=== PATIENT | male | born 1945 | race Caucasian/White ===

== ENCOUNTER 2020-05-29 09:31 | Outpatient (REF) | payer SELFPAY | END 2020-05-29 09:32 | disposition home or self-care (01) | LOC: HO.HAP 09:31 | PROVIDERS: Visit Provider Internal Medicine | DX: Z13.89 Encounter for screening for other disorder (principal) | CPT/HCPCS: 92700 ==

== ENCOUNTER 2020-07-19 08:19 | Outpatient (REF) | payer MEDICARE, SELFPAY ==
--- NOTE | 2020-07-19 16:53 | MHC.AU.P13 ---
Adult Audiological Evaluation Date of Visit: 07/19/20 Reason for Appointment: Audiological evaluation to monitor the status of Mr. Donohue's hearing loss. He has a known asymmetrical sensorineural hearing loss, with the left ear hearing worse than the right. Previous Hearing Test Results: [facility] [place], 06/14/2019- Mild sloping to moderate sensorineural hearing loss in the right ear, mild sloping to moderately severe sensorineural hearing loss in the left ear. Ear History: History of occupational noise exposure?: Yes: [employer] Medical History: Medical History: Cancer Medical History: History of throat cancer treated with chemotherapy and radiation. Hearing Instrument History- Right Ear: Nailhead Operator: [employer] Model: RegeneRx M50-312 Serial Number: [id number] Battery Size: 312 Repair Warranty: 08/25/2021 Loss and Damage Warranty: 08/25/2021 Dispensed By: [facility] Date of Fittin06/19/2018 Hearing Instrument History- Left Ear: Nailhead Operator: [employer] Model: [id number] M50-312 Serial Number: [id number] Battery Size: 312 Warranty: 08/25/2021 Loss and Damage Warranty: 08/25/2021 Dispensed By: [facility] Date of Fittin06/19/2018 Otoscopy: Right Ear: Non-occluding cerumen Left Ear: Non-occluding cerumen Tympanometry: Tympanometry performed due to: To assess integrity of the middle ear system Right Ear: Normal Middle Ear System (Type A) Left Ear: Normal Middle Ear System (Type A) Hearing Evaluation: Transducer(s) Used: Insert Earphones, Bone Conduction Method: Conventional Audiometry Stimuli Used: Pure Tones Right Ear: Description of Hearing: Normal hearing from 250-1000 Hz, sloping to a mild to moderate sensorineural hearing loss from 8342-4511 Hz. Left Ear: Description of Hearing: Mild sloping to moderately severe sensorineural hearing loss from 250-8000 Hz. Thresholds are 10-25 dBHL worse in the left ear than the right ear from 250-4000 Hz. Speech Recognition Threshold (SRT): Method Used: Monitored Live Voice Stimuli Used: Spondee Words Right Ear: 25 dBHL Left Ear: 35 dBHL Word Discrimination: Method: Recorded Lists Word Lists Used: NU-6 Right Ear: 96% at 65 dBHL Left Ear: 92% at 80 dBHL Comparison: Compared to the most recent evaluation: Hearing is stable. Recommendations: Audiological re-evaluation in one year. Hearing aid maintenance performed today. See Hearing Aid Follow-Up note for more information. Hearing aid maintenance recommended in 6 months. Diagnosis: Primary Diagnosis: H90.3 Bilateral Sensorineural Hearing Loss Services Performed: Comprehensive Audiological Evaluation (CPT 33399) Tympanometry (CPT 12971) Signature: Provider: Juana Bridges, CCC-A
== END 2020-07-19 08:20 | disposition home or self-care (01) ==
LOC: HO.SH 08:19
PROVIDERS: Visit Provider Internal Medicine
DX: H90.3 Sensorineural hearing loss, bilateral (principal)
CPT/HCPCS: 92557; 92567

== ENCOUNTER 2020-07-19 09:20 | Outpatient (REF) | payer SELFPAY | END 2020-07-19 09:21 | disposition home or self-care (01) | LOC: HO.HAP 09:20 | PROVIDERS: Visit Provider Internal Medicine | DX: Z46.1 Encounter for fitting and adjustment of hearing aid (principal) | CPT/HCPCS: V5267 ==

== ENCOUNTER 2020-12-26 10:43 | Outpatient (REF) | payer MEDICARE, SELFPAY ==
[2020-12-26 10:47] LABS: MANUAL DIFF FLAG NO
[2020-12-26 10:54] LABS: Basophils Percent Auto 0.5 % (0-2); Eosinophils Absolute Auto 0.3 X10*3/uL (0.0-0.4); Eosinophils Percent Auto 4.6 % (0-4); Hematocrit 42.8 % (42-52); Hemoglobin 14.4 g/dl (14.0-18.0); Imm Gran Abs Auto 0.02 X10*3/uL (0.00-0.03); Imm Gran Pct Auto 0.3 % (0.0-0.4); Lymphocytes Absolute Auto 1.3 X10*3/uL (1.2-4.9); Lymphocytes Percent Auto 20.7 % (20-40); Mean Corpuscular HGB Conc 33.6 g/dl (31.0-36.0); Mean Corpuscular Hemoglobin 32.6 pg (27.0-33.0); Mean Corpuscular Volume 96.8 fL (80-98); Mean Platelet Volume 8.6 fL (9.4-12.4); Monocytes Absolute Auto 0.6 X10*3/uL (0.1-1.2); Monocytes Percent Auto 9.3 % (2-11); Neutrophils Absolute Auto 4.1 X10*3/uL (2.0-8.3); Neutrophils Percent Auto 64.6 % (45-73); Platelet Count 246 X10*3/uL (160-400); Red Blood Count 4.42 X10*6/uL (4.60-5.80); Red Cell Distribution Width 12.9 % (11.0-16.0); White Blood Count 6.4 X10*3/uL (4.8-10.8)
[2020-12-26 11:02] LABS: Estimated Average Glucose 103 mg/dL; Hemoglobin A1c % 5.2 %
[2020-12-26 11:10] LABS: Glucose Urine UA NEG (NEG); Leukocyte Esterase Urine NEG (NEG); Nitrite Urine NEG (NEG); Urine Blood NEG (NEG); Urine Ketones NEG (NEG); Urine Protein NEG (NEG-TRACE)
[2020-12-26 11:12] LABS: Appearance Urine CLEAR; Color Urine YELLOW
[2020-12-26 11:39] LABS: Creatinine Urine 58.92 mg/dL; Microalbumin Urine < 5.0 mg/L
[2020-12-26 11:58] LABS: Alanine Aminotransferase 10 U/L (0-40); Albumin Level 4.2 g/dL (3.5-5.0); Alkaline Phosphatase 67 U/L (39-117); Anion Gap 13 (12-20); Aspartate Amino Transferase 17 U/L (5-37); Bilirubin Total 1.3 mg/dL (0.0-1.0); Blood Urea Nitrogen 10 mg/dL (9-16); Calcium 9.4 mg/dL (8.4-10.2); Carbon Dioxide 27 mmol/L (22-29); Chloride 104 mmol/L (96-108); Cholesterol 163 mg/dL; Estimated Glomerular Filt Rate > 60; Glucose Fasting 106 mg/dL (60-99); HDL Cholesterol 57 mg/dL; LDL Cholesterol Calculated 92 mg/dl; Potassium 4.9 mmol/L (3.3-5.1); Sodium 139 mmol/L (135-145); Total Protein 6.8 g/dL (6.5-8.0); Triglycerides 70 mg/dL
[2020-12-26 12:00] LABS: PSA,Total (Free>4and<10) 1.66 ng/mL (0.00-4.00)
== END 2020-12-26 10:44 | disposition home or self-care (01) ==
LOC: HO.LNP 10:43
PROVIDERS: Visit Provider Internal Medicine
DX: Z12.5 Encounter for screening for malignant neoplasm of prostate (principal); R73.09 Other abnormal glucose; E78.6 Lipoprotein deficiency
CPT/HCPCS: 80053; 80061; 81003; 82043; 83036; 84153; 85025

== ENCOUNTER 2020-12-29 11:00 | Outpatient (REF) | payer SELFPAY | END 2020-12-29 11:01 | disposition home or self-care (01) | LOC: HO.HAP 11:00 | PROVIDERS: Visit Provider Internal Medicine | DX: Z13.89 Encounter for screening for other disorder (principal) ==

== ENCOUNTER → 2021-01-26 13:53 | Outpatient (BNVA) | payer MEDICARE, SELFPAY | PROVIDERS: PCP Internal Medicine; Visit Provider Surgery | DX: K40.91 Unilateral inguinal hernia, without obstruction or gangrene, recurrent (principal) | CPT/HCPCS: 99202 ==

== ENCOUNTER 2021-02-19 07:36 | Day surgery (SDC) | payer MEDICARE, SELFPAY ==
[2021-02-12 15:15] VITALS: BMI 27.7
--- NOTE | 2021-02-16 08:31 | HO.ANESPROP2 ---
Documented by User: Kim Cabezas NP 02/16/21 08:32 HPI - Anesthesia Eval Consult details Narrative: 75yo M for Right Hernia Repair Inguinal PMFSH Active Problems Active Problems: All Active Problems (Updated 02/12/21 @ 15:14 by Brynn Perez RN) Recurrent right inguinal hernia (Acute) Past Medical History Medical History (Updated 02/12/21 @ 15:14 by Brynn Perez RN) Asthma COVID-19 vaccine series completed Esophageal cancer Sleep apnea Family History Family History (Updated 01/26/21 @ 14:09 by LINDSAY Willis) Father History of colon cancer Mother History of ovarian cancer Brother History of brain cancer Surgical History Surgical History (Updated 02/12/21 @ 15:14 by Brynn Perez RN) History of biopsy (2015) History of colonoscopy History of right inguinal hernia repair (05/01/17) Social History Social History (Updated 01/26/21 @ 14:09 by LINDSAY Willis) Alcohol intake: current Patient Tobacco Use Status: Never used Tobacco Use of substances other than those prescribed or required for medical reasons: No Have you been hit, kicked, punched, or otherwise hurt by someone within the past year? If so, by whom?: No Are you DNR?: No Advance Directives Information Provided: No (advised to bring copy DOS) Advance Directives on File: No Recently lost weight without trying: No Eating poorly because of decreased appetite: No Nutrition Risks: No Nutritional Risk Poor oral hygiene: No Meds Allergies Allergy/AdvReac Type Severity Reaction Status Date / Time No Known Allergies Allergy Verified 02/19/21 07:51 Home Medications Medication Instructions Recorded Confirmed Last Taken Type albuterol sulfate 90 mcg/actuation 2 puff INHALATION Q4-6H PRN 02/12/21 02/12/21 Unknown History aerosol inhaler (ProAir HFA) multivitamin 1 tab PO DAILY 02/12/21 02/12/21 Unknown History Exam Exam Date and Time: February 16, 2021 0831 Height,Weight and Vital Signs: Height 5 ft 7 in Weight 80.286 kg Pertinent Lab Results Pertinent Lab Results: Laboratory Tests 12/26/20 12/26/20 07:40 07:40 WBC 6.4 Hgb 14.4 Hct 42.8 Plt Count 246 Sodium 139 Potassium 4.9 Chloride 104 Carbon Dioxide 27 BUN 10 Creatinine 0.85 Assessment and Plan Assessment Anesthesia Assessment: Chart Reviewed Documented by User: Smitha Gilliam MD 02/19/21 09:10 [facility] Past Medical History Medical History (Updated 02/12/21 @ 15:14 by Brynn Perez, TITO) Asthma COVID-19 vaccine series completed Esophageal cancer Sleep apnea Family History Family History (Updated 01/26/21 @ 14:09 by LINDSAY Willis) Father History of colon cancer Mother History of ovarian cancer Brother History of brain cancer Family history of problems with anesthesia: No Surgical History Surgical History (Updated 02/12/21 @ 15:14 by Brynn Perez RN) History of biopsy (2015) History of colonoscopy History of right inguinal hernia repair (05/01/17) History of Problems with Anesthesia: No Social History Social History (Updated 01/26/21 @ 14:09 by LINDSAY Willis) Alcohol intake: current Patient Tobacco Use Status: Never used Tobacco Use of substances other than those prescribed or required for medical reasons: No Have you been hit, kicked, punched, or otherwise hurt by someone within the past year? If so, by whom?: No Are you DNR?: No Advance Directives Information Provided: No (advised to bring copy DOS) Advance Directives on File: No Recently lost weight without trying: No Eating poorly because of decreased appetite: No Nutrition Risks: No Nutritional Risk Poor oral hygiene: No Meds Allergies Allergy/AdvReac Type Severity Reaction Status Date / Time No Known Allergies Allergy Verified 02/19/21 07:51 Home Medications Medication Instructions Recorded Confirmed Last Taken Type albuterol sulfate 90 mcg/actuation 2 puff INHALATION Q4-6H PRN 02/12/21 02/12/21 Unknown History aerosol inhaler (ProAir HFA) multivitamin 1 tab PO DAILY 02/12/21 02/12/21 Unknown History Exam Airway Mallampati Class: II (One tooth lateral work done) TM Dist: >3cm Neck ROM: Full Heart: rrr Lungs: cta Assessment and Plan Final Anesthetic Review Family History of Problems with Anesthesia: No History of Problems with Anesthesia: No NPO: Yes ASA Class: III Final Preanesthetic Review: No Changes in Pt Med Stat, Meds/Allgs Chart Reviewed and Consent Obtained/Reviewed Patient Risk: Intermediate Procedure Risk: Intermediate Anesthetic Plan Anesthetic Plan: MAC: Disposition: Standard PACU
[2021-02-19 07:55] VITALS: BP 142/81; PULSE 74; RESP 16; TEMP 36.6; O2SAT 98
--- NOTE | 2021-02-19 09:07 | MHC.SHP ---
Pre-Procedural Eval Section A Date of Service: 02/19/21 The patient is an INPATIENT: No Changes since office visit: Yes Patient answered all questions; No Cold of Flu in the past 2 weeks, No New Medical Problems and No Changes in Medication The History & Physical has been completed within 30 days and I have reviewed it.: Yes Section B Chief Complaint: Recurrent Inguinal hernia Allergies: Allergies Allergy/AdvReac Type Severity Reaction Status Date / Time No Known Allergies Allergy Verified 02/19/21 07:51 Plan Diagnosis/Plan: Unchanged I have reviewed the history and physical and performed a pertinent physical examination on my patient. No changes have occurred unless specified.
[2021-02-19] MEDS: Lactated Ringers 1,000 ML 100 ML IVCONT (09:30)
--- NOTE | 2021-02-19 10:39 | P.OP_ITS ---
Operative Note Operative Note Date of Service: 02/19/21 Narrative: Preoperative diagnosis: Recurrent right inguinal hernia Postoperative diagnosis: Same Procedure: Repair of recurrent right inguinal hernia with mesh Surgeon: Derek De Los Santos MD Operational Meteorologist: Deidre Vee PA-C Anesthesia: Local plus MAC Indications for procedure: 75-year-old male patient status post repair of a right inguinal hernia 2017 with a large extended PHS mesh now presenting with a new lump located in the right groin which increases in size with lifting and straining. On examination the patient has recurrent right inguinal hernia located in the region of the internal ring. Operative findings: Indirect recurrent right inguinal hernia. Hernia sac was found to contain appendix. Specimen: None Estimated blood loss: 5 mL Complications: None Procedure details: Patient was brought to the OR and placed in a supine position. After administering intravenous sedation the patient's right groin was prepped with ChloraPrep and draped in a sterile fashion. Local anesthesia consisting of 0.25% Sensorcaine with epinephrine was then infiltrated over the right inguinal ligament. Incision was then made with scalpel carried out through subcutaneous tissue. Significant scar tissue was noted from the previous procedure. This continued down to the external oblique aponeurosis. Additional local was infiltrated below the aponeurosis. This was then incised with a scalpel. The fascia was gently dissected off the mesh using Metzenbaum scissors. Dissection was continued from lateral to medial. The internal ring was identified and a large recurrent hernia identified a emanating from the internal ring. Findings were consistent with a indirect hernia. The hernia sac was dissected free from the surrounding spermatic cord. This was dissected down towards the internal ring. Contents were then reduced into the abdominal cavity. A medium plug was obtained and placed into the internal ring. Internal ring was then closed using interrupted 1 Tycron sutures. The ring was tightened to the allowed just the tip of the index finger to pass. Wounds were then irrigated and suctioned dry. Additional local was infiltrated at this time. External oblique aponeurosis was then closed using a running 2-0 Polysorb suture. Abraham's fascia and dermis was closed using interrupted 3-0 Polysorb sutures. Skin was closed using a running subcuticular 4-0 Polysorb suture. Steri-Strips 2 x 2 gauze and Tegaderm were then applied. Patient tolerated the procedure well. Sponge, instrument, needle counts reported as correct. The patient was transferred to PACU in stable condition.
[2021-02-19 10:40] VITALS: BP 125/61; PULSE 60; RESP 16; TEMP 36.7; O2SAT 98
[2021-02-19 10:55] VITALS: BP 154/76; PULSE 69; RESP 18; O2SAT 100
[2021-02-19 11:16] VITALS: BP 140/95; PULSE 58; RESP 18; TEMP 36.7; O2SAT 100
== END 2021-02-19 11:50 | disposition home or self-care (01) ==
PROVIDERS: PCP Internal Medicine; Visit Provider Surgery
PROC: (CPT 49520; principal; 2021-02-19 09:10)
DX: K40.91 Unilateral inguinal hernia, without obstruction or gangrene, recurrent (principal); G47.33 Obstructive sleep apnea (adult) (pediatric); Z79.899 Other long term (current) drug therapy; Z85.01 Personal history of malignant neoplasm of esophagus
CPT/HCPCS: 49520; C1781; J0690; J2250; J3010

== ENCOUNTER → 2021-02-27 13:59 | Outpatient (BNVA) | payer MEDICARE, SELFPAY | PROVIDERS: PCP Internal Medicine; Referring Provider Internal Medicine; Visit Provider Surgery | DX: Z48.815 Encounter for surgical aftercare following surgery on the digestive system (principal); Z87.19 Personal history of other diseases of the digestive system | CPT/HCPCS: 99212 ==

== ENCOUNTER → 2021-03-09 10:18 | Outpatient (BNVA) | payer MEDICARE, SELFPAY | PROVIDERS: PCP Internal Medicine; Referring Provider Internal Medicine; Visit Provider Surgery | DX: Z48.815 Encounter for surgical aftercare following surgery on the digestive system (principal); Z87.19 Personal history of other diseases of the digestive system | CPT/HCPCS: 99212 ==

== ENCOUNTER → 2021-03-29 15:29 | Outpatient (BNVA) | payer MEDICARE, SELFPAY | PROVIDERS: PCP Internal Medicine; Referring Provider Internal Medicine; Visit Provider Surgery | DX: Z48.815 Encounter for surgical aftercare following surgery on the digestive system (principal); Z87.19 Personal history of other diseases of the digestive system | CPT/HCPCS: 99212 ==

== ENCOUNTER 2021-07-13 07:51 | Outpatient (REF) | payer MEDICARE, SELFPAY ==
--- NOTE | 2021-07-13 10:53 | MHC.AU.AHA ---
Adult Audiological Evaluation Date of Visit: 07/13/21 Pelt Salter Used: Not Applicable Reason for Appointment: Audiologic re-evaluation to determine possible change in hearing ability. Previous Hearing Test Results: 07/19/2020 [facility] Right ear - Normal hearing thresholds 250-1000 Hz, sloping to a moderate high frequency sensorineural hearing loss with 96% speech understanding at 65 dB HL Left ear - Mild sloping to moderately-severe sensorineural hearing loss with 92% speech discrimination at 80 dB HL Ear History: History of Ear Wax Buildup: Both Ears History of occupational noise exposure?: Yes: [employer] Medical History: Medical History: History of throat cancer treated with chemotherapy and radiation. Medication List: Albuterol as needed Hearing Instrument History- Right Ear: Manual Qa Tester: [employer] Model: [id number] M50-312 Serial Number: [id number] Battery Size: 312 Repair Warranty: 08/25/2021 Loss and Damage Warranty: 08/25/2021 Dispensed By: [facility] Date of Fittin06/19/2018 Hearing Instrument History- Left Ear: Manual Qa Tester: [employer] Model: AUDEO M50-312 Serial Number: [id number] Battery Size: 312 Warranty: 08/25/2021 Loss and Damage Warranty: 08/25/2021 Dispensed By: [facility] Date of Fittin06/19/2018 Otoscopy: Right Ear: Unremarkable Left Ear: Unremarkable Tympanometry: Not performed at today's visit as all previous testing has indicated normal middle ear function bilaterally Hearing Evaluation: Transducer(s) Used: Insert Earphones Bone Conduction Method: Conventional Audiometry Stimuli Used: Pure Tones Right Ear: Description of Hearing: Normal hearing thresholds 250-1000 Hz, sloping to a moderate high frequency sensorineural hearing loss at 1413-3463 Hz Left Ear: Description of Hearing: Mild sloping to moderately-severe sensorineural hearing loss. Speech Recognition Threshold (SRT): Method Used: Monitored Live Voice Stimuli Used: Spondee Words Right Ear: 30 dB HL Left Ear: 35 dB HL Word Discrimination: Method: Recorded Lists Word Lists Used: NU-6 Right Ear: 92% at 70 dB HL Left Ear: 92% at 75 dB HL Comparison: Compared to most recent evaluation: There has been a very slight 5 dB decrease in some frequencies with stable speech understanding ability for both ears. Recommendations: Audiological re-evaluation in one year. Will send a reminder card. Hearing aid maintenance performed today. Hearing aid(s) reprogrammed with updated test results. Hearing aids are going out of warranty 08/25/2021. Scheduled an appointment for 08/20/2021 to send both hearing aids in for repair prior to warranty expiration AND WILL PROVIDE LOANER AIDS Diagnosis: Primary Diagnosis: H90.3 Bilateral Sensorineural Hearing Loss Services Performed: Comprehensive Audiological Evaluation (CPT 14149) Signature: Provider: Juana Mendoza, CCC-A
== END 2021-07-13 07:52 | disposition home or self-care (01) ==
LOC: HO.SH 07:51
PROVIDERS: Visit Provider Internal Medicine
DX: Z01.118 Encounter for examination of ears and hearing with other abnormal findings (principal); H90.3 Sensorineural hearing loss, bilateral
CPT/HCPCS: 92557

== ENCOUNTER 2021-08-20 08:33 | Outpatient (REF) | payer SELFPAY | END 2021-08-20 08:34 | disposition home or self-care (01) | LOC: HO.HAP 08:33 | PROVIDERS: Visit Provider Internal Medicine | DX: Z13.89 Encounter for screening for other disorder (principal) ==

== ENCOUNTER 2021-08-31 12:01 | Outpatient (REF) | payer SELFPAY | END 2021-08-31 12:02 | disposition home or self-care (01) | LOC: HO.HAP 12:01 | PROVIDERS: Visit Provider Internal Medicine | DX: Z13.89 Encounter for screening for other disorder (principal) ==

== ENCOUNTER 2021-12-25 10:37 | Outpatient (REF) | payer MEDICARE, SELFPAY ==
[2021-12-25 10:40] LABS: MANUAL DIFF FLAG NO
[2021-12-25 11:29] LABS: Appearance Urine CLEAR; Color Urine YELLOW; Glucose Urine UA NEG (NEG); Leukocyte Esterase Urine NEG (NEG); Nitrite Urine NEG (NEG); Urine Blood NEG (NEG); Urine Ketones NEG (NEG); Urine Protein NEG (NEG-TRACE)
[2021-12-25 11:51] LABS: Basophils Percent Auto 0.7 % (0-2); Eosinophils Absolute Auto 0.4 X10*3/uL (0.0-0.4); Eosinophils Percent Auto 7.4 % (0-4); Hematocrit 41.8 % (42.0-52.0); Imm Gran Abs Auto 0.02 X10*3/uL (0.00-0.03); Imm Gran Pct Auto 0.3 % (0.0-0.4); Lymphocytes Absolute Auto 1.2 X10*3/uL (1.2-4.9); Lymphocytes Percent Auto 19.6 % (20-40); Mean Corpuscular HGB Conc 33.5 g/dl (31.0-36.0); Mean Corpuscular Hemoglobin 32.2 pg (27.0-33.0); Mean Corpuscular Volume 96.1 fL (80.0-98.0); Mean Platelet Volume 8.6 fL (9.4-12.4); Monocytes Absolute Auto 0.7 X10*3/uL (0.1-1.2); Monocytes Percent Auto 11.1 % (2-11); Neutrophils Absolute Auto 3.6 x10*3/uL (2.0-8.3); Neutrophils Percent Auto 60.9 % (45-73); Platelet Count 257 X10*3/uL (160-400); Red Blood Count 4.35 X10*6/uL (4.60-5.80); Red Cell Distribution Width 12.6 % (11.0-16.0)
[2021-12-25 11:56] LABS: Estimated Average Glucose 103 mg/dL; Hemoglobin A1c % 5.2 %
[2021-12-25 12:28] LABS: PSA,Total (Free>4and<10) 1.82 ng/mL (0.00-4.00)
[2021-12-25 12:37] LABS: Alanine Aminotransferase 11 U/L (0-40); Albumin Level 4.3 g/dL (3.5-5.0); Alkaline Phosphatase 65 U/L (39-117); Anion Gap 9 (12-20); Aspartate Amino Transferase 17 U/L (5-37); Bilirubin Total 0.9 mg/dL (0.0-1.0); Blood Urea Nitrogen 12 mg/dL (9-16); Calcium 9.1 mg/dL (8.4-10.2); Carbon Dioxide 30 mmol/L (22-29); Chloride 103 mmol/L (96-108); Cholesterol 157 mg/dL; Estimated Glomerular Filt Rate > 60; Glucose Fasting 112 mg/dL (60-99); HDL Cholesterol 64 mg/dL; LDL Cholesterol Calculated 84 mg/dl; Potassium 4.3 mmol/L (3.3-5.1); Sodium 138 mmol/L (135-145); Triglycerides 45 mg/dL
[2021-12-25 12:45] LABS: RBC Urine 0 /HPF (0); WBC Urine 0 /HPF (0-4)
[2021-12-25 14:11] LABS: Microalbumin Urine < 5.0 mg/L
== END 2021-12-25 10:38 | disposition home or self-care (01) ==
LOC: HO.LNP 10:37
PROVIDERS: PCP Internal Medicine; Visit Provider Internal Medicine
DX: Z12.5 Encounter for screening for malignant neoplasm of prostate (principal); E78.6 Lipoprotein deficiency; R73.03 Prediabetes
CPT/HCPCS: 80053; 80061; 81001; 82043; 83036; 84153; 85025

== ENCOUNTER 2022-01-03 11:46 | Outpatient (REF) | payer MEDICARE, SELFPAY ==
[2022-01-03 12:04] LABS: Triglycerides 69 mg/dL
[2022-01-03 12:29] LABS: TSH reflex Free T4 1.97 uIU/mL (0.32-4.0)
== END 2022-01-03 11:47 | disposition home or self-care (01) ==
LOC: HO.LNP 11:46
PROVIDERS: Visit Provider Internal Medicine
DX: E03.9 Hypothyroidism, unspecified (principal); I89.0 Lymphedema, not elsewhere classified
CPT/HCPCS: 84443; 84478

== ENCOUNTER 2022-01-16 14:45 | Outpatient (REF) | payer MEDICARE, SELFPAY | END 2022-01-16 14:46 | disposition home or self-care (01) | LOC: HO.HAP 14:45 | PROVIDERS: Visit Provider Internal Medicine | DX: Z13.89 Encounter for screening for other disorder (principal) ==

== ENCOUNTER 2022-01-29 13:46 | Outpatient (REF) | payer SELFPAY | END 2022-01-29 13:47 | disposition home or self-care (01) | LOC: HO.HAP 13:46 | PROVIDERS: Visit Provider Internal Medicine | DX: Z46.1 Encounter for fitting and adjustment of hearing aid (principal) | CPT/HCPCS: V5014 ==

== ENCOUNTER 2022-03-11 09:54 | Outpatient (REF) | payer SELFPAY | END 2022-03-11 09:55 | disposition home or self-care (01) | LOC: HO.HAP 09:54 | PROVIDERS: Visit Provider Internal Medicine | DX: Z46.1 Encounter for fitting and adjustment of hearing aid (principal); H90.3 Sensorineural hearing loss, bilateral | CPT/HCPCS: 99499 ==

== ENCOUNTER 2022-06-25 08:09 | Outpatient (REF) | payer SELFPAY | END 2022-06-25 08:10 | disposition home or self-care (01) | LOC: HO.HAP 08:09 | PROVIDERS: Visit Provider Internal Medicine | DX: Z46.1 Encounter for fitting and adjustment of hearing aid (principal); H90.3 Sensorineural hearing loss, bilateral | CPT/HCPCS: V5299 ==

== ENCOUNTER 2022-07-16 15:48 | Outpatient (REF) | payer MEDICARE, SELFPAY ==
[2022-07-16 17:19] LABS: TSH reflex Free T4 1.62 uIU/mL (0.32-4.0)
== END 2022-07-16 15:49 | disposition home or self-care (01) ==
LOC: HO.LNP 15:48
PROVIDERS: Visit Provider Internal Medicine
DX: E03.9 Hypothyroidism, unspecified (principal)
CPT/HCPCS: 84443

== ENCOUNTER 2022-10-11 08:44 | Outpatient (REF) | payer MEDICARE, SELFPAY | END 2022-10-11 08:45 | disposition home or self-care (01) | LOC: HO.SH 08:44 | PROVIDERS: Visit Provider Internal Medicine | DX: Z01.118 Encounter for examination of ears and hearing with other abnormal findings (principal); H90.3 Sensorineural hearing loss, bilateral | CPT/HCPCS: 92557 ==

== ENCOUNTER 2022-10-11 09:23 | Outpatient (REF) | payer SELFPAY | END 2022-10-11 09:24 | disposition home or self-care (01) | LOC: HO.HAP 09:23 | PROVIDERS: Visit Provider Internal Medicine | DX: Z46.1 Encounter for fitting and adjustment of hearing aid (principal) | CPT/HCPCS: V5299 ==

== ENCOUNTER 2022-12-31 10:28 | Outpatient (REF) | payer MEDICARE, SELFPAY ==
[2022-12-31 10:52] LABS: Basophils Percent Auto 0.5 % (0-2); Eosinophils Absolute Auto 0.4 X10*3/uL (0.0-0.4); Eosinophils Percent Auto 5.4 % (0-4); Hematocrit 43.5 % (42.0-52.0); Hemoglobin 14.5 g/dl (14.0-18.0); Imm Gran Abs Auto 0.02 X10*3/uL (0.00-0.03); Imm Gran Pct Auto 0.3 % (0.0-0.4); Lymphocytes Absolute Auto 1.6 X10*3/uL (1.2-4.9); Lymphocytes Percent Auto 19.6 % (20-40); MANUAL DIFF FLAG NO; Mean Corpuscular HGB Conc 33.3 g/dl (31.0-36.0); Mean Corpuscular Hemoglobin 32.4 pg (27.0-33.0); Mean Corpuscular Volume 97.3 fL (80.0-98.0); Mean Platelet Volume 8.5 fL (9.4-12.4); Monocytes Absolute Auto 0.7 X10*3/uL (0.1-1.2); Monocytes Percent Auto 8.8 % (2-11); Neutrophils Absolute Auto 5.2 x10*3/uL (2.0-8.3); Neutrophils Percent Auto 65.4 % (45-73); Platelet Count 281 X10*3/uL (160-400); Red Blood Count 4.47 X10*6/uL (4.60-5.80); Red Cell Distribution Width 12.8 % (11.0-16.0)
[2022-12-31 10:56] LABS: Appearance Urine Cloudy; Color Urine Yellow; Glucose Urine UA Negative (Negative); Leukocyte Esterase Urine Negative (Negative); Nitrite Urine Negative (Negative); PH >= 9.0 (5.0-9.0); Specific Gravity - Urine 1.015 (1.005-1.025); UMIC TRIGGER UACC YES; Urine Blood Negative (Negative); Urine Ketones Negative (Negative); Urine Protein 30 (1+) mg/dL (Neg-Trace)
[2022-12-31 10:59] LABS: Bacteria Urine None Seen (None Seen); Hyaline Casts Urine 0-2 /LPF (0-2); RBC Urine 0-2 /HPF (0-2); Squamous Epithelial Cell Urine 0-2 /HPF (0-2); WBC Urine 0-5 /HPF (0-5)
[2022-12-31 11:14] LABS: Estimated Average Glucose 103 mg/dL; Hemoglobin A1c % 5.2 %
[2022-12-31 11:22] LABS: Alanine Aminotransferase 9 U/L (0-40); Albumin Level 4.2 g/dL (3.5-5.0); Alkaline Phosphatase 66 U/L (39-117); Anion Gap 14 (12-20); Aspartate Amino Transferase 15 U/L (5-37); Bilirubin Total 1.2 mg/dL (0.0-1.0); Blood Urea Nitrogen 8 mg/dL (9-16); Calcium 10.3 mg/dL (8.4-10.2); Carbon Dioxide 27 mmol/L (22-29); Chloride 102 mmol/L (96-108); Estimated Glomerular Filt Rate > 60; Glucose Fasting 101 mg/dL (60-99); Potassium 4.3 mmol/L (3.3-5.1); Sodium 139 mmol/L (135-145); Total Protein 6.7 g/dL (6.5-8.0)
[2022-12-31 11:33] LABS: PSA,Total (Free>4and<10) 2.64 ng/mL (0.00-4.00); TSH reflex Free T4 2.38 uIU/mL (0.32-4.0)
[2022-12-31 12:07] LABS: Creatinine Urine 91.79 mg/dL; Microalbum/Creatinine Ratio Ur 8.7 ug/mg cr
== END 2022-12-31 10:29 | disposition home or self-care (01) ==
LOC: HO.LNP 10:28
PROVIDERS: PCP Internal Medicine; Visit Provider Internal Medicine
DX: Z12.5 Encounter for screening for malignant neoplasm of prostate (principal); E03.9 Hypothyroidism, unspecified; E78.6 Lipoprotein deficiency; R73.03 Prediabetes
CPT/HCPCS: 80053; 81001; 82043; 83036; 84153; 84443; 85025

== ENCOUNTER 2023-01-31 12:18 | Outpatient (REF) | payer MEDICARE, SELFPAY ==
[2023-01-31 14:39] LABS: Calcium 9.9 mg/dL (8.4-10.2)
== END 2023-01-31 12:19 | disposition home or self-care (01) ==
LOC: HO.LNP 12:18
PROVIDERS: Visit Provider Internal Medicine
DX: E83.52 Hypercalcemia (principal)
CPT/HCPCS: 82310

== ENCOUNTER 2023-04-23 08:32 | Outpatient (REF) | payer SELFPAY | END 2023-04-23 08:33 | disposition home or self-care (01) | LOC: HO.HAP 08:32 | PROVIDERS: Visit Provider Internal Medicine | DX: Z13.89 Encounter for screening for other disorder (principal) ==

== ENCOUNTER 2023-04-24 08:19 | Outpatient (REF) | payer SELFPAY | END 2023-04-24 08:20 | disposition home or self-care (01) | LOC: HO.HAP 08:19 | PROVIDERS: Visit Provider Internal Medicine | DX: Z13.89 Encounter for screening for other disorder (principal) ==

== ENCOUNTER 2023-07-28 12:14 | Inpatient (IN) | payer MEDICARE, SELFPAY ==
[2023-07-28] VITALS (7 sets, daily range): BP systolic 96–120; BP diastolic 54–72; PULSE 61–104; RESP 16–20; TEMP 36.5–37.4; O2SAT 94–100; BMI 25.0
--- NOTE | ~2023-07-28 | CT_ITS ---
EXAMINATION: CT HEAD WITHOUT CONTRAST CLINICAL INFORMATION: New confusion COMPARISON: None available. TECHNIQUE: Contiguous axial imaging was performed from the skull base to vertex without intravenous administration of contrast. This CT examination was performed using dose optimization techniques as appropriate, variously including the following: *Automated exposure control *Adjustment of mA and/or kV according to patient size (this includes techniques or standardized protocols for targeted exams where dose is matched to indication/reason for exam; i.e. extremities or head) *Use of iterative reconstruction technique DLP: 725 mGy-cm FINDINGS: There is no evidence of acute intracranial hemorrhage or territorial infarction. Chronic white matter small vessel ischemic changes. Cerebral atrophy with commensurate ventricular changes. No abnormal mass effect or midline shift is seen. Qureshi to white matter differentiation is well preserved. No extra-axial fluid collections are identified. The ventricles are normal in size. There is no abnormal attenuation within the brain parenchyma. The osseous structures and soft tissues are normal. The mastoid air cells and visualized portions of the paranasal sinuses are well aerated. CT/CT head/brain wo IV con IMPRESSION: 1. No acute intracranial pathology. 2. Chronic white matter small vessel ischemic changes.
--- NOTE | ~2023-07-28 | CT_ITS ---
EXAMINATION: CT ABDOMEN AND PELVIS WITH CONTRAST CLINICAL INFORMATION: Abdominal pain. COMPARISON: Abdomen ultrasound from 07/28/2023. TECHNIQUE: Multidetector volumetric images were obtained from the superior aspect of the liver through the pubic symphysis following administration 85 mL of Omnipaque 350 intravenous contrast. Sagittal and coronal reformatted images were obtained on the technologist's workstation. Oral contrast: No This CT examination was performed using dose optimization techniques as appropriate, variously including the following: *Automated exposure control *Adjustment of mA and/or kV according to patient size (this includes techniques or standardized protocols for targeted exams where dose is matched to indication/reason for exam; i.e. extremities or head) *Use of iterative reconstruction technique DLP: 513 mGy-cm FINDINGS: LUNG BASES: Bronchial [place] are diffusely thickened in the visualized bases. No consolidation or pleural effusion. Incidental findings include atherosclerotic calcification of the left anterior descending coronary artery and thoracic aorta. HEPATOBILIARY: Liver has normal size and contour. No evidence of hepatic mass or abscess. The left portal vein and its branches are occluded by thrombus. The appears to be a mixture of opacified and unopacified blood within the main portal vein. There is no overt thrombosis within the main portal vein. The right portal venous branches are patent. It is difficult to exclude any thrombus within the superior mesenteric vein although the heterogeneous attenuation is probably from mixture of opacified and unopacified blood. The gallbladder is physiologically distended and its wall is diffusely thickened/edematous. There is haziness of the pericholecystic fat. Common bile duct measures up to 5-6 mm diameter and there is mild thickening and contrast enhancement of the [place] of the common duct and cystic duct. This could reflect presence of cholangitis, if in the proper clinical context. PANCREAS: No edema, pancreatic ductal dilatation or mass. SPLEEN: Normal. ADRENAL GLANDS: Normal. KIDNEYS AND URETERS: The kidneys enhance symmetrically and have normal size and cortical thickness. No perinephric fluid collection, urolithiasis or hydroureteronephrosis. BLADDER: Urinary bladder is grossly normal. BOWEL AND PERITONEUM: Stomach is unremarkable. No dilated bowel loops. The appendix is normal. Multiple diverticula of the colon without evidence of diverticulitis. ABDOMINAL WALL: There appears to be postoperative scarring in the right inguinal region and likely prior placement of a plug at proximal right inguinal canal. VASCULATURE: Atherosclerotic calcification of the abdominal aorta and iliac arteries without aneurysm or dissection. LYMPH NODES: No pathologic sized lymph nodes in the abdomen or pelvis. No inguinal lymphadenopathy. PELVIC VISCERA: Prostate gland measures approximately 5 x 4.3 x 5 cm. MUSCULOSKELETAL: No acute or suspicious osseous abnormality. Mild multilevel discovertebral degenerative change of the visualized lower lumbar spine. [id number] osteoarthritis of the hips (right slightly worse than left). CT/CT abdomen pelvis w IV con IMPRESSION: * Gallbladder wall is diffusely thickened/edematous and there is haziness of the pericholecystic fat. These findings are suspicious for acute cholecystitis. Also, there is mild thickening and contrast enhancement of [place] of the common duct and cystic duct. These imaging findings are suspicious for cholangitis. 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 No hepatic abscess. * Colonic diverticulosis without diverticulitis. * Prostatomegaly.
--- NOTE | ~2023-07-28 | MR_ITS ---
EXAMINATION: MR CHOLANGIOPANCREATOGRAPHY CLINICAL INFORMATION: hepatitis, cholelithiasis, cholecystitis COMPARISON: 07/28/2019 CT scan TECHNIQUE: Multiple routine MRI sequences through the abdomen were obtained. Heavily T2-weighted images were performed utilizing a dedicated MRCP technique. Contrast was not utilized for the study. FINDINGS: Lung bases: Minimal dependent atelectatic change at the left base. Liver: The liver is normal in size, shape, and signal. No suspicious focal hepatic lesions seen on this noncontrast study. Biliary system: The common bile duct is normal in course and caliber measuring up to 0.5 cm with no evidence for intra-or extrahepatic biliary ductal dilatation. Mid duct is partially obscured by artifact possibly due to biliary ductal air but no discrete suspicious intraluminal filling defects are appreciated. Gallbladder: Gallbladder is mildly distended containing layering sludge and gallstones with gallbladder wall thickening and mild pericholecystic inflammatory changes concerning for cholecystitis. Pancreas: Pancreas is homogeneous in signal. No pancreatic ductal dilatation or obstruction. No peripancreatic inflammatory changes or fluid. Spleen: Unremarkable Adrenals: Unremarkable Kidneys: Kidneys are normal in size, shape, and signal. No suspicious renal mass lesion seen. No hydronephrosis or perinephric edema. Other: None MR/MR MRCP IMPRESSION: 1. Cholelithiasis with gallbladder wall thickening and pericholecystic inflammatory changes concerning for cholecystitis. 2. No evidence for biliary ductal dilatation. No discrete intraluminal filling defects within the common bile duct.
--- NOTE | ~2023-07-28 | US_ITS ---
EXAMINATION: US ABDOMEN LIMITED CLINICAL INFORMATION: Elevated total bilirubin level, liver function tests and alkaline phosphatase. Abdominal pain. COMPARISON: None available. TECHNIQUE: Real-time imaging of the right upper quadrant abdominal viscera. FINDINGS: PANCREAS: Normal. LIVER: Liver has normal size, contour and parenchymal echotexture. No sonographic evidence of liver mass or intrahepatic ductal dilatation. Color Doppler images show normal flow direction within the main portal vein (image 32/63). There is no evidence of flow within the left portal vein. This appears to represent venous thrombosis. This could be confirmed on portal venous phase i.v contrast enhanced CT imaging of the abdomen. GALLBLADDER: Gallbladder is physiologically distended and contains sludge. 0.8 cm gallstone is noted. Nonspecific thickening of the gallbladder wall is present. The gallbladder wall has a thickness of 0.5 - 0.6 cm. No pericholecystic fluid. The sleep lab technologist reports absence of tenderness over the gallbladder (i.e., no sonographic Dupont sign). COMMON BILE DUCT: Common bile duct is not well seen; the proximal segment of the duct is approximately 0.2 cm. RIGHT KIDNEY: Normal. No hydronephrosis. No renal calculi or focal parenchymal lesions. The kidney measures 12.1 cm in maximum dimension. FREE FLUID: None. US/US abdomen limited IMPRESSION: * There appears to be thrombosis of the left portal vein. The cause of this is uncertain. Recommend follow-up CT imaging of the abdomen (or abdomen/pelvis) in the portal venous phase of intravenous contrast. * Cholelithiasis, gallbladder sludge and diffusely thickened gallbladder wall. Although these imaging findings suggest possibility of acute cholecystitis, there is no report of a sonographic Dupont sign. Gallbladder wall thickening is nonspecific and can be observed in a variety of conditions, including hepatitis. * No abdominal free fluid.
--- NOTE | ~2023-07-28 | XR_ITS ---
EXAMINATION: XR CHEST CLINICAL INFORMATION: Altered mental status COMPARISON: None available. TECHNIQUE: 2 views of the chest were obtained. FINDINGS: Slight elevation of the left hemidiaphragm. Left basilar atelectasis. No pneumothorax. Trachea is midline. Cardiac mediastinal silhouette is not enlarged. Aorta demonstrates tortuosity. Degenerative changes of the thoracolumbar spine and right acromioclavicular joint. Soft tissues are unremarkable. XR/XR chest 2V IMPRESSION: 1. Slight elevation of the left hemidiaphragm. 2. Left basilar atelectasis.
--- NOTE | 2023-07-28 12:24 | ED.GENADULT ---
HPI - General Adult General Chief complaint: General Medical Stated complaint: DIFF AMB SINCE YESTERDAY PER EMS Time Seen by Provider: 07/28/23 12:24 Source: patient, EMS and RN notes reviewed Mode of arrival: EMS Limitations: altered mental status History of Present Illness HPI narrative: Patient is a 78-year-old male with history of asthma, esophageal cancer, sleep apnea presenting to the emergency department via ambulance for new confusion noted by . called 911 reporting that patient was having difficulty ambulating and has been confused over the past few days. Patient having difficulty expressing why he is here in the emergency department but does state that he was awake for over 24 hours, and then subsequently slept for an extended amount of time. He also admits to shoveling last week because he felt the snowblower did not effectively remove all the snow. Was skiing at [employer] last week. He complains of feeling thirsty and generalized fatigue. No clear last know well time. MD complaint: altered mental status Onset (ago): unknown Associated symptoms: weakness Treatments prior to arrival: none Related Data Home Medications Medication Instructions Recorded Confirmed albuterol sulfate 90 mcg/actuation 2 puff inhalation Q4-6H PRN 02/12/21 07/28/23 aerosol inhaler (ProAir HFA) Wheezing Allergies Allergy/AdvReac Type Severity Reaction Status Date / Time No Known Allergies Allergy Verified 02/19/21 07:51 Review of Systems Review of Systems: As per HPI. Yes all other systems are reviewed and are negative Constitutional: Constitutional: Reports as per HPI Neurologic: Reports confusion Psychiatric: Psychiatric: Reports confusion [facility] Past Medical History Medical History Elevated bilirubin Sleep apnea Asthma Esophageal cancer COVID-19 vaccine series completed Surgical History History of biopsy (2016) History of colonoscopy History of right inguinal hernia repair (05/01/17) Family History Family History Father History of colon cancer Mother History of ovarian cancer Brother History of brain cancer Social History Social History Household Members: Spouse Housing: House Do you presently have visiting nurse or other home services: No Alcohol intake: current Patient Tobacco Use Status: Never used Tobacco Second Hand Smoke Exposure: No service: No Physical Exam ED Vital Signs: Vital Signs - 24 hr 07/28/23 12:28 07/28/23 14:21 07/28/23 16:00 Temperature 99.4 F 98.1 F 98.2 F Pulse Rate 104 H 100 94 Respiratory Rate 16 20 17 Blood Pressure 96/72 105/70 100/67 Pulse Oximetry 98 100 95 Oxygen Delivery Method Room Air Room Air Room Air 07/28/23 18:00 07/28/23 19:21 Temperature 97.7 F Pulse Rate 98 102 H Respiratory Rate 19 19 Blood Pressure 120/54 L 108/72 Pulse Oximetry 98 98 Oxygen Delivery Method Room Air Room Air BMI result Body Mass Index 25.0 Vital signs have been reviewed and appear to be correct. Blood pressure low. Heart rate slightly tachycardic. Respiratory rate normal. Temperature normal. Oxygen saturation normal. Const General: cooperative, no acute distress, alert, awake, confusion and well groomed Orientation/consciousness: oriented to person, oriented to place and confusion Limitations: altered mental status HENMT Head: Yes normocephalic and Yes atraumatic Ears: external ears normal, TM's normal bilaterally and EAC's normal General nose exam: Normal external nose present Face and sinus: Yes face symmetric Mouth: oropharynx normal, moist mucous membranes, moist mucous membranes abnormal and tongue abnormal (dry) Throat: Yes uvula midline and No uvular edema Eyes Pupils: Equal, round and reactive pupils present Neck Neck: Yes no lymphadenopathy, Yes trachea midline, Yes supple and Yes other (erythema noted to sides of neck, patient reports this is from radiation tx) Lymphatic: no lymphadenopathy noted Chest Chest palpation & inspection: normal inspection of the chest and normal palpation of entire chest wall Resp Effort & Inspection: normal respiratory effort and able to speak in complete sentences Auscultation: clear to auscultation bilaterally Cardio Rate: regular rate Rhythm: regular rhythm Heart sounds: S1 normal heart sound present and S2 normal heart sound present GI Palpation (GI): Soft to palpation and Tenderness to palpation present (GI) suprapubicly Auscultation: normoactive bowel sounds General: Yes no CVA tenderness Back/Spine/Pelvis Back: no CVA tenderness Skin General skin exam: elasticity normal and turgor normal Full body images: 1. blanchable erythema, no open areas Neuro General: oriented to person, oriented to place, tone normal, moves all extremities, Normal light touch and pain sensation, no focal motor deficits, CN's II-XI intact bilaterally, deep tendon reflexes 2+ bilaterally and confusion Cranial nerves: Yes Equal, round and reactive pupils present Cognition (Neuro): normal cognition Motor exam (neuro): 5/5 motor strength present throughout, Pronator motor function not present and Normal motor muscle tone present throughout Sensory Exam: Normal double simultaneous stimulation for sensation Extrem General: Yes full ROM, Yes no pedal edema and Yes no calf tenderness Psych Mental Status: mental status grossly normal Affect: normal affect Thought process: Normal thought process present NIH Stroke Scale Internal: Initial- Upon Arrival Time: 12:49 Level of Consciousness: Alert Level of Consciousness Questions: Answers both questions correctly Level of Consciousness Commands: Performs both tasks correctly Best Gaze: Normal Visual: No visual loss Facial Palsy: Normal Motor Arm (Right): No drift Motor Arm (Left): No drift Motor Leg (Right): No drift Motor Leg (Left): No drift Limb Ataxia: Absent Sensory: Normal Best Language: No aphasia Dysarthia: Normal Extinction and Inattention: No abnormality Score: 0 Course Reevaluation(s) Reevaluation #1: Patient received in sign-out pending ultrasound of the right upper quadrant due to concerns of cholecystitis. Patient was tender during my exam. I discussed with general surgery, Dr. Blair we evaluated the patient and requested a CT scan of the abdomen pelvis. He feels the diagnosis more likely to be CBD obstruction but will follow the patient Time: 19:04 Reevaluation #2: Patient's CT scan shows cholangitis with acute cholecystitis. No obvious CBD obstruction. I discussed with Dr. Blair again who recommends admission to the hospitalist service. I ordered antibiotics and discussed with Dr. Carreno, the hospitalist Time: 20:50 Medications Administered Generic Name Dose Route Start Last Admin Trade Name Freq PRN Reason Stop Dose Admin Piperacillin Sod/Tazobactam 50 mls @ 100 mls/hr 07/29/23 08:45 07/31/23 09:15 Sod 3.375 gm/ Sodium Chloride IV Infused Q6H NGOZI Infusion Lactated Ringer's 1,000 mls @ 125 mls/hr 07/29/23 10:30 02/08/24 04:44 Lr IVCONT 125 mls/hr .Q8H NGOZI Administration Sodium Chloride 3 ml 07/29/23 00:00 07/31/23 08:45 0.9 % Sodium Chloride Flush 3 Ml Syringe IVFLUSH 3 ml QSHIFT NGOZI Administration Discontinued Medications Generic Name Dose Route Start Last Admin Trade Name Freq PRN Reason Stop Dose Admin Sodium Chloride 1,000 mls @ 999 mls/hr 07/28/23 14:00 07/28/23 15:45 Ns IV 07/28/23 15:00 Infused .Q1H1M NGOZI Infusion Sodium Chloride 1,000 mls @ 999 mls/hr 07/28/23 15:15 07/28/23 16:58 Ns IV 07/28/23 16:15 Infused .Q1H1M NGOZI Infusion Piperacillin Sod/Tazobactam 50 mls @ 100 mls/hr 07/28/23 20:25 07/28/23 22:07 Sod 3.375 gm/ Sodium Chloride IV 07/28/23 20:54 Infused ONCE ONE Infusion Iohexol 85 ml 07/28/23 18:53 07/28/23 18:53 Iohexol 350 Mg/Ml 100 Ml Infus..Btl IV 07/28/23 18:54 85 ml ONCE ONE Administration Medical Decision Making Medical Decision Making [facility] Narrative: 12:51 Patient is a 78-year-old male with history of asthma, esophageal cancer, sleep apnea presenting to the emergency department via ambulance for new confusion noted by . On exam patient is awake, A+Ox3, VS WNL, afebrile, normal neurological exam without focal deficits, physical exam findings as above. Given reported symptoms and physical exam findings, initial differential includes ICH/CVA, infection such as UTI or pneumonia, viral illness, Covid, flu, dehydration, electrolyte abnormality, tumor. Less likely uremia, alcohol intoxication or withdrawal, drug intoxication, encephalopathy. Plan: EKG, labs including cultures and lactic, CT head, UA, drug screen Labs notable for leukocytosis, thrombocytopenia, STARR, elevated AST/ALT as well as elevated T bili and alk phos, normal lipase, normal ammonia, negative troponin, normal CK. X-ray chest notable for left basilar atelectasis. No acute intracranial abnormalities on CT head. My interpretation is in agreement with the radiologist's interpretation. Given abnormal labs, concern for biliary obstruction, will obtain RUQ U/S. Additional IV fluids ordered. No evidence of infection on UA. 14:40 Atelectasis noted on CXR, patient does not report cough or shortness of breath, is not hypoxic, do not suspect pneumonia. Patient signed out to CASEY Tineo pending U/S results. JACKIE<sub>2</sub>DS<sub>2</sub>-VASc Score for Atrial Fibrillation Stroke Risk from [employer] on 07/28/2023 All calculations should be rechecked by clinician prior to use RESULT SUMMARY: 2 points Stroke risk was 2.2% per year in >90,000 patients (the [place] Atrial Fibrillation Cohort Study) and 2.9% risk of stroke/TIA/systemic embolism. One recommendation suggests a 0 score for men or 1 score for women (no clinical risk factors) is ?low? risk and may not require anticoagulation; a 1 score for men or 2 score for women is ?low-moderate? risk and should consider antiplatelet or anticoagulation; and a score >= for men or >= for women is ?moderate-high? risk and should otherwise be an anticoagulation candidate. INPUTS: Age ?> 2 = >=5 Sex ?> 0 = Male CHF history ?> 0 = No Hypertension history ?> 0 = No Stroke/TIA/thromboembolism history ?> 0 = No Vascular disease history (prior AK, peripheral artery disease, or aortic plaque) ?> 0 = No Diabetes history ?> 0 = No Differential Diagnosis Differential Diagnoses: The differential diagnosis associated with the presentation includes As per [facility]. Admission/Observation Consideration of admission/observation: Escalation of care including admission/observation considered Lab Data [facility] Lab Attestation statement: I reviewed the patient's lab results. As per [facility] 07/31/23 04:54 07/31/23 04:54 Labs: Lab Results 07/28/23 07/28/23 07/28/23 Range/Units 12:54 12:55 13:29 WBC 15.1 H (4.8-10.8) X10*3/uL RBC 4.64 (4.60-5.80) X10*6/uL Hgb 14.8 (14.0-18.0) g/dl Hct 42.0 (42.0-52.0) % MCV 90.5 (80.0-98.0) fL MCH 31.9 (27.0-33.0) pg MCHC 35.2 (31.0-36.0) g/dl RDW 13.7 (11.0-16.0) % Plt Count 67 L D (160-400) X10*3/uL MPV 10.5 (9.4-12.4) fL Immature Gran % (Auto) 1.0 H (0.0-0.4) % Neut % (Auto) 82.0 H (45-73) % Lymph % (Auto) 5.6 L (20-40) % [place] % (Auto) 10.8 (2-11) % Eos % (Auto) 0.3 (0-4) % Baso % (Auto) 0.3 (0-2) % Lymph # (Auto) 0.8 L (1.2-4.9) X10*3/uL [place] # (Auto) 1.6 H (0.1-1.2) X10*3/uL Eos # (Auto) 0.0 (0.0-0.4) X10*3/uL Baso # (Auto) 0.0 (0.0-0.2) X10*3/uL Abs Immat Gran (auto) 0.15 H (0.00-0.03) X10*3/uL Absolute Neuts (auto) 12.4 H (2.0-8.3) x10*3/uL Absolute Nucleated RBC 0.000 (0.0-0.012) X10*3/uL Nucleated RBC % (auto) 0.0 (0.0-0.2) /100WBC Smear Tech's Comments VERIFIED PT 13.1 (11.1-13.3) SEC INR 1.1 (0.9-1.1) Sodium 137 (135-145) mmol/L Potassium 4.6 (3.3-5.1) mmol/L Chloride 104 (96-108) mmol/L Carbon Dioxide 27 (22-29) mmol/L Anion Gap 11 L (12-20) BUN 87 H (9-16) mg/dL Creatinine 1.57 H (0.5-1.4) mg/dL Estim Creat Clear Calc 36.8 Estimated GFR 43 Random Glucose 102 (60-115) mg/dL Lactic Acid 1.3 (0.5-2.0) mmol/L Calcium 10.0 (8.4-10.2) mg/dL Magnesium 2.6 (1.6-2.6) mg/dL Total Bilirubin 4.0 H (0.0-1.0) mg/dL Direct Bilirubin 2.6 H (0.0-0.5) mg/dL AST 81 H (5-37) U/L ALT 108 H (0-40) U/L Alkaline Phosphatase 426 H (39-117) U/L Ammonia 28 (13-55) umol/L Total Creatine Kinase 9 L (38-174) U/L Troponin I High Sens 2.7 (<3.5-35.0) ng/L Total Protein 6.1 L (6.5-8.0) g/dL Albumin 3.0 L (3.5-5.0) g/dL Lipase 74 (8-78) U/L TSH 0.90 (0.32-4.0) uIU/mL Urine Color Urine Appearance Urine pH (5.0-9.0) Ur Specific [place] (1.005-1.025) Urine Protein (Neg-Trace) mg/dL Urine Glucose (UA) (Negative) mg/dL Urine Ketones (Negative) mg/dL Urine Blood (Negative) Urine Nitrite (Negative) Ur Leukocyte Esterase (Negative) Urine RBC (0-2) /HPF Urine WBC (0-5) /HPF Ur Squamous Epith Cells (0-2) /HPF Urine Bacteria (None Seen) Hyaline Casts (0-2) /LPF Urine Opiates Screen (Not Detect) Urine Fentanyl Screen (Not Detect) Ur Barbiturates Screen (Not Detect) Ur Phencyclidine Scrn (Not Detect) Ur Amphetamines Screen (Not Detect) U Benzodiazepines Scrn (Not Detect) Urine Cocaine Screen (Not Detect) U Marijuana (THC) Screen (Not Detect) Ethyl Alcohol < 10 mg/dL COVID-19 (JONG) Negative (Negative) COVID-19 Clin Com See Note Influenza Type A (MAGEN) Negative (Negative) Influenza Type B (MAGEN) Negative (Negative) Influenza A & B Note See Note 07/28/23 Range/Units 17:25 WBC (4.8-10.8) X10*3/uL RBC (4.60-5.80) X10*6/uL Hgb (14.0-18.0) g/dl Hct (42.0-52.0) % MCV (80.0-98.0) fL MCH (27.0-33.0) pg MCHC (31.0-36.0) g/dl RDW (11.0-16.0) % Plt Count (160-400) X10*3/uL MPV (9.4-12.4) fL Immature Gran % (Auto) (0.0-0.4) % Neut % (Auto) (45-73) % Lymph % (Auto) (20-40) % [place] % (Auto) (2-11) % Eos % (Auto) (0-4) % Baso % (Auto) (0-2) % Lymph # (Auto) (1.2-4.9) X10*3/uL [place] # (Auto) (0.1-1.2) X10*3/uL Eos # (Auto) (0.0-0.4) X10*3/uL Baso # (Auto) (0.0-0.2) X10*3/uL Abs Immat Gran (auto) (0.00-0.03) X10*3/uL Absolute Neuts (auto) (2.0-8.3) x10*3/uL Absolute Nucleated RBC (0.0-0.012) X10*3/uL Nucleated RBC % (auto) (0.0-0.2) /100WBC Smear Tech's Comments PT (11.1-13.3) SEC INR (0.9-1.1) Sodium (135-145) mmol/L Potassium (3.3-5.1) mmol/L Chloride (96-108) mmol/L Carbon Dioxide (22-29) mmol/L Anion Gap (12-20) BUN (9-16) mg/dL Creatinine (0.5-1.4) mg/dL Estim Creat Clear Calc Estimated GFR Random Glucose (60-115) mg/dL Lactic Acid (0.5-2.0) mmol/L Calcium (8.4-10.2) mg/dL Magnesium (1.6-2.6) mg/dL Total Bilirubin (0.0-1.0) mg/dL Direct Bilirubin (0.0-0.5) mg/dL AST (5-37) U/L ALT (0-40) U/L Alkaline Phosphatase (39-117) U/L Ammonia (13-55) umol/L Total Creatine Kinase (38-174) U/L Troponin I High Sens (<3.5-35.0) ng/L Total Protein (6.5-8.0) g/dL Albumin (3.5-5.0) g/dL Lipase (8-78) U/L TSH (0.32-4.0) uIU/mL Urine Color Dark Yellow Urine Appearance Clear Urine pH 6.0 (5.0-9.0) Ur Specific [place] 1.020 (1.005-1.025) Urine Protein Trace (Neg-Trace) mg/dL Urine Glucose (UA) Negative (Negative) mg/dL Urine Ketones Negative (Negative) mg/dL Urine Blood Negative (Negative) Urine Nitrite Negative (Negative) Ur Leukocyte Esterase Trace H (Negative) Urine RBC 0-2 (0-2) /HPF Urine WBC 0-5 (0-5) /HPF Ur Squamous Epith Cells 3-5 (0-2) /HPF Urine Bacteria None Seen (None Seen) Hyaline Casts 3-5 (0-2) /LPF Urine Opiates Screen Not Detected (Not Detect) Urine Fentanyl Screen Not Detected (Not Detect) Ur Barbiturates Screen Not Detected (Not Detect) Ur Phencyclidine Scrn Not Detected (Not Detect) Ur Amphetamines Screen Not Detected (Not Detect) U Benzodiazepines Scrn Not Detected (Not Detect) Urine Cocaine Screen Not Detected (Not Detect) U Marijuana (THC) Screen Not Detected (Not Detect) Ethyl Alcohol mg/dL COVID-19 (JONG) (Negative) COVID-19 Clin Com Influenza Type A (MAGEN) (Negative) Influenza Type B (MAGEN) (Negative) Influenza A & B Note Independent Interpretation I performed an independent interpretation of an: EKG (afib with RVR, rate 106 bpm, normal QTc) and Plain X-Ray Interpretation: left basilar atelectasis on CXR No acute intracranial abnormalities on CT head Radiology Impression Discussion of test interpretation with radiology: I have reviewed the radiologist's reading. Radiologist Impression: XR/XR chest 2V IMPRESSION: 1. Slight elevation of the left hemidiaphragm. 2. Left basilar atelectasis. CT/CT head/brain wo IV con IMPRESSION: 1. No acute intracranial pathology. 2. Chronic white matter small vessel ischemic changes External Record Review External record reviewed: Inpatient record, Office record and Outpatient record Discharge Plan Discharge Clinical Impression: Acute cholangitis, Acute cholecystitis Patient Disposition: Admitted As Inpatient Interventions: Admission Worksheet (ED) Last Done: 07/29/23 12:46 Discharge Date/Time: 07/29/23 13:25
--- NOTE | 2023-07-28 12:39 | ECG_ITS ---
Test Reason : TACHYCARDIA Blood Pressure : / mmHG Vent. Rate : 106 BPM Atrial Rate : 000 BPM P-R Int : 000 ms QRS Dur : 106 ms QT Int : 330 ms P-R-T Axes : 000 -46 057 degrees QTc Int : 438 ms Atrial fibrillation with rapid ventricular response Left anterior fascicular block Abnormal ECG No previous ECGs available Referred By: Katharine Hugo Electronically Signed By:MARIA EUEGNIA BROCK
--- NOTE | 2023-07-28 13:02 | PC.NURSE ---
nicole thayer in room aware hr 110s, 99.4 rectal temp as unable to obtain oral temp as thermometer continuing to spin
[2023-07-28 13:24] LABS: COVID-19 Test Negative (Negative); IDNOW Serial# 152EDE1D
[2023-07-28 13:41] LABS: IDNOW Serial# 08D9AD1C; Influenza A Negative (Negative); Influenza B2 Negative (Negative)
[2023-07-28 13:44] LABS: Basophils Percent Auto 0.3 % (0-2); Eosinophils Percent Auto 0.3 % (0-4); Hemoglobin 14.8 g/dl (14.0-18.0); Imm Gran Abs Auto 0.15 X10*3/uL (0.00-0.03); Lymphocytes Absolute Auto 0.8 X10*3/uL (1.2-4.9); Lymphocytes Percent Auto 5.6 % (20-40); MANUAL DIFF FLAG SCAN; Mean Corpuscular HGB Conc 35.2 g/dl (31.0-36.0); Mean Corpuscular Hemoglobin 31.9 pg (27.0-33.0); Mean Corpuscular Volume 90.5 fL (80.0-98.0); Mean Platelet Volume 10.5 fL (9.4-12.4); Monocytes Absolute Auto 1.6 X10*3/uL (0.1-1.2); Monocytes Percent Auto 10.8 % (2-11); Neutrophils Absolute Auto 12.4 x10*3/uL (2.0-8.3); Platelet Count 67 X10*3/uL (160-400); Red Blood Count 4.64 X10*6/uL (4.60-5.80); Red Cell Distribution Width 13.7 % (11.0-16.0); SCAN SMEAR FLAG 1; White Blood Count 15.1 X10*3/uL (4.8-10.8)
[2023-07-28 13:50] LABS: Ammonia 28 umol/L (13-55)
[2023-07-28 13:51] LABS: INTERNATIONAL NORM RATIO 1.1 (0.9-1.1); Prothrombin Time 13.1 SEC (11.1-13.3)
[2023-07-28 13:54] LABS: Lactic Acid 1.3 mmol/L (0.5-2.0)
[2023-07-28 14:03] LABS: Alanine Aminotransferase 108 U/L (0-40); Alkaline Phosphatase 426 U/L (39-117); Anion Gap 11 (12-20); Aspartate Amino Transferase 81 U/L (5-37); Blood Urea Nitrogen 87 mg/dL (9-16); Carbon Dioxide 27 mmol/L (22-29); Chloride 104 mmol/L (96-108); Creatinine Clr Calc Pharmacy 36.8; Estimated Glomerular Filt Rate 43; Ethanol < 10 mg/dL; Glucose Random 102 mg/dL (60-115); Lipase 74 U/L (8-78); Magnesium 2.6 mg/dL (1.6-2.6); Potassium 4.6 mmol/L (3.3-5.1); Sodium 137 mmol/L (135-145); Total Protein 6.1 g/dL (6.5-8.0)
[2023-07-28 14:05] LABS: Troponin-I High Sensitivity 2.7 ng/L (<3.5-35.0)
[2023-07-28 14:11] LABS: SLIDE REVIEW VERIFIED
[2023-07-28] MEDS: 0.9 % Sodium Chloride 1,000 ML 999 ML IV ×2 (14:19→15:57)
--- NOTE | 2023-07-28 16:04 | PC.NURSE ---
tried to call report a third time to terence fuentes. rosa maria foster
[2023-07-28 17:38] LABS: Appearance Urine Clear; Color Urine Dark Yellow; Glucose Urine UA Negative (Negative); Leukocyte Esterase Urine Trace (Negative); Nitrite Urine Negative (Negative); UMIC TRIGGER UACC YES; Urine Blood Negative (Negative); Urine Ketones Negative (Negative); Urine Protein Trace mg/dL (Neg-Trace)
[2023-07-28 17:40] LABS: Amphetamine Screen Urine Not Detected (Not Detect); Barbiturates, Urine Not Detected (Not Detect); Benzodiazepines Screen Urine Not Detected (Not Detect); Cannabinoid Screen Urine Not Detected (Not Detect); Cocaine Screen Urine Not Detected (Not Detect); Fentanyl, urine Not Detected (Not Detect); Opiate Screen Urine Not Detected (Not Detect); Phencyclidine Screen Urine Not Detected (Not Detect)
[2023-07-28 17:42] LABS: Bacteria Urine None Seen (None Seen); RBC Urine 0-2 /HPF (0-2); WBC Urine 0-5 /HPF (0-5)
[2023-07-28] MEDS: iohexoL 350 MG/ML 100 ML INFUS..BTL 85 ML IV (18:53)
--- NOTE | 2023-07-28 20:31 | P.CONGS_ITS ---
History of Present Illness Consult details Consult date: 07/28/23 Narrative: 78M brought to the ED today for recent abdominal pain, chest pain, and drowsiness. According to the pt, he had been shoveling snow last week and went skiing. Thereafter, he had told his that he had pain on the upper abdomen and lower chest. His also mentioned that he seems to have been more drowsy the past 4 days. His went to the ED today for problems with right leg and back pain and weakness. She states that she brought her to be examined as well. The patient denied any abdominal pain at the time of exam. He denies any vomitting, diarrhea, or constipation. He denies any fever. He has a history of esophageal cancer(?) and had undergone chemotx and radiation before. He also had a PEG tube for feeding in the past. Review of Systems 2 Constitutional: Constitutional: Denies chills and Denies fever(s) Cardiovascular: Cardiovascular: Denies chest pain, Denies dyspnea and Denies dyspnea on exertion Respiratory: Respiratory: Denies cough, Denies dyspnea and Denies dyspnea on exertion Gastrointestinal: Gastrointestinal: Denies hematochezia and Denies change in bowel habits Genitourinary: Genitourinary: Denies hematuria and Denies difficulty urinating Musculoskeletal: Musculoskeletal: Denies back pain and Denies limited range of motion Neurologic: Denies focal weakness and Denies convulsions Psychiatric: Psychiatric: Denies depression and Denies mood swings PMFSH Past Medical History Medical History Elevated bilirubin Sleep apnea Asthma Esophageal cancer COVID-19 vaccine series completed Family History Family History Father History of colon cancer Mother History of ovarian cancer Brother History of brain cancer Surgical History Surgical History History of biopsy (2016) History of colonoscopy History of right inguinal hernia repair (05/01/17) Social History Social History Household Members: Spouse Housing: House Do you presently have visiting nurse or other home services: No Alcohol intake: current Patient Tobacco Use Status: Never used Tobacco Second Hand Smoke Exposure: No service: No Meds Allergies Allergy/AdvReac Type Severity Reaction Status Date / Time No Known Allergies Allergy Verified 02/19/21 07:51 Active Medications: Current Medications Piperacillin Sod/Tazobactam (Sod 3.375 gm/ Sodium Chloride) 50 mls @ 100 mls/hr IV ONCE ONE Stop: 07/28/23 20:54 Home Medications Medication Instructions Recorded Confirmed Last Taken Type albuterol sulfate 90 mcg/actuation 2 puff inhalation Q4-6H PRN 02/12/21 07/28/23 Unknown History aerosol inhaler (ProAir HFA) Wheezing Physical Exam 2 Vital Signs: Vital Signs: Last Vital Signs Temp 97.7 F 07/28/23 19:21 Pulse 102 H 07/28/23 19:21 Resp 19 07/28/23 19:21 BP 108/72 07/28/23 19:21 Pulse Ox 98 07/28/23 19:21 O2 Del Method Room Air 07/28/23 19:21 BMI result Body Mass Index 25.0 Const: General: comfortable and no acute distress O rientation/consciousness: patient oriented x3 Neck: Neck: Yes no lymphadenopathy Resp: Auscultation: clear to auscultation bilaterally Cardio: Rhythm: regular rhythm GI: Other: no RUQ tenderness even with deep palpation, no Dupont's sign Palpation (GI): Soft to palpation, nontender and no guarding Neuro: General: patient oriented x3 Results Labs 07/31/23 04:54 07/31/23 04:54 Labs: Abnormal lab results 07/28/23 07/28/23 Range/Units 13:29 17:25 WBC 15.1 H (4.8-10.8) X10*3/uL Plt Count 67 L D (160-400) X10*3/uL Immature Gran % (Auto) 1.0 H (0.0-0.4) % Neut % (Auto) 82.0 H (45-73) % Lymph % (Auto) 5.6 L (20-40) % Lymph # (Auto) 0.8 L (1.2-4.9) X10*3/uL [place] # (Auto) 1.6 H (0.1-1.2) X10*3/uL Abs Immat Gran (auto) 0.15 H (0.00-0.03) X10*3/uL Absolute Neuts (auto) 12.4 H (2.0-8.3) x10*3/uL Anion Gap 11 L (12-20) BUN 87 H (9-16) mg/dL Creatinine 1.57 H (0.5-1.4) mg/dL Total Bilirubin 4.0 H (0.0-1.0) mg/dL AST 81 H (5-37) U/L ALT 108 H (0-40) U/L Alkaline Phosphatase 426 H (39-117) U/L Total Creatine Kinase 9 L (38-174) U/L Total Protein 6.1 L (6.5-8.0) g/dL Albumin 3.0 L (3.5-5.0) g/dL Ur Leukocyte Esterase Trace H (Negative) Short CBC 07/28/23 Range/Units 13:29 WBC 15.1 H (4.8-10.8) X10*3/uL Hgb 14.8 (14.0-18.0) g/dl Hct 42.0 (42.0-52.0) % Plt Count 67 L D (160-400) X10*3/uL BMP 07/28/23 13:29 Sodium 137 Potassium 4.6 Chloride 104 Carbon Dioxide 27 BUN 87 H Creatinine 1.57 H Calcium 10.0 Cardiac Enzymes 07/28/23 Range/Units 13:29 Total Creatine Kinase 9 L (38-174) U/L Liver Function 07/28/23 Range/Units 13:29 Total Bilirubin 4.0 H (0.0-1.0) mg/dL AST 81 H (5-37) U/L ALT 108 H (0-40) U/L Alkaline Phosphatase 426 H (39-117) U/L Albumin 3.0 L (3.5-5.0) g/dL Urine 07/28/23 Range/Units 17:25 Urine Color Dark Yellow Urine Appearance Clear Urine pH 6.0 (5.0-9.0) Ur Specific [place] 1.020 (1.005-1.025) Urine Protein Trace (Neg-Trace) mg/dL Urine Glucose (UA) Negative (Negative) mg/dL All other labs normal. Assessment and Plan (1) Elevated bilirubin: Status: Acute He has markedly elevated bilirubin. His US and CT shows some thickening of the GB wall, but currently exam does not reveal any tenderness or Dupont's sign. Furthermore, the GB does not appear significantly distended which is typically seen with acute cholecystitis from gallstones. I would recommend further workup for his elevated bilirubin, especially to rule out CBD obstruction. This includes and MRCP. His LFTs should be followed as well. His CT suggests portal vein thrombosis, so he may need to be anticoagulated for now. His does have leukocytosis, so he should be started on empiric abx to cover for cholangitis, although clinically, he appears comfortable and has a very benign exam. I will follow along while he is in the hospital. Procedures Date of Service Date of Service: 07/31/23
--- NOTE | 2023-07-28 21:24 | PHA.MEDREC ---
Pharmacy Consult ? Medication Reconciliation Pharmacy has completed the medication reconciliation. Patient reported albuterol inhaler only. Jessica Harvey, JhonyD
[2023-07-28] MEDS: Piperacillin Sodium/Tazobactam 3.375 GM in 0.9 % Sodium Chloride 50 ML IV (21:31)
--- NOTE | 2023-07-28 21:35 | PC.NURSE ---
assume care of patient st 21:15 - antibiotic administered late d/t not started by previous shift RN. pt resting comfortably on stretcher, answering questions appropriately, denies pain. on night monitor, call minor within reach. plan of care ongoing
--- NOTE | 2023-07-28 22:27 | P.HPHOSP_ITS ---
History of Present Illness Date of Service: 07/28/23 Attending physician on admission: Willa Peñaloza Chief Complaint: epigastric pain 78-year-old male with history of esophageal cancer treated with chemotherapy and radiation 2016, ARUN intermittently compliant with CPAP, mild intermittent asthma presented to the ED earlier today at the recommendation of EMS for evaluation of epigastric pain and reported altered mental status. He states he was trying to assist his with fallen down the stairs and called EMS. However, upon arrival, they recommended that he be evaluated as well. Per the 's report, the patient has had increased confusion over the last several days and has had difficulty assisting with her care as a result. However, on exam, the patient is alert and oriented x3. He is reporting 3/10 right upper quadrant/epigastric pain that has been ongoing for several days. Denies any fevers, chills, dysphagia, nausea, vomiting, radiation of his pain, diarrhea, melena, hematochezia, lightheadedness, shortness of breath, palpitations, chest pain. On arrival, vital signs stable. There is a leukocytosis of 15.1. Platelets 67. Creatinine 1.57, baseline 0.8, BUN 87. Electrolyte levels normal. Total bilirubin 4.0, direct bilirubin pending. AST 81, ALT 108, alkaline phosphatase 428. Ammonia level 28. Lipase 74. TSH 0.9. Urinalysis unremarkable. Urine tox screen negative. Ethyl alcohol level undetectable. Negative for COVID-[address] negative for any acute intracranial abnormality but shows chronic weight matter small-vessel disease. CXR shows slight elevation of left hemidiaphragm and left basilar atelectasis but no acute cardiopulmonary abnormality. Abdominal U/S shows probable left portal vein thrombosis with unclear etiology. There is also cholelithiasis, gallbladder sludge and diffusely thickened gallbladder wall suggestive of possible cholecystitis though no positive sonographic Dupont sign. Subsequent CT of the abdomen/pelvis again demonstrates gallbladder wall thickening with haziness of the pericholecystic fat again suspicious for cholecystitis. There is also mild thickening and contrast enhancement of the [place] of the common duct and cystic duct suspicious for cholangitis. Left portal vein thrombosis. General surgery did evaluate patient in the ER and does not feel patient's clinical picture is consistent with acute cholecystitis, recommends MRCP. In the ED has been given 2 L IV NS, Zosyn. Review of Systems 2 Review of Systems: General: No fevers, malaise, unintentional weight loss HEENT: No blurred vision, diplopia. No sore throat, nasal congestion, rhinorrhea, sinus pain, ear pain Cardiovascular: No chest pain, palpitations, or leg edema Respiratory: No shortness of breath, wheezing, cough GI: +abd pain. No nausea, vomiting, diarrhea, constipation, melena, hematochezia : No dysuria, hematuria, increased urinary frequency, decreased urinary output MSK: No myalgia, back pain Neuro: No headaches, weakness, paresthesias Skin: No rashes or lesions [facility] Medical History Elevated bilirubin Sleep apnea Asthma Esophageal cancer COVID-19 vaccine series completed Family History Father History of colon cancer Mother History of ovarian cancer Brother History of brain cancer Surgical History History of biopsy (2015) History of colonoscopy History of right inguinal hernia repair (05/01/17) Social History Alcohol intake: current Patient Tobacco Use Status: Never used Tobacco Smoked in Last 30 Days: No Use of substances other than those prescribed or required for medical reasons: No Advance Directives: No Advance Directives Information Provided: No Nutrition Risks: No Nutritional Risk Meds Allergies Allergy/AdvReac Type Severity Reaction Status Date / Time No Known Allergies Allergy Verified 02/19/21 07:51 Active Medications: Current Medications Acetaminophen (Acetaminophen 325 Mg Tablet) 650 mg PO Q6H PRN PRN Reason: Pain, Mild (Pain Scale 1-3) Albuterol Sulfate (Albuterol Sulfate 90 Mcg 8 Gm Inhaler) 2 puff INHALE Q4H PRN PRN Reason: Wheezing Heparin Sodium (Porcine) (Heparin Sodium,Porcine 5,000 Unit/Ml Vial) 2,900 unit 40 unit/kg (2900 unit) IVPUSH PROTOCOL BOLUS PRN; Protocol PRN Reason: 40 unit/kg - Heparin Protocol Ondansetron HCl (Ondansetron Hcl 4 Mg/2 Ml Vial) 4 mg IVPUSH Q8H PRN PRN Reason: Nausea and Vomiting Senna (Sennosides 8.6 Mg Tablet) 17.2 mg PO BEDTIME PRN PRN Reason: Constipation Sodium Chloride (0.9 % Sodium Chloride Flush 3 Ml Syringe) 3 ml IVFLUSH QSHIFT [facility] Home Medications Medication Instructions Recorded Confirmed Last Taken Type albuterol sulfate 90 mcg/actuation 2 puff inhalation Q4-6H PRN 02/12/21 07/28/23 Unknown History aerosol inhaler (ProAir HFA) Wheezing Physical Exam 2 Vital Signs and Narrative: Vital Signs: Last Vital Signs Temp 97.7 F 07/28/23 19:21 Pulse 89 07/28/23 21:35 Resp 16 07/28/23 21:35 BP 102/70 07/28/23 21:35 Pulse Ox 96 07/28/23 21:35 O2 Del Method Room Air 07/28/23 21:35 BMI result Body Mass Index 25.0 Constitutional - Awake and Alert, No apparent distress Eyes - PERRLA, EOMI Cardiovascular - S1S2, RRR, No edema Respiratory - Normal lung expansion, Normal respiratory effort, No respiratory distress, CTA bilaterally Gastrointestinal - mild ruq ttp, negative dupont sign. ND; +BS; No rebound or guarding Extremities - no calf tenderness bilaterally, no swelling Skin - Warm/Dry Neurological - Alert & oriented x3 Results Labs 07/28/23 13:29 07/28/23 13:29 Labs: Laboratory Results - last 24 hr 07/28/23 07/28/23 07/28/23 12:54 12:55 13:29 MCV 90.5 MCH 31.9 MCHC 35.2 RDW 13.7 Plt Count 67 L D MPV 10.5 Immature Gran % (Auto) 1.0 H Neut % (Auto) 82.0 H Lymph % (Auto) 5.6 L Phelps % (Auto) 10.8 Eos % (Auto) 0.3 Baso % (Auto) 0.3 Lymph # (Auto) 0.8 L Phelps # (Auto) 1.6 H Eos # (Auto) 0.0 Baso # (Auto) 0.0 Abs Immat Gran (auto) 0.15 H Absolute Neuts (auto) 12.4 H Absolute Nucleated RBC 0.000 Nucleated RBC % (auto) 0.0 Smear Tech's Comments VERIFIED PT 13.1 INR 1.1 Anion Gap 11 L Estim Creat Clear Calc 36.8 Estimated GFR 43 Random Glucose 102 Lactic Acid 1.3 Calcium 10.0 Magnesium 2.6 Total Bilirubin 4.0 H AST 81 H ALT 108 H Alkaline Phosphatase 426 H Ammonia 28 Total Creatine Kinase 9 L Total Protein 6.1 L Albumin 3.0 L Lipase 74 TSH 0.90 Urine Color Urine Appearance Urine pH Ur Specific [place] Urine Protein Urine Glucose (UA) Urine Ketones Urine Blood Urine Nitrite Ur Leukocyte Esterase Urine RBC Urine WBC Ur Squamous Epith Cells Urine Bacteria Hyaline Casts Urine Opiates Screen Urine Fentanyl Screen Ur Barbiturates Screen Ur Phencyclidine Scrn Ur Amphetamines Screen U Benzodiazepines Scrn Urine Cocaine Screen U Marijuana (THC) Screen Ethyl Alcohol < 10 COVID-19 (JONG) Negative COVID-[address] [facility] See Note Influenza Type A (MAGEN) Negative Influenza Type B (MAGEN) Negative Influenza A & B Note See Note 07/28/23 17:25 MCV MCH MCHC RDW Plt Count MPV Immature Gran % (Auto) Neut % (Auto) Lymph % (Auto) Phelps % (Auto) Eos % (Auto) Baso % (Auto) Lymph # (Auto) Phelps # (Auto) Eos # (Auto) Baso # (Auto) Abs Immat Gran (auto) Absolute Neuts (auto) Absolute Nucleated RBC Nucleated RBC % (auto) Smear Tech's Comments PT INR Anion Gap Estim Creat Clear Calc Estimated GFR Random Glucose Lactic Acid Calcium Magnesium Total Bilirubin AST ALT Alkaline Phosphatase Ammonia Total Creatine Kinase Total Protein Albumin Lipase TSH Urine Color Dark Yellow Urine Appearance Clear Urine pH 6.0 Ur Specific [place] 1.020 Urine Protein Trace Urine Glucose (UA) Negative Urine Ketones Negative Urine Blood Negative Urine Nitrite Negative Ur Leukocyte Esterase Trace H Urine RBC 0-2 Urine WBC 0-5 Ur Squamous Epith Cells 3-5 Urine Bacteria None Seen Hyaline Casts 3-5 Urine Opiates Screen Not Detected Urine Fentanyl Screen Not Detected Ur Barbiturates Screen Not Detected Ur Phencyclidine Scrn Not Detected Ur Amphetamines Screen Not Detected U Benzodiazepines Scrn Not Detected Urine Cocaine Screen Not Detected U Marijuana (THC) Screen Not Detected Ethyl Alcohol COVID-19 (JONG) COVID-[address] [facility] Influenza Type A (MAGEN) Influenza Type B (MAGEN) Influenza A & B Note Imaging Radiologist's Impressions: Impressions Chest X-Ray 07/28/23 13:52 IMPRESSION: 1. Slight elevation of the left hemidiaphragm. 2. Left basilar atelectasis. Head CT 07/28/23 13:56 IMPRESSION: 1. No acute intracranial pathology. 2. Chronic white matter small vessel ischemic changes. Abdomen Ultrasound 07/28/23 17:30 IMPRESSION: * There appears to be thrombosis of the left portal vein. The cause of this is uncertain. Recommend follow-up CT imaging of the abdomen (or abdomen/pelvis) in the portal venous phase of intravenous contrast. * Cholelithiasis, gallbladder sludge and diffusely thickened gallbladder wall. Although these imaging findings suggest possibility of acute cholecystitis, there is no report of a sonographic Dupont sign. Gallbladder wall thickening is nonspecific and can be observed in a variety of conditions, including hepatitis. * No abdominal free fluid. Abdomen/Pelvis CT 07/28/23 19:06 IMPRESSION: * Gallbladder wall is diffusely thickened/edematous and there is haziness of the pericholecystic fat. These findings are suspicious for acute cholecystitis. Also, there is mild thickening and contrast enhancement of [place] of the common duct and cystic duct. These imaging findings are suspicious for cholangitis. 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 No hepatic abscess. * Colonic diverticulosis without diverticulitis. * Prostatomegaly. Assessment and Plan (1) Acute hepatitis: Status: Acute (2) Elevated bilirubin: Status: Acute (3) Acute kidney injury: Status: Acute (4) Portal vein thrombosis: Status: Acute Plan 78-year-old male with history of esophageal cancer treated with chemotherapy and radiation 2015, ARUN intermittently compliant with CPAP, mild intermittent asthma admitted for further workup of portal vein thombosis and acute hepatitis. #Acute hepatitis- possibly 2/2 portal vein thrombosis though etiology of this remains unclear -total bilirubin 4.0, direct bilirubin pending. AST 81, ALT 108, alkaline phosphatase 426. -abdominal U/S and CT abdomen/pelvis show concerns for gallbladder wall thickening, gallbladder sludge, cholelithiasis and possible cholecystitis as well as portal vein thrombosis -evaluated by General surgery, clinically not consistent with acute cholecystitis -patient has elevated WBC but nontoxic appearing, afebrile. Low suspicion for acute cholecystitis or cholangitis at this time -gastroenterology consult -MRCP ordered -blood cultures are pending, will follow. Follow CBC # portal vein thrombosis-etiology unclear -Per vascular surgery, no intervention indicated -due to platelet count 67, anticoagulation is contraindicated at this time -gastroenterology consult -echocardiogram ordered # acute toxic metabolic encephalopathy -ammonia 26. Head CT negative for acute intracranial abnormality -resolved on admission # acute kidney injury- likely prerenal/hepatorenal -Given 2L IVF -Follow renal function/lytes # mild intermittent asthma -no acute exacerbation, albuterol p.r.n. #ARUN -declines cpap DVT prophylaxis- scps Full code Pt requires inpt stay at least 2 midnights due to acute hepatitis and portal vein thrombosis of unclear etiology requiring further investigation with MRCP, expert consultation, and will need reevaluation for anticoagulation which is currently contraindicated due to thrombocytopenia Quality Stroke Does the patient have a stroke diagnosis?: No VTE Prior VTE?: No VTE Risk Level:: Medical - moderate - high VTE Device Contraindication: Treatment Not Indicated VTE Drug Contraindication: N/A - Med Ordered
--- NOTE | 2023-07-28 22:34 | PC.NURSE ---
phlebotomy in room drawing blue top PTT for shireen macias
[2023-07-28 22:55] LABS: PTT Heparin Drip 28.3 SEC (53-77.9)
[2023-07-28 22:57] LABS: Ammonia 30 umol/L (13-55)
[2023-07-28 23:02] LABS: Alanine Aminotransferase 88 U/L (0-40); Albumin Level 2.7 g/dL (3.5-5.0); Alkaline Phosphatase 393 U/L (39-117); Aspartate Amino Transferase 61 U/L (5-37); Bilirubin Direct 3.1 mg/dL (0.0-0.5); Bilirubin Total 4.2 mg/dL (0.0-1.0); Total Protein 5.5 g/dL (6.5-8.0)
[2023-07-28 23:09] LABS: Bilirubin Direct 2.6 mg/dL (0.0-0.5)
[2023-07-29 02:18] VITALS: BP 95/63; PULSE 104; RESP 19; TEMP 36.4; O2SAT 96
--- NOTE | 2023-07-29 04:06 | PC.NURSE ---
this rn assumed care of pt @ 0200 pt calm and cooperative states no new needs at this time
[2023-07-29 05:06] LABS: Basophils Absolute Auto 0.1 X10*3/uL (0.0-0.2); Basophils Percent Auto 0.5 % (0-2); Eosinophils Absolute Auto 0.1 X10*3/uL (0.0-0.4); Eosinophils Percent Auto 0.4 % (0-4); Hematocrit 40.4 % (42.0-52.0); Hemoglobin 14.3 g/dl (14.0-18.0); Imm Gran Abs Auto 0.24 X10*3/uL (0.00-0.03); Imm Gran Pct Auto 1.5 % (0.0-0.4); Lymphocytes Absolute Auto 1.1 X10*3/uL (1.2-4.9); Lymphocytes Percent Auto 6.8 % (20-40); MANUAL DIFF FLAG SCAN; Mean Corpuscular HGB Conc 35.4 g/dl (31.0-36.0); Mean Corpuscular Hemoglobin 32.1 pg (27.0-33.0); Mean Corpuscular Volume 90.6 fL (80.0-98.0); Mean Platelet Volume 10.2 fL (9.4-12.4); Monocytes Absolute Auto 2.1 X10*3/uL (0.1-1.2); Monocytes Percent Auto 12.5 % (2-11); Neutrophils Absolute Auto 12.9 x10*3/uL (2.0-8.3); Neutrophils Percent Auto 78.3 % (45-73); Red Blood Count 4.46 X10*6/uL (4.60-5.80); Red Cell Distribution Width 13.7 % (11.0-16.0); SCAN SMEAR FLAG 1; White Blood Count 16.5 X10*3/uL (4.8-10.8)
[2023-07-29 05:07] LABS: Platelet Count 81 X10*3/uL (160-400)
[2023-07-29 05:22] LABS: SLIDE REVIEW VERIFIED
[2023-07-29 05:24] LABS: Anion Gap 15 (12-20); Blood Urea Nitrogen 62 mg/dL (9-16); Calcium 9.3 mg/dL (8.4-10.2); Carbon Dioxide 23 mmol/L (22-29); Chloride 109 mmol/L (96-108); Creatinine Clr Calc Pharmacy 49.8; Estimated Glomerular Filt Rate > 60; Glucose Random 81 mg/dL (60-115); Sodium 143 mmol/L (135-145)
--- NOTE | 2023-07-29 07:00 | CA_ITS ---
Transthoracic Echocardiogram Patient (Last, First, Middle): Gary Donohue J Gender: Male Date of : 1945 Age: 78 Procedure Date: 07/29/2023 Procedure Type: Transthoracic Echocardiogram Location: ER Height: 170.18 cm Weight: 78.02 kg BSA: 1.90 m2 Heart Rate: bpm BP: 96 / 63 mmHg Loading Shovel Oiler: SB Referring MD: Almaz PEÑA Symptoms: portal vein thrombosis Study Quality: Fair ECG Rhythm: Atrial Fibrillation Conclusions: - Estimated LVEF about 50-60%; difficult to assess even with contrast. - No obvious valvular pathology seen on this study. Findings Procedure Information Contrast agent, definity, is being given per protocol without apparent complications. Left Ventricle Normal left ventricular cavity size. There is normal left ventricular wall thickness. Regional wall motion abnormalities can not be excluded due to suboptimal endocardial definition. Diastolic function is indeterminate on the basis of available data. Estimated LVEF about 50-60%; difficult to assess even with contrast. Right Ventricle Normal right ventricular cavity size and systolic function. Atria Both atria are normal in size. Aortic Valve There is mild calcification of the aortic valve. There is no aortic valve stenosis. There is no aortic valve regurgitation. Mitral Valve The mitral valve appears normal. There is no mitral valve regurgitation. There is no mitral valve stenosis. Pulmonic Valve The pulmonic valve is likely normal. Tricuspid Valve There is trace tricuspid valve regurgitation. There is no evidence of pulmonary hypertension. Great Vessels The asc aorta is normal in size. Venous The inferior vena cava is normal in size and collapses greater than 50% with inspiration. Pericardium/Pleural There is no evidence of pericardial effusion. Prior Study Comparison No significant change compared to prior study dated: 01/06/2019. Recommendations, Care & Conclusions No obvious valvular pathology seen on this study. Measurements 2D Linear Measurements IVSd: 0.79 0.6-0.9/0.6-1.0 cm LVIDd: 4.81 3.9-5.3/4.2-5.9 cm LVIDd Index: 2.53 2.4-3.2/2.2-3.1 cm/m2 LVIDs: 3.48 2.0-3.6 cm LVPWd: 0.63 0.7-1.1 cm Ao Root: 3.50 2.1-3.5 cm LA Diam: 3.80 2.7-3.8/3.0-4.0 cm LAIDs Index: 2.00 1.5-2.3 cm/m2 LV Mass: 135.62 67-162/88-224 g LV Mass Index: 71.38 43-95/49-115 g/m2 LVOT Diam: 2.30 3.0+(-)1.3 cm 2D Systolic Function EF 4C: 67.40 >55% EF 2C: 76.70 >55% EF BiP: 74.20 >55% Mitral Valve MV Pk E: 0.77 MV Decel Time: 163.00 Aortic Valve AoV Pk David: 1.17 AoV Pk Grad: 5.00 ISAI: 2.15 LVOT LVOT Pk David: 0.52 LVOT Mn David: 0.37 LVOT VTI: 0.07 LVOT Pk Grad: 1.00 LVOT Mn Grad: 1.00 LVOT Diam: 2.30 LVOT Area: 4.15 Diastolic Function MV Pk E: 0.77 Right Ventricle TAPSE (mm): 20.90 TVS' David: 14.10 Tricuspid Valve TR Pk David: 2.27 TR Pk Grad: 21.00 RA Press: 3.00 Great Vessels Aorta Ao Root-2D: 3.50 2.0-3.7 cm Sinus of Valsalva: 3.50 2.0-3.5 cm Ao Asc: 3.80 2.1-3.4 cm Updated in Other Vendor System with Status of Final Cayden Jackson MD electronically signed on 07/29/2023 1:01:14 PM with status of Final
--- NOTE | 2023-07-29 07:41 | PC.NURSE ---
MRI called stating patient should have been npo. Patient had already eaten breakfast, patient now NPO
[2023-07-29 08:27] LABS: PTT Heparin Drip 28.1 SEC (53-77.9)
--- NOTE | 2023-07-29 08:29 | PC.NURSE ---
Alert and responsive, denies pain or discomfort
[2023-07-29] MEDS: 0.9 % Sodium Chloride Flush 3 ML SYRINGE IVFLUSH ×2 (08:33→14:30)
[2023-07-29] MEDS: Piperacillin Sodium/Tazobactam 3.375 GM in 0.9 % Sodium Chloride 50 ML IV ×3 (09:18→20:26)
[2023-07-29 09:58] LABS: Alanine Aminotransferase 87 U/L (0-40); Albumin Level 2.7 g/dL (3.5-5.0); Alkaline Phosphatase 419 U/L (39-117); Aspartate Amino Transferase 69 U/L (5-37); Bilirubin Direct 2.6 mg/dL (0.0-0.5); Total Protein 5.8 g/dL (6.5-8.0)
[2023-07-29] MEDS: Lactated Ringers 1,000 ML 125 ML IVCONT ×2 (10:30→18:31)
[2023-07-29 10:31] VITALS: BP 102/63; PULSE 99; RESP 18; TEMP 36.6; O2SAT 97
--- NOTE | 2023-07-29 11:05 | P.CNGI_ITS ---
History of Present Illness Data of Consult Service Date: 07/29/23 Requesting physician: Almaz Chambers Primary Care Provider: Zane Rivera MD HPI Reason for consult: cholangitis? 78-year-old male with history of esophageal cancer treated with chemotherapy and radiation 2016, ARUN intermittently compliant with CPAP, mild intermittent asthma who I am seeing for concern for cholangitis. Patient is confused but orientated to place and person. He said he has been having upper abdominal pain and RUQ pain 3/10 in intensity on and off for years without any precipitating or exacerbating factors and noted same pain for this admission. Per chart had also noted he was more confused recently. Denies any fevers, chills, dysphagia, nausea, vomiting, radiation of his pain, diarrhea, melena, hematochezia, lightheadedness, shortness of breath, palpitations, chest pain. currently patient has no pain and feels hungry- reuqesting to eat though apparently per RN he ate breakfast without issue. Now fasting for MRCP. LABS: WCC: 15.1. Platelets 67. Creatinine 1.57, baseline 0.8, BUN 87. Electrolyte levels normal. Total bilirubin 4.0. AST 81, ALT 108, alkaline phosphatase 428. Ammonia level 28. Lipase 74. TSH 0.9. Urinalysis unremarkable. Urine tox screen negative. Ethyl alcohol level undetectable. Negative for COVID-19 and influenza. Imaging: Head CT : no acute intracranial abnormality but shows chronic white matter small-vessel disease. CXR : elevation of left hemidiaphragm and left basilar atelectasis but no acute cardiopulmonary abnormality Abdominal U/S: left portal vein thrombosis with unclear etiology. There is also cholelithiasis, gallbladder sludge and diffusely thickened gallbladder wall suggestive of possible cholecystitis CT of the abdomen/pelvis: gallbladder wall thickening with haziness of the pericholecystic fat again suspicious for cholecystitis. mild thickening and contrast enhancement of the [place] of the common duct and cystic duct suspicious for cholangitis. Left portal vein thrombosis Review of Systems 2 Review of Systems: Constitutional : No Weight loss, No Fever, No Chills ENT/Mouth : No sore throat, No Rhinorrhea Eyes: No Swelling, No Redness Cardiovascular : No Chest Pain, No SOB, No Edema Respiratory : No Cough, No Sputum, No Wheezing Gastrointestinal : see HPI Genitourinary : NO Dysuria, No Urinary Frequency, No Hematuria, No Urgency Musculoskeletal : No joint pain, No Myalgias, No Joint Swelling Skin : No Skin Lesions, No rash Neuro : No Weakness, No Numbness, No Dizziness, No Headache Psych : No Anxiety/Panic, No Depression Heme/Lymph: No Bruising, No Lymphadenopathy Endocrine : No Polyuria, No Polydipsia All other systems reviewed and are negative. [facility] Past Medical History Medical History Elevated bilirubin Sleep apnea Asthma Esophageal cancer COVID-19 vaccine series completed Family History Family History Father History of colon cancer Mother History of ovarian cancer Brother History of brain cancer Surgical History Surgical History History of biopsy (2015) History of colonoscopy History of right inguinal hernia repair (05/01/17) Social History Social History Household Members: Spouse Housing: House Do you presently have visiting nurse or other home services: No Alcohol intake: current Patient Tobacco Use Status: Never used Tobacco Second Hand Smoke Exposure: No Meds Allergies Allergy/AdvReac Type Severity Reaction Status Date / Time No Known Allergies Allergy Verified 02/19/21 07:51 Active Medications: Current Medications Acetaminophen (Acetaminophen 325 Mg Tablet) 650 mg PO Q6H PRN PRN Reason: Pain, Mild (Pain Scale 1-3) Albuterol Sulfate (Albuterol Sulfate 90 Mcg 8 Gm Inhaler) 2 puff INHALE Q4H PRN PRN Reason: Wheezing Piperacillin Sod/Tazobactam (Sod 3.375 gm/ Sodium Chloride) 50 mls @ 100 mls/hr IV Q6H [facility] Last Infusion: 07/29/23 09:56 Dose: Infused Lactated Ringer's (Lr) 1,000 mls @ 125 mls/hr IVCONT .Q8H NGOZI Last Admin: 07/29/23 10:30 Dose: 125 mls/hr Ondansetron HCl (Ondansetron Hcl 4 Mg/2 Ml Vial) 4 mg IVPUSH Q8H PRN PRN Reason: Nausea and Vomiting Senna (Sennosides 8.6 Mg Tablet) 17.2 mg PO BEDTIME PRN PRN Reason: Constipation Sodium Chloride (0.9 % Sodium Chloride Flush 3 Ml Syringe) 3 ml IVFLUSH QSHIFT NGOZI Last Admin: 07/29/23 08:33 Dose: 3 ml Home Medications Medication Instructions Recorded Confirmed Last Taken Type albuterol sulfate 90 mcg/actuation 2 puff inhalation Q4-6H PRN 02/12/21 07/28/23 Unknown History aerosol inhaler (ProAir HFA) Wheezing Physical Exam 2 Vital Signs: Vital Signs: Last Vital Signs Temp 98 F 07/29/23 10:31 Pulse 99 07/29/23 10:31 Resp 18 07/29/23 10:31 BP 102/63 07/29/23 10:31 Pulse Ox 97 07/29/23 10:31 O2 Del Method Room Air 07/29/23 10:31 BMI result Body Mass Index 25.0 EXAM: GENERAL: The patient is well developed and nontoxic. VITAL SIGNS:see workflow HEENT: Nonicteric sclerae, PERRLA, EOMI. Oropharynx clear. Moist mucous membranes. Conjunctivae appear well perfused. No thyroid mass. CHEST: Chest wall is nontender. HEART: Regular rate and rhythm without murmurs. LUNGS: Clear to auscultation bilaterally. ABDOMEN: Soft, positive bowel sounds, nontender, no organomegaly.no flank tenderness SKIN: No rash, no excessive bruising, petechiae, or purpura. NEUROLOGIC: Cranial nerves II-XII intact without motor/sensory deficit. Psych: confused, no dysarthria Results Labs 07/29/23 04:41 07/29/23 04:41 Labs: Short CBC 07/28/23 07/29/23 Range/Units 13:29 04:41 WBC 15.1 H 16.5 H (4.8-10.8) X10*3/uL Hgb 14.8 14.3 (14.0-18.0) g/dl Hct 42.0 40.4 L (42.0-52.0) % Plt Count 67 L D 81 L (160-400) X10*3/uL BMP 07/28/23 07/29/23 13:29 04:41 Sodium 137 143 Potassium 4.6 4.0 Chloride 104 109 H Carbon Dioxide 27 23 BUN 87 H 62 H Creatinine 1.57 H 1.16 Calcium 10.0 9.3 D Cardiac Enzymes 07/28/23 Range/Units 13:29 Total Creatine Kinase 9 L (38-174) U/L Liver Function 07/28/23 07/28/23 07/29/23 Range/Units 13:29 22:38 04:41 Total Bilirubin 4.0 H 4.2 H 4.0 H (0.0-1.0) mg/dL Direct Bilirubin 2.6 H 3.1 H 2.6 H (0.0-0.5) mg/dL AST 81 H 61 H 69 H (5-37) U/L ALT 108 H 88 H 87 H (0-40) U/L Alkaline Phosphatase 426 H 393 H 419 H (39-117) U/L Albumin 3.0 L 2.7 L 2.7 L (3.5-5.0) g/dL Urine 07/28/23 Range/Units 17:25 Urine Color Dark Yellow Urine Appearance Clear Urine pH 6.0 (5.0-9.0) Ur Specific [place] 1.020 (1.005-1.025) Urine Protein Trace (Neg-Trace) mg/dL Urine Glucose (UA) Negative (Negative) mg/dL Imaging MRI - abdomen: Attestation: I personally reviewed and interpreted this imaging study as follows: (MRCP with thickened GB, CBD nml) Assessment and Plan (1) Acute cholecystitis: Status: Acute Plan 1/ Acute cholecystitis, CBD normal on imaging with no filling defect or debris seen -may have passed stone or could be surrounding inflammation of liver parenchyma from inflammed, adherent GB. THis could also have caused the portal vein trhombosis. PLAN: 1/ WOuld hold on ERCP at this time 2/ Surgical evaluation 3/ COnt with fluid resus and ABX 4/ hold on anticoagulation for the moment Procedures Date of Service Date of Service: 07/29/23
--- NOTE | 2023-07-29 11:08 | P.PNIM_ITS ---
Subjective Subjective Date of Service: 07/29/23 Review of Systems Follow up elevated bilirubin no pain or discomfort Physical Exam 2 Vital Signs: Vital Signs: Last Vital Signs Temp 98 F 07/29/23 10:31 Pulse 99 07/29/23 10:31 Resp 18 07/29/23 10:31 BP 102/63 07/29/23 10:31 Pulse Ox 97 07/29/23 10:31 O2 Del Method Room Air 07/29/23 10:31 BMI result Body Mass Index 25.0 Appearing in no acute distress lung sounds are clear to auscultation heart regular rate rhythm, clear S1, S2 positive bowel sounds, abdomen is soft, nontender neuro patient is alert x3, no focal deficits Objective Data Active Medications Acetaminophen (Acetaminophen 325 Mg Tablet) 650 mg PO Q6H PRN PRN Reason: Pain, Mild (Pain Scale 1-3) Albuterol Sulfate (Albuterol Sulfate 90 Mcg 8 Gm Inhaler) 2 puff INHALE Q4H PRN PRN Reason: Wheezing Piperacillin Sod/Tazobactam (Sod 3.375 gm/ Sodium Chloride) 50 mls @ 100 mls/hr IV Q6H [facility] Last Infusion: 07/29/23 09:56 Dose: Infused Documented By: KENYA Lactated Ringer's (Lr) 1,000 mls @ 125 mls/hr IVCONT .Q8H [facility] Last Admin: 07/29/23 10:30 Dose: 125 mls/hr Documented By: KENYA Ondansetron HCl (Ondansetron Hcl 4 Mg/2 Ml Vial) 4 mg IVPUSH Q8H PRN PRN Reason: Nausea and Vomiting Senna (Sennosides 8.6 Mg Tablet) 17.2 mg PO BEDTIME PRN PRN Reason: Constipation Sodium Chloride (0.9 % Sodium Chloride Flush 3 Ml Syringe) 3 ml IVFLUSH QSHIFT [facility] Last Admin: 07/29/23 08:33 Dose: 3 ml Documented By: KENYA Labs 07/29/23 04:41 07/29/23 04:41 Labs: Laboratory Results - last 24 hr 07/28/23 07/28/23 07/28/23 12:54 12:55 13:29 MCV 90.5 MCH 31.9 MCHC 35.2 RDW 13.7 Plt Count 67 L D MPV 10.5 Immature Gran % (Auto) 1.0 H Neut % (Auto) 82.0 H Lymph % (Auto) 5.6 L [place] % (Auto) 10.8 Eos % (Auto) 0.3 Baso % (Auto) 0.3 Lymph # (Auto) 0.8 L [place] # (Auto) 1.6 H Eos # (Auto) 0.0 Baso # (Auto) 0.0 Abs Immat Gran (auto) 0.15 H Absolute Neuts (auto) 12.4 H Absolute Nucleated RBC 0.000 Nucleated RBC % (auto) 0.0 Smear Tech's Comments VERIFIED PT 13.1 INR 1.1 aPTT Heparin Protocol Anion Gap 11 L Estim Creat Clear Calc 36.8 Estimated GFR 43 Random Glucose 102 Lactic Acid 1.3 Calcium 10.0 Magnesium 2.6 Total Bilirubin 4.0 H Direct Bilirubin 2.6 H AST 81 H ALT 108 H Alkaline Phosphatase 426 H Ammonia 28 Total Creatine Kinase 9 L Total Protein 6.1 L Albumin 3.0 L Lipase 74 TSH 0.90 Urine Color Urine Appearance Urine pH Ur Specific [place] Urine Protein Urine Glucose (UA) Urine Ketones Urine Blood Urine Nitrite Ur Leukocyte Esterase Urine RBC Urine WBC Ur Squamous Epith Cells Urine Bacteria Hyaline Casts Urine Opiates Screen Urine Fentanyl Screen Ur Barbiturates Screen Ur Phencyclidine Scrn Ur Amphetamines Screen U Benzodiazepines Scrn Urine Cocaine Screen U Marijuana (THC) Screen Ethyl Alcohol < 10 COVID-19 (JONG) Negative COVID-19 Clin Com See Note Influenza Type A (MAGEN) Negative Influenza Type B (MAGEN) Negative Influenza A & B Note See Note 07/28/23 07/28/23 07/29/23 17:25 22:38 04:41 MCV 90.6 MCH 32.1 MCHC 35.4 RDW 13.7 Plt Count 81 L MPV 10.2 Immature Gran % (Auto) 1.5 H Neut % (Auto) 78.3 H Lymph % (Auto) 6.8 L [place] % (Auto) 12.5 H Eos % (Auto) 0.4 Baso % (Auto) 0.5 Lymph # (Auto) 1.1 L [place] # (Auto) 2.1 H Eos # (Auto) 0.1 Baso # (Auto) 0.1 Abs Immat Gran (auto) 0.24 H Absolute Neuts (auto) 12.9 H Absolute Nucleated RBC 0.000 Nucleated RBC % (auto) 0.0 Smear Tech's Comments VERIFIED PT INR aPTT Heparin Protocol 28.3 L Anion Gap 15 Estim Creat Clear Calc 49.8 Estimated GFR > 60 Random Glucose 81 Lactic Acid Calcium 9.3 D Magnesium Total Bilirubin 4.2 H 4.0 H Direct Bilirubin 3.1 H 2.6 H AST 61 H 69 H ALT 88 H 87 H Alkaline Phosphatase 393 H 419 H Ammonia 30 Total Creatine Kinase Total Protein 5.5 L 5.8 L Albumin 2.7 L 2.7 L Lipase TSH Urine Color Dark Yellow Urine Appearance Clear Urine pH 6.0 Ur Specific [place] 1.020 Urine Protein Trace Urine Glucose (UA) Negative Urine Ketones Negative Urine Blood Negative Urine Nitrite Negative Ur Leukocyte Esterase Trace H Urine RBC 0-2 Urine WBC 0-5 Ur Squamous Epith Cells 3-5 Urine Bacteria None Seen Hyaline Casts 3-5 Urine Opiates Screen Not Detected Urine Fentanyl Screen Not Detected Ur Barbiturates Screen Not Detected Ur Phencyclidine Scrn Not Detected Ur Amphetamines Screen Not Detected U Benzodiazepines Scrn Not Detected Urine Cocaine Screen Not Detected U Marijuana (THC) Screen Not Detected Ethyl Alcohol COVID-19 (JONG) COVID-19 Clin Com Influenza Type A (MAGEN) Influenza Type B (MAGEN) Influenza A & B Note 07/29/23 08:15 MCV MCH MCHC RDW Plt Count MPV Immature Gran % (Auto) Neut % (Auto) Lymph % (Auto) [place] % (Auto) Eos % (Auto) Baso % (Auto) Lymph # (Auto) [place] # (Auto) Eos # (Auto) Baso # (Auto) Abs Immat Gran (auto) Absolute Neuts (auto) Absolute Nucleated RBC Nucleated RBC % (auto) Smear Tech's Comments PT INR aPTT Heparin Protocol 28.1 L Anion Gap Estim Creat Clear Calc Estimated GFR Random Glucose Lactic Acid Calcium Magnesium Total Bilirubin Direct Bilirubin AST ALT Alkaline Phosphatase Ammonia Total Creatine Kinase Total Protein Albumin Lipase TSH Urine Color Urine Appearance Urine pH Ur Specific [place] Urine Protein Urine Glucose (UA) Urine Ketones Urine Blood Urine Nitrite Ur Leukocyte Esterase Urine RBC Urine WBC Ur Squamous Epith Cells Urine Bacteria Hyaline Casts Urine Opiates Screen Urine Fentanyl Screen Ur Barbiturates Screen Ur Phencyclidine Scrn Ur Amphetamines Screen U Benzodiazepines Scrn Urine Cocaine Screen U Marijuana (THC) Screen Ethyl Alcohol COVID-19 (JONG) COVID-19 Clin Com Influenza Type A (MAGEN) Influenza Type B (MAGEN) Influenza A & B Note Assessment and Plan (1) Portal vein thrombosis: Status: Acute (2) Acute kidney injury: Status: Acute Plan 78-year-old male with history of esophageal cancer treated with chemotherapy and radiation 2015, ARUN intermittently compliant with CPAP, mild intermittent asthma admitted for further workup of portal vein thombosis and acute hepatitis. Transaminitis abdominal U/S and CT abdomen/pelvis show concerns for gallbladder wall thickening, gallbladder sludge, cholelithiasis and possible cholecystitis as well as portal vein thrombosis evaluated by General surgery, clinically not consistent with acute cholecystitis gastroenterology consult pending MRCP ordered and pending, if abnormal will need ERCP blood cultures are pending Thrombocytopenia. Unknown etiology No obvious signs of bleeding ? related to transaminitis vs sepsis, but no source at this time Portal vein thrombosis-etiology unclear due to platelet count 67, anticoagulation is contraindicated at this time echocardiogram ordered Acute toxic metabolic encephalopathy. Resolved ammonia 26. Head CT negative for acute intracranial abnormality STARR. Creatinine trending down likely prerenal/hepatorenal IV fluids Follow renal function/lytes Mild intermittent asthma no acute exacerbation albuterol p.r.n. ARUN declines cpap DVT prophylaxis- pneumatic compression boots Attending Dr. Vega Full code Pt requires inpt stay at least 2 midnights due to acute hepatitis and portal vein thrombosis of unclear etiology requiring further investigation with MRCP, expert consultation, and will need reevaluation for anticoagulation which is currently contraindicated due to thrombocytopenia Quality Stroke Does the patient have a stroke diagnosis?: No VTE Prior VTE?: No VTE Risk Level:: Medical - moderate - high VTE Device Contraindication: Treatment Not Indicated VTE Drug Contraindication: N/A - Med Ordered
[2023-07-29 11:17] VITALS: BP 106/67; PULSE 112; RESP 16; O2SAT 98
--- NOTE | 2023-07-29 12:12 | P.PNGS_ITS ---
Subjective Subjective Date of Service: 07/29/23 Interval history: denies abdl pain no events reported overnight states he feels well Physical Exam 2 Vital Signs: Vital Signs: Last Vital Signs Temp 98 F 07/29/23 10:31 Pulse 112 H 07/29/23 11:17 Resp 16 07/29/23 11:17 BP 106/67 07/29/23 11:17 Pulse Ox 98 07/29/23 11:17 O2 Del Method Room Air 07/29/23 11:17 BMI result Body Mass Index 25.0 Const: General: comfortable and no acute distress Resp: Effort & Inspection: normal respiratory effort Cardio: Rhythm: regular rhythm GI: Other: no Dupont's sign Palpation (GI): Soft to palpation, not firm, nontender and no guarding Objective Data Active Medications Acetaminophen (Acetaminophen 325 Mg Tablet) 650 mg PO Q6H PRN PRN Reason: Pain, Mild (Pain Scale 1-3) Albuterol Sulfate (Albuterol Sulfate 90 Mcg 8 Gm Inhaler) 2 puff INHALE Q4H PRN PRN Reason: Wheezing Piperacillin Sod/Tazobactam (Sod 3.375 gm/ Sodium Chloride) 50 mls @ 100 mls/hr IV Q6H [facility] Last Infusion: 07/29/23 09:56 Dose: Infused Documented By: KENYA Lactated Ringer's (Lr) 1,000 mls @ 125 mls/hr IVCONT .Q8H [facility] Last Admin: 07/29/23 10:30 Dose: 125 mls/hr Documented By: KENYA Ondansetron HCl (Ondansetron Hcl 4 Mg/2 Ml Vial) 4 mg IVPUSH Q8H PRN PRN Reason: Nausea and Vomiting Senna (Sennosides 8.6 Mg Tablet) 17.2 mg PO BEDTIME PRN PRN Reason: Constipation Sodium Chloride (0.9 % Sodium Chloride Flush 3 Ml Syringe) 3 ml IVFLUSH QSHIFT [facility] Last Admin: 07/29/23 08:33 Dose: 3 ml Documented By: KENYA Labs 07/29/23 04:41 07/29/23 04:41 Labs: Laboratory Results - last 24 hr 07/28/23 07/28/23 07/28/23 12:54 12:55 13:29 MCV 90.5 MCH 31.9 MCHC 35.2 RDW 13.7 Plt Count 67 L D MPV 10.5 Immature Gran % (Auto) 1.0 H Neut % (Auto) 82.0 H Lymph % (Auto) 5.6 L [place] % (Auto) 10.8 Eos % (Auto) 0.3 Baso % (Auto) 0.3 Lymph # (Auto) 0.8 L [place] # (Auto) 1.6 H Eos # (Auto) 0.0 Baso # (Auto) 0.0 Abs Immat Gran (auto) 0.15 H Absolute Neuts (auto) 12.4 H Absolute Nucleated RBC 0.000 Nucleated RBC % (auto) 0.0 Smear Tech's Comments VERIFIED PT 13.1 INR 1.1 aPTT Heparin Protocol Anion Gap 11 L Estim Creat Clear Calc 36.8 Estimated GFR 43 Random Glucose 102 Lactic Acid 1.3 Calcium 10.0 Magnesium 2.6 Total Bilirubin 4.0 H Direct Bilirubin 2.6 H AST 81 H ALT 108 H Alkaline Phosphatase 426 H Ammonia 28 Total Creatine Kinase 9 L Total Protein 6.1 L Albumin 3.0 L Lipase 74 TSH 0.90 Urine Color Urine Appearance Urine pH Ur Specific [place] Urine Protein Urine Glucose (UA) Urine Ketones Urine Blood Urine Nitrite Ur Leukocyte Esterase Urine RBC Urine WBC Ur Squamous Epith Cells Urine Bacteria Hyaline Casts Urine Opiates Screen Urine Fentanyl Screen Ur Barbiturates Screen Ur Phencyclidine Scrn Ur Amphetamines Screen U Benzodiazepines Scrn Urine Cocaine Screen U Marijuana (THC) Screen Ethyl Alcohol < 10 COVID-19 (JONG) Negative COVID-19 Clin Com See Note Influenza Type A (MAGEN) Negative Influenza Type B (MAGEN) Negative Influenza A & B Note See Note 07/28/23 07/28/23 07/29/23 17:25 22:38 04:41 MCV 90.6 MCH 32.1 MCHC 35.4 RDW 13.7 Plt Count 81 L MPV 10.2 Immature Gran % (Auto) 1.5 H Neut % (Auto) 78.3 H Lymph % (Auto) 6.8 L [place] % (Auto) 12.5 H Eos % (Auto) 0.4 Baso % (Auto) 0.5 Lymph # (Auto) 1.1 L [place] # (Auto) 2.1 H Eos # (Auto) 0.1 Baso # (Auto) 0.1 Abs Immat Gran (auto) 0.24 H Absolute Neuts (auto) 12.9 H Absolute Nucleated RBC 0.000 Nucleated RBC % (auto) 0.0 Smear Tech's Comments VERIFIED PT INR aPTT Heparin Protocol 28.3 L Anion Gap 15 Estim Creat Clear Calc 49.8 Estimated GFR > 60 Random Glucose 81 Lactic Acid Calcium 9.3 D Magnesium Total Bilirubin 4.2 H 4.0 H Direct Bilirubin 3.1 H 2.6 H AST 61 H 69 H ALT 88 H 87 H Alkaline Phosphatase 393 H 419 H Ammonia 30 Total Creatine Kinase Total Protein 5.5 L 5.8 L Albumin 2.7 L 2.7 L Lipase TSH Urine Color Dark Yellow Urine Appearance Clear Urine pH 6.0 Ur Specific [place] 1.020 Urine Protein Trace Urine Glucose (UA) Negative Urine Ketones Negative Urine Blood Negative Urine Nitrite Negative Ur Leukocyte Esterase Trace H Urine RBC 0-2 Urine WBC 0-5 Ur Squamous Epith Cells 3-5 Urine Bacteria None Seen Hyaline Casts 3-5 Urine Opiates Screen Not Detected Urine Fentanyl Screen Not Detected Ur Barbiturates Screen Not Detected Ur Phencyclidine Scrn Not Detected Ur Amphetamines Screen Not Detected U Benzodiazepines Scrn Not Detected Urine Cocaine Screen Not Detected U Marijuana (THC) Screen Not Detected Ethyl Alcohol COVID-19 (JONG) COVID-19 Clin Com Influenza Type A (MAGEN) Influenza Type B (MAGEN) Influenza A & B Note 07/29/23 08:15 MCV MCH MCHC RDW Plt Count MPV Immature Gran % (Auto) Neut % (Auto) Lymph % (Auto) [place] % (Auto) Eos % (Auto) Baso % (Auto) Lymph # (Auto) [place] # (Auto) Eos # (Auto) Baso # (Auto) Abs Immat Gran (auto) Absolute Neuts (auto) Absolute Nucleated RBC Nucleated RBC % (auto) Smear Tech's Comments PT INR aPTT Heparin Protocol 28.1 L Anion Gap Estim Creat Clear Calc Estimated GFR Random Glucose Lactic Acid Calcium Magnesium Total Bilirubin Direct Bilirubin AST ALT Alkaline Phosphatase Ammonia Total Creatine Kinase Total Protein Albumin Lipase TSH Urine Color Urine Appearance Urine pH Ur Specific [place] Urine Protein Urine Glucose (UA) Urine Ketones Urine Blood Urine Nitrite Ur Leukocyte Esterase Urine RBC Urine WBC Ur Squamous Epith Cells Urine Bacteria Hyaline Casts Urine Opiates Screen Urine Fentanyl Screen Ur Barbiturates Screen Ur Phencyclidine Scrn Ur Amphetamines Screen U Benzodiazepines Scrn Urine Cocaine Screen U Marijuana (THC) Screen Ethyl Alcohol COVID-19 (JONG) COVID-19 Clin Com Influenza Type A (MAGEN) Influenza Type B (MAGEN) Influenza A & B Note Procedures Date of Service Date of Service: 07/29/23 Progress Note: A&P Assessment and plan (1) Elevated bilirubin: Status: Acute Assessment and Plan: bili slightly lower does not have pain or tenderness on abd WBC still elevated clinically benign exam await MRCP has portal vein thrombosis - for anticoag but platelet ct borderline low continue IV abx looks comfortable Time Spent With Patient Time: Total time managing care of this patient today ____ minutes. Quality Stroke Does the patient have a stroke diagnosis?: No VTE Prior VTE?: No VTE Risk Level:: Medical - moderate - high VTE Device Contraindication: Treatment Not Indicated VTE Drug Contraindication: N/A - Med Ordered
[2023-07-29 13:53] VITALS: BP 120/76; PULSE 101; RESP 17; TEMP 36.2; O2SAT 97
[2023-07-29 14:10] VITALS: BMI 25.5
[2023-07-29 15:41] VITALS: BP 115/75; PULSE 96; RESP 19; TEMP 36.3; O2SAT 95
[2023-07-29 19:47] VITALS: BP 100/67; PULSE 96; RESP 19; TEMP 36.2; O2SAT 96
[2023-07-30] MEDS: Lactated Ringers 1,000 ML 125 ML IVCONT ×3 (03:01→20:52)
[2023-07-30 03:02] VITALS: BP 121/74; PULSE 76; RESP 18; TEMP 36.8; O2SAT 96
[2023-07-30] MEDS: Piperacillin Sodium/Tazobactam 3.375 GM in 0.9 % Sodium Chloride 50 ML IV ×4 (03:04→20:15)
[2023-07-30 05:46] LABS: Hematocrit 40.9 % (42.0-52.0); Hemoglobin 14.1 g/dl (14.0-18.0); Mean Corpuscular HGB Conc 34.5 g/dl (31.0-36.0); Mean Corpuscular Hemoglobin 31.7 pg (27.0-33.0); Mean Corpuscular Volume 91.9 fL (80.0-98.0); Mean Platelet Volume 9.8 fL (9.4-12.4); Platelet Count 136 X10*3/uL (160-400); Red Blood Count 4.45 X10*6/uL (4.60-5.80); Red Cell Distribution Width 14.1 % (11.0-16.0); White Blood Count 15.2 X10*3/uL (4.8-10.8)
[2023-07-30 06:01] LABS: Alanine Aminotransferase 83 U/L (0-40); Albumin Level 2.7 g/dL (3.5-5.0); Alkaline Phosphatase 479 U/L (39-117); Anion Gap 13 (12-20); Aspartate Amino Transferase 78 U/L (5-37); Bilirubin Total 3.2 mg/dL (0.0-1.0); Blood Urea Nitrogen 36 mg/dL (9-16); Calcium 9.6 mg/dL (8.4-10.2); Carbon Dioxide 26 mmol/L (22-29); Chloride 109 mmol/L (96-108); Creatinine Clr Calc Pharmacy 60.2; Estimated Glomerular Filt Rate > 60; Glucose Random 101 mg/dL (60-115); Potassium 3.6 mmol/L (3.3-5.1); Sodium 144 mmol/L (135-145); Total Protein 5.6 g/dL (6.5-8.0)
[2023-07-30 07:20] VITALS: BP 121/74; PULSE 76; O2SAT 96
[2023-07-30 07:46] VITALS: BP 107/76; PULSE 96; RESP 18; TEMP 36.2; O2SAT 94
--- NOTE | 2023-07-30 08:33 | P.PNGS_ITS ---
Subjective Subjective Date of Service: 07/31/23 Interval history: denies abdl pain says he feels well Physical Exam 2 Vital Signs: Vital Signs: Last Vital Signs Temp 97.2 F 07/30/23 07:46 Pulse 96 07/30/23 07:46 Resp 18 07/30/23 07:46 BP 107/76 07/30/23 07:46 Pulse Ox 94 07/30/23 07:46 O2 Del Method Room Air 07/30/23 07:46 BMI result Body Mass Index 25.5 Const: General: comfortable and no acute distress Resp: Effort & Inspection: normal respiratory effort Cardio: Rate: regular rate GI: Palpation (GI): Soft to palpation, not firm, nontender and no guarding Objective Data Active Medications Acetaminophen (Acetaminophen 325 Mg Tablet) 650 mg PO Q6H PRN PRN Reason: Pain, Mild (Pain Scale 1-3) Albuterol Sulfate (Albuterol Sulfate 90 Mcg 8 Gm Inhaler) 2 puff INHALE Q4H PRN PRN Reason: Wheezing Piperacillin Sod/Tazobactam (Sod 3.375 gm/ Sodium Chloride) 50 mls @ 100 mls/hr IV Q6H [facility] Last Infusion: 07/30/23 03:34 Dose: Infused Documented By: MAGDY Lactated Ringer's (Lr) 1,000 mls @ 125 mls/hr IVCONT .Q8H [facility] Last Admin: 07/30/23 03:01 Dose: 125 mls/hr Documented By: MAGDY Ondansetron HCl (Ondansetron Hcl 4 Mg/2 Ml Vial) 4 mg IVPUSH Q8H PRN PRN Reason: Nausea and Vomiting Senna (Sennosides 8.6 Mg Tablet) 17.2 mg PO BEDTIME PRN PRN Reason: Constipation Sodium Chloride (0.9 % Sodium Chloride Flush 3 Ml Syringe) 3 ml IVFLUSH QSHIFT [facility] Last Admin: 07/30/23 07:28 Dose: Not Given Documented By: JACKIE Non-Admin Reason: IV Running Labs 07/31/23 04:54 07/31/23 04:54 Labs: Laboratory Results - last 24 hr 07/29/23 07/30/23 07/30/23 04:41 05:00 05:00 MCV 91.9 MCH 31.7 MCHC 34.5 RDW 14.1 Plt Count 136 L D MPV 9.8 Absolute Nucleated RBC 0.000 Nucleated RBC % (auto) 0.0 Anion Gap 13 Estim Creat Clear Calc 60.2 Estimated GFR > 60 Random Glucose 101 Calcium 9.6 Total Bilirubin 4.0 H Cancelled 3.2 H Direct Bilirubin 2.6 H Cancelled AST 69 H ALT 87 H Alkaline Phosphatase 419 H Total Protein 5.8 L Albumin 2.7 L 07/30/23 07/30/23 07/30/23 05:00 05:00 05:00 MCV MCH MCHC RDW Plt Count MPV Absolute Nucleated RBC Nucleated RBC % (auto) Anion Gap Estim Creat Clear Calc Estimated GFR Random Glucose Calcium Total Bilirubin Direct Bilirubin 2.0 H AST Cancelled 78 H ALT Cancelled 83 H Alkaline Phosphatase Cancelled Total Protein Albumin 07/30/23 07/30/23 07/30/23 05:00 05:00 05:00 MCV MCH MCHC RDW Plt Count MPV Absolute Nucleated RBC Nucleated RBC % (auto) Anion Gap Estim Creat Clear Calc Estimated GFR Random Glucose Calcium Total Bilirubin Direct Bilirubin AST ALT Alkaline Phosphatase 479 H Total Protein Cancelled 5.6 L Albumin Cancelled 2.7 L Microbiology Microbiology Results: Microbiology 07/28/23 13:29 Blood Culture - Preliminary Blood - Venous No growth after 24 hours. 07/28/23 12:54 Blood Culture - Preliminary Blood - Venous No growth after 24 hours. Procedures Date of Service Date of Service: 07/31/23 Progress Note: A&P Assessment and plan (1) Elevated bilirubin: Status: Acute Assessment and Plan: bilirubin much improved no abdl pain or tenderness no Dupont's sign also has portval vein thrombosis continue IV abx MRCP does not suggest CBD obstruction Time Spent With Patient Time: Total time managing care of this patient today ____ minutes. Quality Stroke Does the patient have a stroke diagnosis?: No VTE Prior VTE?: No VTE Risk Level:: Medical - moderate - high VTE Device Contraindication: Treatment Not Indicated VTE Drug Contraindication: N/A - Med Ordered
[2023-07-30] MEDS: 0.9 % Sodium Chloride Flush 3 ML SYRINGE IVFLUSH (14:56)
--- NOTE | 2023-07-30 15:05 | MHC.CM.PN ---
IMM 07/30/23, Pt lives with his , she was recently hospitalized here. He is independent, does not use home health services, for medical equipment he has a CPAP machine. He has not used [facility] or been to [facility] in the past. HCP completed, naming his son Seng Donohue. PCP: Zane Rivera. Son to transport home upon DC. Pt said his recently fell, as did he, helping her to go upstairs. CM spoke with him about getting a chair lift or moving bedroom to first floor. He said that are working on that, and that the house is big and it can be done. CM to follow and assist with DC plan.
[2023-07-30 15:17] VITALS: BP 107/66; PULSE 100; RESP 18; TEMP 36.6; O2SAT 94
--- NOTE | 2023-07-30 15:22 | P.PNIM_ITS ---
Subjective Subjective Date of Service: 07/30/23 Interval History: No acute issues overnight. No complaints of abdominal pain. Tolerating diet Review of Systems Denies chest pain Denies shortness of breath Denies nausea vomiting diarrhea Denies fever chills Physical Exam 2 Vital Signs: Vital Signs: Last Vital Signs Temp 97.8 F 07/30/23 15:17 Pulse 100 07/30/23 15:17 Resp 18 07/30/23 15:17 BP 107/66 07/30/23 15:17 Pulse Ox 94 07/30/23 15:17 O2 Del Method Room Air 07/30/23 15:17 BMI result Body Mass Index 25.5 Const: Other: Awake alert oriented x3 no acute distress Resp: Other: Clear to auscultation bilaterally no rales rhonchi or wheezes Cardio: Other: No S4; positive S1-S2; no S3 murmurs rubs or gallops GI: Other: Soft nontender nondistended normoactive bowel sounds Extrem: Other: No edema bilaterally Objective Data Active Medications Acetaminophen (Acetaminophen 325 Mg Tablet) 650 mg PO Q6H PRN PRN Reason: Pain, Mild (Pain Scale 1-3) Albuterol Sulfate (Albuterol Sulfate 90 Mcg 8 Gm Inhaler) 2 puff INHALE Q4H PRN PRN Reason: Wheezing Piperacillin Sod/Tazobactam (Sod 3.375 gm/ Sodium Chloride) 50 mls @ 100 mls/hr IV Q6H COUNTS INCLUDE 234 BEDS AT THE [facility] Last Admin: 07/30/23 14:55 Dose: 100 mls/hr Documented By: JACKIE Lactated Ringer's (Lr) 1,000 mls @ 125 mls/hr IVCONT .Q8H COUNTS INCLUDE 234 BEDS AT THE [facility] Last Admin: 07/30/23 12:27 Dose: 125 mls/hr Documented By: JACKIE Ondansetron HCl (Ondansetron Hcl 4 Mg/2 Ml Vial) 4 mg IVPUSH Q8H PRN PRN Reason: Nausea and Vomiting Senna (Sennosides 8.6 Mg Tablet) 17.2 mg PO BEDTIME PRN PRN Reason: Constipation Sodium Chloride (0.9 % Sodium Chloride Flush 3 Ml Syringe) 3 ml IVFLUSH QSHIFT COUNTS INCLUDE 234 BEDS AT THE [facility] Last Admin: 07/30/23 14:56 Dose: 3 ml Documented By: JACKIE Labs 07/30/23 05:00 07/30/23 05:00 Labs: Laboratory Results - last 24 hr 07/30/23 07/30/23 07/30/23 05:00 05:00 05:00 MCV 91.9 MCH 31.7 MCHC 34.5 RDW 14.1 Plt Count 136 L D MPV 9.8 Absolute Nucleated RBC 0.000 Nucleated RBC % (auto) 0.0 Anion Gap 13 Estim Creat Clear Calc 60.2 Estimated GFR > 60 Random Glucose 101 Calcium 9.6 Total Bilirubin Cancelled 3.2 H Direct Bilirubin Cancelled 2.0 H AST Cancelled ALT Alkaline Phosphatase Total Protein Albumin 07/30/23 07/30/23 07/30/23 05:00 05:00 05:00 MCV MCH MCHC RDW Plt Count MPV Absolute Nucleated RBC Nucleated RBC % (auto) Anion Gap Estim Creat Clear Calc Estimated GFR Random Glucose Calcium Total Bilirubin Direct Bilirubin AST 78 H ALT Cancelled 83 H Alkaline Phosphatase Cancelled 479 H Total Protein Cancelled Albumin 07/30/23 07/30/23 05:00 05:00 MCV MCH MCHC RDW Plt Count MPV Absolute Nucleated RBC Nucleated RBC % (auto) Anion Gap Estim Creat Clear Calc Estimated GFR Random Glucose Calcium Total Bilirubin Direct Bilirubin AST ALT Alkaline Phosphatase Total Protein 5.6 L Albumin Cancelled 2.7 L Microbiology Microbiology Results: Microbiology 07/28/23 12:54 Blood Culture - Preliminary Blood - Venous No growth after 48 hours. 07/28/23 13:29 Blood Culture - Preliminary Blood - Venous No growth after 24 hours. Assessment and Plan (1) Acute hepatitis: Status: Acute (2) Portal vein thrombosis: Status: Acute Plan 78-year-old male with history of esophageal cancer treated with chemotherapy and radiation 2015, ARUN intermittently compliant with CPAP, mild intermittent asthma admitted for further workup of portal vein thombosis and acute hepatitis. 1.Transaminitis Abdominal U/S and CT abdomen/pelvis show concerns for gallbladder wall thickening, gallbladder sludge, cholelithiasis and possible cholecystitis as well as portal vein thrombosis;evaluated by General surgery, clinically not consistent with acute cholecystitis. GI favors consideration of a percutaneous drain -serial LFTs -continue empiric Zosyn(2) -follow cultures... Negative times 24 hours 2.Thrombocytopenia. -improving... No active bleeding -follow clinically.. Daily CBC is 3.Portal vein thrombosis-etiology unclear -as per GI; hold anticoagulation -echo unremarkable 4.Acute toxic metabolic encephalopathy(Resolved) -Head CT negative for acute intracranial abnormality -check ammonia in a.m. 5.STARR (resolving) -responding to volume -follow renals/divalents Pneumatic compression boots Full code Patient will require ongoing hospitalization to treat transaminitis with empiric Zosyn pending workup of gall back in decision by specialists for treatment Quality Stroke Does the patient have a stroke diagnosis?: No VTE Prior VTE?: No VTE Risk Level:: Medical - moderate - high VTE Device Contraindication: Treatment Not Indicated VTE Drug Contraindication: N/A - Med Ordered
[2023-07-30 19:10] VITALS: BP 100/60; PULSE 95; RESP 18; TEMP 36.4; O2SAT 93
[2023-07-31] MEDS: Piperacillin Sodium/Tazobactam 3.375 GM in 0.9 % Sodium Chloride 50 ML IV ×3 (02:01→14:53)
[2023-07-31 03:26] VITALS: BP 114/72; PULSE 93; RESP 16; TEMP 37.1; O2SAT 96
[2023-07-31] MEDS: Lactated Ringers 1,000 ML 125 ML IVCONT (04:44)
[2023-07-31 05:58] LABS: MANUAL DIFF FLAG NO
[2023-07-31 06:09] LABS: Basophils Absolute Auto 0.1 X10*3/uL (0.0-0.2); Basophils Percent Auto 0.3 % (0-2); Eosinophils Absolute Auto 0.2 X10*3/uL (0.0-0.4); Eosinophils Percent Auto 1.5 % (0-4); Hematocrit 37.1 % (42.0-52.0); Hemoglobin 12.9 g/dl (14.0-18.0); Imm Gran Abs Auto 0.53 X10*3/uL (0.00-0.03); Imm Gran Pct Auto 3.5 % (0.0-0.4); Lymphocytes Absolute Auto 1.2 X10*3/uL (1.2-4.9); Mean Corpuscular HGB Conc 34.8 g/dl (31.0-36.0); Mean Corpuscular Hemoglobin 32.2 pg (27.0-33.0); Mean Corpuscular Volume 92.5 fL (80.0-98.0); Mean Platelet Volume 10.2 fL (9.4-12.4); Monocytes Percent Auto 6.7 % (2-11); Platelet Count 176 X10*3/uL (160-400); Red Blood Count 4.01 X10*6/uL (4.60-5.80)
[2023-07-31 06:22] LABS: Alanine Aminotransferase 70 U/L (0-40); Albumin Level 2.4 g/dL (3.5-5.0); Alkaline Phosphatase 478 U/L (39-117); Anion Gap 10 (12-20); Aspartate Amino Transferase 62 U/L (5-37); Bilirubin Total 2.8 mg/dL (0.0-1.0); Blood Urea Nitrogen 21 mg/dL (9-16); Calcium 8.9 mg/dL (8.4-10.2); Carbon Dioxide 28 mmol/L (22-29); Chloride 107 mmol/L (96-108); Creatinine Clr Calc Pharmacy 72.2; Estimated Glomerular Filt Rate > 60; Glucose Fasting 100 mg/dL (60-99); Potassium 3.6 mmol/L (3.3-5.1); Sodium 141 mmol/L (135-145); Total Protein 5.2 g/dL (6.5-8.0)
[2023-07-31 07:55] VITALS: BP 113/72; PULSE 100; RESP 18; TEMP 36.5; O2SAT 97
[2023-07-31 08:28] VITALS: BP 113/72; PULSE 100; O2SAT 97
[2023-07-31] MEDS: 0.9 % Sodium Chloride Flush 3 ML SYRINGE IVFLUSH (08:45)
[2023-07-31 09:21] LABS: Ammonia 37 umol/L (13-55)
--- NOTE | 2023-07-31 12:35 | P.PNGS_ITS ---
Subjective Subjective Date of Service: 07/31/23 Interval history: tolerating diet denies abdl pain says he feels well Physical Exam 2 Vital Signs: Vital Signs: Last Vital Signs Temp 97.7 F 07/31/23 07:55 Pulse 100 07/31/23 08:28 Resp 18 07/31/23 07:55 BP 113/72 07/31/23 08:28 Pulse Ox 97 07/31/23 08:28 O2 Del Method Room Air 07/31/23 07:55 BMI result Body Mass Index 25.5 Const: General: comfortable and no acute distress Resp: Effort & Inspection: normal respiratory effort Cardio: Rate: regular rate GI: Palpation (GI): Soft to palpation, not firm, nontender and no guarding Objective Data Active Medications Acetaminophen (Acetaminophen 325 Mg Tablet) 650 mg PO Q6H PRN PRN Reason: Pain, Mild (Pain Scale 1-3) Albuterol Sulfate (Albuterol Sulfate 90 Mcg 8 Gm Inhaler) 2 puff INHALE Q4H PRN PRN Reason: Wheezing Piperacillin Sod/Tazobactam (Sod 3.375 gm/ Sodium Chloride) 50 mls @ 100 mls/hr IV Q6H [facility] Last Infusion: 07/31/23 09:15 Dose: Infused Documented By: MELISSA Ondansetron HCl (Ondansetron Hcl 4 Mg/2 Ml Vial) 4 mg IVPUSH Q8H PRN PRN Reason: Nausea and Vomiting Senna (Sennosides 8.6 Mg Tablet) 17.2 mg PO BEDTIME PRN PRN Reason: Constipation Sodium Chloride (0.9 % Sodium Chloride Flush 3 Ml Syringe) 3 ml IVFLUSH QSHIFT [facility] Last Admin: 07/31/23 08:45 Dose: 3 ml Documented By: MELISSA Labs 07/31/23 04:54 07/31/23 04:54 Labs: Laboratory Results - last 24 hr 07/31/23 07/31/23 04:54 09:09 MCV 92.5 MCH 32.2 MCHC 34.8 RDW 14.0 Plt Count 176 D MPV 10.2 Immature Gran % (Auto) 3.5 H Neut % (Auto) 80.0 H Lymph % (Auto) 8.0 L [place] % (Auto) 6.7 Eos % (Auto) 1.5 Baso % (Auto) 0.3 Lymph # (Auto) 1.2 [place] # (Auto) 1.0 Eos # (Auto) 0.2 Baso # (Auto) 0.1 Abs Immat Gran (auto) 0.53 H Absolute Neuts (auto) 12.0 H Absolute Nucleated RBC 0.000 Nucleated RBC % (auto) 0.0 Anion Gap 10 L Estim Creat Clear Calc 72.2 Estimated GFR > 60 Fasting Glucose 100 H Calcium 8.9 D Total Bilirubin 2.8 H AST 62 H ALT 70 H Alkaline Phosphatase 478 H Ammonia 37 Total Protein 5.2 L Albumin 2.4 L Microbiology Microbiology Results: Microbiology 07/28/23 13:29 Blood Culture - Preliminary Blood - Venous No growth after 48 hours. 07/28/23 12:54 Blood Culture - Preliminary Blood - Venous No growth after 48 hours. Procedures Date of Service Date of Service: 07/31/23 Progress Note: A&P Assessment and plan (1) Elevated bilirubin: Status: Acute Assessment and Plan: bilirubin continues to trend down WBC slow to improve clinically looks well no tenderness no fever imaging reviewed - would not recommend IR cholecystostomy at this time - GB not markedly distended, no symptoms continue current management has portal vein thrombosis - no anticoagualtion at this time Time Spent With Patient Time: Total time managing care of this patient today ____ minutes. Quality Stroke Does the patient have a stroke diagnosis?: No VTE Prior VTE?: No VTE Risk Level:: Medical - moderate - high VTE Device Contraindication: Treatment Not Indicated VTE Drug Contraindication: N/A - Med Ordered
--- NOTE | 2023-07-31 13:15 | MHC.CM.PN ---
EMR reviewed. Per MD patient is medically cleared for dc home with new [facility]. Patient states he has family coming to provide transportation. IMM was delivered 07/30. [facility] updated on dc.
--- NOTE | 2023-07-31 13:30 | PM.DS ---
DS: Providers Provider Date of Service: 07/31/23 Date of admission: 07/28/23 22:10 Date of discharge: 07/31/23 Primary care physician: Zane Rivera MD Consults: 07/28/23 22:10 Consult to Gastroenterology Routine Consulting Provider: Carmencita Bush Reason for consultation: portal vein thrombosis, hx esophageal ca Has provider been notified: No 07/29/23 13:13 Consult to General Surgery Routine Consulting Provider: [facility] [place] [facility]geons Reason for consultation: abdominal pain DS: Diagnosis Discharge Diagnosis (1) Elevated bilirubin: Status: Acute (2) Portal vein thrombosis: Status: Acute (3) Acute kidney injury: Status: Acute DS: Summary Hospital Course Hospital Course: 78-year-old male with history of esophageal cancer treated with chemotherapy and radiation 2015, ARUN intermittently compliant with CPAP, mild intermittent asthma presented to the ED earlier today at the recommendation of EMS for evaluation of epigastric pain and reported altered mental status. He states he was trying to assist his with fallen down the stairs and called EMS. However, upon arrival, they recommended that he be evaluated as well. Per the 's report, the patient has had increased confusion over the last several days and has had difficulty assisting with her care as a result. However, on exam, the patient is alert and oriented x3. He is reporting 3/10 right upper quadrant/epigastric pain that has been ongoing for several days. Denies any fevers, chills, dysphagia, nausea, vomiting, radiation of his pain, diarrhea, melena, hematochezia, lightheadedness, shortness of breath, palpitations, chest pain. On arrival, vital signs stable. There is a leukocytosis of 15.1. Platelets 67. Creatinine 1.57, baseline 0.8, BUN 87. Electrolyte levels normal. Total bilirubin 4.0, direct bilirubin pending. AST 81, ALT 108, alkaline phosphatase 428. Ammonia level 28. Lipase 74. TSH 0.9. Urinalysis unremarkable. Urine tox screen negative. Ethyl alcohol level undetectable. Negative for COVID-[address] negative for any acute intracranial abnormality but shows chronic weight matter small-vessel disease. CXR shows slight elevation of left hemidiaphragm and left basilar atelectasis but no acute cardiopulmonary abnormality. Abdominal U/S shows probable left portal vein thrombosis with unclear etiology. There is also cholelithiasis, gallbladder sludge and diffusely thickened gallbladder wall suggestive of possible cholecystitis though no positive sonographic Dupont sign. Subsequent CT of the abdomen/pelvis again demonstrates gallbladder wall thickening with haziness of the pericholecystic fat again suspicious for cholecystitis. There is also mild thickening and contrast enhancement of the [place] of the common duct and cystic duct suspicious for cholangitis. Left portal vein thrombosis. General surgery did evaluate patient in the ER and does not feel patient's clinical picture is consistent with acute cholecystitis, recommends MRCP. In the ED has been given 2 L IV NS, Zosyn. Hospital Course Admitted to general medical floor and continued on empiric Zosyn. Was seen in consultation by surgery who felt this was not acute cholecystitis. He was also seen in consultation by GI who did order MRCP. MRCP demonstrated cholelithiasis with gallbladder wall thickening and pericholecystic inflammatory changes that were concerning for cholecystitis but there was no biliary duct dilatation. Over the course next 24-48 hours patient's liver function improved and surgery did not feel it necessary to intervene. Of note he was found to have a portal vein thrombosis; GI did not feel anticoagulation was warranted at this time. At this point in time he is medically acceptable to be discharged home to complete a course of Augmentin and follow-up with PCP and GI as outpatient Time Attestation Discharge coordination time: Greater than 30 minutes Quality: Safe Use of Opioids Does Pt have an Active Cancer Diagnosis on the Problem List?: No Quality: Stroke Does the patient have a stroke diagnosis?: No Physical Exam Vital Signs: Vital Signs: Last Vital Signs Temp 97.7 F 07/31/23 07:55 Pulse 100 07/31/23 08:28 Resp 18 07/31/23 07:55 BP 113/72 07/31/23 08:28 Pulse Ox 97 07/31/23 08:28 O2 Del Method Room Air 07/31/23 07:55 BMI result Body Mass Index 25.5 Const: Other: Awake alert oriented x3 no acute distress Resp: Other: Clear to auscultation bilaterally no rales rhonchi or wheezes Cardio: Other: No S4; positive S1-S2; no S3 murmurs rubs or gallops GI: Other: Soft nontender nondistended normoactive bowel sounds Extrem: Other: No edema bilaterally DS: Data Data Completed and Pending Labs on day of discharge: Laboratory Results - last 24 hr 07/31/23 07/31/23 04:54 09:09 WBC 15.0 H RBC 4.01 L Hgb 12.9 L Hct 37.1 L MCV 92.5 MCH 32.2 MCHC 34.8 RDW 14.0 Plt Count 176 D MPV 10.2 Immature Gran % (Auto) 3.5 H Neut % (Auto) 80.0 H Lymph % (Auto) 8.0 L Gregory % (Auto) 6.7 Eos % (Auto) 1.5 Baso % (Auto) 0.3 Lymph # (Auto) 1.2 Gregory # (Auto) 1.0 Eos # (Auto) 0.2 Baso # (Auto) 0.1 Abs Immat Gran (auto) 0.53 H Absolute Neuts (auto) 12.0 H Absolute Nucleated RBC 0.000 Nucleated RBC % (auto) 0.0 Sodium 141 Potassium 3.6 Chloride 107 Carbon Dioxide 28 Anion Gap 10 L BUN 21 H Creatinine 0.80 Estim Creat Clear Calc 72.2 Estimated GFR > 60 Fasting Glucose 100 H Calcium 8.9 D Total Bilirubin 2.8 H AST 62 H ALT 70 H Alkaline Phosphatase 478 H Ammonia 37 Total Protein 5.2 L Albumin 2.4 L Preliminary micro results at discharge 07/28/23 13:29 Blood Culture - Preliminary Blood - Venous No growth after 48 hours. 07/28/23 12:54 Blood Culture - Preliminary Blood - Venous No growth after 48 hours. Discharge Plan Discharge Anticipated Discharge Date/Time: 07/31/23 13:22 Patient Disposition: Home Health Service Discharge Diagnosis: Acute hepatitis with portal vein thrombosis Referrals: Priyanka SANCHES [Outside] - 3-5 Days (Priyanka SANCHES will call you to schedule) Zane Rivera MD [Primary Care Provider] - 1 Week Discharge Medications: New amoxicillin-pot clavulanate 875-125 mg tablet 1 tab PO BID Qty: 14 0RF Continued albuterol sulfate [ProAir HFA] 90 mcg/actuation Hfa Aerosol Inhaler 2 puff INHALATION Q4-6H PRN (Reason: Wheezing) Discharge Orders: Discharge Order (Routine); Ordered 07/31/23 Ordered By: Junito Campoverde Diet: Advance to usual diet Activity on Discharge: As tolerated Stand Alone Forms: Patient Portal Discharge page Care Plan Goals: Resume all pre-hospital medications Health Concerns: Complete course of Augmentin 875 twice daily for 7 days Plan of Treatment: Follow-up with your PCP next available appointment Assessment: See discharge summary
--- NOTE | 2023-07-31 14:40 | P.F2F_ITS ---
Service Date Service Date: 07/31/23 Encounter Date of encounter: 07/31/23 Encounter: Acute hospitalization Reasons for Services Signs and symptoms assessed: Ataxia along with following up for abdominal pain; monitoring for confusional status Reason for halfway: medication management, teach disease management and other (Follow-up abdominal pain along with mental status) Homebound: Leaving the home is medically contraindicated at this time without the asist of a device and/or another person due th the listed conditions above and below. Reason homebound: unsteady gait / fall risk and unable to drive Certification: Based on the above findings, I certify that this patient is confined to the home and needs intermittent halfway care, physical therapy and/or speech therapy, or continues to need occupational therapy. The patient is under my care, and I have initiated the establishment of the plan of care. The patient will be followed by a physician who will periodically review the plan of care. Time Spent With Patient Time: Total time managing care of this patient today ____ minutes.
[2023-07-31 15:40] VITALS: BP 126/80; PULSE 91; RESP 18; TEMP 36.7; O2SAT 96
== END 2023-07-31 17:34 | disposition home health service (06) | DRG 441 ==
LOC: HO.ED 20:51 → HO.EDOVER 22:22 → HO.S3 07-29 12:37
PROVIDERS: Internal Medicine; Nurse Practitioner Acute Care; Registered Nurse Emergency; Admitting Provider Physician Assistant; Emergency Provider Emergency Medicine; PCP Internal Medicine; Visit Provider Hospitalist
DX: B17.9 Acute viral hepatitis, unspecified (principal); G92.8 Other toxic encephalopathy; I81 Portal vein thrombosis; N17.9 Acute kidney failure, unspecified; K80.20 Calculus of gallbladder without cholecystitis without obstruction; D69.6 Thrombocytopenia, unspecified; G47.33 Obstructive sleep apnea (adult) (pediatric); J45.20 Mild intermittent asthma, uncomplicated; Z20.822 Contact with and (suspected) exposure to COVID-19; Z85.01 Personal history of malignant neoplasm of esophagus; Z92.21 Personal history of antineoplastic chemotherapy
CPT/HCPCS: 36415; 70450; 71046; 74177; 74181; 76705; 80048; 80053; 80076; 80307; 81001; 82140; 82248; 82550; 83605; 83690; 83735; 84443; 84484; 85025; 85027; 85610; 85730; 87040; 87502; 87635; 93005; 93306; 97110; 97116; 97162; 99285; J2543; J7120; Q9957; Q9967

== ENCOUNTER → 2023-07-28 12:39 | Outpatient (BNV) | payer MEDICARE, SELFPAY | PROVIDERS: Emergency Provider Emergency Medicine; PCP Internal Medicine; Visit Provider Internal Medicine | DX: I48.91 Unspecified atrial fibrillation (principal) | CPT/HCPCS: 93010 ==

== ENCOUNTER 2023-07-28 22:10 | Outpatient (BNV) | payer MEDICARE, SELFPAY | END 2023-07-29 07:00 | PROVIDERS: Admitting Provider Physician Assistant; Emergency Provider Emergency Medicine; PCP Internal Medicine; Visit Provider Internal Medicine | DX: I48.91 Unspecified atrial fibrillation (principal) | CPT/HCPCS: 93306 ==

== ENCOUNTER → 2023-07-28 22:10 | Outpatient (BNV) | payer MEDICARE, SELFPAY | PROVIDERS: Admitting Provider Physician Assistant; Emergency Provider Emergency Medicine; PCP Internal Medicine; Visit Provider Surgery | DX: R17 Unspecified jaundice (principal) | CPT/HCPCS: 99222; 99232 ==

== ENCOUNTER → 2023-07-28 22:10 | Outpatient (BNV) | payer MEDICARE, SELFPAY | PROVIDERS: Admitting Provider Physician Assistant; Emergency Provider Emergency Medicine; PCP Internal Medicine; Visit Provider Internal Medicine Gastroenterology | DX: K81.0 Acute cholecystitis (principal) | CPT/HCPCS: 99222 ==

== ENCOUNTER → 2023-07-28 22:10 | Outpatient (BNV) | payer MEDICARE, SELFPAY | PROVIDERS: Admitting Provider Physician Assistant; Emergency Provider Emergency Medicine; PCP Internal Medicine; Visit Provider Nurse Practitioner Acute Care | DX: R17 Unspecified jaundice (principal); I81 Portal vein thrombosis; N17.9 Acute kidney failure, unspecified; K80.80 Other cholelithiasis without obstruction | CPT/HCPCS: 99223; 99232; 99233; 99239; G0180 ==

== ENCOUNTER 2023-09-15 13:41 | Outpatient (REF) | payer MEDICARE, SELFPAY ==
[2023-09-15 14:47] LABS: Hematocrit 39.8 % (42.0-52.0); Hemoglobin 13.3 g/dl (14.0-18.0); Mean Corpuscular HGB Conc 33.4 g/dl (31.0-36.0); Mean Corpuscular Hemoglobin 31.7 pg (27.0-33.0); Platelet Count 304 X10*3/uL (160-400); Red Blood Count 4.19 X10*6/uL (4.60-5.80); Red Cell Distribution Width 13.7 % (11.0-16.0); White Blood Count 8.2 X10*3/uL (4.8-10.8)
[2023-09-15 15:50] LABS: Alanine Aminotransferase 29 U/L (0-40); Alkaline Phosphatase 192 U/L (39-117); Anion Gap 10 (12-20); Aspartate Amino Transferase 35 U/L (5-37); Bilirubin Total 0.7 mg/dL (0.0-1.0); Blood Urea Nitrogen 12 mg/dL (9-16); Carbon Dioxide 34 mmol/L (22-29); Chloride 101 mmol/L (96-108); Estimated Glomerular Filt Rate > 60; Glucose Random 89 mg/dL (60-115); Potassium 4.4 mmol/L (3.3-5.1); Sodium 141 mmol/L (135-145); Total Protein 7.3 g/dL (6.5-8.0)
== END 2023-09-15 13:42 | disposition home or self-care (01) ==
LOC: HO.LAB 13:41
PROVIDERS: PCP Internal Medicine; Visit Provider Internal Medicine
DX: K80.20 Calculus of gallbladder without cholecystitis without obstruction (principal); I81 Portal vein thrombosis
CPT/HCPCS: 36415; 80053; 85027; 99212

== ENCOUNTER 2023-09-15 13:41 | Outpatient (AMB) | payer MEDICARE, SELFPAY ==
--- NOTE | 2023-09-15 13:42 | MHC.OFFVIS ---
Intake Vital Signs 09/15/23 13:45 Height 5 ft 8 in Weight 158 lb 11.725 oz BMI 24.1 BP 158/87 H Blood Pressure Location Lt brachial Position Sitting Pulse 104 H Intake Visit Reasons: Acute cholecystitis Intake Note: Gary presents in the office for acute cholecystitis. CC: he states he is not having any symptoms. Allergies No Known Allergies Allergy (Verified 09/15/23 13:45) HPI HPI Comments History of Present Illness Details 78 y.o M with PMH of who is here for follow up after inpatient hospitalisation for cholecystitis. Pt was seen in [facility] [place] by Dr Bush for confusion and abd pain and was found to have elevated LFTs with concern for acute cholecystitis. Imaging also showed L PV thrombosis. MRCP excluded CBD obstruction. Pt was managed conservatively with Abx. Currently does not report any abd pain, N,V but does report reduced appetite for the last 6 months along with weight loss of 10 lbs over this period. Pt was started on eliquis by his PCP after discharge from the hospital - started around 08/15/23. Also scheduled see Hematology in the next few weeks. Last colo 2020 (Dr Goldstein) Good prep. No polyps. [facility] Medical History Elevated bilirubin Sleep apnea Asthma Esophageal cancer COVID-19 vaccine series completed Surgical History History of esophagogastroduodenoscopy (EGD) History of biopsy (2015) History of colonoscopy History of right inguinal hernia repair (05/01/17) Family History Father History of colon cancer Mother History of ovarian cancer Brother History of brain cancer Social History Household Members: Spouse Housing: House Do you presently have visiting nurse or other home services: No Alcohol intake: current Patient Tobacco Use Status: Never used Tobacco Second Hand Smoke Exposure: No service: No Review of Systems Const All systems reviewed & are unremarkable except as noted in HPI and below Physical Exam Vital Signs: Last Vital Signs Pulse 104 H 09/15/23 13:45 BP 158/87 H 09/15/23 13:45 BMI result Body Mass Index 24.1 No acute distress Nonicteric Abdomen soft, nontender, nondistended, no hepatomegaly No overt respiratory distress No lower extremity edema Assessment & Plan Assessment & Plan (1) Cholelithiases: Code(s): K80.20 - Calculus of gallbladder without cholecystitis without obstruction (2) Portal vein thrombosis: Code(s): I81 - Portal vein thrombosis Plan Reviewed with the patient that gallbladder wall thickening with chronic indolent loss of appetite and weight loss over the past few months are concerning. Would recommend repeat imaging to ensure resolution and r/o malignancy. Will opt for an ultrasound abdomen and request it to be performed with Doppler study to also evaluate the portal vein thrombosis at the same time. Pt already on anticoagulation. Duration will be contingent on location of PVT i.e whether involving other splanchnic vessels clara mesenteric veins. Plan: - US Abd with doppler - Agree with anticoagulation - duration as per heme - Check CBC and LFTs as had elevated WBCs and LFTs ont he day of discharge Follow up 4 weeks Orders: Orders Comprehensive Met. Panel 09/15/23 K80.20 - Calculus of gallbladder without cholecystitis without obstruction US duplex arterial venous comp 09/15/23 I81 - Portal vein thrombosis, K80.20 - Calculus of gallbladder without cholecystitis without obstruction US abdomen complete 09/15/23 I81 - Portal vein thrombosis, K80.20 - Calculus of gallbladder without cholecystitis without obstruction Complete Blood Count no Diff 09/15/23 K80.20 - Calculus of gallbladder without cholecystitis without obstruction Coding Level of Care Code Est Pt Level 4 (83316) Diagnoses Cholelithiases K80.20 Portal vein thrombosis I81
[2023-09-15 13:45] VITALS: BP 158/87; PULSE 104; BMI 24.1
== END 2023-09-15 14:24 | disposition home or self-care (01) ==
PROVIDERS: PCP Internal Medicine; Visit Provider Internal Medicine
DX: K80.20 Calculus of gallbladder without cholecystitis without obstruction (principal); I81 Portal vein thrombosis
CPT/HCPCS: 99214

== ENCOUNTER 2023-09-25 07:36 | Outpatient (REF) | payer MEDICARE, SELFPAY ==
--- NOTE | ~2023-09-25 | US_ITS ---
EXAMINATION: COMPLETE ABDOMINAL ULTRASOUND WITH DOPPLER. CLINICAL INFORMATION: Portal vein thrombosis. COMPARISON: CT abdomen 07/28/23. TECHNIQUE: Real-time imaging of the abdominal viscera. Color and spectral Doppler evaluation of the hepatic vasculature. FINDINGS: LIVER: Normal. The liver demonstrates normal size, contour and echogenicity. No focal liver lesion. No intrahepatic biliary duct dilatation. SPLENIC VEIN: Patent with normal waveform. HEPATIC VEINS: Patent with normal waveforms. PORTAL VEINS: The main and right portal veins are patent with normal waveforms. No demonstrable flow is seen in the left portal vein. HEPATIC ARTERIES: Normal upstroke and diastolic flow. INFERIOR VENA CAVA: Patent with normal waveform. GALLBLADDER: Cholelithiasis without evidence of acute cholecystitis. COMMON BILE DUCT: Normal in caliber measuring 0.2 cm in diameter. PANCREAS: Normal. The visualized pancreatic head and body are normal in appearance. The remainder of the pancreas is obscured from visualization by the overlying bowel gas. RIGHT KIDNEY: Normal. No hydronephrosis. No renal calculi or focal parenchymal lesions. The kidney measures 10.8 cm in maximum dimension LEFT KIDNEY: Normal. No hydronephrosis. No renal calculi or focal parenchymal lesions. The kidney measures 10.4 cm in maximum dimension. SPLEEN: Normal. The spleen measures 8.3 cm in maximum dimension. ABDOMINAL AORTA: The visualized proximal segment is normal in caliber. INFERIOR VENA CAVA: Visualized portions are normal. FREE FLUID: None. 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 The main portal vein and right portal vein are patent. Cholelithiasis without evidence of acute cholecystitis.
--- NOTE | ~2023-09-25 | US_ITS ---
EXAMINATION: COMPLETE ABDOMINAL ULTRASOUND WITH DOPPLER. CLINICAL INFORMATION: Portal vein thrombosis. COMPARISON: CT abdomen 07/28/23. TECHNIQUE: Real-time imaging of the abdominal viscera. Color and spectral Doppler evaluation of the hepatic vasculature. FINDINGS: LIVER: Normal. The liver demonstrates normal size, contour and echogenicity. No focal liver lesion. No intrahepatic biliary duct dilatation. SPLENIC VEIN: Patent with normal waveform. HEPATIC VEINS: Patent with normal waveforms. PORTAL VEINS: The main and right portal veins are patent with normal waveforms. No demonstrable flow is seen in the left portal vein. HEPATIC ARTERIES: Normal upstroke and diastolic flow. INFERIOR VENA CAVA: Patent with normal waveform. GALLBLADDER: Cholelithiasis without evidence of acute cholecystitis. COMMON BILE DUCT: Normal in caliber measuring 0.2 cm in diameter. PANCREAS: Normal. The visualized pancreatic head and body are normal in appearance. The remainder of the pancreas is obscured from visualization by the overlying bowel gas. RIGHT KIDNEY: Normal. No hydronephrosis. No renal calculi or focal parenchymal lesions. The kidney measures 10.8 cm in maximum dimension LEFT KIDNEY: Normal. No hydronephrosis. No renal calculi or focal parenchymal lesions. The kidney measures 10.4 cm in maximum dimension. SPLEEN: Normal. The spleen measures 8.3 cm in maximum dimension. ABDOMINAL AORTA: The visualized proximal segment is normal in caliber. INFERIOR VENA CAVA: Visualized portions are normal. FREE FLUID: None. 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 The main portal vein and right portal vein are patent. Cholelithiasis without evidence of acute cholecystitis.
== END 2023-09-25 07:37 | disposition home or self-care (01) ==
LOC: HO.US 07:36
PROVIDERS: PCP Internal Medicine; Visit Provider Internal Medicine
DX: I81 Portal vein thrombosis (principal); K80.20 Calculus of gallbladder without cholecystitis without obstruction
CPT/HCPCS: 76700; 93975

== ENCOUNTER → 2023-10-02 07:50 | Outpatient (BNV) | payer MEDICARE, SELFPAY | PROVIDERS: PCP Internal Medicine; Visit Provider Internal Medicine Medical Oncology | DX: I81 Portal vein thrombosis (principal) | CPT/HCPCS: 99204; 99213 ==

== ENCOUNTER 2023-10-02 09:04 | Outpatient (REF) | payer MEDICARE, SELFPAY ==
--- NOTE | 2023-10-02 09:35 | MHC.AU.HA3 ---
Hearing Instrument Follow-Up- Binaural Date of Visit: 10/02/23 Right Ear: Model Raman, Color, Serial Number: Shirin Gastelum [id number] SN: [id number] Color: Graphite Qureshi Multiple Drum Sander Helper Repair Warranty: 08/25/2021 Multiple Drum Sander Helper Loss and Damage Warranty: 08/25/2021 [facility] Service Plan: 10/11/2025 Battery Size: 312 Cupola Tender/Slim Tube: 3M Earmold/Dome/CShell/SlimTip:Old large open dome (no retention tail) Type of Wax Guard: CeruShield Dispensed By: [facility] Date of Fittin06/19/2018 Left Ear: Model Raman, Color, Serial Number: Shirin Gastelum [id number] SN: [id number] Color: Graphite Qureshi Multiple Drum Sander Helper Repair Warranty: 08/25/2021 Multiple Drum Sander Helper Loss and Damage Warranty: 08/25/2021 [facility] Service Plan: 10/11/2025 Battery Size: 312 Cupola Tender/Slim Tube: 3M Earmold/Dome/CShell/SlimTip: Old large open dome (no retention tail) Type of Wax Guard: CeruShield Dispensed By: [facility] Date of Fittin06/19/2018 Follow-Up Summary: Gary reported his left hearing aid is not working and his right is acting funny. Wax guards/receivers full of wax with multiple CeruShields jammed into receivers. Able to successfully remove all wax guards, clean out contract clerk opening, and replace wax guards. Listening check demonstrated hearing aids amplifying clearly. Gary arrived with the older version of large open domes on both hearing aids. Previous notes report large vented domes. [employer] software notes open dome on right hearing aid and power dome on left hearing aid. Gary reported he has a bag of different styles of domes and uses them interchangeably. He does not notice any perceived differences in sound quality. Recommended using appropriate dome for each ear (right open, left power, as noted in programming software). Recommendations: Hearing instrument follow-up or maintenance as needed. Please contact our clinic with any questions or concerns. Diagnosis Code(s): Primary Diagnosis: H90.3 Bilateral Sensorineural Hearing Loss Signature: Provider: Brice Goodwin, [facility]
== END 2023-10-02 09:05 | disposition home or self-care (01) ==
LOC: HO.HAP 09:04
PROVIDERS: Visit Provider Internal Medicine
DX: Z13.89 Encounter for screening for other disorder (principal)

== ENCOUNTER 2023-10-15 08:39 | Outpatient (AMB) | payer MEDICARE, SELFPAY ==
[2023-10-15 08:50] VITALS: BP 186/107; PULSE 82; BMI 25.9
--- NOTE | 2023-10-15 08:50 | MHC.OFFVIS ---
Vital Signs 10/15/23 08:50 Height 5 ft 7 in Weight 165 lb 5.547 oz BMI 25.9 BP 186/107 H Blood Pressure Location Rt brachial Position Sitting Pulse 82 Intake Visit Reasons: 1 month follow up Cholelithiases Intake Note: Patient here for 1m f/u cholelithiasis. Would like to discuss ABD US results. Patient c/o: Denies abd pain, vomiting, nausea. Soccer Coach Required: No Accompanied by: Self / Same As Patient Allergies No Known Allergies Allergy (Verified 10/15/23 08:57) HPI Comments Details: 78 y.o M with PMH of who is here for follow up after inpatient hospitalisation for cholecystitis. 09/15/23: [place] [facility] [place] Bush for confusion and abd pain and was found to have elevated LFTs with concern for acute cholecystitis. Imaging also showed L PV thrombosis. MRCP excluded CBD obstruction. Pt was managed conservatively with Abx. Currently does not report any abd pain, N,V but does report reduced appetite for the last 6 months along with weight loss of 10 lbs over this period. Pt was started on eliquis by his PCP after discharge from the hospital - started around 08/15/23. Also scheduled see Hematology in the next few weeks. Last colo 2020 (Dr Goldstein) Good prep. No polyps. 10/15/23: Pt here for follow up. Reports no gastrointestinal issues. Labs and US results reviewed. LEFT PVT unchanged from before on most recent duplex. Cont on eliquis. Pt aware that needs an EGD. [facility] Medical History Elevated bilirubin Sleep apnea Asthma Esophageal cancer COVID-19 vaccine series completed Surgical History History of esophagogastroduodenoscopy (EGD) History of biopsy (2015) History of colonoscopy History of right inguinal hernia repair (05/01/17) Family History Father History of colon cancer Mother History of ovarian cancer Brother History of brain cancer Social History (Updated 10/02/23 @ 08:04 by Norman Saunders) Household Members: Spouse Housing: House Do you presently have visiting nurse or other home services: No Alcohol intake: current Patient Tobacco Use Status: Never used Tobacco Second Hand Smoke Exposure: No service: No Current occupational status: retired Review of Systems Const All systems reviewed & are unremarkable except as noted in HPI and below Physical Exam Vital Signs: Last Vital Signs Pulse 82 10/15/23 08:50 BP 186/107 H 10/15/23 08:50 BMI result Body Mass Index 25.9 Elderly gent NAD Nonicteric abd soft nondistended Assessment & Plan Assessment & Plan (1) Cholelithiases: Code(s): K80.20 - Calculus of gallbladder without cholecystitis without obstruction Category: Medical (2) Portal vein thrombosis: Code(s): I81 - Portal vein thrombosis Category: Medical Plan Pt asymptomatic. US Abd without any GB wall thickening. Left PVT does not appear to be progressing. Reviewed need for EGD for variceal screening. Plan: - EGD to be booked - Pt advised to HOLD eliquis x 2 days before his procedure Follow up after procedure as needed Coding Level of Care Code Est Pt Level 3 (43671) Diagnoses Cholelithiases K80.20 Portal vein thrombosis I81
== END 2023-10-15 14:50 | disposition home or self-care (01) ==
PROVIDERS: PCP Internal Medicine; Visit Provider Internal Medicine
DX: K80.20 Calculus of gallbladder without cholecystitis without obstruction (principal); I81 Portal vein thrombosis
CPT/HCPCS: 99213

== ENCOUNTER → 2023-10-15 08:39 | Outpatient (BNVA) | payer MEDICARE, SELFPAY | PROVIDERS: PCP Internal Medicine; Visit Provider Internal Medicine | DX: K80.20 Calculus of gallbladder without cholecystitis without obstruction (principal); I81 Portal vein thrombosis | CPT/HCPCS: 99212 ==

== ENCOUNTER 2023-12-22 07:36 | Outpatient (REF) | payer MEDICARE, SELFPAY ==
--- NOTE | ~2023-12-22 | US_ITS ---
EXAMINATION: US ABDOMEN LIMITED CLINICAL INFORMATION: Follow-up portal vein thrombosis. COMPARISON: Abdominal duplex September 25, 2023 TECHNIQUE: Real-time imaging of the right upper quadrant abdominal viscera. FINDINGS: LIVER: Normal. The liver demonstrates normal size, contour and echogenicity. No focal liver lesion. No intrahepatic biliary duct dilatation. SPLENIC VEIN: Patent with normal waveform. HEPATIC VEINS: Patent with normal waveforms. PORTAL VEINS: The main and right portal veins are patent with normal waveforms. No demonstrable flow is seen in the left portal vein. HEPATIC ARTERIES: Normal upstroke and diastolic flow in the left hepatic artery. The main hepatic artery and right hepatic artery are not visualized. INFERIOR VENA CAVA: Patent with normal waveform. GALLBLADDER: Cholelithiasis without evidence of acute cholecystitis. COMMON BILE DUCT: Normal in caliber measuring 0.6 cm in diameter. PANCREAS: Normal. The visualized pancreatic head and body are normal in appearance. The remainder of the pancreas is obscured from visualization by the overlying bowel gas. RIGHT KIDNEY: Normal. No hydronephrosis. No renal calculi or focal parenchymal lesions. The kidney measures 10.7 cm in maximum dimension SPLEEN: Normal. The spleen measures 7.9 cm in maximum dimension. INFERIOR VENA CAVA: Visualized portions are normal. FREE FLUID: None. 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 The main portal vein and right portal vein are patent. Cholelithiasis without evidence of acute cholecystitis.
--- NOTE | ~2023-12-22 | US_ITS ---
EXAMINATION: US ABDOMEN LIMITED CLINICAL INFORMATION: Follow-up portal vein thrombosis. COMPARISON: Abdominal duplex September 25, 2023 TECHNIQUE: Real-time imaging of the right upper quadrant abdominal viscera. FINDINGS: LIVER: Normal. The liver demonstrates normal size, contour and echogenicity. No focal liver lesion. No intrahepatic biliary duct dilatation. SPLENIC VEIN: Patent with normal waveform. HEPATIC VEINS: Patent with normal waveforms. PORTAL VEINS: The main and right portal veins are patent with normal waveforms. No demonstrable flow is seen in the left portal vein. HEPATIC ARTERIES: Normal upstroke and diastolic flow in the left hepatic artery. The main hepatic artery and right hepatic artery are not visualized. INFERIOR VENA CAVA: Patent with normal waveform. GALLBLADDER: Cholelithiasis without evidence of acute cholecystitis. COMMON BILE DUCT: Normal in caliber measuring 0.6 cm in diameter. PANCREAS: Normal. The visualized pancreatic head and body are normal in appearance. The remainder of the pancreas is obscured from visualization by the overlying bowel gas. RIGHT KIDNEY: Normal. No hydronephrosis. No renal calculi or focal parenchymal lesions. The kidney measures 10.7 cm in maximum dimension SPLEEN: Normal. The spleen measures 7.9 cm in maximum dimension. INFERIOR VENA CAVA: Visualized portions are normal. FREE FLUID: None. 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 The main portal vein and right portal vein are patent. Cholelithiasis without evidence of acute cholecystitis.
== END 2023-12-22 07:37 | disposition home or self-care (01) ==
LOC: HO.US 07:36
PROVIDERS: PCP Internal Medicine; Visit Provider Internal Medicine Medical Oncology
DX: I81 Portal vein thrombosis (principal)
CPT/HCPCS: 76705; 93975

== ENCOUNTER 2024-01-02 11:21 | Outpatient (REF) | payer MEDICARE, SELFPAY ==
[2024-01-02 11:25] LABS: MANUAL DIFF FLAG NO
[2024-01-02 12:01] LABS: Basophils Absolute Auto 0.1 X10*3/uL (0.0-0.2); Basophils Percent Auto 0.7 % (0-2); Eosinophils Absolute Auto 0.4 X10*3/uL (0.0-0.4); Eosinophils Percent Auto 5.8 % (0-4); Hematocrit 42.4 % (42.0-52.0); Imm Gran Abs Auto 0.03 X10*3/uL (0.00-0.03); Imm Gran Pct Auto 0.4 % (0.0-0.4); Lymphocytes Absolute Auto 1.4 X10*3/uL (1.2-4.9); Lymphocytes Percent Auto 18.1 % (20-40); Mean Corpuscular Hemoglobin 32.6 pg (27.0-33.0); Mean Corpuscular Volume 98.8 fL (80.0-98.0); Mean Platelet Volume 8.8 fL (9.4-12.4); Monocytes Absolute Auto 0.8 X10*3/uL (0.1-1.2); Monocytes Percent Auto 9.8 % (2-11); Neutrophils Percent Auto 65.2 % (45-73); Platelet Count 265 X10*3/uL (160-400); Red Blood Count 4.29 X10*6/uL (4.60-5.80); Red Cell Distribution Width 13.4 % (11.0-16.0); White Blood Count 7.6 X10*3/uL (4.8-10.8)
[2024-01-02 12:06] LABS: Appearance Urine Clear; Color Urine Yellow; Glucose Urine UA Negative (Negative); Leukocyte Esterase Urine Negative (Negative); Nitrite Urine Negative (Negative); Specific Gravity - Urine 1.015 (1.005-1.025); Urine Blood Negative (Negative); Urine Ketones Negative (Negative); Urine Protein Negative (Neg-Trace)
[2024-01-02 12:12] LABS: Bacteria Urine None Seen (None Seen); Hyaline Casts Urine 0-2 /LPF (0-2); RBC Urine 0-2 /HPF (0-2); Squamous Epithelial Cell Urine 0-2 /HPF (0-2); WBC Urine 0-5 /HPF (0-5)
[2024-01-02 12:32] LABS: Alanine Aminotransferase 16 U/L (0-40); Albumin Level 4.4 g/dL (3.5-5.0); Alkaline Phosphatase 115 U/L (39-117); Anion Gap 15 (12-20); Aspartate Amino Transferase 27 U/L (5-37); Bilirubin Total 0.6 mg/dL (0.0-1.0); Blood Urea Nitrogen 13 mg/dL (9-16); Calcium 10.3 mg/dL (8.4-10.2); Carbon Dioxide 27 mmol/L (22-29); Chloride 101 mmol/L (96-108); Cholesterol 156 mg/dL (<200); Estimated Glomerular Filt Rate > 60; Glucose Fasting 98 mg/dL (60-99); HDL Cholesterol 64 mg/dL (>40); LDL Cholesterol Calculated 81 mg/dL (<100); Potassium 4.8 mmol/L (3.3-5.1); Sodium 138 mmol/L (135-145); Total Protein 7.8 g/dL (6.5-8.0); Triglycerides 59 mg/dL (<150)
[2024-01-02 12:37] LABS: TSH reflex Free T4 1.53 uIU/mL (0.32-4.0)
[2024-01-02 12:39] LABS: PSA,Total (Free>4and<10) 2.36 ng/mL (0.00-4.00)
== END 2024-01-02 11:22 | disposition home or self-care (01) ==
LOC: HO.LNP 11:21
PROVIDERS: Visit Provider Internal Medicine
DX: R73.09 Other abnormal glucose (principal); E03.9 Hypothyroidism, unspecified; E83.52 Hypercalcemia; Z12.5 Encounter for screening for malignant neoplasm of prostate
CPT/HCPCS: 80053; 80061; 81001; 84153; 84443; 85025

== ENCOUNTER 2024-01-13 08:46 | Outpatient (REF) | payer SELFPAY ==
--- NOTE | 2024-01-13 09:18 | MHC.AU.HA3 ---
Hearing Instrument Follow-Up- Binaural Date of Visit: 01/13/24 Right Ear: Raman, Model, Color, Serial Number: Shirin Gastelum [id number] SN: [id number] Color: Graphite Qureshi Project Reservoir Engineer Repair Warranty: 08/25/2021 Project Reservoir Engineer Loss and Damage Warranty: 08/25/2021 [facility] Service Plan: 10/11/2025 Battery Size: 312 Wing Mailer Machine Operator/Slim Tube: 3M Earmold/Dome/CShell/SlimTip:Large open Type of Wax Guard: CeruShield Dispensed By: [facility] Date of Fittin06/19/2018 Left Ear: Raman, Model, Color, Serial Number: Shirin Gastelum [id number] SN: [id number] Color: Graphite Qureshi Project Reservoir Engineer Repair Warranty: 08/25/2021 Project Reservoir Engineer Loss and Damage Warranty: 08/25/2021 [facility] Service Plan: 10/11/2025 Battery Size: 312 Wing Mailer Machine Operator/Slim Tube: 3M Earmold/Dome/CShell/SlimTip: Medium Power Type of Wax Guard: CeruShield Dispensed By: [facility] Date of Fittin06/19/2018 Follow-Up Summary: Gary reports feedback left. Found him to have an open dome on the left which was previously noted to need a power dome. Cleaned and checked aids, wax guards clogged. Listening check positive after cleaning. Replaced domes with a power on the left and open on the right. Ran feedback management. Gary had questions about button. VC is disabled. Reviewed use for answering calls. Recommendations: Recommendations: Hearing instrument follow-up or maintenance as needed. Diagnosis Code(s): Primary Diagnosis: H90.3 Bilateral Sensorineural Hearing Loss Signature: Provider: Brice Samuels, CCC-A
== END 2024-01-13 08:47 | disposition home or self-care (01) ==
LOC: HO.HAP 08:46
PROVIDERS: Visit Provider Internal Medicine
DX: Z46.1 Encounter for fitting and adjustment of hearing aid (principal); H90.3 Sensorineural hearing loss, bilateral
CPT/HCPCS: 92593

== ENCOUNTER 2024-01-29 10:41 | Day surgery (SDC) | payer MEDICARE, SELFPAY ==
[2024-01-27 12:24] VITALS: BMI 25.9
--- NOTE | 2024-01-28 10:29 | P.CONAN_ITS ---
Documented by User: Kim Cabezas NP 01/28/24 10:45 HPI - Anesthesia Eval Consult details Narrative: 78yo M for Upper Endoscopy with Dilitation Esophageal CA s/p chemo, rad 2016 Eliquis for portal vein thrombosis - incidental finding 07/2023 during [facility] admit for gallbladder During chart review, noted EKG from [facility] ED 07/2023 shows Afib with RVR. Pt states never heard of it, never had a problem with my heart . Has been on eliquis for portal vein thrombosis. Will obtain preop EKG and alert pt's PCP. [facility] Active Problems Active Problems: All Active Problems Cholelithiases (Acute) Portal vein thrombosis (Acute) Recurrent right inguinal hernia (Acute) Past Medical History Medical History Portal vein thrombosis Elevated bilirubin Sleep apnea Asthma Esophageal cancer COVID-19 vaccine series completed Family History Family History Father History of colon cancer Mother History of ovarian cancer Brother History of brain cancer Family history of problems with anesthesia: No Surgical History Surgical History History of esophagogastroduodenoscopy (EGD) History of biopsy (2015) History of colonoscopy History of right inguinal hernia repair (05/01/17) History of Problems with Anesthesia: No Social History Social History Household Members: Spouse Housing: House Do you presently have visiting nurse or other home services: No Alcohol intake: current Patient Tobacco Use Status: Never used Tobacco Second Hand Smoke Exposure: No Are you DNR?: No Advance Directives: No Advance Directives Information Provided: Yes Nutrition Risks: No Nutritional Risk service: No Current occupational status: retired Meds Allergies Allergy/AdvReac Type Severity Reaction Status Date / Time No Known Allergies Allergy Verified 01/29/24 11:03 Home Medications ?Medication ?Instructions ?Recorded ?Confirmed ?Last Taken ?Type albuterol sulfate 90 mcg/actuation 2 puff inhalation Q4-6H PRN 02/12/21 01/29/24 Unknown History aerosol inhaler (ProAir HFA) Wheezing apixaban 5 mg tablet (Eliquis) 5 mg PO BID 10/02/23 01/29/24 01/26/24 History Exam Height,Weight and Vital Signs: Height 5 ft 7 in Weight 74.984 kg Pertinent Lab Results Pertinent Lab Results: Laboratory Tests 01/02/24 08:00 WBC 7.6 Hgb 14.0 Hct 42.4 Plt Count 265 Sodium 138 Potassium 4.8 Chloride 101 Carbon Dioxide 27 BUN 13 Creatinine 1.00 Narrative Narrative: ECHO 07/2023 Conclusions: - Estimated LVEF about 50-60%; difficult to assess even with contrast. - No obvious valvular pathology seen on this study. EKG 07/2023 Vent. Rate : 106 BPM Atrial Rate : 000 BPM P-R Int : 000 ms QRS Dur : 106 ms QT Int : 330 ms P-R-T Axes : 000 -46 057 degrees QTc Int : 438 ms Atrial fibrillation with rapid ventricular response Left anterior fascicular block Abnormal ECG No previous ECGs available Assessment and Plan Assessment Anesthesia Assessment: Chart Reviewed Final Anesthetic Review Family History of Problems with Anesthesia: No History of Problems with Anesthesia: No Documented by User: Markel Mckeon MD 01/29/24 12:14 [facility] Past Medical History Medical History Portal vein thrombosis Elevated bilirubin Sleep apnea Asthma Esophageal cancer COVID-19 vaccine series completed Family History Family History Father History of colon cancer Mother History of ovarian cancer Brother History of brain cancer Surgical History Surgical History History of esophagogastroduodenoscopy (EGD) History of biopsy (2015) History of colonoscopy History of right inguinal hernia repair (05/01/17) Social History Social History Household Members: Spouse Housing: House Do you presently have visiting nurse or other home services: No Alcohol intake: current Patient Tobacco Use Status: Never used Tobacco Second Hand Smoke Exposure: No Are you DNR?: No Advance Directives: No Advance Directives Information Provided: Yes Nutrition Risks: No Nutritional Risk service: No Current occupational status: retired Meds Allergies Allergy/AdvReac Type Severity Reaction Status Date / Time No Known Allergies Allergy Verified 01/29/24 11:03 Home Medications ?Medication ?Instructions ?Recorded ?Confirmed ?Last Taken ?Type albuterol sulfate 90 mcg/actuation 2 puff inhalation Q4-6H PRN 02/12/21 01/29/24 Unknown History aerosol inhaler (ProAir HFA) Wheezing apixaban 5 mg tablet (Eliquis) 5 mg PO BID 10/02/23 01/29/24 01/26/24 History Exam Airway Mallampati Class: II TM Dist: >3cm Neck ROM: Limited Loose/Missing/Broken Teeth: No Heart: ok Lungs: ok Assessment and Plan Assessment Anesthesia Assessment: Anesthesia Plan Discussed Final Anesthetic Review NPO: Yes ASA Class: III Final Preanesthetic Review: No Changes in Pt Med Stat, Meds/Allgs Chart Reviewed, Consent Obtained/Reviewed and Anes Risks/Benef Reviewed Patient Risk: High Procedure Risk: Intermediate Anesthetic Plan Anesthetic Plan: Agree w/ Assess. and Plan and TIVA Disposition: Standard PACU
--- NOTE | 2024-01-29 10:51 | ECG_ITS ---
Test Reason : afib Blood Pressure : / mmHG Vent. Rate : 074 BPM Atrial Rate : 074 BPM P-R Int : 166 ms QRS Dur : 100 ms QT Int : 368 ms P-R-T Axes : 082 -15 059 degrees QTc Int : 408 ms Normal sinus rhythm Normal ECG When compared with ECG of 28-JUL-2023 12:59, Sinus rhythm has replaced Atrial fibrillation Left anterior fascicular block is no longer Present Referred By: Kim Cabezas Electronically Signed By:NEPTALI CISNEROS MD
[2024-01-29 10:58] VITALS: BMI 25.5
[2024-01-29] MEDS: Lactated Ringers 1,000 ML 100 ML IVCONT (11:09)
[2024-01-29 11:17] VITALS: BP 154/82; PULSE 77; RESP 18; TEMP 36.7; O2SAT 97
--- NOTE | 2024-01-29 11:57 | MHC.SHP ---
Pre-Procedural Eval Section A - 24 Hr Update-Section A only Date of Service: 01/29/24 Section B - Complete if H&P > 30 days Chief Complaint: Portal vein thrombosis Details of Present Illness: Elevated bilirubin Sleep apnea Asthma Esophageal cancer COVID-19 vaccine series completed Surgical History History of esophagogastroduodenoscopy (EGD) History of biopsy (2015) History of colonoscopy History of right inguinal hernia repair (05/01/17) Allergies: Allergies Allergy/AdvReac Type Severity Reaction Status Date / Time No Known Allergies Allergy Verified 01/29/24 11:03 Review of Systems Review of Systems Comment: 10 point ROS negative Exam Exam Comment: Gen appear: No acute distress HEENT: no icterus Chest: No overt resp distress Abd: soft, nontender, nondistended Psych: Stable affect, answering questions appropriately Neuro: A/Ox3 noted to move all extremities spontaneously Ext: no peripheral edema Plan Diagnosis/Plan: Unchanged I have reviewed the history and physical and performed a pertinent physical examination on my patient. No changes have occurred unless specified. Pt confirmed last dose of eliquis on 8/5 AM. Time Spent With Patient Time: Total time managing care of this patient today ____ minutes.
--- NOTE | 2024-01-29 12:00 | P.OP_ITS ---
Operative Note Operative Note Date of Service: 01/29/24 Narrative: Procedure: Esophagogastroduodenoscopy Endoscopist: Hollie Robison MD Indication: Portal vein thrombosis Anesthesia Provider: Dr Markel Mckeon Anesthesia Type: MAC ?? EGD Procedure:?? The procedure, indications, preparation and potential complications were reviewed with the patient, who indicated understanding and gave written informed consent to proceed. A physical exam was performed. The endoscope was introduced through the mouth, and advanced to the second part of duodenum. The mucosa was carefully examined on slow withdrawal of the endoscope. The patient tolerated the procedure well. There were no immediate complications.? ? EGD Findings:? * Mouth: Chronic radiation injury of hard palate. * Esophagus:? Mild narrowing of the esophagus at the level of cricopharyngeus. This was gently dilated with the scope. Normal mucosa noted in the entire esop hagus. The Z line was at 40 cm. There was large hiatal hernia with the diaphragmatic hiatus at 45 cm. * Stomach:?Congestion and erythema in the cardia and fundus. Random cold forceps gastric biopsies were taken. At least 2 distinct foci of villous appearing gastric mucosa were noted in the antrum. Cold forceps biopsies were taken separately from the antrum as well. * Duodenum:? Normal mucosa was noted in the whole of the examined duodenum. ? EGD Impressions:? * Radiation injury of larynx and upper esophagus * Mild UES stenosis * Abnormal antral mucosa (biopsy) * Normal duodenum Recommendations:?? * No varices noted on exam today. * Follow-up path results
[2024-01-29 12:45] VITALS: BP 93/42; PULSE 64; RESP 18; TEMP 36.6; O2SAT 97
[2024-01-29 13:00] VITALS: BP 159/90; PULSE 64; RESP 18; TEMP 36.7; O2SAT 99
== END 2024-01-29 13:20 | disposition home or self-care (01) ==
PROVIDERS: PCP Internal Medicine; Visit Provider Internal Medicine
PROC: (CPT 43239; principal; 2024-01-29 12:10)
DX: I81 Portal vein thrombosis (principal); K29.70 Gastritis, unspecified, without bleeding; K22.2 Esophageal obstruction; K29.50 Unspecified chronic gastritis without bleeding; B96.81 Helicobacter pylori [H. pylori] as the cause of diseases classified elsewhere; Z85.01 Personal history of malignant neoplasm of esophagus; L59.8 Other specified disorders of the skin and subcutaneous tissue related to radiation; K44.9 Diaphragmatic hernia without obstruction or gangrene; G47.33 Obstructive sleep apnea (adult) (pediatric)
CPT/HCPCS: 43239; 88305; 88313; 88342; 93005; J2704

== ENCOUNTER → 2024-01-29 10:41 | Outpatient (BNV) | payer MEDICARE, SELFPAY | PROVIDERS: PCP Internal Medicine; Visit Provider Internal Medicine | DX: I81 Portal vein thrombosis (principal); K22.2 Esophageal obstruction; K29.70 Gastritis, unspecified, without bleeding; K31.89 Other diseases of stomach and duodenum | CPT/HCPCS: 43239 ==

== ENCOUNTER → 2024-01-29 10:51 | Outpatient (BNV) | payer MEDICARE, SELFPAY | PROVIDERS: PCP Internal Medicine; Visit Provider Internal Medicine Cardiovascular Disease | DX: I48.91 Unspecified atrial fibrillation (principal) | CPT/HCPCS: 93010 ==

== ENCOUNTER 2024-04-28 09:30 | Outpatient (AMB) | payer MEDICARE, SELFPAY ==
--- NOTE | 2024-04-28 09:32 | MHC.OFFVIS ---
Vital Signs 04/28/24 09:33 Height 5 ft 7 in Weight 163 lb 2.273 oz BMI 25.5 BP 156/87 H Blood Pressure Location Lt brachial Position Sitting Pulse 79 Intake Visit Reasons: f/u egd Intake Note: Gary presents in the office as a follow up EGD. CC: He states that he is here for results to his EGD. Industrial Equipment Wirer Required: No Allergies No Known Allergies Allergy (Verified 04/28/24 09:34) HPI Comments Details: 78 y.o M with PMH of who is here for follow up after inpatient hospitalisation for cholecystitis. 09/15/23: Pt was seen in [facility] last month by Dr Bush for confusion and abd pain and was found to have elevated LFTs with concern for acute cholecystitis. Imaging also showed L PV thrombosis. MRCP excluded CBD obstruction. Pt was managed conservatively with Abx. Currently does not report any abd pain, N,V but does report reduced appetite for the last 6 months along with weight loss of 10 lbs over this period. Pt was started on eliquis by his PCP after discharge from the hospital - started around 08/15/23. Also scheduled see Hematology in the next few weeks. Last colo 2019 (Dr Goldstein) Good prep. No polyps. 10/15/23: Pt here for follow up. Reports no gastrointestinal issues. Labs and US results reviewed. LEFT PVT unchanged from before on most recent duplex. Cont on eliquis. Pt aware that needs an EGD. 01/29/24: EGD Impressions:? 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 No varices noted on exam today. Follow-up path results A. Stomach, abnormal antral mucosa, biopsy: - Antral-type mucosa with severe chronic active inflammation; negative for intestinal metaplasia or dysplasia. - Positive for H pylori. B. Stomach, random, biopsy: - Oxyntic mucosa with moderate chronic active inflammation and focal intestinal metaplasia, negative for dysplasia. - Positive for H pylori. 04/28/24: Pt here for follow up. Reports discontinuing eliquis last week as per advice from PCP. No GI complaints. Findings from EGD and path reviewed. H Pylori + which needs tx. [facility] Medical History Portal vein thrombosis Elevated bilirubin Sleep apnea Asthma Esophageal cancer COVID-19 vaccine series completed Surgical History History of esophagogastroduodenoscopy (EGD) History of biopsy (2015) History of colonoscopy History of right inguinal hernia repair (05/01/17) Family History Father History of colon cancer Mother History of ovarian cancer Brother History of brain cancer Social History Household Members: Spouse Housing: House Do you presently have visiting nurse or other home services: No Alcohol intake: current Patient Tobacco Use Status: Never used Tobacco Second Hand Smoke Exposure: No service: No Current occupational status: retired Review of Systems Const All systems reviewed & are unremarkable except as noted in HPI and below Physical Exam Vital Signs: Last Vital Signs Pulse 79 04/28/24 09:33 BP 156/87 H 04/28/24 09:33 BMI result Body Mass Index 25.5 No apparent distress ?? mild icterus Abdomen soft, nondistended Alert and oriented x3, normal gait Assessment & Plan Assessment & Plan (1) Gastritis: Code(s): K29.70 - Gastritis, unspecified, without bleeding Category: Medical (2) Portal vein thrombosis: Code(s): I81 - Portal vein thrombosis Category: Medical (3) H. pylori infection: Code(s): A04.8 - Other specified bacterial intestinal infections Category: Medical (4) Icterus: Code(s): R17 - Unspecified jaundice Plan # EGD findings and biopsy results reviewed with the patient. We will favor treating the H pylori given severe gastritis noted. -Quad therapy prescribed as below -Instructions reviewed with the patient, as well as given in writing -Breath test to be done in 2-3 weeks after completion of therapy for MARK # PVT thrombosis Completed 6m of anti-coagulation. Per heme note is supposed to cont until seen in follow up in Jun. Will get duplex US to guide indication for further AC. Pt also appears to have ?yellow eyes on exam. LFTs ordered. F/up for breath test in 6 weeks Orders: Orders US duplex arterial venous comp Today I81 - Portal vein thrombosis Liver Panel Today I81 - Portal vein thrombosis Medications: New metronidazole 250 mg PO QID 14 days 56 tabs 0RF omeprazole 20 mg PO BID 14 days 28 caps 0RF bismuth subsalicylate 2 tabs PO QID 14 days 112 tabs 0RF tetracycline 500 mg PO QID 14 days 56 caps 0RF Patient Instructions: 14 days of therapy (should not start any of these until has ALL 4 meds filled) : - Omeprazole 40mg twice daily - Tetracycline 500mg 4 times a day (avoid sunburn while taking) - Metronidazole 250mg 4 times a day (avoid all alcohol while taking, can take with food to avoid nausea) - Bismuth Subsalicylate 524mg 4 times a day (may turn stools black) Coding Level of Care Code Est Pt Level 4 (31915) Complex EM visit Add On G2211 Diagnoses Gastritis K29.70 Portal vein thrombosis I81 H. pylori infection A04.8 Icterus R17
[2024-04-28 09:33] VITALS: BP 156/87; PULSE 79; BMI 25.5
== END 2024-04-28 10:12 | disposition home or self-care (01) ==
LOC: HO.HGI 09:30
PROVIDERS: PCP Internal Medicine; Visit Provider Internal Medicine
DX: K29.70 Gastritis, unspecified, without bleeding (principal); I81 Portal vein thrombosis; A04.8 Other specified bacterial intestinal infections; R17 Unspecified jaundice
CPT/HCPCS: 99214; G2211

== ENCOUNTER 2024-04-28 09:30 | Outpatient (REF) | payer MEDICARE, SELFPAY ==
[2024-04-28 11:42] LABS: Alanine Aminotransferase 15 U/L (0-40); Albumin Level 4.1 g/dL (3.5-5.0); Alkaline Phosphatase 92 U/L (39-117); Aspartate Amino Transferase 23 U/L (5-37); Bilirubin Direct 0.2 mg/dL (0.0-0.5); Bilirubin Total 0.6 mg/dL (0.0-1.0); Total Protein 7.2 g/dL (6.5-8.0)
== END 2024-04-28 09:31 | disposition home or self-care (01) ==
LOC: HO.LAB 09:30
PROVIDERS: PCP Internal Medicine; Visit Provider Internal Medicine
DX: I81 Portal vein thrombosis (principal); A04.8 Other specified bacterial intestinal infections; K29.70 Gastritis, unspecified, without bleeding; R17 Unspecified jaundice
CPT/HCPCS: 36415; 80076; 99212

== ENCOUNTER 2024-05-10 09:06 | Outpatient (REF) | payer MEDICARE, SELFPAY ==
--- NOTE | ~2024-05-10 | US_ITS ---
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 Color and spectral Doppler evaluation of the hepatic vasculature. FINDINGS: LIVER: Normal. The liver demonstrates normal size, contour and echogenicity. No focal liver lesion. No intrahepatic biliary duct dilatation. SPLENIC VEIN: Patent with normal waveforms. HEPATIC VEINS: Patent with normal waveforms. PORTAL VEINS: Interval resolution of the left portal vein thrombus, which now appears patent, with a normal waveform, and hepatopedal flow. The remaining orbital veins are also patent with normal waveforms and hepatopetal flow. HEPATIC ARTERIES: Normal upstroke and diastolic flow. INFERIOR VENA CAVA: Patent with normal waveforms. GALLBLADDER: Cholelithiasis without evidence of acute cholecystitis. COMMON BILE DUCT: Normal in caliber measuring 0.3 cm in diameter. PANCREAS: Normal. The visualized pancreatic head and body are normal in appearance. The remainder of the pancreas is obscured from visualization by the overlying bowel gas. RIGHT KIDNEY: Normal. No hydronephrosis. No renal calculi or focal parenchymal lesions. The kidney measures 10.7 cm in maximum dimension. LEFT KIDNEY: Normal. No hydronephrosis. No renal calculi or focal parenchymal lesions. The kidney measures 10.3 cm in maximum dimension. SPLEEN: The spleen measures 7.9 cm in maximum dimension. ABDOMINAL AORTA: The visualized proximal segment is normal in caliber. INFERIOR VENA CAVA: Visualized portions are normal. FREE FLUID: None. US/US duplex arterial venous comp IMPRESSION: 1. Interval resolution of the left portal vein thrombus, which now appears patent with a normal waveform, and hepatopedal flow. 2. Cholelithiasis without evidence of acute cholecystitis. Electronically signed by: Kandice Sherwood MD 06/02/2024 05:24 PM [facility] [place]
== END 2024-05-10 09:07 | disposition home or self-care (01) ==
LOC: HO.US 09:06
PROVIDERS: PCP Internal Medicine; Visit Provider Internal Medicine
DX: I81 Portal vein thrombosis (principal)
CPT/HCPCS: 76700; 93975

== ENCOUNTER 2024-06-24 09:04 | Outpatient (REF) | payer MEDICARE, SELFPAY ==
[2024-06-25 11:57] LABS: H Pylori Breath Test Negative (Negative)
== END 2024-06-24 09:05 | disposition home or self-care (01) ==
LOC: HO.LNP 09:04
PROVIDERS: PCP Internal Medicine; Visit Provider Internal Medicine
DX: A04.8 Other specified bacterial intestinal infections (principal)
CPT/HCPCS: 83013; 99211

== ENCOUNTER 2024-06-24 09:04 | Outpatient (AMB) | payer MEDICARE, SELFPAY ==
--- OUTSIDE RECORDS SUMMARY | 2024-06-24 09:09 | XMS_ITS | Patient Health Record ---
Author Organization Zane Rivear MD Address [address] [place], [place] [id number] Care Team Providers Care Flow Specialist Name Role Phone Miguel Zane Primary Care Provider ALLERGIES No Known Allergies RESULTS Component Value Reference Range Notes Hemoglobin A1c Reviewed date:05/10/2024 03:11:18 PM Interpretation:5.7 Performing Lab: Notes/Report: 5.7 Value Hemoglobin A1c PTT Heparin Drip Reviewed date:07/29/2023 10:38:58 AM Interpretation: Performing Lab:[facility], [address] [place] [phone] Notes/Report: PT. DIDN'T CROSS OVER TO PHLEBOTOMY UNTIL 2229. AMM WAS PUT IT FOR 2104 AND THE LIVER AND PTTHD FOR 2209. MORRISD PTT Heparin Drip 28.3 53-77.9 SEC For information regarding the monitoring of heparin therapy, please refer to Pharmacy. Liver Panel Reviewed date:07/29/2023 10:38:49 AM Interpretation: Performing Lab:[facility], [address] [place] [phone] Notes/Report: PT. DIDN'T CROSS OVER TO PHLEBOTOMY UNTIL 2229. AMM WAS PUT IT FOR 2104 AND THE LIVER AND PTTHD FOR 2209. MORRISD Bilirubin Total 4.2 0.0-1.0 mg/dL Bilirubin Direct 3.1 0.0-0.5 mg/dL Aspartate Amino Transferase 61 5-37 U/L Alanine Aminotransferase 88 0-40 U/L Total Protein 5.5 6.5-8.0 g/dL Albumin Level 2.7 3.5-5.0 g/dL Alkaline Phosphatase 393 39-117 U/L Ammonia Reviewed date:07/29/2023 10:35:26 AM Interpretation: Performing Lab:[facility], [address] [place] [phone] Notes/Report: PT. DIDN'T CROSS OVER TO PHLEBOTOMY UNTIL 2229. AMM WAS PUT IT FOR 2104 AND THE LIVER AND PTTHD FOR 2209. MORRISD Ammonia 30 13-55 umol/L CT abdomen pelvis w con Reviewed date:07/29/2023 10:34:25 AM Interpretation: Performing Lab: Notes/Report: [address] [place] [address] CT Scan Report Signed Patient: Gary Donohue MR#: [id number] : 1945 Acct:[id number] Age/Sex: 78 / M ADM Date: 07/28/23 Loc: HO.ED Attending Dr: Ordering Physician: Christiano Diaz Date of Service: 07/28/23 Procedure(s): CT abdomen pelvis w IV con Accession Number(s): [id number] cc: Zane Rivera MD; Christiano Diaz EXAMINATION: CT ABDOMEN AND PELVIS WITH CONTRAST CLINICAL INFORMATION: Abdominal pain. COMPARISON: Abdomen ultrasound from 07/28/2023. TECHNIQUE: Multidetector volumetric images were obtained from the superior aspect of the liver through the pubic symphysis following administration 85 mL of Omnipaque 350 intravenous contrast. Sagittal and coronal reformatted images were obtained on the technologist's workstation. Oral contrast: No This CT examination was performed using dose optimization techniques as appropriate, variously including the following: *Automated exposure control *Adjustment of mA and/or kV according to patient size (this includes techniques or standardized protocols for targeted exams where dose is matched to indication/reason for exam; i.e. extremities or head) *Use of iterative reconstruction technique DLP: 513 mGy-cm FINDINGS: LUNG BASES: Bronchial houston are diffusely thickened in the visualized bases. No consolidation or pleural effusion. Incidental findings include atherosclerotic calcification of the left anterior descending coronary artery and thoracic aorta. HEPATOBILIARY: Liver has normal size and contour. No evidence of hepatic mass or abscess. The left portal vein and its branches are occluded by thrombus. The appears to be a mixture of opacified and unopacified blood within the main portal vein. There is no overt thrombosis within the main portal vein. The right portal venous branches are patent. It is difficult to exclude any thrombus within the superior mesenteric vein although the heterogeneous attenuation is probably from mixture of opacified and unopacified blood. The gallbladder is physiologically distended and its wall is diffusely thickened/edematous. There is haziness of the pericholecystic fat. Common bile duct measures up to 5-6 mm diameter and there is mild thickening and contrast enhancement of the houston of the common duct and cystic duct. This could reflect presence of cholangitis, if in the proper clinical context. PANCREAS: No edema, pancreatic ductal dilatation or mass. SPLEEN: Normal. ADRENAL GLANDS: Normal. KIDNEYS AND URETERS: The kidneys enhance symmetrically and have normal size and cortical thickness. No perinephric fluid collection, urolithiasis or hydroureteronephrosis. BLADDER: Urinary bladder is grossly normal. BOWEL AND PERITONEUM: Stomach is unremarkable. No dilated bowel loops. The appendix is normal. Multiple diverticula of the colon without evidence of diverticulitis. ABDOMINAL WALL: There appears to be postoperative scarring in the right inguinal region and likely prior placement of a plug at proximal right inguinal canal. VASCULATURE: Atherosclerotic calcification of the abdominal aorta and iliac arteries without aneurysm or dissection. LYMPH NODES: No pathologic sized lymph nodes in the abdomen or pelvis. No inguinal lymphadenopathy. PELVIC VISCERA: Prostate gland measures approximately 5 x 4.3 x 5 cm. MUSCULOSKELETAL: No acute or suspicious osseous abnormality. Mild multilevel discovertebral degenerative change of the visualized lower lumbar spine. 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 CT/CT abdomen pelvis w IV con IMPRESSION: * Gallbladder wall is diffusely thickened/edematous and there is haziness of the pericholecystic fat. These findings are suspicious for acute cholecystitis. Also, there is mild thickening and contrast enhancement of houtson of the common duct and cystic duct. These imaging findings are suspicious for cholangitis. 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 No hepatic abscess. * Colonic diverticulosis without diverticulitis. * Prostatomegaly. Dictated By: Edi Hinton MD Signed By: <Electronically signed by Edi Hinton MD in [place]> 07/28/232009 DD/ 05 TD/TT: Cooling Machine Operator: PD CT head/brain wo con Reviewed date:07/28/2023 02:55:27 PM Interpretation: Performing Lab: Notes/Report: [address] [address] [address] Scan Report Signed Patient: Gary Donohue MR#: [id number] : 1945 Acct:[id number] Age/Sex: 78 / M ADM Date: 07/28/23 Loc: HO.ED Attending Dr: Ordering Physician: Katharine Hugo NP Date of Service: 07/28/23 Procedure(s): CT head/brain wo IV con Accession Number(s): [id number] cc: Zane Rivera MD; Katharine Hugo NP EXAMINATION: CT HEAD WITHOUT CONTRAST CLINICAL INFORMATION: New confusion COMPARISON: None available. TECHNIQUE: Contiguous axial imaging was performed from the skull base to vertex without intravenous administration of contrast. This CT examination was performed using dose optimization techniques as appropriate, variously including the following: *Automated exposure control *Adjustment of mA and/or kV according to patient size (this includes techniques or standardized protocols for targeted exams where dose is matched to indication/reason for exam; i.e. extremities or head) *Use of iterative reconstruction technique DLP: 725 mGy-cm FINDINGS: There is no evidence of acute intracranial hemorrhage or territorial infarction. Chronic white matter small vessel ischemic changes. Cerebral atrophy with commensurate ventricular changes. No abnormal mass effect or midline shift is seen. Qureshi to white matter differentiation is well preserved. No extra-axial fluid collections are identified. The ventricles are normal in size. There is no abnormal attenuation within the brain parenchyma. The osseous structures and soft tissues are normal. The mastoid air cells and visualized portions of the paranasal sinuses are well aerated. CT/CT head/brain wo IV con IMPRESSION: 1. No acute intracranial pathology. 2. Chronic white matter small vessel ischemic changes. Dictated By: Liban Reagan MD Signed By: <Electronically signed by Liban Reagan MD in [place]> 07/28/23 1430 DD/ 1356 TD/TT: Cooling Machine Operator: US abdomen limited Reviewed date:07/29/2023 10:35:18 AM Interpretation: Performing Lab: Notes/Report: [address] [address] Ultrasound Report Signed Patient: Gary Donohue MR#: [id number] : 1945 Acct:[id number] Age/Sex: 78 / M ADM Date: 07/28/23 Loc: HO.ED Attending Dr: Ordering Physician: Katharine Hugo NP Date of Service: 07/28/23 Procedure(s): US abdomen limited Accession Number(s): [id number] cc: Zane Rivera MD; Katharine Hugo NP EXAMINATION: US ABDOMEN LIMITED CLINICAL INFORMATION: Elevated total bilirubin level, liver function tests and alkaline phosphatase. Abdominal pain. COMPARISON: None available. TECHNIQUE: Real-time imaging of the right upper quadrant abdominal viscera. FINDINGS: PANCREAS: Normal. LIVER: Liver has normal size, contour and parenchymal echotexture. No sonographic evidence of liver mass or intrahepatic ductal dilatation. Color Doppler images show normal flow direction within the main portal vein (image 32/63). There is no evidence of flow within the left portal vein. This appears to represent venous thrombosis. This could be confirmed on portal venous phase i.v contrast enhanced CT imaging of the abdomen. GALLBLADDER: Gallbladder is physiologically distended and contains sludge. 0.8 cm gallstone is noted. Nonspecific thickening of the gallbladder wall is present. The gallbladder wall has a thickness of 0.5 - 0.6 cm. No pericholecystic fluid. The cytotechnologist reports absence of tenderness over the gallbladder (i.e., no sonographic Dupont sign). COMMON BILE DUCT: Common bile duct is not well seen; the proximal segment of the duct is approximately 0.2 cm. RIGHT KIDNEY: Normal. No hydronephrosis. No renal calculi or focal parenchymal lesions. The kidney measures 12.1 cm in maximum dimension. FREE FLUID: None. US/US abdomen limited IMPRESSION: * There appears to be thrombosis of the left portal vein. The cause of this is uncertain. Recommend follow-up CT imaging of the abdomen (or abdomen/pelvis) in the portal venous phase of intravenous contrast. * Cholelithiasis, gallbladder sludge and diffusely thickened gallbladder wall. Although these imaging findings suggest possibility of acute cholecystitis, there is no report of a sonographic Dupont sign. Gallbladder wall thickening is nonspecific and can be observed in a variety of conditions, including hepatitis. * No abdominal free fluid. Dictated By: Edi Hinton MD Signed By: <Electronically signed by Edi Hinton MD in [place]> 07/28/23 1850 DD/ 1730 TD/TT: Cooling Machine Operator: PD XR chest 2V Reviewed date:07/28/2023 02:54:23 PM Interpretation: Performing Lab: Notes/Report: [address] [address] XRay Report Signed Patient: Gary Donohue MR#: [id number] : 1945 Acct:[id number] Age/Sex: 78 / M ADM Date: 07/28/23 Loc: HO.ED Attending Dr: Ordering Physician: Katharine Hugo NP Date of Service: 07/28/23 Procedure(s): XR chest 2V Accession Number(s): [id number] cc: Zane Rivera MD; Katharine Hugo NP EXAMINATION: XR CHEST CLINICAL INFORMATION: Altered mental status COMPARISON: None available. TECHNIQUE: 2 views of the chest were obtained. FINDINGS: Slight elevation of the left hemidiaphragm. Left basilar atelectasis. No pneumothorax. Trachea is midline. Cardiac mediastinal silhouette is not enlarged. Aorta demonstrates tortuosity. Degenerative changes of the thoracolumbar spine and right acromioclavicular joint. Soft tissues are unremarkable. XR/XR chest 2V IMPRESSION: 1. Slight elevation of the left hemidiaphragm. 2. Left basilar atelectasis. Dictated By: Liban Reagan MD Signed By: <Electronically signed by Liban Reagan MD in OV> 07/28/23 1437 DD/ 1352 TD/TT: Cooling Machine Operator: Complete Blood Count Auto Di ff Reviewed date:07/29/2023 10:36:41 AM Interpretation: Performing Lab:[facility], [address] [place] [phone] Notes/Report: White Blood Count 16.5 4.8-10.8 X10*3/uL Red Blood Count 4.46 4.60-5.80 X10*6/uL Hemoglobin 14.3 14.0-18.0 g/dl Hematocrit 40.4 42.0-52.0 % Mean Corpuscular Volume 90.6 80.0-98.0 fL Mean Corpuscular Hemoglobin 32.1 27.0-33.0 pg Mean Corpuscular HGB Conc 35.4 31.0-36.0 g/dl Red Cell Distribution Width 13.7 11.0-16.0 % Platelet Count 81 160-400 X10*3/uL Mean Platelet Volume 10.2 9.4-12.4 fL Neutrophils Percent Auto 78.3 45-73 % Imm Gran Pct Auto 1.5 0.0-0.4 % Lymphocytes Percent Auto 6.8 20-40 % Monocytes Percent Auto 12.5 2-11 % Eosinophils Percent Auto 0.4 0-4 % Basophils Percent Auto 0.5 0-2 % NRBC Pct Auto 0.0 0.0-0.2 /100WBC Neutrophils Absolute Auto 12.9 2.0-8.3 x10*3/u L Imm Gran Abs Auto 0.24 0.00-0.03 X10*3/uL Lymphocytes Absolute Auto 1.1 1.2-4.9 X10*3/u L Monocytes Absolute Auto 2.1 0.1-1.2 X10*3/uL Eosinophils Absolute Auto 0.1 0.0-0.4 X10*3/u L Basophils Absolute Auto 0.1 0.0-0.2 X10*3/uL NRBC Abs Auto 0.000 0.0-0.012 X10*3/uL White Blood Count 16.5 4.8-10.8 X10*3/uL Red Blood Count 4.46 4.60-5.80 X10*6/uL Hemoglobin 14.3 14.0-18.0 g/dl Hematocrit 40.4 42.0-52.0 % Mean Corpuscular Volume 90.6 80.0-98.0 fL Mean Corpuscular Hemoglobin 32.1 27.0-33.0 pg Mean Corpuscular HGB Conc 35.4 31.0-36.0 g/dl Red Cell Distribution Width 13.7 11.0-16.0 % Platelet Count 81 160-400 X10*3/uL Mean Platelet Volume 10.2 9.4-12.4 fL Neutrophils Percent Auto 78.3 45-73 % Imm Gran Pct Auto 1.5 0.0-0.4 % Lymphocytes Percent Auto 6.8 20-40 % Monocytes Percent Auto 12.5 2-11 % Eosinophils Percent Auto 0.4 0-4 % Basophils Percent Auto 0.5 0-2 % NRBC Pct Auto 0.0 0.0-0.2 /100WBC Neutrophils Absolute Auto 12.9 2.0-8.3 x10*3/u L Imm Gran Abs Auto 0.24 0.00-0.03 X10*3/uL Lymphocytes Absolute Auto 1.1 1.2-4.9 X10*3/u L Monocytes Absolute Auto 2.1 0.1-1.2 X10*3/uL Eosinophils Absolute Auto 0.1 0.0-0.4 X10*3/u L Basophils Absolute Auto 0.1 0.0-0.2 X10*3/uL NRBC Abs Auto 0.000 0.0-0.012 X10*3/uL PTT Heparin Drip Reviewed date:07/29/2023 10:32:58 AM Interpretation: Performing Lab:[facility], [address] [place] [phone] Notes/Report: PTT Heparin Drip 28.1 53-77.9 SEC For information regarding the monitoring of heparin therapy, please refer to Pharmacy. Liver Panel Reviewed date:07/29/2023 10:36:06 AM Interpretation: Performing Lab:[facility], [address] [place] [phone] Notes/Report: Bilirubin Total 4.0 0.0-1.0 mg/dL Bilirubin Direct 2.6 0.0-0.5 mg/dL Slight Hem olysis Aspartate Amino Transferase 69 5-37 U/L Slight Hemolysis Alanine Aminotransferase 87 0-40 U/L Total Protein 5.8 6.5-8.0 g/dL Albumin Level 2.7 3.5-5.0 g/dL Alkaline Phosphatase 419 39-117 U/L Basic Metabolic Panel Reviewed date:07/29/2023 10:35:43 AM Interpretation: Performing Lab:[facility], [address] [place] [phone] Notes/Report: Sodium 143 135-145 mmol/L Potassium 4.0 3.3-5.1 mmol/L Slight Hemoly sis Chloride 109 96-108 mmol/L Carbon Dioxide 23 22-29 mmol/L Anion Gap 15 12-20 Blood Urea Nitrogen 62 9-16 mg/dL Creatinine 1.16 0.5-1.4 mg/dL Creatinine Clr Calc Pharmacy 49.8 eGFR (calculated from the MDRD study equation) and eCrCl (calculated from the Cockcroft-Gault equation) are based on different parameters and may not yield comparable results. If eCrCl result is absurd, please check patient's height/weight. Estimated Glomerular Filt Rate > 60 NOTE: For -Mexican individuals, multiply the result by 1.210. Chronic Kidney Disease: Estimated GFR < 60 mL/min/1.73m2 Severe Kidney Disease: Estimated GFR < 15 mL/min/1.73m2 Glucose Random 81 60-115 mg/dL Calcium 9.3 8.4-10.2 mg/dL SLIDE REVIEW Reviewed date:07/29/2023 10:37:15 AM Interpretation: Performing Lab:[facility], [address] [place] [phone] Notes/Report: SLIDE REVIEW VERIFIED MR MRCP Reviewed date:07/30/2023 07:50:27 PM Interpretation: Performing Lab: Notes/Report: [address] [place] [address] Magnetic Resonance Report Signed Patient: Gary Donohue MR#: [id number] : 1945 Acct:[id number] Age/Sex: 78 / M ADM Date: 07/28/23 Loc: HO.S3 374-[address]: Lexi Aranda NP Ordering Physician: Almaz Chambers Date of Service: 07/29/23 Procedure(s): MR MRCP Accession Number(s): [id number] cc: Zane Rivera MD; Almaz Chambers EXAMINATION: MR CHOLANGIOPANCREATOGRAPHY CLINICAL INFORMATION: hepatitis, cholelithiasis, cholecystitis COMPARISON: 07/28/2019 CT scan TECHNIQUE: Multiple routine MRI sequences through the abdomen were obtained. Heavily T2-weighted images were performed utilizing a dedicated MRCP technique. Contrast was not utilized for the study. FINDINGS: Lung bases: Minimal dependent atelectatic change at the left base. Liver: The liver is normal in size, shape, and signal. No suspicious focal hepatic lesions seen on this noncontrast study. Biliary system: The common bile duct is normal in course and caliber measuring up to 0.5 cm with no evidence for intra-or extrahepatic biliary ductal dilatation. Mid duct is partially obscured by artifact possibly due to biliary ductal air but no discrete suspicious intraluminal filling defects are appreciated. Gallbladder: Gallbladder is mildly distended containing layering sludge and gallstones with gallbladder wall thickening and mild pericholecystic inflammatory changes concerning for cholecystitis. Pancreas: Pancreas is homogeneous in signal. No pancreatic ductal dilatation or obstruction. No peripancreatic inflammatory changes or fluid. Spleen: Unremarkable Adrenals: Unremarkable Kidneys: Kidneys are normal in size, shape, and signal. No suspicious renal mass lesion seen. No hydronephrosis or perinephric edema. Other: None MR/MR MRCP IMPRESSION: 1. Cholelithiasis with gallbladder wall thickening and pericholecystic inflammatory changes concerning for cholecystitis. 2. No evidence for biliary ductal dilatation. No discrete intraluminal filling defects within the common bile duct. Dictated By: Stiven Serrano MD Signed By: <Electronically signed by Stiven Serrano MD in OV> 07/29/231915 DD/ 14 TD/TT: Cooling Machine Operator: YASIR Complete Blood Count no Diff Reviewed date:07/30/2023 07:52:56 PM Interpretation: Performing Lab:[facility], [address] [place] [phone] Notes/Report: White Blood Count 15.2 4.8-10.8 X10*3/uL Red Blood Count 4.45 4.60-5.80 X10*6/uL Hemoglobin 14.1 14.0-18.0 g/dl Hematocrit 40.9 42.0-52.0 % Mean Corpuscular Volume 91.9 80.0-98.0 fL Mean Corpuscular Hemoglobin 31.7 27.0-33.0 pg Mean Corpuscular HGB Conc 34.5 31.0-36.0 g/dl Red Cell Distribution Width 14.1 11.0-16.0 % Platelet Count 136 160-400 X10*3/uL Mean Platelet Volume 9.8 9.4-12.4 fL NRBC Pct Auto 0.0 0.0-0.2 /100WBC NRBC Abs Auto 0.000 0.0-0.012 X10*3/uL Liver Panel Reviewed date:07/30/2023 07:56:11 PM Interpretation: Performing Lab:[facility], [address] [place] [phone] Notes/Report: Bilirubin Total 3.2 0.0-1.0 mg/dL Bilirubin Direct 2.0 0.0-0.5 mg/dL Aspartate Amino Transferase 78 5-37 U/L Alanine Aminotransferase 83 0-40 U/L Total Protein 5.6 6.5-8.0 g/dL Albumin Level 2.7 3.5-5.0 g/dL Alkaline Phosphatase 479 39-117 U/L Basic Metabolic Panel Reviewed date:07/30/2023 07:52:45 PM Interpretation: Performing Lab:[facility], [address] [place] [phone] Notes/Report: Sodium 144 135-145 mmol/L Potassium 3.6 3.3-5.1 mmol/L Chloride 109 96-108 mmol/L Carbon Dioxide 26 22-29 mmol/L Anion Gap 13 12-20 Blood Urea Nitrogen 36 9-16 mg/dL Creatinine 0.96 0.5-1.4 mg/dL Creatinine Clr Calc Pharmacy 60.2 eGFR (calculated from the MDRD study equation) and eCrCl (calculated from the Cockcroft-Gault equation) are based on different parameters and may not yield comparable results. If eCrCl result is absurd, please check patient's height/weight. Estimated Glomerular Filt Rate > 60 NOTE: For -Mexican individuals, multiply the result by 1.210. Chronic Kidney Disease: Estimated GFR < 60 mL/min/1.73m2 Severe Kidney Disease: Estimated GFR < 15 mL/min/1.73m2 Glucose Random 101 60-115 mg/dL Calcium 9.6 8.4-10.2 mg/dL Complete Blood Count Auto Di ff Reviewed date:07/31/2023 12:38:56 PM Interpretation: Performing Lab:[facility], [address] [place] [phone] Notes/Report: White Blood Count 15.0 4.8-10.8 X10*3/uL Red Blood Count 4.01 4.60-5.80 X10*6/uL Hemoglobin 12.9 14.0-18.0 g/dl Hematocrit 37.1 42.0-52.0 % Mean Corpuscular Volume 92.5 80.0-98.0 fL Mean Corpuscular Hemoglobin 32.2 27.0-33.0 pg Mean Corpuscular HGB Conc 34.8 31.0-36.0 g/dl Red Cell Distribution Width 14.0 11.0-16.0 % Platelet Count 176 160-400 X10*3/uL Mean Platelet Volume 10.2 9.4-12.4 fL Neutrophils Percent Auto 80.0 45-73 % Imm Gran Pct Auto 3.5 0.0-0.4 % Lymphocytes Percent Auto 8.0 20-40 % Monocytes Percent Auto 6.7 2-11 % Eosinophils Percent Auto 1.5 0-4 % Basophils Percent Auto 0.3 0-2 % NRBC Pct Auto 0.0 0.0-0.2 /100WBC Neutrophils Absolute Auto 12.0 2.0-8.3 x10*3/u L Imm Gran Abs Auto 0.53 0.00-0.03 X10*3/uL Lymphocytes Absolute Auto 1.2 1.2-4.9 X10*3/u L Monocytes Absolute Auto 1.0 0.1-1.2 X10*3/uL Eosinophils Absolute Auto 0.2 0.0-0.4 X10*3/u L Basophils Absolute Auto 0.1 0.0-0.2 X10*3/uL NRBC Abs Auto 0.000 0.0-0.012 X10*3/uL Comprehensive [place]. Panel Fa st Reviewed date:07/31/2023 12:44:51 PM Interpretation: Performing Lab:[facility], [address] [place] [phone] Notes/Report: Sodium 141 135-145 mmol/L Potassium 3.6 3.3-5.1 mmol/L Chloride 107 96-108 mmol/L Carbon Dioxide 28 22-29 mmol/L Anion Gap 10 12-20 Blood Urea Nitrogen 21 9-16 mg/dL Creatinine 0.80 0.5-1.4 mg/dL Creatinine Clr Calc Pharmacy 72.2 eGFR (calculated from the MDRD study equation) and eCrCl (calculated from the Cockcroft-Gault equation) are based on different parameters and may not yield comparable results. If eCrCl result is absurd, please check patient's height/weight. Estimated Glomerular Filt Rate > 60 NOTE: For -Mexican individuals, multiply the result by 1.210. Chronic Kidney Disease: Estimated GFR < 60 mL/min/1.73m2 Severe Kidney Disease: Estimated GFR < 15 mL/min/1.73m2 Glucose Fasting 100 60-99 mg/dL A fasting glucose from 100-125 mg/dl is considered impaired (pre-diabetes). Calcium 8.9 8.4-10.2 mg/dL Bilirubin Total 2.8 0.0-1.0 mg/dL Aspartate Amino Transferase 62 5-37 U/L Alanine Aminotransferase 70 0-40 U/L Total Protein 5.2 6.5-8.0 g/dL Albumin Level 2.4 3.5-5.0 g/dL Alkaline Phosphatase 478 39-117 U/L Ammonia Reviewed date:07/31/2023 12:31:12 PM Interpretation: Performing Lab:[facility], [address] [place] [phone] Notes/Report: Ammonia 37 13-55 umol/L Complete Blood Count no Diff Reviewed date:09/15/2023 02:57:15 PM Interpretation: Performing Lab:[facility], [address] [place] [phone] Notes/Report: White Blood Count 8.2 4.8-10.8 X10*3/uL Red Blood Count 4.19 4.60-5.80 X10*6/uL Hemoglobin 13.3 14.0-18.0 g/dl Hematocrit 39.8 42.0-52.0 % Mean Corpuscular Volume 95.0 80.0-98.0 fL Mean Corpuscular Hemoglobin 31.7 27.0-33.0 pg Mean Corpuscular HGB Conc 33.4 31.0-36.0 g/dl Red Cell Distribution Width 13.7 11.0-16.0 % Platelet Count 304 160-400 X10*3/uL Mean Platelet Volume 8.0 9.4-12.4 fL NRBC Pct Auto 0.0 0.0-0.2 /100WBC NRBC Abs Auto 0.000 0.0-0.012 X10*3/uL Comprehensive Met. Panel Reviewed date:09/15/2023 05:22:37 PM Interpretation: Performing Lab:[facility], [address] [place] [phone] Notes/Report: Sodium 141 135-145 mmol/L Potassium 4.4 3.3-5.1 mmol/L Chloride 101 96-108 mmol/L Carbon Dioxide 34 22-29 mmol/L Anion Gap 10 12-20 Blood Urea Nitrogen 12 9-16 mg/dL Creatinine 0.71 0.5-1.4 mg/dL Estimated Glomerular Filt Rate > 60 NOTE: For -Mexican individuals, multiply the result by 1.210. Chronic Kidney Disease: Estimated GFR < 60 mL/min/1.73m2 Severe Kidney Disease: Estimated GFR < 15 mL/min/1.73m2 Glucose Random 89 60-115 mg/dL Calcium 10.0 8.4-10.2 mg/dL Bilirubin Total 0.7 0.0-1.0 mg/dL Aspartate Amino Transferase 35 5-37 U/L Alanine Aminotransferase 29 0-40 U/L Total Protein 7.3 6.5-8.0 g/dL Albumin Level 4.0 3.5-5.0 g/dL Alkaline Phosphatase 192 39-117 U/L US abdomen complete Reviewed date:09/30/2023 02:44:14 PM Interpretation: Performing Lab: Notes/Report: [address] [address] Ultrasound Report Signed Patient: Gary Donohue MR#: [id number] : 1945 Acct:[id number] Age/Sex: 78 / M ADM Date: 09/25/23 Loc: HO.US Attending Dr: Hollie Robison MD Ordering Physician: Hollie Robison MD Date of Service: 09/25/23 Procedure(s): US abdomen complete Accession Number(s): [id number] cc: Zane Rivera MD; Hollie Robison MD EXAMINATION: COMPLETE ABDOMINAL ULTRASOUND WITH DOPPLER. CLINICAL INFORMATION: Portal vein thrombosis. COMPARISON: CT abdomen 07/28/23. TECHNIQUE: Real-time imaging of the abdominal viscera. Color and spectral Doppler evaluation of the hepatic vasculature. FINDINGS: LIVER: Normal. The liver demonstrates normal size, contour and echogenicity. No focal liver lesion. No intrahepatic biliary duct dilatation. SPLENIC VEIN: Patent with normal waveform. HEPATIC VEINS: Patent with normal waveforms. PORTAL VEINS: The main and right portal veins are patent with normal waveforms. No demonstrable flow is seen in the left portal vein. HEPATIC ARTERIES: Normal upstroke and diastolic flow. INFERIOR VENA CAVA: Patent with normal waveform. GALLBLADDER: Cholelithiasis without evidence of acute cholecystitis. COMMON BILE DUCT: Normal in caliber measuring 0.2 cm in diameter. PANCREAS: Normal. The visualized pancreatic head and body are normal in appearance. The remainder of the pancreas is obscured from visualization by the overlying bowel gas. RIGHT KIDNEY: Normal. No hydronephrosis. No renal calculi or focal parenchymal lesions. The kidney measures 10.8 cm in maximum dimension LEFT KIDNEY: Normal. No hydronephrosis. No renal calculi or focal parenchymal lesions. The kidney measures 10.4 cm in maximum dimension. SPLEEN: Normal. The spleen measures 8.3 cm in maximum dimension. ABDOMINAL AORTA: The visualized proximal segment is normal in caliber. INFERIOR VENA CAVA: Visualized portions are normal. FREE FLUID: None. 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 The main portal vein and right portal vein are patent. Cholelithiasis without evidence of acute cholecystitis. Dictated By: Aiden Nelson MD Signed By: <Electronically signed by Aiden Nelson MD in OV> 09/30/23 1020 DD/ 0840 TD/TT: Cooling Machine Operator: UNIQUE US duplex arterial venous co mp Reviewed date:09/30/2023 02:46:25 PM Interpretation: Performing Lab: Notes/Report: [address] [address] Ultrasound Report Signed Patient: Gary Donohue MR#: [id number] : 1945 Acct:[id number] Age/Sex: 78 / M ADM Date: 09/25/23 Loc: HO.US Attending Dr: Hollie Robison MD Ordering Physician: Hollie Robison MD Date of Service: 09/25/23 Procedure(s): US duplex arterial venous comp Accession Number(s): [id number] cc: Zane Rivera MD; Hollie Robison MD EXAMINATION: COMPLETE ABDOMINAL ULTRASOUND WITH DOPPLER. CLINICAL INFORMATION: Portal vein thrombosis. COMPARISON: CT abdomen 07/28/23. TECHNIQUE: Real-time imaging of the abdominal viscera. Color and spectral Doppler evaluation of the hepatic vasculature. FINDINGS: LIVER: Normal. The liver demonstrates normal size, contour and echogenicity. No focal liver lesion. No intrahepatic biliary duct dilatation. SPLENIC VEIN: Patent with normal waveform. HEPATIC VEINS: Patent with normal waveforms. PORTAL VEINS: The main and right portal veins are patent with normal waveforms. No demonstrable flow is seen in the left portal vein. HEPATIC ARTERIES: Normal upstroke and diastolic flow. INFERIOR VENA CAVA: Patent with normal waveform. GALLBLADDER: Cholelithiasis without evidence of acute cholecystitis. COMMON BILE DUCT: Normal in caliber measuring 0.2 cm in diameter. PANCREAS: Normal. The visualized pancreatic head and body are normal in appearance. The remainder of the pancreas is obscured from visualization by the overlying bowel gas. RIGHT KIDNEY: Normal. No hydronephrosis. No renal calculi or focal parenchymal lesions. The kidney measures 10.8 cm in maximum dimension LEFT KIDNEY: Normal. No hydronephrosis. No renal calculi or focal parenchymal lesions. The kidney measures 10.4 cm in maximum dimension. SPLEEN: Normal. The spleen measures 8.3 cm in maximum dimension. ABDOMINAL AORTA: The visualized proximal segment is normal in caliber. INFERIOR VENA CAVA: Visualized portions are normal. FREE FLUID: None. 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 The main portal vein and right portal vein are patent. Cholelithiasis without evidence of acute cholecystitis. Dictated By: Aiden Nelson MD Signed By: <Electronically signed by Aiden Nelson MD in OV> 09/30/23 1020 DD/ 0840 TD/TT: Cooling Machine Operator: UNIQUE Complete Blood Count Auto Di ff Reviewed date:10/02/2023 03:22:59 PM Interpretation: Performing Lab:[facility], [address] [place] [phone] Notes/Report: White Blood Count 6.7 4.8-10.8 X10*3/uL Red Blood Count 4.40 4.60-5.80 X10*6/uL Hemoglobin 14.0 14.0-18.0 g/dl Hematocrit 41.1 42.0-52.0 % Mean Corpuscular Volume 93.4 80.0-98.0 fL Mean Corpuscular Hemoglobin 31.8 27.0-33.0 pg Mean Corpuscular HGB Conc 34.1 31.0-36.0 g/dl Red Cell Distribution Width 14.1 11.0-16.0 % Platelet Count 289 160-400 X10*3/uL Mean Platelet Volume 8.1 9.4-12.4 fL Neutrophils Percent Auto 61.7 45-73 % Imm Gran Pct Auto 0.1 0.0-0.4 % Lymphocytes Percent Auto 21.5 20-40 % Monocytes Percent Auto 9.1 2-11 % Eosinophils Percent Auto 7.0 0-4 % Basophils Percent Auto 0.6 0-2 % NRBC Pct Auto 0.0 0.0-0.2 /100WBC Neutrophils Absolute Auto 4.2 2.0-8.3 x10*3/u L Imm Gran Abs Auto 0.01 0.00-0.03 X10*3/uL Lymphocytes Absolute Auto 1.5 1.2-4.9 X10*3/u L Monocytes Absolute Auto 0.6 0.1-1.2 X10*3/uL Eosinophils Absolute Auto 0.5 0.0-0.4 X10*3/u L Basophils Absolute Auto 0.0 0.0-0.2 X10*3/uL NRBC Abs Auto 0.000 0.0-0.012 X10*3/uL Comprehensive Met. Panel Reviewed date:10/02/2023 01:26:37 PM Interpretation: Performing Lab:[facility], [address] [place] [phone] Notes/Report: Sodium 138 135-145 mmol/L Potassium 4.9 3.3-5.1 mmol/L Chloride 102 96-108 mmol/L Carbon Dioxide 31 22-29 mmol/L Anion Gap 10 12-20 Blood Urea Nitrogen 11 9-16 mg/dL Creatinine 0.84 0.5-1.4 mg/dL Creatinine Clr Calc Pharmacy 68.8 eGFR (calculated from the MDRD study equation) and eCrCl (calculated from the Cockcroft-Gault equation) are based on different parameters and may not yield comparable results. If eCrCl result is absurd, please check patient's height/weight. Estimated Glomerular Filt Rate > 60 NOTE: For -Mexican individuals, multiply the result by 1.210. Chronic Kidney Disease: Estimated GFR < 60 mL/min/1.73m2 Severe Kidney Disease: Estimated GFR < 15 mL/min/1.73m2 Glucose Random 101 60-115 mg/dL Calcium 10.1 8.4-10.2 mg/dL Bilirubin Total 0.9 0.0-1.0 mg/dL Aspartate Amino Transferase 26 5-37 U/L Alanine Aminotransferase 21 0-40 U/L Total Protein 7.5 6.5-8.0 g/dL Albumin Level 4.1 3.5-5.0 g/dL Alkaline Phosphatase 124 39-117 U/L Carcinoembryonic Antigen Reviewed date:10/02/2023 01:26:04 PM Interpretation: Performing Lab:[facility], [address] [place] [phone] Notes/Report: Carcinoembryonic Antigen 5.10 CEA Reference Range: 93.4% Non-Smokers = 0.0-3.0 ng/mL 95.6% Smokers = 0.0-5.0 ng/mL CEA Methodology: Amezquita Alinity i Chemiluminescent Microparticle Immunoassay (CMIA) CEA testing can have significant value in monitoring of patients with diagnosed malignancies in whom changing concentrations of CEA are observed. Values obtained with different assay methods cannot be used interchangeably. Ale Rivas Reviewed date:10/02/2023 01:26:13 PM Interpretation: Performing Lab:[facility], [address] [place] [phone] Notes/Report: Ale Rivas See Note Specimen held untested for 24 hours; Call to request Chemistry testing. D Dimer High Sensitivity Reviewed date:10/02/2023 01:25:36 PM Interpretation: Performing Lab:[facility], [address] [place] [phone] Notes/Report: D Dimer High Sensitivity 469 Results of D-DIMER called to ACER on 10/02/23 at 0933 by MARÍA. D-DIMER HS REFERENCE RANGE Note: Our assay reports D-Dimer Units (D-DU). The cut-off value for venous thromboembolic (VTE) disease is 230 ng/mL. This value has a very high negative predictive value when the patient has a low to moderate clinical probability of VTE. The upper limit of normal is 243 ng/mL. US abdomen limited Reviewed date:01/02/2024 12:19:52 PM Interpretation: Performing Lab: Notes/Report: [address] [address] Ultrasound Report Signed Patient: Gary Donohue MR#: [id number] : 1945 Acct:[id number] Age/Sex: 78 / M ADM Date: 12/22/23 Loc: . Attending Dr: Jericho Wilkins MD Ordering Physician: Jericho Wilkins MD Date of Service: 12/22/23 Procedure(s): US abdomen limited Accession Number(s): [id number] cc: Zane Rivera MD; Jericho Wilkins MD EXAMINATION: US ABDOMEN LIMITED CLINICAL INFORMATION: Follow-up portal vein thrombosis. COMPARISON: Abdominal duplex September 25, 2023 TECHNIQUE: Real-time imaging of the right upper quadrant abdominal viscera. FINDINGS: LIVER: Normal. The liver demonstrates normal size, contour and echogenicity. No focal liver lesion. No intrahepatic biliary duct dilatation. SPLENIC VEIN: Patent with normal waveform. HEPATIC VEINS: Patent with normal waveforms. PORTAL VEINS: The main and right portal veins are patent with normal waveforms. No demonstrable flow is seen in the left portal vein. HEPATIC ARTERIES: Normal upstroke and diastolic flow in the left hepatic artery. The main hepatic artery and right hepatic artery are not visualized. INFERIOR VENA CAVA: Patent with normal waveform. GALLBLADDER: Cholelithiasis without evidence of acute cholecystitis. COMMON BILE DUCT: Normal in caliber measuring 0.6 cm in diameter. PANCREAS: Normal. The visualized pancreatic head and body are normal in appearance. The remainder of the pancreas is obscured from visualization by the overlying bowel gas. RIGHT KIDNEY: Normal. No hydronephrosis. No renal calculi or focal parenchymal lesions. The kidney measures 10.7 cm in maximum dimension SPLEEN: Normal. The spleen measures 7.9 cm in maximum dimension. INFERIOR VENA CAVA: Visualized portions are normal. FREE FLUID: None. 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 The main portal vein and right portal vein are patent. Cholelithiasis without evidence of acute cholecystitis. Dictated By: Damien Carrasco MD Signed By: <Electronically signed by Damien Carrasco MD in OV> 01/02/24 0920 DD/ 0804 TD/TT: Cooling Machine Operator: US duplex arterial venous co mp Reviewed date:01/02/2024 12:20:27 PM Interpretation: Performing Lab: Notes/Report: [address] [address] Ultrasound Report Signed Patient: Gary Donohue MR#: [id number] : 1945 Acct:[id number] Age/Sex: 78 / M ADM Date: 12/22/23 Loc: HO.US Attending Dr: Jericho Wilkins MD Ordering Physician: Jericho Wilkins MD Date of Service: 12/22/23 Procedure(s): US duplex arterial venous comp Accession Number(s): [id number] cc: Zane Rivera MD; Jericho Wilkins MD EXAMINATION: US ABDOMEN LIMITED CLINICAL INFORMATION: Follow-up portal vein thrombosis. COMPARISON: Abdominal duplex September 25, 2023 TECHNIQUE: Real-time imaging of the right upper quadrant abdominal viscera. FINDINGS: LIVER: Normal. The liver demonstrates normal size, contour and echogenicity. No focal liver lesion. No intrahepatic biliary duct dilatation. SPLENIC VEIN: Patent with normal waveform. HEPATIC VEINS: Patent with normal waveforms. PORTAL VEINS: The main and right portal veins are patent with normal waveforms. No demonstrable flow is seen in the left portal vein. HEPATIC ARTERIES: Normal upstroke and diastolic flow in the left hepatic artery. The main hepatic artery and right hepatic artery are not visualized. INFERIOR VENA CAVA: Patent with normal waveform. GALLBLADDER: Cholelithiasis without evidence of acute cholecystitis. COMMON BILE DUCT: Normal in caliber measuring 0.6 cm in diameter. PANCREAS: Normal. The visualized pancreatic head and body are normal in appearance. The remainder of the pancreas is obscured from visualization by the overlying bowel gas. RIGHT KIDNEY: Normal. No hydronephrosis. No renal calculi or focal parenchymal lesions. The kidney measures 10.7 cm in maximum dimension SPLEEN: Normal. The spleen measures 7.9 cm in maximum dimension. INFERIOR VENA CAVA: Visualized portions are normal. FREE FLUID: None. 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 The main portal vein and right portal vein are patent. Cholelithiasis without evidence of acute cholecystitis. Dictated By: Damien Carrasco MD Signed By: <Electronically signed by Damien Carrasco MD in OV> 01/02/24 0920 DD/ 0804 TD/TT: Cooling Machine Operator: Complete Blood Count Auto Di ff Reviewed date:01/01/2024 03:04:58 PM Interpretation: Performing Lab:[facility], [address] [place] [phone] Notes/Report: White Blood Count 7.4 4.8-10.8 X10*3/uL Red Blood Count 4.27 4.60-5.80 X10*6/uL Hemoglobin 14.1 14.0-18.0 g/dl Hematocrit 41.9 42.0-52.0 % Mean Corpuscular Volume 98.1 80.0-98.0 fL Mean Corpuscular Hemoglobin 33.0 27.0-33.0 pg Mean Corpuscular HGB Conc 33.7 31.0-36.0 g/dl Red Cell Distribution Width 13.3 11.0-16.0 % Platelet Count 239 160-400 X10*3/uL Mean Platelet Volume 8.1 9.4-12.4 fL Neutrophils Percent Auto 69.8 45-73 % Imm Gran Pct Auto 0.3 0.0-0.4 % Lymphocytes Percent Auto 16.4 20-40 % Monocytes Percent Auto 8.0 2-11 % Eosinophils Percent Auto 5.0 0-4 % Basophils Percent Auto 0.5 0-2 % NRBC Pct Auto 0.0 0.0-0.2 /100WBC Neutrophils Absolute Auto 5.2 2.0-8.3 x10*3/u L Imm Gran Abs Auto 0.02 0.00-0.03 X10*3/uL Lymphocytes Absolute Auto 1.2 1.2-4.9 X10*3/u L Monocytes Absolute Auto 0.6 0.1-1.2 X10*3/uL Eosinophils Absolute Auto 0.4 0.0-0.4 X10*3/u L Basophils Absolute Auto 0.0 0.0-0.2 X10*3/uL NRBC Abs Auto 0.000 0.0-0.012 X10*3/uL Comprehensive Met. Panel Reviewed date:01/01/2024 04:21:16 PM Interpretation: Performing Lab:[facility], [address] [place] [phone] Notes/Report: Sodium 140 135-145 mmol/L Potassium 4.6 3.3-5.1 mmol/L Chloride 103 96-108 mmol/L Carbon Dioxide 31 22-29 mmol/L Anion Gap 11 12-20 Blood Urea Nitrogen 13 9-16 mg/dL Creatinine 0.92 0.5-1.4 mg/dL Creatinine Clr Calc Pharmacy 62.8 eGFR (calculated from the MDRD study equation) and eCrCl (calculated from the Cockcroft-Gault equation) are based on different parameters and may not yield comparable results. If eCrCl result is absurd, please check patient's height/weight. Estimated Glomerular Filt Rate > 60 NOTE: For -Mexican individuals, multiply the result by 1.210. Chronic Kidney Disease: Estimated GFR < 60 mL/min/1.73m2 Severe Kidney Disease: Estimated GFR < 15 mL/min/1.73m2 Glucose Random 94 60-115 mg/dL Calcium 10.5 8.4-10.2 mg/dL Bilirubin Total 0.6 0.0-1.0 mg/dL Aspartate Amino Transferase 20 5-37 U/L Alanine Aminotransferase 14 0-40 U/L Total Protein 7.6 6.5-8.0 g/dL Albumin Level 4.3 3.5-5.0 g/dL Alkaline Phosphatase 109 39-117 U/L Hold Gold Reviewed date:01/01/2024 12:37:46 PM Interpretation: Performing Lab:[facility], [address] [place] [phone] Notes/Report: Ale Gold See Note Specimen held untested for 24 hours; Call to request Chemistry testing. D Dimer High Sensitivity Reviewed date:01/01/2024 04:18:10 PM Interpretation: Performing Lab:[facility], [address] [place] [phone] Notes/Report: D Dimer High Sensitivity 417 Results of DDIMER called to JIM on 01/01/24 at 0841 by LANDRY. D-DIMER HS REFERENCE RANGE Note: Our assay reports D-Dimer Units (D-DU). The cut-off value for venous thromboembolic (VTE) disease is 230 ng/mL. This value has a very high negative predictive value when the patient has a low to moderate clinical probability of VTE. The upper limit of normal is 243 ng/mL. Complete Blood Count Auto Di ff Reviewed date:01/02/2024 12:22:05 PM Interpretation: Performing Lab:[facility], [address] [place] [phone] Notes/Report: White Blood Count 7.6 4.8-10.8 X10*3/uL Red Blood Count 4.29 4.60-5.80 X10*6/uL Hemoglobin 14.0 14.0-18.0 g/dl Hematocrit 42.4 42.0-52.0 % Mean Corpuscular Volume 98.8 80.0-98.0 fL Mean Corpuscular Hemoglobin 32.6 27.0-33.0 pg Mean Corpuscular HGB Conc 33.0 31.0-36.0 g/dl Red Cell Distribution Width 13.4 11.0-16.0 % Platelet Count 265 160-400 X10*3/uL Mean Platelet Volume 8.8 9.4-12.4 fL Neutrophils Percent Auto 65.2 45-73 % Imm Gran Pct Auto 0.4 0.0-0.4 % Lymphocytes Percent Auto 18.1 20-40 % Monocytes Percent Auto 9.8 2-11 % Eosinophils Percent Auto 5.8 0-4 % Basophils Percent Auto 0.7 0-2 % NRBC Pct Auto 0.0 0.0-0.2 /100WBC Neutrophils Absolute Auto 5.0 2.0-8.3 x10*3/u L Imm Gran Abs Auto 0.03 0.00-0.03 X10*3/uL Lymphocytes Absolute Auto 1.4 1.2-4.9 X10*3/u L Monocytes Absolute Auto 0.8 0.1-1.2 X10*3/uL Eosinophils Absolute Auto 0.4 0.0-0.4 X10*3/u L Basophils Absolute Auto 0.1 0.0-0.2 X10*3/uL NRBC Abs Auto 0.000 0.0-0.012 X10*3/uL Comprehensive [place]. Panel Fa st Reviewed date:01/02/2024 04:54:06 PM Interpretation: Performing Lab:[facility], [address] [place] [phone] Notes/Report: Sodium 138 135-145 mmol/L Potassium 4.8 3.3-5.1 mmol/L Chloride 101 96-108 mmol/L Carbon Dioxide 27 22-29 mmol/L Anion Gap 15 12-20 Blood Urea Nitrogen 13 9-16 mg/dL Creatinine 1.00 0.5-1.4 mg/dL Estimated Glomerular Filt Rate > 60 NOTE: For -Mexican individuals, multiply the result by 1.210. Chronic Kidney Disease: Estimated GFR < 60 mL/min/1.73m2 Severe Kidney Disease: Estimated GFR < 15 mL/min/1.73m2 Glucose Fasting 98 60-99 mg/dL Calcium 10.3 8.4-10.2 mg/dL Bilirubin Total 0.6 0.0-1.0 mg/dL Aspartate Amino Transferase 27 5-37 U/L Alanine Aminotransferase 16 0-40 U/L Total Protein 7.8 6.5-8.0 g/dL Albumin Level 4.4 3.5-5.0 g/dL Alkaline Phosphatase 115 39-117 U/L Lipid Panel Reviewed date:01/02/2024 04:52:34 PM Interpretation: Performing Lab:[address] [address] Notes/Report: Triglycerides 59 <150 mg/dL Desirable Triglyceride: less than 150 mg/dL Borderline High Triglyceride 150-199 mg/dL High Triglyceride: 200-499 mg/dL Very High Triglyceride: greater than or equal to 5OO mg/dL Cholesterol 156 <200 mg/dL Desirable Cholesterol: less than 200 mg/dL Borderline High Cholesterol: 200-239 mg/dL High Cholesterol: greater than 239 mg/dL LDL Cholesterol Calculated 81 <100 mg/dL Desirable LDL: less than 100 mg/dL Near Optimal/Above Optimal LDL: 110-129 mg/dL Borderline High LDL: 130-159 mg/dL High LDL: 160-189 mg/dL Very High LDL: greater than or equal to 190 mg/dL HDL Cholesterol 64 >40 mg/dL Desirable HDL: greater than 40 mg/dL Note: This HDL assay may give artificially low results in patients with liver disease. PSA,Total (Free>4and<10) Reviewed date:01/02/2024 02:10:24 PM Interpretation: Performing Lab:[address] [address] Notes/Report: PSA,Total (Free>4and<10) 2.36 0.00-4.00 ng/mL A Free PSA was not performed: The percentage of Free PSA can be used to enhance the differentiation of prostate cancer from benign prostatic disease in subjects whose PSA levels are between 4.0 and 10.0 ng/mL. For subjects whose PSA levels are below 4.0 or above 10.0 ng/mL, the risk of prostate cancer is determined on the basis of the PSA alone. Therefore the % Free PSA is recommended only for those subjects whose PSA levels are between 4.0 and 10.0 ng/mL. PSA methodology: Amezquita Alinity i Chemiluminescent Microparticle Immunoassay (CMIA) TSH reflex Free T4 Reviewed date:01/02/2024 12:41:18 PM Interpretation: Performing Lab:[address] [address] Notes/Report: TSH reflex Free T4 1.53 0.32-4.0 uIU/mL UA ClnCatch+Micro w/rflx Cul t Reviewed date:01/02/2024 12:37:46 PM Interpretation: Performing Lab:[facility], [address] [place] [phone] Notes/Report: Urine, Clean Catch Color Urine Yellow Appearance Urine Clear PH 6.0 5.0-9.0 Glucose Urine UA Negative Negative mg/dL Urine Blood Negative Negative Specific Rawlings - Urine 1.015 1.005-1.025 Urine Protein Negative Neg-Trace mg/dL Urine Ketones Negative Negative mg/dL Nitrite Urine Negative Negative Leukocyte Esterase Urine Negative Negative RBC Urine 0-2 0-2 /HPF WBC Urine 0-5 0-5 /HPF Squamous Epithelial Cell Urine 0-2 0-2 /HPF Bacteria Urine None Seen None Seen Hyaline Casts Urine 0-2 0-2 /LPF Occult Blood, Stool, Guaiac Reviewed date:01/09/2024 12:04:31 PM Interpretation:Negative Performing Lab: Notes/Report: Negative Occult Blood, Stool, Guaiac Neg Pathology Reviewed date:02/02/2024 12:43:47 PM Interpretation: Performing Lab:[facility], [address] [place] [phone] Notes/Report: Glucose, finger stick Reviewed date:05/10/2024 03:11:08 PM Interpretation: Performing Lab: Notes/Report: Value 113 Liver Panel Reviewed date:04/28/2024 12:14:02 PM Interpretation: Performing Lab:[facility], [address] [place] [phone] Notes/Report: Bilirubin Total 0.6 0.0-1.0 mg/dL Bilirubin Direct 0.2 0.0-0.5 mg/dL Aspartate Amino Transferase 23 5-37 U/L Alanine Aminotransferase 15 0-40 U/L Total Protein 7.2 6.5-8.0 g/dL Albumin Level 4.1 3.5-5.0 g/dL Alkaline Phosphatase 92 39-117 U/L US abdomen complete Reviewed date:06/13/2024 03:50:38 PM Interpretation: Performing Lab: Notes/Report: [address] [address] Ultrasound Report Signed Patient: Gary Donohue MR#: [id number] : 1945 Acct:[id number] Age/Sex: 78 / M ADM Date: 05/10/24 Loc: HO.US Attending Dr: Hollie Robison MD Ordering Physician: Hollie Robison MD Date of Service: 05/10/24 Procedure(s): US abdomen complete Accession Number(s): [id number] cc: Zane Rivera MD; Hollei Robison MD Exam dictated in conjunction with ultrasound duplex arterial venous performed of the same day. Electronically signed by: Jesus Junior MD 06/13/2024 11:31 AM [facility] Dictated By: Jesus Junior MD Signed By: <Electronically signed by Jesus Junior MD in OV> 06/13/24 1131 DD/ 0937 TD/TT: 05/10/24 1023 Cooling Machine Operator: US duplex arterial venous co mp Reviewed date:06/03/2024 08:29:24 AM Interpretation: Performing Lab: Notes/Report: [address] [address] Ultrasound Report Signed Patient: Gary Donohue MR#: [id number] : 1945 Acct:[id number] Age/Sex: 78 / M ADM Date: 05/10/24 Loc: .US Attending Dr: Hollie Robison MD Ordering Physician: Hollie Robison MD Date of Service: 05/10/24 Procedure(s): US duplex arterial venous comp Accession Number(s): [id number] cc: Zane Rivera MD; Hollie Robison MD EXAMINATION: US ABDOMEN DOPPLER CLINICAL INFORMATION: History of left portal vein thrombus, now on anticoagulation COMPARISON: Duplex ultrasound of the abdomen dated 12/22/2023 and 09/25/2023 TECHNIQUE: Real-time imaging of the abdominal viscera. Color and spectral Doppler evaluation of the hepatic vasculature. FINDINGS: LIVER: Normal. The liver demonstrates normal size, contour and echogenicity. No focal liver lesion. No intrahepatic biliary duct dilatation. SPLENIC VEIN: Patent with normal waveforms. HEPATIC VEINS: Patent with normal waveforms. PORTAL VEINS: Interval resolution of the left portal vein thrombus, which now appears patent, with a normal waveform, and hepatopedal flow. The remaining orbital veins are also patent with normal waveforms and hepatopetal flow. HEPATIC ARTERIES: Normal upstroke and diastolic flow. INFERIOR VENA CAVA: Patent with normal waveforms. GALLBLADDER: Cholelithiasis without evidence of acute cholecystitis. COMMON BILE DUCT: Normal in caliber measuring 0.3 cm in diameter. PANCREAS: Normal. The visualized pancreatic head and body are normal in appearance. The remainder of the pancreas is obscured from visualization by the overlying bowel gas. RIGHT KIDNEY: Normal. No hydronephrosis. No renal calculi or focal parenchymal lesions. The kidney measures 10.7 cm in maximum dimension. LEFT KIDNEY: Normal. No hydronephrosis. No renal calculi or focal parenchymal lesions. The kidney measures 10.3 cm in maximum dimension. SPLEEN: The spleen measures 7.9 cm in maximum dimension. ABDOMINAL AORTA: The visualized proximal segment is normal in caliber. INFERIOR VENA CAVA: Visualized portions are normal. FREE FLUID: None. US/US duplex arterial venous comp IMPRESSION: 1. Interval resolution of the left portal vein thrombus, which now appears patent with a normal waveform, and hepatopedal flow. 2. Cholelithiasis without evidence of acute cholecystitis. Electronically signed by: Kandice Sherwood MD 06/02/2024 05:24 PM EST RP Dictated By: Elsa Sherwood Signed By: <Electronically signed by Elsa Sherwood in OV> 06/02/24 1724 DD/ 0937 TD/TT: 05/10/24 1023 Cooling Machine Operator: REASON FOR REFERRAL Reason acute cholecystitis Diagnosis 1 Acute cholecystitis (K81.0) Referral Organization Zane Rivera MD Referring Provider First Name Zane Referring Provider Last Name Miguel Referring Provider Speciality Internal M edicine Referred Provider Carmencita Alfonso Referred Provider Specialty Gastroentero logy General Notes Virginia Marrero 08:12:49 AM EST > info faxed , Virginia Marrero 09/01/2023 03:21:17 PM EDT > appt is with Elida Akhtar Annette 09/02/2023 09:41:17 AM EDT > called patient with info and mailed with a note Referral Priority Routine Referral Appointment Date 09/15/2023 Reason thrombosis portal ve in Diagnosis 1 Thrombosis, portal v ein (I81) Referral Organization Zane Rivera MD Referring Provider First Name Zane Referring Provider Last Name Miguel Referring Provider Speciality Internal M edicine Referred Provider Jericho Wilkins Referred Provider Specialty Oncology General Notes Virginia Marrero 08:13:13 AM EST > info faxed, Virginia Marrero 08/28/2023 02:57:06 PM EST > info mailed to patient Referral Priority Routine Referral Appointment Date 10/02/2023 MEDICATIONS Medication SIG (Take, Route, Frequency, Duration) Notes Start Date End Date Status Ventolin HFA * 108 (90 Base) MCG/ACT 2 puffs as needed Inhalation every 4 hrs 11/14/2015 Active Eliquis 5 MG one tablet Orally tw ice a day for 30 days Active IMMUNIZATIONS Vaccine Route Administration Date Status Comme nts Flu Vaccine IM Intramuscular 04/05/2011 Administered Flu Vaccine Unknown 03/12/2012 Administered PPSV23 (Pnemovax) IM Intramuscular 09/21/2012 Administered Flu Vaccine IM Intramuscular 03/30/2015 Administered pt re cieved the high dose flu at the [facility] in [place]. Fluarix Quadrivalent IM Intramuscular 03/07/2017 Administe red Prevnar 13 IM Intramuscular 06/02/2017 Administered PPSV23 (Pnemovax) IM Intramuscular 12/29/2018 Administered Fluarix Quadrivalent IM Intramuscular 03/15/2020 Administe red SARS-COV-2 Moderna Unknown 09/20/2020 Administered SARS-COV-2 Moderna Unknown 10/19/2020 Administered Influenza High Dose IM Intramuscular 03/16/2021 Administer ed SARS-COV-2 Moderna Unknown 04/27/2021 Administered SARS-COV-2 Pfizer Unknown 11/26/2021 Administered Influenza High Dose IM Intramuscular 03/26/2022 Administer ed SARS-COV-2 Pfizer Unknown 04/14/2022 Administered Influenza High Dose IM Intramuscular 04/04/2023 Administer ed Influenza High Dose IM Intramuscular 03/29/2024 Administer ed SOCIAL HISTORY Tobacco Use: Social History Observation Description Date Details (start date - stop date) Never Smoker NA - NA Sex Assigned At : Social History Observation Description Sex Assigned At Unknown Tobacco Use/Smoking Question Answer Notes Patient is a nonsmoker Additional Findings: Tobacco Non-User Cu rrent non-smoker, currently using no form of tobacco Alcohol Screen Question Answer Notes Did you have a drink contain ing alcohol in the past year? Yes How often did you have a dri nk containing alcohol in the past year? Monthly or less (1 point) How many drinks did you have on a typical day when you were drinking in the past year? 1 or 2 drinks (0 point) How often did you have 6 or more drinks on one occasion in the past year? 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) Active confirmed Labyrinthine dysfunction (8099332) Problem Atelectasis (J98.11) Active confirmed 82682453 Problem Tubular adenoma of colon (D12.6) Active confirmed 908854739 Problem Acquired hypothyroidism (E03.9) Active confirmed Acquired hypothyroidism (281774771) Problem Mild intermittent asthma without complication (J45.20) Active confirmed 083119527 Problem Prediabetes (R73.09) Active confirmed 5973018 Problem Low HDL (under 40) (E78.6) Active confirmed 524379366 Problem Hiatal hernia (K44.9) Active confirmed 29862141 Problem Abdominal aortic aneurysm (AAA) without rupture (I71.4) Active confirmed 12941260 Problem 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) Active confirmed 666506212 Problem ARUN (obstructive sleep apnea) (G47.33) Active confirmed 12186287 Problem Head and neck cancer (C76.0) Active confirmed 362907674 Problem Thrombosis, portal vein (I81) Active confirmed 67317900 VITAL SIGNS Blood pressure diastolic 88 mm Hg 04/12/2024 zaheer ght is down 2 pounds since 01-09-24 Height 68 in 04/12/2024 weight is down 2 pounds since 01-09-24 Blood pressure systolic 144 mm Hg 04/12/2024 weig ht is down 2 pounds since 01-09-24 Weight 167 lbs 04/12/2024 weight is down 2 pounds since 01-09-24 BMI 25.39 kg/m2 04/12/2024 weight is down 2 pounds since 01-09-24 Encounters Encounter Location Date Provider Diagnosis Zane Rivera MD [address] [place] [address] [id number] 01/09/2024 Zane Rivera Hypercalcemia E83.52 ; Thrombosis, portal vein I81 ; Prediabetes R73.09 ; Acquired hypothyroidism E03.9 ; Mild intermittent asthma without complication J45.20 ; Colon cancer screening Z12.11 and Encounter for screening for depression Z13.31 Zane Rivera MD [address] [place] [address] [id number] 01/02/2024 Zane Rivera Prediabetes R73.09 ; Acquired hypothyroidism E03.9 and Hypercalcemia E83.52 Zane Rivera MD [address] [place] [address] [id number] 03/29/2024 Zane Rivera Encounter for immunization Z23 Zane Rivera MD [address] [place] [address] [id number] 07/08/2023 Zane Rivera Weight loss R63.4 ; ARUN (obstructive sleep apnea) G47.33 and Head and neck cancer C76.0 Zane Rivera MD [address] [place] [address] [id number] 07/29/2023 Zane Rivera MD [address] [id number] 08/21/2023 Zane Rivera Atelectasis J98.11 ; Acute cholecystitis K81.0 and Thrombosis, portal vein I81 Zane Rivera MD [address] [place] [address] [id number] 08/28/2023 Zane Rivera Thrombosis, portal vein I81 Zane Rivera MD [address] [place] [address] [id number] 09/23/2023 Zane Rivera Thrombosis, portal vein I81 and Cholecystitis K81.9 Zane Rivera MD [address] [place] [address] [id number] 04/12/2024 Zane Rivera Prediabetes R73.09 ; Thrombosis, portal vein I81 and 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 Zane Rivera MD [address] [place] [address] [id number] 08/14/2023 Zane Rivera Acute cholecystitis K81.0 and Thrombosis, portal vein I81 Zane Rivera MD [address] [place] [address] [id number] 07/31/2023 Zane Rivera MD [address] [place] [address] [id number] 04/30/2024 Zane Rivera MD [address] [place] [address] [id number] 05/04/2024 Zane Rivera Thrombosis, portal vein I81 Zane Rivera MD [address] [place] [address] [id number] 05/04/2024 Zane Rivera MD [address] [place] [address] [id number] 07/25/2023 Zane Rivera Acute abdominal pain R10.9 Zane Rivera MD [address] [place] [address] [id number] 08/07/2023 Zane Rivera Mild intermittent asthma without complication J45.20 ; Thrush, oral B37.0 and Acute cholecystitis K81.0 ASSESSMENTS Encounter Date Diagnosis Assessment Notes Treatment Notes Treatment Clinical Notes 01/09/2024 Hypercalcemia (ICD-10 - E83.52) stable, will continue to monitor 01/09/2024 Thrombosis, portal vein (ICD-10 - I81) is being seen by gi and hematology. will keep on anticoagulants for at least 6 months 01/02/2024 Acquired hypothyroidism (ICD-10 - E03.9) 01/02/2024 Prediabetes (ICD-10 - R73.09) 03/29/2024 Encounter for immunization (ICD-10 - Z23) 07/08/2023 Weight loss (ICD-10 - R63.4) has been eating well 07/08/2023 ARUN (obstructive sleep apnea) (ICD-10 - G47.33) using machine 08/21/2023 Atelectasis (ICD-10 - J98.11) will observe. had just finished antibiotics 08/21/2023 Acute cholecystitis (ICD-10 - K81.0) doing well 08/28/2023 Thrombosis, portal vein (ICD-10 - I81) patient verbalized understanding of medicatin and directions for use, not able to get appts in timely manner with the specialiist but review of the literature says that anticoagulants are indicated. will start eliquis while awaiting consults , Total time spent on the date of the encounter is 35 minutes including both face to face time spent and time spent reviewing documentation, and counseling the patient. 09/23/2023 Cholecystitis (ICD-10 - K81.9) has improved following antibiotic therapy, followed by GI 09/23/2023 Thrombosis, portal vein (ICD-10 - I81) need notes from [facility] gastroent/ scanned in chart 04/12/2024 Prediabetes (ICD-10 - R73.09) 08/14/2023 Acute cholecystitis (ICD-10 - K81.0) has resolved can stop the augmentins 08/14/2023 Thrombosis, portal vein (ICD-10 - I81) the note from the hospital said no anticoag needed. will get back to dr Alfonso/ up to date says it is necessary to anticoagulate for 6 months/ needs appt with hematology 05/04/2024 Thrombosis, portal vein (ICD-10 - I81) 07/25/2023 Acute abdominal pain (ICD-10 - R10.9) will probably need ct abdomen if not better and if he continues to lose weight/ pain in abdomen is improving will observe. try to get blood work done at [facility] 2 days, will continue to monitor , recheck scheduled in 2 days 08/07/2023 Mild intermittent asthma without complication (ICD-10 - J45.20) 08/07/2023 Thrush, oral (ICD-10 - B37.0) ptient verbalized understanding of medication 01/09/2024 Prediabetes (ICD-10 - R73.09) stable, no need for medicatin at this time 01/02/2024 Hypercalcemia (ICD-10 - E83.52) 07/08/2023 Head and neck cancer (ICD-10 - C76.0) seeing dr schilling this week 08/21/2023 Thrombosis, portal vein (ICD-10 - I81) i think he need to be on anticoagulants. 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 01/09/2024 Mild intermittent asthma without complication (ICD-10 - J45.20) stable, will contiue current regiment 01/09/2024 Colon cancer screening (ICD-10 - Z12.11) guaiac negative 01/09/2024 Encounter for screening for depression (ICD-10 - Z13.31) negative screen PLAN OF TREATMENT Pending Test Test Name Order Date Electrocardiogram (EKG) 12/05/2016 Electrocardiogram (EKG) 12/19/2017 TSH (THYROID STIMULATING HORMONE) 2019 ECHO 12/29/2018 Next Appt Details Provider Name:Zane Mustafa ier, 01/03/2025 07:15:00 AM, [address] [place] [address], [address], [phone], Provider Name:Zane Mustafa ier, 01/10/2025 02:30:00 PM, [address] [place] [address], [address], [phone], Insurance Providers Payer Name Payer Address Payer Phone Subscriber Number Group Number Insured Name Patient Relationship to Insured Coverage Start Date Coverage End Date MEDICARE NHIC [employer] [place] [address] [id number] Gary Donohue Self - patient is the insured [employer] [place] [address] [place] [phone] [id number] Gary Donohue Self - patient is the insured 5 MEDICAL (GENERAL) HISTORY Medical History History ICD Code colonoscopy 10/2008 due in 5 years; colonoscopy 05/04/14; Colonoscopy 06/28/[address] Goldstein - repeat 5 years Needs yearly aorta US for Ao rtic aneurysm. was noted on pet scan in oncology noete apr 2017 Non morbid obesity due to excess calorie s Needs yearly TSH - DX radiation to thyro id HX of low HDL portal vein throbosis needs anticoag thr u december 2023 Surgical History Surgery Date(Month/Year) Rt Inguinal Hernia Repair by Dr. Sifuentes o 04/2017
--- OUTSIDE RECORDS SUMMARY | 2024-06-24 09:09 | XMS_ITS ---
Author Organization Zane Rivera MD Address [address] [place] [address] [phone] Care Team Providers Care Audioprosthologist Name Role Phone Miguel Zane Primary Care Provider REASON FOR VISIT Reminder Encounters Encounter Location Date Provider Diagnosis Zane Rivera MD [facility] [address] [place] [address] [id number] 05/04/2024 Zane Rivera PLAN OF TREATMENT Next Appt Details Provider Name:Zane Mustafa ier, 01/03/2025 07:15:00 AM, [address] [place] [address], Suite [facility], [place], [place], [phone], Provider Name:Zane ireland, 01/10/2025 02:30:00 PM, [address] [place] [address], Suite [facility], [place], [place], [phone],
--- OUTSIDE RECORDS SUMMARY | 2024-06-24 09:09 | XMS_ITS ---
Author Organization Zane Rivera MD Address [address] [place] [address] [phone] Care Team Providers Care Hydraulic Auto Jack Mechanic Name Role Phone MiguelZane Primary Care Provider REASON FOR VISIT Xarelto MEDICATIONS Medication SIG (Take, Route, Frequency, Duration) Notes Start Date End Date Status Eliquis 5 MG one tablet Orally tw ice a day for 30 days Active Encounters Encounter Location Date Provider Diagnosis Zane Rivera MD [address] [facility] [address] [place] [address] [id number] 05/04/2024 Zane Rivera Thrombosis, portal vein I81 ASSESSMENTS Encounter Date Diagnosis Assessment Notes Treatment Notes Treatment Clinical Notes 05/04/2024 Thrombosis, portal vein (ICD-10 - I81) PLAN OF TREATMENT Medication Medication Name Sig Start Date Stop Date Notes Eliquis 5 MG one tablet Orally twice a day for 30 days Next Appt Details Provider Name:Zane ireland, 01/03/2025 07:15:00 AM, [facility], [address] [place] [address], [phone], Provider Name:Zane ireland, 01/10/2025 02:30:00 PM, [address] [facility] [address], [address], [place], [phone],
--- OUTSIDE RECORDS SUMMARY | 2024-06-24 09:09 | XMS_ITS ---
Author Organization Zane Rivera MD Address [address] [facility] [address] [place] [address] [phone] Care Team Providers Care Saddle Maker Name Role Phone Miguel Zane Primary Care Provider Encounters Encounter Location Date Provider Diagnosis Zane Rivera MD 10 [facility] [address] [place] [address] [phone] 04/30/2024 Zane Rivera PLAN OF TREATMENT Next Appt Details Provider Name:Zane Mustafa ier, 01/03/2025 07:15:00 AM, [address] [place] [address], [address] [facility], [place], [place], [phone], Provider Name:Zane ireland, 01/10/2025 02:30:00 PM, [address] [place] [address], [place] [address], [place], [place], [phone],
--- OUTSIDE RECORDS SUMMARY | 2024-06-24 09:10 | XMS_ITS | Data Portability ---
Author Organization [place] - 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 Recent hospitalization for sepsis and cholecystitis. Presently on Eliquis for thrombosis. No evidence of recurrent cancer or damage from NG tube placement. He has follow-up with PCP next week. Suggest TSH level if not performed recently. Otherwise see me back in 6 months eddie Not available 12/31/2023 09:11:40 Plan of Treatment Reminders Order Date Submit Date Provider Last Modified By Organization Details Last Modified Time Details Appointments Establish ed 30 2024 09:00A M SAROJ ROJAS MD Not available Not available Not available Lab None recorded. Referral None recorded. Procedures None recorded. Surgeries None recorded. Imaging None recorded. Medication Orders None recorded. Patient TargetsNo targets recorded. Patient InstructionsNo instructions recorded. Reason for Referral None Reported. Results Created Date Observation Date Name Description Value Unit Range Abnormal Flag Note LastModifiedBy Organization Detail LastModifiedTime 02/10/2006/30/2018 imagi ng/di agnos tic resul t No observ ation record ed. [email or web address] Not Available 18:58:24 02/10/20 24 08/18/2023 imagi ng/di agnos tic resul t No observ ation record ed. [email or web address] Not Available 18:58:36 02/10/20 24 08/18/2023 imagi ng/di agnos tic resul t No observ ation record ed. [email or web address] Not Available 18:58:38 02/10/20 24 08/18/2023 imagi ng/di agnos tic resul t No observ ation record ed. [email or web address] Not Available 18:58:41 02/10/20 24 08/18/2023 imagi ng/di agnos tic resul t No observ ation record ed. [email or web address] Not Available 18:58:48 02/10/20 24 08/20/2022 imagi ng/di agnos tic resul t No observ ation record ed. [email or web address] Not Available 18:58:53 02/10/20 24 10/12/2019 imagi ng/di agnos tic resul t No observ ation record ed. [email or web address] Not Available 18:59:06 02/10/20 24 10/12/2019 imagi ng/di agnos tic resul t No observ ation record ed. [email or web address] Not Available 18:59:07 02/10/20 24 10/19/2020 imagi ng/di agnos tic resul t No observ ation record ed. [email or web address] Not Available 18:59:10 02/10/20 24 10/19/2020 imagi ng/di agnos tic resul t No observ ation record ed. [email or web address] Not Available 18:59:11 02/10/20 24 01/27/2023 imagi ng/di agnos tic resul t No observ ation record ed. [email or web address] Not Available 18:59:32 02/10/20 24 01/29/2019 imagi ng/di agnos tic resul t No observ ation record ed. [email or web address] Not Available 18:59:36 Result Notes None recorded. 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 Active 2015 Malignant neoplasm of head, face and neck; Note: Date Diagnosed : 12/20/2015 12:30 PM (C76.0) Not Available [facility] 4 02:23:24 Chronic rhinitis 15362281 Active 2018 Chronic rhinitis; Note: Date Diagnosed : 12/30/2018 11:36 AM (J31.0) Not Available [facility] 4 02:23:27 Celluliti s 222321924 Active 2018 Celluliti s of other sites; Note: Date Diagnosed : 12/30/2018 2:44 PM (L03.818) Not Available [facility] 4 02:22:39 Sensorine ural hearing loss of bilateral ears 926747628 Active 2015 Sensorine ural hearing loss, bilateral ; Note: Date Diagnosed : 01/12/2016 4:44 PM (H90.3) Not Available [facility] 4 02:23:26 Stomatiti s 82324388 Active 2015 Oral thrush; Note: Date Diagnosed : 6 12:11 PM (B37.0) Not Available [facility] 4 02:23:07 Candidias is of mouth 29328085 Active 2015 Oral thrush; Note: Date Diagnosed : 6 12:11 PM (B37.0) Not Available [facility] 4 02:23:07 Posterior rhinorrhe a 34146218 Active 2018 Postnasal drip; Note: Date Diagnosed : 12/30/2018 11:35 AM (R09.82) Not Available [facility] 4 02:22:39 Dysphonia 82033206 Active 2016 Hoarsenes s; Note: Date Diagnosed : 12/06/2016 9:55 AM (R49.0) Not Available [facility] 4 02:23:06 Pharyngea l dysphagia 31790593795 105 Active 2022 Dysphagia , pharyngea l phase; Note: Date Diagnosed : 01/01/2023 9:29 AM (R13.13) Not Available [facility] 4 02:23:13 Neoplasti c disease of uncertain behavior 362938583 Active 2015 Neoplasm of uncertain behavior of other specified sites; Note: Date Diagnosed : 12/18/2015 9:02 AM (D48.7) Not Available [facility] 4 02:23:27 Antineopl astic chemother apy regimen Active 2015 Encounter for antineopl astic chemother apy; Note: Date Diagnosed : 03/08/2016 1:26 PM (Z51.11) Not Available [facility] 4 02:23:15 Lymphedem a 952402884 Active 2019 Lymphedem a, not elsewhere classifie d; Note: Date Diagnosed : 07/05/2019 9:04 AM (I89.0) Not Available [facility] 4 02:23:20 History of malignant neoplasm of oral cavity 843038336 Active 2016 Personal history of malignant neoplasm of other sites of lip, oral cavity, and pharynx; Note: Date Diagnosed : 08/09/2016 2:57 PM (Z85.818) Not Available [facility] 4 02:23:23 Follow-up visit Active 2016 Encounter for follow-up examinati on after completed treatment for malignant neoplasm; Note: Date Diagnosed : 10/10/2016 10:01 AM (Z08) Not Available [facility] 4 02:23:09 Otorrhea of left ear 19446489771 78010 Active 2015 Otorrhea, left ear; Note: Date Diagnosed : 12/18/2015 9:02 AM (H92.12) Not Available [facility] 4 02:23:26 Edema of larynx 88002479 Active 2016 Edema of larynx; Note: Date Diagnosed : 08/09/2016 5:54 PM (J38.4) Not Available [facility] 4 02:22:42 Mass of neck 931559076 Active 2015 Localized swelling, mass and lump, neck; Note: Date Diagnosed : 12/18/2015 8:49 AM (R22.1) Not Available [facility] 4 02:23:18 Neck swelling 804552345 Active 2015 Localized swelling, mass and lump, neck; Note: Date Diagnosed : 12/18/2015 8:49 AM (R22.1) Not Available [facility] 4 02:23:18 Chronic hoarsenes s 98855525219 05 Active 2023 SAROJ SHORE MD [address] [facility],[place] [address], [place], [address] , [place] - [facility] 09:10:44 Problem Notes None recorded. Procedures Surgical History Date Name Laterality Status Provider Name and Address Organization Details Recorded Time 12/31/19 24 Fiberoptic Laryngoscopy (Comprehensive) completed SAROJ MONTANO MD [address] [facility],[place] [address], [place], [address], [facility] - [facility] 12/31/2023 09:09:53 Imaging Results Imaging Date Name Status [facility]Modified by [facility] Details LastModified Time 06/30/2018 imaging/diag nostic result completed Information not available 02/10/2024 18:58:24 08/18/2023 imaging/diag nostic result completed Information not available 02/10/2024 18:58:36 08/18/2023 imaging/diag nostic result completed Information not available 02/10/2024 18:58:38 08/18/2023 imaging/diag nostic result completed Information not available 02/10/2024 18:58:41 08/18/2023 imaging/diag nostic result completed Information not available 02/10/2024 18:58:48 08/20/2022 imaging/diag nostic result completed Information not available 02/10/2024 18:58:53 10/12/2019 imaging/diag nostic result completed Information not available 02/10/2024 18:59:06 10/12/2019 imaging/diag nostic result completed Information not available 02/10/2024 18:59:07 10/19/2020 imaging/diag nostic result completed Information not available 02/10/2024 18:59:10 10/19/2020 imaging/diag nostic result completed Information not available 02/10/2024 18:59:11 01/27/2023 imaging/diag nostic result completed Information not available 02/10/2024 18:59:32 01/29/2019 imaging/diag nostic result completed Information not available 02/10/2024 18:59:36 Procedure Notes None recorded. Medical Equipment None Reported. Medications Name Sig Start Date Stop Date Status Note LastModified by Organization Details LastModified Time clotrimaz ole 10 mg adeline 1 adeline in mouth 2016 active Medicati on ID: [id number] D uration Value: 7 Prescri bed By Name: Caroline Luciano nd Name: clotrima zole Ace d Method: E-Prescr ibed Sub s Allowed: subs OK Medic ationGen ericName : clotrima zole Not Available Not Available Not Available nystatin 100,000 unit/mL oral suspensio n 10/10 completed Medicati on ID: [id number] P hugoribe d By Name: Bang elizalde MD Brand Name: nystatin Send Method: E-Prescr ibed Sub s Allowed: subs OK Speci al Instruct ion: 5 ml swish and swallow four times daily x 2-4 weeks Me dication GenericN bahman: nystatin Not Available Not Available Not Available oxycodone 5 mg/5 mL oral solution 10/10 completed Medicati on ID: [id number] D uration Value: 14 Reason: () Brand Name: oxycodon e Send Method: E-Prescr ibed Sub s Allowed: subs OK Speci al Instruct ion: take 10 millilit ers by mouth every 6 hours if needed for 14 days TAKE MINIMUM EFFECTIV E DOSE Med icationG enericNa me: oxycodon e Not Available Not Available Not Available lorazepam 0.5 mg tablet 2016 active Medicati on ID: [id number] D uration Value: 30 Brand Name: lorazepa m Send Method: E-Prescr ibed Sub s Allowed: subs OK Speci al Instruct ion: TAKE 1 TABLET BY MOUTH 3 TIMES DAILY Me dication GenericN bahman: lorazepa m Not Available Not Available Not Available Augmentin ES-600 600 mg-42.9 mg/5 mL oral suspensio n 2 teaspoon by mouth 2018 active Medicati on ID: [id number] D uration Value: 10 Brand Name: Augmenti n ES-600 S end Method: E-Prescr ibed Sub s Allowed: subs OK Medic ationGen ericName : Augmenti n ES-600 M edicatio n ID: [id number] D uration Value: 10 Brand Name: Augmenti n ES-600 S end Method: E-Prescr ibed Sub s Allowed: subs OK Medic ationGen ericName : Augmenti n ES-600 Not Available Not Available Not Available albuterol sulfate HFA 90 mcg/actua tion aerosol inhaler INHALE 2 PUFFS BY MOUTH EVERY 4 HOURS NEEDED active Not Available Not Available No t Available Ciprodex 0.3 %-0.1 % ear drops,carroll pension 4 drop 2015 active Medicati on ID: [id number] D uration Value: 7 Prescri bed By Name: Caroline Luciano nd Name: Ciprodex Send Method: E-Prescr ibed Sub s Allowed: subs OK Medic ationGen ericName : Ciprodex Not Available Not Available Not Available Eliquis 5 mg tablet TAKE 1 TABLET BY MOUTH TWICE DAILY active Not Available Not Available No t Available Vitals Date Recorded Body height Body mass index (BMI) Body weight Provider Name and Address Organization Details Last Updated DateTime 12/31/2023 172.72 cm 24.9 kg/m2 09365.15 g Thomas Peñaloza [place] - [facility] 12/31/2023 08:51:27 Social History None recorded. Functional Status None recorded. Mental Status None recorded. Family History Nothing Reported. Medical History Condition Response Cancer Y Past Encounters Encounter ID Performer Location Encounter Start Date Encounter Closed Date Diagnosis/Indication Diagnosis SNOMED-CT Code Diagnosis ICD10 Code [id number] SAROJ SHORE MD [facility] [address] [place] [address] 12/31/2023 08:40:00 12/31/2023 09:11:51 Edema of larynx following radiotherapy 906267327 Y84.2 History of malignant neoplasm of digestive organ 8171369398 4749370 Z85.00 Chronic hoarseness 78249 12291 105 R49.0 Health Concerns Section Related Observation LastModified by Organization Detai ls LastModified Time None Recorded Concern Status LastModified by Organization Details LastModified Time None Recorded Advance Directives Directive None Recorded Payers Encounter Date Sequence Insurance Name Policy Number Policy Donaldson Covered Member ID Donaldson Member ID Guarantor Name 12/31/2023 2 [place] [id number] Gary Donohue [id number] Gary Donohue 12/31/2023 1 [place] [employer] Gary Donohue [id number] Gary Donohue Notes Date Note Type Note Provider Name and Address Organization Details Recorded Time 12/31/2023 text/html Recent hospitalization for sepsis and cholecystitis with thrombosis. Treated with prolonged course of antibiotics. Presently on Eliquis. He reports having negative chest x-ray. He is undergoing workup for gallbladder disease. Overall doing wellWeight 164. Voice stable irritated from recent NGT. 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 He has completed chemo/XRT on 03/2016.Still having issues with wet voice and some swallowing difficulties with small particles. Occasional irritation. Some choking with large bites. Weight down to 160. 2-3 Ensure per dayNot doing lymphedema therapy consistentlyNo otalgia or sore throatTSH followed by PCPChest CT August 2022Using CPAP regularly. SAROJ MONTANO MD [address] [facility],[place] [address], [place], [address], [place] - [facility] 12/31/2023 09:12:40
--- NOTE | 2024-06-24 09:17 | AM.OFFVISNUR ---
Intake Visit Reasons: H PYLORI Allergies No Known Allergies Allergy (Verified 04/28/24 09:34) Nursing Note Patient presents for collection of H Pylori breath test. Patient has been fasting for 1 hour (nothing to eat, drink, no chewing gum or smoking) has not taken any antacid medication for at least 2 weeks and has no allergies to artificial sweeteners.?? Assessment & Plan Assessment & Plan (1) H. pylori infection: Code(s): A04.8 - Other specified bacterial intestinal infections Category: Medical Plan Patient presents for collection of H Pylori breath test. Patient has been fasting for 1 hour (nothing to eat, drink, no chewing gum or smoking) has not taken any antacid medication for at least 2 weeks and has no allergies to artificial sweeteners.???This test checks for an overgrowth of bacteria in your stomach. We all have bacteria but some may have more than others. It is treatable. if the test comes back negative there is nothing else to do. If the test result is positive we will treat you with 2 antibiotics and a medication to decrease the acid in your stomach (PPI) for 2 weeks. Two weeks after you have completed the treatment we will retest you to make sure the overgrowth has resolved. Orders: Orders H Pylori Breath Test Today Patient Instructions: Process for specimen collection and reason for testing was explained to the patient. Specimen collection. Patient instructed to take a deep breath and then exhale into the blue bag, filling it up as much as possible. Patient instructed to drink a mixture of water and the artificial sweetener with a straw. A 15 minute wait period was observed. Patient instructed to take a deep breath and then exhale into the pink bag, filling it up as much as possible.
== END 2024-06-24 09:41 | disposition home or self-care (01) ==
PROVIDERS: PCP Internal Medicine; Visit Provider Internal Medicine
DX: A04.8 Other specified bacterial intestinal infections (principal)

== ENCOUNTER 2024-07-13 12:56 | Outpatient (REF) | payer MEDICARE, SELFPAY | END 2024-07-13 12:57 | disposition home or self-care (01) | LOC: HO.HAP 12:56 | PROVIDERS: Visit Provider Internal Medicine | DX: Z13.89 Encounter for screening for other disorder (principal) ==

== ENCOUNTER 2024-07-14 10:00 | Outpatient (REF) | payer SELFPAY ==
--- OUTSIDE RECORDS SUMMARY | 2024-07-14 10:56 | XMS_ITS ---
Author Organization Zane Rivera MD Address [address] [place] [phone] Care Team Providers Care Cylinder Machine Operator Pulp Drier Name Role Phone MiguelZane Primary Care Provider [phone] REASON FOR VISIT Xarelto MEDICATIONS Medication SIG (Take, Route, Frequency, Duration) Notes Start Date End Date Status Eliquis 5 MG one tablet Orally tw ice a day for 30 days Active Encounters Encounter Location Date Provider Diagnosis Zane Rivera MD [address] [place] [id number] 05/04/2024 Zane Rivera Thrombosis, portal vein I81 ASSESSMENTS Encounter Date Diagnosis Assessment Notes Treatment Notes Treatment Clinical Notes 05/04/2024 Thrombosis, 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
--- OUTSIDE RECORDS SUMMARY | 2024-07-14 10:56 | XMS_ITS ---
Author Organization Zane Rivera MD Address [address] [place] [phone] Care Team Providers Care Insurance Healthcare Consultant Name Role Phone MiguelLyssan Primary Care Provider REASON FOR VISIT Reminder Encounters Encounter Location Date Provider Diagnosis Zane Rivera MD 10 [facility] [address] [place] [id number] 05/04/2024 Zane Rivera PLAN OF TREATMENT Next Appt Details Provider Name:Zane Mustafa ier, 01/03/2025 07:15:00 AM, [address] [place] [address], Suite [facility], [place], [place], [phone], Provider Name:Zane ireland, 01/10/2025 02:30:00 PM, [address] [place] [address], Suite [facility], [place], [place], [phone],
--- OUTSIDE RECORDS SUMMARY | 2024-07-14 10:56 | XMS_ITS ---
Author Organization Zane Rivera MD Address [address] [facility] [address] [place] [phone] Care Team Providers Care Rooms Director Name Role Phone MiguelLyssan Primary Care Provider [phone] Encounters Encounter Location Date Provider Diagnosis Zane Rivera MD 10 [facility] [address] [place] [id number] 04/30/2024 Zane Rivera PLAN OF TREATMENT Next Appt Details Provider Name:Zane Mustafa ier, 01/03/2025 07:15:00 AM, [address] [place] [address], Suite [facility], [place], [place], [phone], Provider Name:Zane ireland, 01/10/2025 02:30:00 PM, [address] [place] [address], [address], [phone],
--- OUTSIDE RECORDS SUMMARY | 2024-07-14 10:56 | XMS_ITS | Continuity of Care Document ---
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 Overall things are stable with woody induration in the neck. Chronic edema of the arytenoids and supraglottis without pooling of secretions. check TSH f/u 6 months jschreibstein Not available 07/05/2024 09:27:38 Plan of Treatment Reminders Order Date Submit Date Provider Last Modified By Organization Details Last Modified Time Details Appointments Establish ed 15 2024 08:45A M ADRIAN ROJAS MD Not available Not available Not available Lab TSH + free T4, serum 2024 025 MARQUEZ [facility], [address] [facility] [address], [place], [address], 07/06/2024 01:20:46 Referral None recorded. Procedures None recorded. Surgeries None recorded. Imaging None recorded. Medication Orders None recorded. Patient TargetsNo targets recorded. Patient InstructionsNo instructions recorded. Reason for Referral None Reported. Problems Name Problem SNOMED Code Status Onset Date Resolution Date Notes Provider Name and Address Organization Details Recorded Time Malignant tumor of head and neck 837957494 Active 2015 Malignant neoplasm of head, face and neck; Note: Date Diagnosed : 12/20/2015 12:30 PM (C76.0) Not Available [facility] 08/02/202 4 02:23:24 Chronic rhinitis 16425275 Active 2018 Chronic rhinitis; Note: Date Diagnosed : 12/30/2018 11:36 AM (J31.0) Not Available [facility] 4 02:23:27 Celluliti s 522970044 Active 2018 Celluliti s of other sites; Note: Date Diagnosed : 12/30/2018 2:44 PM (L03.818) Not Available [facility] 4 02:22:39 Sensorine ural hearing loss of bilateral ears 626199996 Active 2015 Sensorine ural hearing loss, bilateral ; Note: Date Diagnosed : 01/12/2016 4:44 PM (H90.3) Not Available [facility] 4 02:23:26 Stomatiti s 29517314 Active 2015 Oral thrush; Note: Date Diagnosed : 6 12:11 PM (B37.0) Not Available [facility] 4 02:23:07 Candidias is of mouth 24456605 Active 2015 Oral thrush; Note: Date Diagnosed : 6 12:11 PM (B37.0) Not Available [facility] 4 02:23:07 Posterior rhinorrhe a 97408408 Active 2018 Postnasal drip; Note: Date Diagnosed : 12/30/2018 11:35 AM (R09.82) Not Available [facility] 4 02:22:39 Dysphonia 41061028 Active 2016 Hoarsenes s; Note: Date Diagnosed : 12/06/2016 9:55 AM (R49.0) Not Available [facility] 4 02:23:06 Pharyngea l dysphagia 57616247511 105 Active 2022 Dysphagia , pharyngea l phase; Note: Date Diagnosed : 01/01/2023 9:29 AM (R13.13) Not Available [facility] 4 02:23:13 Neoplasti c disease of uncertain behavior 880409153 Active 2015 Neoplasm of uncertain behavior of other specified sites; Note: Date Diagnosed : 12/18/2015 9:02 AM (D48.7) Not Available [facility] 4 02:23:27 Antineopl astic chemother apy regimen Active 2015 Encounter for antineopl astic chemother apy; Note: Date Diagnosed : 03/08/2016 1:26 PM (Z51.11) Not Available [facility] 4 02:23:15 Lymphedem a 954282596 Active 2019 Lymphedem a, not elsewhere classifie d; Note: Date Diagnosed : 07/05/2019 9:04 AM (I89.0) Not Available [facility] 4 02:23:20 History of malignant neoplasm of oral cavity 352977415 Active 2016 Personal history of malignant neoplasm of other sites of lip, oral cavity, and pharynx; Note: Date Diagnosed : 08/09/2016 2:57 PM (Z85.818) Not Available [facility] 4 02:23:23 Follow-up visit Active 2016 Encounter for follow-up examinati on after completed treatment for malignant neoplasm; Note: Date Diagnosed : 10/10/2016 10:01 AM (Z08) Not Available [facility] 4 02:23:09 Otorrhea of left ear 51496984100 16537 Active 2015 Otorrhea, left ear; Note: Date Diagnosed : 12/18/2015 9:02 AM (H92.12) Not Available [facility] 4 02:23:26 Edema of larynx 14334988 Active 2016 Edema of larynx; Note: Date Diagnosed : 08/09/2016 5:54 PM (J38.4) Not Available [facility] 4 02:22:42 Mass of neck 618587676 Active 2015 Localized swelling, mass and lump, neck; Note: Date Diagnosed : 12/18/2015 8:49 AM (R22.1) Not Available [facility] 4 02:23:18 Neck swelling 098367252 Active 2015 Localized swelling, mass and lump, neck; Note: Date Diagnosed : 12/18/2015 8:49 AM (R22.1) Not Available [facility] 4 02:23:18 Chronic hoarsenes s 93761927405 05 Active 2023 ADRIAN SHORE MD [address] [facility],[place] [address], [place], [address] , [facility] 4 09:10:44 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 Procedures Surgical History Date Name Laterality Status Provider Name and Address Organization Details Recorded Time 07/05/19 25 Fiberoptic Laryngoscopy (Comprehensive) completed ADRIAN MONTANO MD [address] [place] [address],[place] [address], [place], [address], [facility] 07/04/2024 15:13:59 12/31/19 24 Fiberoptic Laryngoscopy (Comprehensive) completed ADRIAN MONTANO MD [address] [place] [address],[place] [address], [place], [address], [facility] 12/31/2023 09:09:53 Imaging Results None recorded. Procedure Notes None recorded. Medical Equipment None Reported. Medications Name Sig Start Date Stop Date Status Note LastModified by Organization Details LastModified Time tetracycl ine 500 mg capsule TAKE 1 CAPSULE BY MOUTH FOUR TIMES DAILY FOR 14 DAYS active Not Available Not Available No t Available clotrimaz ole 10 mg adeline 1 adeline in mouth 2016 active Medicati on ID: [id number] D uration Value: 7 Prescri bed By Name: Adrian sood M.D. Bra nd Name: clotrieugenia mckeon Method: E-Prescr ibed Sub s Allowed: subs OK Medic ationGen ericName : clotrima zole Not Available Not Available Not Available nystatin 100,000 unit/mL oral suspensio n 10/10 completed Medicati on ID: [id number] P rescribe d By Name: Bang W. Eppstein er, MD Brand Name: nystatin Send Method: E-Prescr ibed Sub s Allowed: subs OK Speci al Instruct ion: 5 ml swish and swallow four times daily x 2-4 weeks Me dication GenericN bahman: nystatin Not Available Not Available Not Available metronida zole 250 mg tablet TAKE 1 TABLET BY MOUTH FOUR TIMES DAILY FOR 14 DAYS active Not Available Not Available No t Available oxycodone 5 mg/5 mL oral solution 10/10 completed Medicati on ID: [id number] D uration Value: 14 Reason: () Brand Name: oxycodon e Send Method: E-Prescr ibed Sub s Allowed: subs OK Speci al Instruct ion: take 10 millilit ers by mouth every 6 hours if needed for 14 days TAKE MINIMUM EFFECTIV E DOSE Med icationG enericNa me: oxycodon e Not Available Not Available Not Available lorazepam 0.5 mg tablet 2016 active Medicati on ID: [id number] D uration Value: 30 Brand Name: lorazepa m Send Method: E-Prescr ibed Sub s Allowed: subs OK Speci al Instruct ion: TAKE 1 TABLET BY MOUTH 3 TIMES DAILY Me dication GenericN bahman: lorazepa m Not Available Not Available Not Available Augmentin ES-600 600 mg-42.9 mg/5 mL oral suspensio n 2 teaspoon by mouth 07/04 completed Medicati on ID: [id number] D uration Value: 10 Brand Name: Augmenti n ES-600 S end Method: E-Prescr ibed Sub s Allowed: subs OK Medic ationGen ericName : Augmenti n ES-600 M edicatio n ID: [id number] D uration Value: 10 Brand Name: Augmenti n ES-600 S end Method: E-Prescr ibed Sub s Allowed: subs OK Medic ationGen ericName : Augmenti n ES-600 Not Available Not Available Not Available bismuth subsalicy late 262 mg chewable tablet CHEW AND SWALLOW 2 TABLETS BY MOUTH FOUR TIMES DAILY FOR 14 DAYS active Not Available Not Available No t Available omeprazol e 20 mg capsule,d elayed release TAKE 1 CAPSULE BY MOUTH TWICE DAILY FOR 14 DAYS active Not Available Not Available No t Available albuterol sulfate HFA 90 mcg/actua tion aerosol inhaler INHALE 2 PUFFS BY MOUTH EVERY 4 HOURS NEEDED active Not Available Not Available No t Available Ciprodex 0.3 %-0.1 % ear drops,carroll pension 4 drop 07/04 completed Medicati on ID: [id number] D uration Value: 7 Prescri bed By Name: Adrian sood M.D. Bra nd Name: Ciprodex Send Method: E-Prescr ibed Sub s Allowed: subs OK Medic ationGen ericName : Ciprodex Not Available Not Available Not Available Eliquis 5 mg tablet TAKE 1 TABLET BY MOUTH TWICE DAILY active Not Available Not Available No t Available Vitals Date Recorded Body height Body mass index (BMI) Body weight Provider Name and Address Organization Details Last Updated DateTime 07/05/2024 172.72 cm 24.3 kg/m2 96646.78 g Thomas Peñaloza [place] - [facility] 07/05/2024 08:52:17 Social History None recorded. Functional Status None recorded. Mental Status None recorded. Family History Nothing Reported. Medical History Condition Response Cancer Y Past Encounters Encounter ID Performer Location Encounter Start Date Encounter Closed Date Diagnosis/Indication Diagnosis SNOMED-CT Code Diagnosis ICD10 Code Diagnosis Note [id number] ADRIAN SHORE MD [facility] of [address] [address] 07/05/2024 08:45:33 07/05/2024 09:30:21 Edema of larynx following radiotherapy 206242101 Y84.2 History of malignant neoplasm of digestive organ 3875255976 7434235 Z85.00 Chronic hoarseness 92783 60629 105 R49.0 Health Concerns Section Related Observation LastModified by Organization Detai ls LastModified Time None Recorded Concern Status LastModified by Organization Details LastModified Time None Recorded Payers Encounter Date Sequence Insurance Name Policy Number Policy Donaldson Covered Member ID Donaldson Member ID Guarantor Name 07/05/2024 2 [employer] [id number] Gary Donohue [id number] Gary Donohue 07/05/2024 1 [place] [employer] Gary Donohue [id number] Gary Brothersquette Notes Date Note Type Note Provider Name and Address Organization Details Recorded Time 07/05/2024 text/html 78 y/o old male with 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 He has completed chemo/XRT on 03/2016.Still having issues with wet voice and some swallowing difficulties with small particles. Occasional irritation.No issues with swallowing. Has made modifications. Weight stable at 160 No ear paincontinues on Eliquis ADRIAN MONTANO MD [address] [place] [address], [address], [place] - [facility] 07/05/2024 09:28:15
--- OUTSIDE RECORDS SUMMARY | 2024-07-14 10:56 | XMS_ITS | Data Portability ---
Author Organization [place] - [facility], [facility] Address [address] [address] Care Team Providers Care Mechanic Helper Name Role Phone STEPHAN SUMMERS Primary Care [...] 6 months eddie Not available 12/31/2023 09:11:40 07/05/2024 07/05/2024 Patient with history of unknown [...] free T4, serum 2024 025 MARQUEZ [facility], [address] [facility], [place], [address], 07/06/2024 01:20:46 Referral None recorded. Procedures None [...] Time Malignant tumor of head and neck 235035279 Active 2015 Malignant neoplasm of head, face and neck; Note: Date Diagnosed : 12/20/2015 12:30 PM (C76.0) Not Available [facility] 4 02:23:24 Chronic rhinitis 95709781 Active 2018 Chronic rhinitis; Note: Date Diagnosed : 12/30/2018 11:36 AM (J31.0) Not Available [facility] 4 02:23:27 Celluliti s 877965609 Active 2018 Celluliti s of other sites; Note: Date Diagnosed : 12/30/2018 2:44 PM (L03.818) Not Available [facility] 4 02:22:39 Sensorine ural hearing loss of bilateral ears 747279255 Active 2015 Sensorine ural hearing loss, bilateral ; Note: Date Diagnosed : 01/12/2016 4:44 PM (H90.3) Not Available [facility] 4 02:23:26 Stomatiti s 69141137 Active 2015 Oral thrush; Note: Date Diagnosed : 6 12:11 PM (B37.0) Not Available [facility] 4 02:23:07 Candidias is of mouth 20415388 Active 2015 Oral thrush; Note: Date Diagnosed : 6 12:11 PM (B37.0) Not Available [facility] 4 02:23:07 Posterior rhinorrhe a 76645069 Active 2018 Postnasal drip; Note: Date Diagnosed : 12/30/2018 11:35 AM (R09.82) Not Available [facility] 4 02:22:39 Dysphonia 63211699 Active 2016 Hoarsenes s; Note: Date Diagnosed : 12/06/2016 9:55 AM (R49.0) Not Available [facility] 4 02:23:06 Pharyngea l dysphagia 02064954881 105 Active 2022 Dysphagia , pharyngea l phase; Note: Date Diagnosed : 01/01/2023 9:29 AM (R13.13) Not Available [facility] 4 02:23:13 Neoplasti c disease of uncertain behavior 466452956 Active 2015 Neoplasm of uncertain behavior of other specified sites; Note: Date Diagnosed : 12/18/2015 9:02 AM (D48.7) Not Available [facility] 4 02:23:27 Antineopl astic chemother apy regimen Active 2015 Encounter for antineopl astic chemother apy; Note: Date Diagnosed : 03/08/2016 1:26 PM (Z51.11) Not Available [facility] 4 02:23:15 Lymphedem a 605288474 Active 2019 Lymphedem a, not elsewhere classifie d; Note: Date Diagnosed : 07/05/2019 9:04 AM (I89.0) Not Available [facility] 4 02:23:20 History of malignant neoplasm of oral cavity 706695966 Active 2016 Personal history of malignant neoplasm of other sites of lip, oral cavity, and pharynx; Note: Date Diagnosed : 08/09/2016 2:57 PM (Z85.818) Not Available [facility] 4 02:23:23 Follow-up visit Active 2016 Encounter for follow-up examinati on after completed treatment for malignant neoplasm; Note: Date Diagnosed : 10/10/2016 10:01 AM (Z08) Not Available [facility] 4 02:23:09 Otorrhea of left ear 70509485648 19100 Active 2015 Otorrhea, left ear; Note: Date Diagnosed : 12/18/2015 9:02 AM (H92.12) Not Available [facility] 4 02:23:26 Edema of larynx 73149392 Active 2016 Edema of larynx; Note: Date Diagnosed : 08/09/2016 5:54 PM (J38.4) Not Available [facility] 4 02:22:42 Mass of neck 981368704 Active 2015 Localized swelling, mass and lump, neck; Note: Date Diagnosed : 12/18/2015 8:49 AM (R22.1) Not Available [facility] 4 02:23:18 Neck swelling 391603560 Active 2015 Localized swelling, mass and lump, neck; Note: Date Diagnosed : 12/18/2015 8:49 AM (R22.1) Not Available [facility] 4 02:23:18 Chronic hoarsenes s 29018878539 05 Active 2023 ADRIAN SHORE MD [address] [facility],[place] [address], [place], [address] , [place] - [facility] 4 09:10:44 Non-toxic uninodula r goiter 468168153 Active 2024 ADRIAN SHORE MD [address] [facility] [place] [address], [place], [address] , [place] - [facility] 5 09:27:55 Problem Notes None recorded. Procedures Surgical History Date Name Laterality Status Provider Name and Address Organization Details Recorded Time 07/05/19 25 Fiberoptic Laryngoscopy (Comprehensive) completed ADRIAN MONTANO MD [address] [facility] [place],[address] [facility], [place], [address], [place] [facility] 07/04/2024 15:13:59 12/31/19 24 Fiberoptic Laryngoscopy (Comprehensive) completed ADRIAN MONTANO MD [address] [facility] [place] [facility], [place], [address], [place] [facility] 12/31/2023 09:09:53 Imaging Results Imaging Date Name Status LastModified by [facility] Details LastModified Time 06/30/2018 imaging/diag nostic result [...] in mouth 2016 active Medicati on ID: [id number] D uration Value: 7 Prescri bed By Name: Adrian sood M.D. Bra nd Name: clotrima zole Sen d Method: E-Prescr ibed Sub s Allowed: subs OK Medic ationGen ericName : clotrima zole Not Available Not Available Not Available nystatin 100,000 unit/mL oral suspensio n 10/10 completed Medicati on ID: [id number] P medina mckeon By Name: Bang elizalde MD Brand Name: [...] oral solution 10/10 completed Medicati on ID: [id number] D uration Value: 14 Reason: () Brand Name: oxycodon e Send Method: E-Prescr ibed Sub s Allowed: subs OK Speci al Instruct ion: take 10 millilit ers by mouth every 6 hours if needed for 14 days TAKE MINIMUM EFFECTIV E DOSE Med icationG enericNa me: oxycodon e Not Available Not Available Not Available lorazepam 0.5 mg tablet 2016 active Medicati on ID: [id number] D uration Value: 30 Brand Name: lorazepa m Send Method: E-Prescr ibed Sub s Allowed: subs OK Speci al Instruct ion: TAKE 1 TABLET BY MOUTH 3 TIMES DAILY Me dication GenericN bahman: lorazepa m Not Available Not Available Not Available Augmentin ES-600 600 mg-42.9 mg/5 mL oral suspensio n 2 teaspoon by mouth 07/04 completed Medicati on ID: [id number] D uration Value: 10 Brand Name: Augmenti n ES-600 S end Method: E-Prescr ibed Sub s Allowed: subs OK Medic ationGen ericName : Augmenti n ES-600 M edicatio n ID: [id number] D uration Value: 10 Brand Name: Augmenti [...] 4 drop 07/04 completed Medicati on ID: [id number] D uration Value: 7 Prescri bed By [...] Updated DateTime 12/31/2023 172.72 cm 24.9 kg/m2 61783.15 g Thomas Peñaloza [facility] 12/31/2023 08:51:27 Date Recorded Body height Body mass index (BMI) Body weight Provider Name and Address Organization Details Last Updated DateTime 07/05/2024 172.72 cm 24.3 kg/m2 74121.78 g Thomas Peñaloza [facility] 07/05/2024 08:52:17 Social History None recorded. Functional Status None recorded. Mental Status None recorded. Family History Nothing Reported. Medical History Condition Response Cancer Y Past Encounters Encounter ID Performer Location Encounter Start Date Encounter Closed Date Diagnosis/Indication Diagnosis SNOMED-CT Code Diagnosis ICD10 Code Diagnosis Note [id number] ADRIAN SHORE MD [facility] [address] [address] 12/31/2023 08:40:00 12/31/2023 09:11:51 Edema of larynx following radiotherapy 163425344 Y84.2 History of malignant neoplasm of digestive organ 8461856723 8279080 Z85.00 Chronic hoarseness 15326 78694 105 R49.0 [id number] ADRIAN SHORE MD [facility] [address] [address] 07/05/2024 08:45:33 07/05/2024 09:30:21 Edema of larynx following radiotherapy 469325480 Y84.2 History of malignant neoplasm of digestive organ 2537617362 3006741 Z85.00 Chronic hoarseness 16872 74514 105 R49.0 Health Concerns Section Related Observation LastModified by Organization Detai ls LastModified Time None Recorded Concern Status LastModified by Organization Details LastModified Time None Recorded Advance Directives Directive None Recorded Payers Encounter Date Sequence Insurance Name Policy Number Policy Donaldson Covered Member ID Donaldson Member ID Guarantor Name 12/31/2023 2 [facility] [id number] Gary Donohue [id number] Gary Donohue 12/31/2023 1 [place] [employer] Gary Donohue [id number] Gary Donohue 07/05/2024 2 [facility] [id number] Gary Donohue [id number] Gary Donohue 07/05/2024 1 [place]: [facility] Gary Donohue [id number] 27 Gary Donohue Notes Date Note Type [...] by PCPChest CT August 2022Using CPAP regularly. ADRIAN MONTANO MD [address] [facility],[place] [address], [place], [address], [place] - [facility] 12/31/2023 09:12:40 07/05/2024 text/html 78 y/o old male with [...] ear paincontinues on Eliquis ADRIAN MONTANO MD [address] [facility],[place] [address], [place], [address], [place] [facility] 07/05/2024 09:28:15
== END 2024-07-14 10:01 | disposition home or self-care (01) ==
LOC: HO.HAP 10:00
PROVIDERS: Visit Provider Internal Medicine
DX: Z46.1 Encounter for fitting and adjustment of hearing aid (principal); H90.3 Sensorineural hearing loss, bilateral
CPT/HCPCS: V5299

== ENCOUNTER 2025-01-03 10:53 | Outpatient (REF) | payer MEDICARE, SELFPAY ==
--- OUTSIDE RECORDS SUMMARY | 2024-12-28 10:14 | XMS_ITS ---
Author Organization Zane Rivera MD Address [address] [place] [phone] Care Team Providers Care Voice Coach Name Role Phone CaraLyssa elizalden Primary Care Provider [phone] REASON FOR VISIT appt with Dr. Wilkins Encounters Encounter Location Date Provider Diagnosis Zane Rivera MD 10 [facility] [address] [place] [phone] 12/28/2024 Zane Rivera Plan Of Treatment Next Appt Details Provider Name:Zane Mustafa ier, 01/10/2025 02:30:00 PM, [address] [facility], [address], [place], [place], [phone], Progress Notes * Gary DONOHUEDOB:[birth year] (79 yo M)Acc No.[id number]:12/28/2024 Patient: Gary DUNCAN :1945 A ge:79 Y S ex:Male Address:[address] [place] [phone] * true * Date: Generated for Waldemar kay/Chavo/Nancy on: 0 01/03/2025 11:53 AM EDT
[2025-01-03 10:58] LABS: MANUAL DIFF FLAG NO
[2025-01-03 11:40] LABS: Appearance Urine Cloudy; Glucose Urine UA Negative (Negative); Hematocrit 42.0 % (42.0-52.0); Hemoglobin 13.9 g/dl (14.0-18.0); Imm Gran Abs Auto 0.03 X10*3/uL (0.00-0.03); Imm Gran Pct Auto 0.4 % (0.0-0.4); Lymphocytes Absolute Auto 1.3 X10*3/uL (1.2-4.9); Mean Corpuscular HGB Conc 33.1 g/dl (31.0-36.0); Mean Corpuscular Hemoglobin 32.3 pg (27.0-33.0); Mean Corpuscular Volume 97.4 fL (80.0-98.0); NRBC Abs Auto 0.000 X10*3/uL (0.0-0.012); NRBC Pct Auto 0.0 /100WBC (0.0-0.2); PH 7.0 (5.0-9.0); Platelet Count 269 X10*3/uL (160-400); Red Blood Count 4.31 X10*6/uL (4.60-5.80); Specific Gravity - Urine 1.015 (1.005-1.025); UMIC TRIGGER UACC YES; White Blood Count 7.0 X10*3/uL (4.8-10.8)
[2025-01-03 11:45] LABS: UACC Culture Trigger YES
--- OUTSIDE RECORDS SUMMARY | 2025-01-03 11:54 | XMS_ITS | Patient Health Record ---
Author Organization [facility] Address [address] [place] [address] Care Team Providers Care Crusher Wet Ground Mica Name Role Phone Zane Rivera MD Primary Care Provider Bang Chairez Unavailable [phone] Allergies Allergen (clinical drug ingredient) Drug/Non Drug Allergy documented on EMR Reaction Allergy Type Onset Date Status seasonal (uncoded) Unknown Allergy A ctive Reason For Referral No Information Medications Medication SIG (Take, Route, Frequency, Duration) Notes Start Date End Date Status Ventolin HFA 108 (90 Base) MCG/ACT 2 puffs as needed Inhalation every 6 hrs Active Eliquis 5 MG Oral for 30 Days Active Mouthwash Active Aspir-81 81 MG 1 tablet Orally Once a day Not-Taking Immunizations Vaccine Route Administration Date Status Comme nts Influenza Unknown 03/30/2019 Administered Problems Problem Type SNOMED Code ICD Code Onset Dates Problem Status W/U Status Risk Notes Problem 238455449 Encounter for screening for malignant neoplasm of colon (Z12.11) Active confirmed Problem Portal vein thrombosis (94831900) Portal vein thrombosis (I81) Active confirmed Problem Gallstones (K80.20) Active confirmed Problem 278218153 Long-term use of aspirin therapy (Z79.82) Active confirmed Problem 082762998 Hx of adenomatous colonic polyps (Z86.010) Active confirmed Problem 903592250067030 Pre-procedural examination (Z01.818) Active confirmed Vital Signs Blood pressure diastolic 111 mm Hg 09/28/2024 Height 67.5 in 09/28/2024 Blood pressure systolic 111 mm Hg 09/28/2024 Weight 166 lbs 09/28/2024 BMI 25.61 kg/m2 09/28/2024 Encounters Encounter Location Date Provider Diagnosis [facility] [address] [place] [address] 09/28/2024 Bang Goldstein Hx of adenomatous colonic polyps Z86.010 ; Gallstones K80.20 ; Encounter for screening for malignant neoplasm of colon Z12.11 and Portal vein thrombosis I81 Assessments Encounter Date Diagnosis (ICD Code) Assessment Notes Treatment Notes Treatment Clinical Notes Section Notes 09/28/2024 Gallstones (ICD-10 - K80.20) Call or go to ER if the gallstones start bothering you again Overall, Judson appears quite well at the present time. We did review his 2023 hospitalization. We did review further symptoms of gallbladder problems and the need to seek surgical consultation if this was to recur. At this point, since he is asymptomatic, I think it would be worthwhile to hold off on surgical intervention unless symptoms crop up again given the fact that he is now on Eliquis. Given the fact that he just had a colonoscopy I advised him that he obviously does not need another colonoscopy this year. Given his age I advised him that I do not think he would need any further screening colonoscopies going forward, but certainly if anything changes with his bowel habits or he develops any signs of bleeding I would then want him to contact me for further evaluation. At this point if things remain well he will see me on a as needed basis. Judson was comfortable with this plan. Thank you again for allowing me to have participated in Judson's care. Please do not hesitate to contact me if I can be of any further assistance in the future. 09/28/2024 Hx of adenomatous colonic polyps (ICD-10 - Z86.010) Overall, Judson appears quite well at the present time. We did review his 2023 hospitalization. We did review further symptoms of gallbladder problems and the need to seek surgical consultation if this was to recur. At this point, since he is asymptomatic, I think it would be worthwhile to hold off on surgical intervention unless symptoms crop up again given the fact that he is now on Eliquis. Given the fact that he just had a colonoscopy I advised him that he obviously does not need another colonoscopy this year. Given his age I advised him that I do not think he would need any further screening colonoscopies going forward, but certainly if anything changes with his bowel habits or he develops any signs of bleeding I would then want him to contact me for further evaluation. At this point if things remain well he will see me on a as needed basis. Judson was comfortable with this plan. Thank you again for allowing me to have participated in Judson's care. Please do not hesitate to contact me if I can be of any further assistance in the future. 09/28/2024 Encounter for screening for malignant neoplasm of colon (ICD-10 - Z12.11) Overall, Judson appears quite well at the present time. We did review his 2023 hospitalization. We did review further symptoms of gallbladder problems and the need to seek surgical consultation if this was to recur. At this point, since he is asymptomatic, I think it would be worthwhile to hold off on surgical intervention unless symptoms crop up again given the fact that he is now on Eliquis. Given the fact that he just had a colonoscopy I advised him that he obviously does not need another colonoscopy this year. Given his age I advised him that I do not think he would need any further screening colonoscopies going forward, but certainly if anything changes with his bowel habits or he develops any signs of bleeding I would then want him to contact me for further evaluation. At this point if things remain well he will see me on a as needed basis. Judson was comfortable with this plan. Thank you again for allowing me to have participated in Judson's care. Please do not hesitate to contact me if I can be of any further assistance in the future. 09/28/2024 Portal vein thrombosis (ICD-10 - I81) Overall, Judson appears quite well at the present time. We did review his 2023 hospitalization. We did review further symptoms of gallbladder problems and the need to seek surgical consultation if this was to recur. At this point, since he is asymptomatic, I think it would be worthwhile to hold off on surgical intervention unless symptoms crop up again given the fact that he is now on Eliquis. Given the fact that he just had a colonoscopy I advised him that he obviously does not need another colonoscopy this year. Given his age I advised him that I do not think he would need any further screening colonoscopies going forward, but certainly if anything changes with his bowel habits or he develops any signs of bleeding I would then want him to contact me for further evaluation. At this point if things remain well he will see me on a as needed basis. Judson was comfortable with this plan. Thank you again for allowing me to have participated in Judson's care. Please do not hesitate to contact me if I can be of any further assistance in the future. Plan Of Treatment Future Test Test Name Order Date COLONOSCOPY 02/24/2014 COLONOSCOPY 04/20/2019 Insurance Providers Payer Name Payer Address Payer Phone Subscriber Number Group Number Insured Name Patient Relationship to Insured Coverage Start Date Coverage End Date MEDICARE OF [place] [address] [place] [address] [id number] MOUNA , JUDSON Self - patient is the insured 2 [employer] ATTN CLAIMS [address] [place] [address] [id number] MOUNA , JUDSON Self - patient is the insured Medical (General) History Medical History History ICD Code Colonoscopy, 1999, 2002,2008, 04/2014 tu bular adenomas Asthma--uses inhaler prn Diverticulosis History of a mild esophageal ring, status post EGD with dilatation in 1993--no esophagitis Denies [place],DM,CVA,renal disease 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 Brian and Dr. Gonzalez Sleep apnea--uses a CPAP Neg. screening colonoscopy with me in [address] Robison 2024--reportedl y negative Hospitalization in 2023 for cholecystitis. This was treated with antibiotics and did not require surgery. He was found to have a portal vein thrombosis and started on Eliquis and is followed by Dr. Wilkins for that. He underwent an upper endoscopy during that hospitalization was negative for varices. It did show some gastritis with biopsies positive for H. pylori. [place] all [place] [facility] [place]. Portal vein thrombosis as above. Surgical History Surgery Date(Month/Year) G-tube and Port for his cancer treatment s in 2015 Right inguinal hernia Retinal laser-left eye 2011
[2025-01-03 12:13] LABS: Alanine Aminotransferase 17 U/L (0-40); Albumin Level 4.1 g/dL (3.5-5.0); Alkaline Phosphatase 95 U/L (39-117); Anion Gap 14 (12-20); Aspartate Amino Transferase 27 U/L (5-37); Blood Urea Nitrogen 10 mg/dL (9-16); Calcium 9.5 mg/dL (8.4-10.2); Carbon Dioxide 28 mmol/L (22-29); Chloride 103 mmol/L (96-108); Cholesterol 142 mg/dL (<200); Estimated Glomerular Filt Rate > 60; HDL Cholesterol 57 mg/dL (>40); Potassium 4.5 mmol/L (3.3-5.1); Sodium 140 mmol/L (135-145); Total Protein 7.0 g/dL (6.5-8.0); Triglycerides 47 mg/dL (<150)
[2025-01-03 12:16] LABS: PSA,Total (Free>4and<10) 4.60 ng/mL (0.00-4.00)
[2025-01-04 13:18] LABS: Free Prostate Spec Ag 0.6 ng/mL; Percent Free Prostate Spec Ag 16 % (calc) (>25)
== END 2025-01-03 10:54 | disposition home or self-care (01) ==
LOC: HO.LNP 10:53
PROVIDERS: Visit Provider Internal Medicine
DX: R73.03 Prediabetes (principal); E78.6 Lipoprotein deficiency; E03.9 Hypothyroidism, unspecified; Z12.5 Encounter for screening for malignant neoplasm of prostate
CPT/HCPCS: 80053; 80061; 81001; 84153; 84154; 84443; 85025; 87086; 87088; 87186

== ENCOUNTER 2025-01-14 10:06 | Outpatient (REF) | payer SELFPAY ==
--- OUTSIDE RECORDS SUMMARY | 2025-01-14 10:26 | XMS_ITS | Patient Health Record ---
Author Organization Zane Rivera MD Address [address] [place], [place] [phone] Care Team Providers Care Objects Conservator Name Role Phone Miguel Zane Primary Care Provider Allergies No Known Allergies Results Component Value Reference Range Notes Hemoglobin A1c Reviewed date:05/10/2024 03:11:18 PM Interpretation:5.7 Performing Lab: Notes/Report: 5.7 Complete Blood Count Auto Di ff Reviewed date:01/03/2025 12:58:28 PM Interpretation: Performing Lab:[facility], [address] [place] [phone] Notes/Report: White Blood Count 7.0 4.8-10.8 X10*3/uL [...] 0.0-0.2 /100WBC Neutrophils Absolute Auto 4.5 2.0-8.3 x10*3/uL Imm Gran Abs Auto 0.03 0.00-0.03 X10*3/uL Lymphocytes Absolute Auto 1.3 1.2-4.9 X10*3/uL Monocytes Absolute Auto 0.8 0.1-1.2 X10*3/uL Eosinophils Absolute Auto 0.3 0.0-0.4 X10*3/uL Basophils Absolute Auto 0.1 0.0-0.2 X10*3/uL NRBC Abs Auto 0.000 0.0-0.012 X10*3/uL Comprehensive M[place]. Panel Fa st Reviewed date:01/03/2025 12:57:57 PM Interpretation: Performing Lab:[facility], [address] [place] [phone] Notes/Report: Sodium 140 135-145 mmol/L Potassium 4.5 [...] Panel Reviewed date:01/03/2025 12:55:43 PM Interpretation: Performing Lab:[facility], [address] [place] [phone] Notes/Report: Triglycerides 47 <150 mg/dL Desirable Triglyceride: [...] Reviewed date:01/13/2025 07:56:48 AM Interpretation:BRIDGETT 01/10 Performing Lab:[address] [phone] Notes/Report: PSA,Total (Free>4and<10) 4.60 0.00-4.00 ng/mL PSA methodology: Amezquita Alinity i Chemiluminescent Microparticle Immunoassay (CMIA) TSH reflex Free T4 Reviewed date:01/03/2025 12:57:39 PM Interpretation: Performing Lab:[facility], [address] [place] [phone] Notes/Report: TSH reflex Free T4 1.53 0.32-4.0 uIU/mL UA ClnCatch+Micro w/rflx Cul t Reviewed date:01/03/2025 01:01:54 PM Interpretation: Performing Lab:[facility], [address] [place] [phone] Notes/Report: Urine, Clean Catch Color Urine Yellow Appearance Urine Cloudy PH 7.0 5.0-9.0 Glucose Urine UA Negative Negative mg/dL Urine Blood Trace Negative Specific [place] - Urine 1.015 1.005-1.025 Urine Protein Negative Neg-Trace mg/dL Urine Ketones Negative Negative mg/dL Nitrite Urine Negative Negative Leukocyte Esterase Urine Moderate (2+) Negative RBC Urine 3-5 0-2 /HPF WBC Urine 21-50 0-5 /HPF Squamous Epithelial Cell Urine 0-2 0-2 /HPF Bacteria Urine 4+ None Seen Hyaline Casts Urine 0-2 0-2 /LPF Glucose, finger stick Reviewed date:05/10/2024 03:11:08 PM Interpretation: Performing Lab: Notes/Report: Value 113 Pathology Reviewed date:02/02/2024 12:43:47 PM Interpretation: Performing Lab:[facility], [address] [place] [phone] Notes/Report: ---- Name: Cristy Donohue J Age/Sex: 78/M : 1945 Unit#: [id number] Attend Dr: Hollie Robison MD Re01/29/24 Status : [facility] Location: [facility] Disch: ---- SPEC : [id number] RECD : 01/29/24-1303 STATUS: LOAN MTZ NUM: [id number] LUIS MANUEL: 01/29/24-[address]: Hollei Robison MD ENTERED: 01/29/24-02 02 SP TYPE: Surgical OTHR DR: Zane Rivera MD ORDERED: HE Stain/6, Gross Micro L4/2, IHC/2, Special st. 2/2, H. pylori/2, AB/PAS/2 Diagnosis A. Stomach, abnormal antral mucosa, biopsy: - Antral-type mucosa with severe chronic active inflammation; negative for intestinal metaplasia or dysplasia. - Positive for H pylori. B. Stomach, random, biopsy: - Oxyntic mucosa wit h moderate chronic active inflammation and focal intestinal metaplasia, negative for dysplasia. - Positive for H pylori. 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 Microscopic sections examined. No metaplastic changes are seen in A and focal intestinal metaplasi a is present in B, supported by AB/PAS stains; Helicobacter organisms are seen, supported by H. pylori immunostain (A and B). Material Received A. Abnormal antral mucosa B. Random gastric bx's Gross Description Received in two parts. Part A: Received in formalin labeled ?abnormal antral mucosa? are 5 navarro-pink irregular and rectangular tissue fragments ranging from 0.15-0.3 cm, submitted in toto in a cassette A. Part B: Received in formalin labeled ?random gastric bx's? are 3 navarro-pink irregular tissue fragments each measu ring 0.3 cm, submitted in toto in a cassette labeled B. CEDS Special studies orde red and performed: Immunostain for H. pylori on A and B; AB/PAS stains on A and B CONTINUED ON NEXT PAGE ---- Name: Cristy Donohue ll J Age/Sex: 78/M : 1945 Unit#: [id number] Attend Dr: Hollie Robison MD Re01/29/24 Status : [facility] Location: [facility] Disch: ---- SPEC : [id number] RECD : 01/29/24-1303 STATUS: LOAN MTZ NUM: [id number] LUIS MANUEL: 01/29/24-[address] [facility] [address]: Hollie Robison MD ENTERED: 01/29/24-02 02 SP TYPE: Surgical OTHR DR: Zane Rivera MD ORDERED: HE Stain/6, Gross Micro L4/2, IHC/2, Special st. 2/2, H. pylori/2, AB/PAS/2 Copies To: Zane Rivera MD [facility] [address] [address] Hollie Robison MD [facility] [address] [place] [address] [email or web address] Signed (signature on file) Alfonso Cisneros MD 02/02/24 1204 ---- END OF REPORT Liver Panel Reviewed date:04/28/2024 12:14:02 PM Interpretation: Performing Lab:[facility], [address] [place] [phone] Notes/Report: Bilirubin Total 0.6 0.0-1.0 mg/dL Bilirubin Direct 0.2 0.0-0.5 mg/dL Aspartate Amino Transferase 23 5-37 U/L Alanine Aminotransferase 15 0-40 U/L Total Protein 7.2 6.5-8.0 g/dL Albumin Level 4.1 3.5-5.0 g/dL Alkaline Phosphatase 92 39-117 U/L US abdomen complete Reviewed date:06/13/2024 03:50:38 PM Interpretation: Performing Lab: Notes/Report: [address] [address] Ultrasound Report Signed Patient: Gary Donohue MR#: [id number] : 1945 Acct:[id number] Age/Sex: 78 / M ADM Date: 05/10/24 Loc: HO.US Attending Dr: Hollie Robison MD Ordering Physician: Hollie Robison MD Date of Service: 05/10/24 Procedure(s): US abdomen complete Accession Number(s): [id number] cc: Zane Rivera MD; Hollie Robison MD Exam dictated in conjunction with ultrasound duplex arterial venous performed of the same day. Electronically signed by: Jesus Junior MD 06/13/2024 11:31 AM EST Dictated By: Jesus Junior MD Signed By: <Electronically signed by Jesus Junior MD in OV> 06/13/24 1131 DD/ 0937 TD/TT: 05/10/24 1023 Electronic Sales And Service Technician: [address] [address] Ultrasound Report Signed Patient: Gary Donohue MR#: [id number] : 1945 Acct:[id number] Age/Sex: 78 / M ADM Date: 05/10/24 Loc: HO.US Attending Dr: Hollie Robison MD Ordering Physician: Hollie Robison MD Date of Service: 05/10/24 Procedure(s): US abd omen complete Accession Number(s): [id number] cc: Zane Rivera MD; Hollie Robison MD Exam dictated in conjunction with ultrasound duplex arterial venous performed of the . Electronically marcial d by: Jesus Junior MD 06/13/2024 11:31 AM EST Dictated By: Jesus Junior MD Signed By: <Electronically signed by Jesus Junior MD in OV> 06/13/24 1131 DD/ 0937 TD/TT: 05/10/24 1023 Electronic Sales And Service Technician: US duplex arterial venous co mp Reviewed date:06/03/2024 08:29:24 AM Interpretation: Performing Lab: Notes/Report: [address] [address] Ultrasound Report Signed Patient: Gary Donohue MR#: [id number] : 1945 Acct:[id number] Age/Sex: 78 / M ADM Date: 05/10/24 Loc: .US Attending Dr: Hollie Robison MD Ordering Physician: Hollie Robison MD Date of Service: 05/10/24 Procedure(s): US duplex arterial venous comp Accession Number(s): [id number] cc: Zane Rivera MD; Hollie Robison MD [...] by: Kandice Sherwood MD 06/02/2024 05:24 PM [facility] Dictated By: Elsa Sherwood Signed By: <Electronically signed by Elsa Sherwood in OV> 06/02/24 1724 DD/ 0937 TD/TT: 05/10/24 1023 Electronic Sales And Service Technician: [place] [address] Ultrasound Report Signed Patient: Gary Donohue MR#: [id number] : 1945 Acct:[id number] Age/Sex: 78 / M ADM Date: 05/10/24 Loc: .US Attending Dr: Hollie Robison MD Ordering Physician: Hollie Robison MD Date of Service: 05/10/24 Procedure(s): US dup nicolasa arterial venous comp Accession Number(s): [id number] cc: Zane Rivera MD; Hollie Robison MD EXAMINATION: US ABDOMEN DOPPLER CLINICAL INFORMATION: History of left port al vein thrombus, now on anticoagulation COMPARISON: Duplex ultrasound of the abdomen dated 12/22/2023 and 09/25/2023 TECHNIQUE: Real-time imaging of the abdominal viscera. Color and spectral Doppler evaluation of the hepatic vasculature. FINDINGS: LIVER: Normal. The l iver demonstrates normal size, contour and echogenicity. No foc al liver lesion. No intrahepatic biliary duct dilatation. SPLENIC VEIN: Patent with normal waveforms. HEPATIC VEINS: Paten t with normal waveforms. PORTAL VEINS: Interv al resolution of the left portal vein thrombus, which now appears patent, with a normal waveform, and hepatopedal flow. The remaining orbita l veins are also patent with normal waveforms and hepatopetal flow. HEPATIC ARTERIES: No rmal upstroke and diastolic flow. INFERIOR VENA CAVA: Patent with normal waveforms. GALLBLADDER: Cholelithiasis without evidence of acute cholecystitis. COMMON BILE DUCT: No rmal in caliber measuring 0.3 cm in diameter. PANCREAS: Normal. Th e visualized pancreatic head and body are normal in appearance. The remainder of the pancreas is obscured from visualization by the overlying bowel gas. RIGHT KIDNEY: Normal . No hydronephrosis. No renal calculi or focal [...] Visualized portions are normal. FREE FLUID: None. U S/US duplex arterial venous comp IMPRESSION: 1. Interval resoluti on of the left portal vein thrombus, which now appears patent with a normal waveform, and hepatopedal flow. 2. Cholelithiasis without evidence of acute cholecystitis. Electronically marcial d by: Kandice Sherwood MD 06/02/2024 05:24 PM [facility] Dictated By: Elsa Sherwood Signed By: <Electronically signed by Elsa Sherwood in OV> 06/02/24 1724 DD/ 0937 TD/TT: 05/10/24 1023 Electronic Sales And Service Technician: H Pylori Breath Test Reviewed date:06/25/2024 12:27:54 PM Interpretation: Performing Lab:[facility], [address] [place] [phone] Notes/Report: H Pylori Breath Test Negative Negative Antimicrobials, proton pump inhibitors and bismuth preparations are known to suppress H. pylori. Ingesting these medications within two weeks prior to performing the breath test may produce negative test results. A positive result is still clinically valid. PSA Free and Total Reviewed date:01/04/2025 05:10:04 PM Interpretation: Performing Lab:[facility], [address] [place] [phone] Notes/Report: Prostate Specific Ag Total 3.7 < OR = 4.0 ng/mL Percent Free Prostate Spec Ag 16 >25 % (calc) PSA(ng/mL) Free PSA(%) Estimated(x) Probability of Cancer(as%) 0-2.5 (*) Approx. 1 2.6-4.0(1) 0-27(2) 24(3) 4.1-10(4) 0-10 56 11-15 28 16-20 20 21-25 16 >or =26 8 >10(+) N/A >50 References:(1)Endy a et al.:Urology 60: 469-474 (2001) (2)Jayshree et al.:J.Urol 168: 922-925 (2001) Free PSA(%) Sensitivity(%) Specificity(%) < or = 25 85 19 < or = 30 93 9 (3)Catalona et al.:BENJA 277: 4890-9457 (1996) (4)Catalona et al.:BENJA 279: 4996-9074 (1997) (x)These estimates vary with age, ethnicity, family history and POLLO results. (*)The diagnostic usefulness of % Free PSA has not been established in patients with total PSA below 2.6 ng/mL (+)In men with PSA above 10 ng/mL, prostate cancer risk is determined by total PSA alone. The Total PSA value from this assay system is standardized against the equimolar PSA standard. The test result will be approximately 20% higher when compared to the WHO-standardized Total PSA (Siemens assay). Comparison of serial PSA results should be interpreted with this fact in mind. PSA was performed using the [employer] Immunoassay method. Values obtained from different assay methods cannot be used interchangeably. PSA levels, regardless of value, should not be interpreted as absolute evidence of the presence or absence of disease. THIS TEST WAS PERFORMED AT: [facility] [address] [place] [phone] SUMAN WORTHY MD Free Prostate Spec Ag 0.6 Urine Culture Reviewed date:01/11/2025 07:34:28 AM Interpretation:01-10-25 Performing Lab:[address] [address] Notes/Report: O:ENTFAC Enterococcus faecalis Urine Culture Quant Urine Culture > 100,000 cfu/mL Ampicillin <=2 Levofloxacin 0.5 Nitrofurantoin <=16 Tetracycline >=16 Vancomycin 1 Complete Blood Count Auto Di ff Reviewed date:01/06/2025 12:07:09 PM Interpretation: Performing Lab:[address] [address] Notes/Report: White Blood Count 5.9 4.8-10.8 X10*3/uL Red Blood Count 4.42 4.60-5.80 X10*6/uL Hemoglobin 14.3 14.0-18.0 g/dl Hematocrit 41.7 42.0-52.0 % Mean Corpuscular Volume 94.3 80.0-98.0 fL Mean Corpuscular Hemoglobin 32.4 27.0-33.0 pg Mean Corpuscular HGB Conc 34.3 31.0-36.0 g/dl Red Cell Distribution Width 13.2 11.0-16.0 % Platelet Count 243 160-400 X10*3/uL Mean Platelet Volume 7.8 9.4-12.4 fL Neutrophils Percent Auto 69.0 45-73 % Imm Gran Pct Auto 0.3 0.0-0.4 % Lymphocytes Percent Auto 17.8 20-40 % Monocytes Percent Auto 8.8 2-11 % Eosinophils Percent Auto 3.4 0-4 % Basophils Percent Auto 0.7 0-2 % NRBC Pct Auto 0.0 0.0-0.2 /100WBC Neutrophils Absolute Auto 4.1 2.0-8.3 x10*3/uL Imm Gran Abs Auto 0.02 0.00-0.03 X10*3/uL Lymphocytes Absolute Auto 1.1 1.2-4.9 X10*3/uL Monocytes Absolute Auto 0.5 0.1-1.2 X10*3/uL Eosinophils Absolute Auto 0.2 0.0-0.4 X10*3/uL Basophils Absolute Auto 0.0 0.0-0.2 X10*3/uL NRBC Abs Auto 0.000 0.0-0.012 X10*3/uL Comprehensive Met. Panel Reviewed date:01/06/2025 05:08:13 PM Interpretation: Performing Lab:[facility], [address] [place] [phone] Notes/Report: Sodium 141 135-145 mmol/L Potassium 4.4 3.3-5.1 mmol/L Chloride 102 96-108 mmol/L Carbon Dioxide 30 22-29 mmol/L Anion Gap 13 12-20 Blood Urea Nitrogen 12 9-16 mg/dL Creatinine 0.87 0.5-1.4 mg/dL Creatinine Clr Calc Pharmacy 65.4 eGFR (calculated from the MDRD study equation) and eCrCl (calculated from the Cockcroft-Gault equation) are based on different parameters and may not yield comparable results. If eCrCl result is absurd, please check patient's height/weight. Estimated Glomerular Filt Rate > 60 Chronic Kidney Disease: Estimated GFR < 60 mL/min/1.73m2 Severe Kidney Disease: Estimated GFR < 15 mL/min/1.73m2 Glucose Random 95 60-115 mg/dL Calcium 9.7 8.4-10.2 mg/dL Bilirubin Total 0.8 0.0-1.0 mg/dL Aspartate Amino Transferase 26 5-37 U/L Alanine Aminotransferase 19 0-40 U/L Total Protein 7.3 6.5-8.0 g/dL Albumin Level 4.4 3.5-5.0 g/dL Alkaline Phosphatase 93 39-117 U/L D Dimer High Sensitivity Reviewed date:01/06/2025 12:06:44 PM Interpretation: Performing Lab:[facility], [address] [place] [phone] Notes/Report: D Dimer High Sensitivity 439 Results of d-dimer called to CARLOS on 07/17/25 at 0830 by LANDRY. D-DIMER HS REFERENCE RANGE Note: Our assay reports D-Dimer Units (D-DU). The cut-off value for venous thromboembolic (VTE) disease is 230 ng/mL. This value has a very high negative predictive value when the patient has a low to moderate clinical probability of VTE. The upper limit of normal is 243 ng/mL. Reason For Referral No Information Medications Medication SIG (Take, Route, Frequency, Duration) Notes Start Date End Date Status Ventolin HFA * 108 (90 Base) MCG/ACT 2 puffs as needed Inhalation every 4 hrs 11/14/2015 Active Amoxicillin 500 MG 1 capsule Orally anshul ry 12 hours for 5 days 01/10/2025 Active Immunizations Vaccine Route Administration Date Status Comme nts Flu Vaccine IM Intramuscular 04/05/2011 Administered Flu Vaccine Unknown 03/12/2012 Administered PPSV23 (Pnemovax) IM Intramuscular 09/21/2012 Administered Flu Vaccine IM Intramuscular 03/30/2015 Administered pt re cieved the high dose flu at the [facility] in [place]. 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 confirmed Problem 77571395 Atelectasis (J98.11) Active confirmed Problem 453104386 Tubular adenoma of colon (D12.6) Active confirmed Problem Acquired hypothyroidism (733257430) Acquired hypothyroidism (E03.9) Active confirmed Problem 199972629 Mild intermitten t asthma without complication (J45.20) Active confirmed Problem 8154907 Prediabetes (R73.09) Active confirmed Problem 547211317 Low HDL (under 40) (E78.6) Active confirmed Problem 43703807 Hiatal hernia (K44.9) Active confirmed Problem 56367268 Abdominal aortic aneurysm (AAA) without rupture (I71.4) Active confirmed Problem 063204364 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) Active confirmed Problem 05707386 ARUN (obstructive sleep apnea) (G47.33) Active confirmed Problem 866741454 Head and neck cancer (C76.0) Active confirmed Problem 03942246 Thrombosis, portal vein (I81) Active confirmed Vital Signs Blood pressure diastolic 80 mm Hg 01/10/2025 zaheer ght is down 7 pounds since 04-12-24 Height 68 in 01/10/2025 weight is down 7 pounds since 04-12-24 Blood pressure systolic 132 mm Hg 01/10/2025 weig ht is down 7 pounds since 04-12-24 Weight 160 lbs 01/10/2025 weight is down 7 pounds since 04-12-24 BMI 24.33 kg/m2 01/10/2025 weight is down 7 pounds since 04-12-24 Encounters Encounter Location Date Provider Diagnosis Zane Rivera MD [address] [place] [address] [address] [place], [place] [phone] 03/29/2024 Zane Rivrea Encounter for immunization Z23 Zane Rivera MD [address] [place] [id number] 01/03/2025 Zane Rivera Prediabetes R73.09 ; Acquired hypothyroidism E03.9 and Low HDL (under 40) E78.6 Zane Rivera MD [address] [place] [id number] 01/10/2025 Zane Rivera UTI (urinary tract infection) N39.0 ; Elevated PSA R97.20 ; Thrombosis, portal vein I81 and Head and neck cancer C76.0 Zane Rivera MD [address] [place] [id number] 04/12/2024 Zane Rivera Prediabetes R73.09 ; Thrombosis, portal vein I81 and 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 Zane Rivera MD [address] [place] [id number] 04/30/2024 Zane Rivera MD [address] [place] [id number] 05/04/2024 Zane Rivera Thrombosis, portal vein I81 Zane Rivera MD [address] [place] [id number] 05/04/2024 Zane Rivera MD [address] [place] [id number] 10/05/2024 Zane Rivera Thrombosis, portal vein I81 Zane Rivera MD [address] [place] [id number] 10/07/2024 Zane Rivera Thrombosis, portal vein I81 Zane Rivera MD [address] [place] [id number] 12/28/2024 Zane Rivera Assessments Encounter Date Diagnosis (ICD Code) Assessment Notes Treatment Notes Treatment Clinical Notes Section Notes 03/29/2024 Encounter for immunization (ICD-10 - Z23) 01/03/2025 Prediabetes (ICD-10 - R73.09) 01/10/2025 UTI (urinary tract infection) (ICD-10 - N39.0) 01/10/2025 Elevated PSA (ICD-10 - R97.20) has a uti so is probalbly from that will repeat 04/12/2024 Prediabetes (ICD-10 - R73.09) 05/04/2024 Thrombosis, portal vein (ICD-10 - I81) 10/05/2024 Thrombosis, portal vein (ICD-10 - I81) 10/07/2024 Thrombosis, portal vein (ICD-10 - I81) 01/03/2025 Acquired hypothyroidism (ICD-10 - E03.9) 01/10/2025 Thrombosis, 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 Plan Of Treatment Pending Test Test Name Order Date Electrocardiogram (EKG) 12/05/2016 Electrocardiogram (EKG) 12/19/2017 TSH (THYROID STIMULATING HORMONE) 2019 ECHO 12/29/2018 Next Appt Details Provider Name:Zane ireland, 01/20/2025 07:45:00 AM, [address] [place] [address], [address], [phone], Provider Name:Zane ireland, 07/14/2025 02:00:00 PM, [address] [place] [address], [address], [phone], Provider Name:Zane ireland, 01/05/2026 07:00:00 AM, [address] [place] [address], [address], [phone], Provider Name:Zane ireland, 01/12/2026 01:00:00 PM, [address] [place] [address], [address], [phone], Insurance Providers Payer Name Payer Address Payer Phone Subscriber Number Group Number Insured Name Patient Relationship to Insured Coverage Start Date Coverage End Date [employer] [address] [place] [address] [id number] Charanjit , Gary Self - patient is the insured [employer] [place] [place] [address] [place] [address] [id number] CharanjitGary granado Self - patient is the insured 5 Medical (General) History Medical History History ICD Code colonoscopy 10/2008 [...]
--- OUTSIDE RECORDS SUMMARY | 2025-01-14 10:26 | XMS_ITS | Data Portability ---
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 Overall things are stable with woody induration in the neck. Chronic edema of the arytenoids and supraglottis without pooling of secretions. check TSH f/u 6 months jschreibstein Not available 07/05/2024 09:27:38 01/05/2025 01/05/2025 No evidence of disease on examination today. Fiberoptic examination of nasopharynx, hypopharynx and larynx was stable. Cancer surveillance in 6 months was recommended. 1. 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 Management involves voice conservation strategies. 2. Dysphagia Stable with adjusted nutritional intake; advised to continue prescribed swallowing exercises. 3. Hearing Impairment Hearing aids effectively used, no immediate changes required, but future audiology consult anticipated. 4. 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 5. Anticoagulation Therapy Ongoing use of Eliquis advised, with periodic monitoring to reduce risk of possible embolic events. Has vascular f/u jschreibstein Not available 01/05/2025 09:16:10 Plan of Treatment Reminders Order Date Submit Date Provider Last Modified By Organization Details Last Modified Time Details Appointments Establish ed 30 2025 09:00A M SAROJ ROJAS MD Not available Not available Not available Lab TSH + free T4, serum 2024 025 MARQUEZ [facility] (Centralized Electronic Ordering - All Locations), Patient Can Go To The Location Of Their Choice, [address] 07/06/2024 01:20:46 Referral None recorded. Procedures None recorded. Surgeries None recorded. Imaging None recorded. Medication Orders None recorded. Patient TargetsNo targets recorded. Patient Instructions Encounter Date Encounter Id Patient Instructions Last Modified By Organization Details Last Modified Time 01/05/2025 [id number] Please note: Parts of this encounter note have been generated by AI based on audio conversation. Patient consent was required prior to utilizing this technology. Content review was required prior to finalizing the note. eddie Not available 01/05/2025 09:13:15 Reason for Referral None Reported. Results Created Date Observation Date Name Description Value Unit Range Abnormal Flag Note LastModifiedBy Organization Detail LastModifiedTime 07/05/1907/05/2024 TSH+F REE T4 T4,free(dire ct) 1.10 NG/dL 0.82-1 .77 normal Not Available [facility] ([facility]) [address] [place], [address], 07/06/2024 01:20:46 07/05/19 25 07/06/2024 TSH+F REE T4 TSH 1.710 uIU/m L 0.450- 4.500 normal Not Available [facility] ([facility]) [address] [place], [address], 07/06/2024 01:20:46 02/10/20 24 06/30/2018 lucai ng/veronica jones tic resul t No observ ation record [...] Name and Address Organization Details Recorded Time Neoplasti c disease of uncertain behavior 400685760 Active 2015 Neoplasm of uncertain behavior of other specified sites; Note: Date Diagnosed : 12/18/2015 9:02 AM (D48.7) Not Available [facility] 4 02:23:27 Otorrhea of left ear 64981117615 78379 Active 2015 Otorrhea, left ear; Note: Date Diagnosed : 12/18/2015 9:02 AM (H92.12) Not Available [facility] 4 02:23:26 Mass of neck 209958645 Active 2015 Localized swelling, mass and lump, neck; Note: Date Diagnosed : 12/18/2015 8:49 AM (R22.1) Not Available [facility] 4 02:23:18 Neck swelling 537420863 Active 2015 Localized swelling, mass and lump, neck; Note: Date Diagnosed : 12/18/2015 8:49 AM (R22.1) Not Available [facility] 4 02:23:18 Malignant tumor of head and neck 888415177 Active 2015 Malignant neoplasm of head, face and neck; Note: Date Diagnosed : 12/20/2015 12:30 PM (C76.0) Not Available [facility] 4 02:23:24 Sensorine ural hearing loss of bilateral ears 918305334 Active 2015 Sensorine ural hearing loss, bilateral ; Note: Date Diagnosed : 01/12/2016 4:44 PM (H90.3) Not Available [facility] 4 02:23:26 Antineopl astic chemother apy regimen Active 2015 Encounter for antineopl astic chemother apy; Note: Date Diagnosed : 03/08/2016 1:26 PM (Z51.11) Not Available [facility] 4 02:23:15 Stomatiti s 51899557 Active 2015 Oral thrush; Note: Date Diagnosed : 6 12:11 PM (B37.0) Not Available [facility] 4 02:23:07 Candidias is of mouth 41639869 Active 2015 Oral thrush; Note: Date Diagnosed : 6 12:11 PM (B37.0) Not Available [facility] 02:23[facility]07 History of malignant neoplasm of oral cavity 614196700 Active 2016 Personal history of malignant neoplasm of other sites of lip, oral cavity, and pharynx; Note: Date Diagnosed : 08/09/2016 2:57 PM (Z85.818) Not Available [facility] 4 02:23:23 Edema of larynx 41039794 Active 2016 Edema of larynx; Note: Date Diagnosed : 08/09/2016 5:54 PM (J38.4) Not Available [facility] 4 02:22:42 Follow-up visit Active 2016 Encounter for follow-up examinati on after completed treatment for malignant neoplasm; Note: Date Diagnosed : 10/10/2016 10:01 AM (Z08) Not Available [facility] 4 02:23:09 Dysphonia 28837989 Active 2016 Hoarsenes s; Note: Date Diagnosed : 12/06/2016 9:55 AM (R49.0) Not Available [facility] 4 02:23:06 Chronic rhinitis 69747302 Active 2018 Chronic rhinitis; Note: Date Diagnosed : 12/30/2018 11:36 AM (J31.0) Not Available [facility] 4 02:23:27 Celluliti s 289751930 Active 2018 Celluliti s of other sites; Note: Date Diagnosed : 12/30/2018 2:44 PM (L03.818) Not Available [facility] 4 02:22:39 Posterior rhinorrhe a 85965377 Active 2018 Postnasal drip; Note: Date Diagnosed : 12/30/2018 11:35 AM (R09.82) Not Available [facility] 4 02:22:39 Lymphedem a 318030085 Active 2019 Lymphedem a, not elsewhere classifie d; Note: Date Diagnosed : 07/05/2019 9:04 AM (I89.0) Not Available [facility] 4 02:23:20 Pharyngea l dysphagia 31797113279 105 Active 2022 Dysphagia , pharyngea l phase; Note: Date Diagnosed : 01/01/2023 9:29 AM (R13.13) Not Available [facility] 4 02:23:13 Chronic hoarsenes s 13111267092 05 Active 2023 SAROJ SHORE MD [address] [facility] [place],[facility] [place], [address] , [facility] - [facility] 4 09:10:44 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 Procedures Surgical History Date Name Laterality Status Provider Name and Address Organization Details Recorded Time 01/06/20 25 Fiberoptic Laryngoscopy (Comprehensive) completed SAROJ MONTANO MD [address] [facility] [place] [address], [place], [address], [facility] - [facility] 01/05/2025 09:15:35 07/05/19 25 Fiberoptic Laryngoscopy (Comprehensive) completed SAROJ MONTANO MD [address] [facility] [place],[address], [address], [facility] 07/04/2024 15:13:59 12/31/19 24 Fiberoptic Laryngoscopy (Comprehensive) completed SAROJ MONTANO MD [address] [facility] [place],[address], [address], [facility] 12/31/2023 09:09:53 hernia repair completed Suzanne Espinoza [facility] 01/05/2025 08:51:00 Imaging Results None recorded. Procedure Notes None recorded. Medical Equipment None Reported. Allergies No known drug allergies Medications Name Sig Start Date Stop Date Status Note LastModified by Organization Details LastModified Time tetracycl ine 500 mg capsule TAKE 1 CAPSULE BY MOUTH FOUR TIMES DAILY FOR 14 DAYS 01/05 completed Not Available Not Available Not Available clotrimaz ole 10 mg adeline 1 adeline in mouth 01/05 completed Medicati on ID: [id number] D uration Value: 7 Prescri bed By Name: Caroline Luciano nd Name: clotrima zole Sen d Method: E-Prescr ibed Sub s Allowed: subs OK Medic ationGen ericName : clotrima zole Not Available Not Available Not Available nystatin 100,000 unit/mL oral suspensio n 10/10 completed Medicati on ID: [id number] P rescribe d By Name: Bang elizalde MD Brand Name: nystatin Send Method: E-Prescr ibed Sub s Allowed: subs OK Speci al Instruct ion: 5 ml swish and swallow four times daily x 2-4 weeks Me dication GenericN bahman: nystatin Not Available Not Available Not Available metronida zole 250 mg tablet TAKE 1 TABLET BY MOUTH FOUR TIMES DAILY FOR 14 DAYS 01/05 completed Not Available Not Available Not Available oxycodone 5 mg/5 mL oral solution 10/10 completed Medicati on ID: [id number] D uration Value: 14 Reason: () Brand Name: oxycodon e Send Method: E-Prescr ibed Sub s Allowed: subs OK Speci al Instruct ion: take 10 millilit ers by mouth every 6 hours if needed for 14 days TAKE MINIMUM EFFECTIV E DOSE Med icationG enericNa me: oxycodon e Not Available Not Available Not Available lorazepam 0.5 mg tablet 01/05 completed Medicati on ID: [id number] D uration Value: 30 Brand Name: lorazepa m Send Method: E-Prescr ibed Sub s Allowed: subs OK Speci al Instruct ion: TAKE 1 TABLET BY MOUTH 3 TIMES DAILY Me dication GenericN bahman: lorazepa m Not Available Not Available Not Available Augmentin ES-600 600 mg-42.9 mg/5 mL oral suspensio n 2 teaspoon by mouth 07/04 completed Medicati on ID: [id number] D uration Value: 10 Brand Name: Augmenti n ES-600 S end Method: E-Prescr ibed Sub s Allowed: subs OK Medic ationGen ericName : Augmenti n ES-600 M anthony n ID: [id number] D uration Value: 10 Brand Name: Augmenti n ES-600 S end Method: E-Prescr ibed Sub s Allowed: subs OK Medic ationGen ericName : Augmenti n ES-600 Not Available Not Available Not Available bismuth subsalicy late 262 mg chewable tablet CHEW AND SWALLOW 2 TABLETS BY MOUTH FOUR TIMES DAILY FOR 14 DAYS 01/05 completed Not Available Not Available Not Available omeprazol e 20 mg capsule,d elayed release TAKE 1 CAPSULE BY MOUTH TWICE DAILY FOR 14 DAYS 01/05 completed Not Available Not Available Not Available albuterol sulfate HFA 90 mcg/actua tion aerosol inhaler INHALE 2 PUFFS BY MOUTH EVERY 4 HOURS NEEDED 01/05 completed Not Available Not Available Not Available Ciprodex 0.3 %-0.1 % ear drops,carroll pension 4 drop 07/04 completed Medicati on ID: [id number] D uration Value: 7 Prescri bed By Name: Caroline Luciano nd Name: Ciprodex Send Method: E-Prescr ibed Sub s Allowed: subs OK Medic ationGen ericName : Ciprodex Not Available Not Available Not Available Eliquis 5 mg tablet TAKE 1 TABLET BY MOUTH TWICE A DAY active Not Available Not Available No t Available Vitals Date Recorded Body height Body mass index (BMI) Body weight Provider Name and Address Organization Details Last Updated DateTime 07/05/2024 172.72 cm 24.3 kg/m2 76782.78 g Thomas Peñaloza [place] - [facility] 07/05/2024 08:52:17 Date Recorded Body height Body mass index (BMI) Body weight Provider Name and Address Organization Details Last Updated DateTime 12/31/2023 172.72 cm 24.9 kg/m2 81599.15 g Thomas Peñaloza [place] - [facility] 12/31/2023 08:51:27 Social History None recorded. Functional Status None recorded. Mental Status None recorded. Family History Nothing Reported. Medical History Condition Response Cancer Y Past Encounters Encounter ID Performer Location Encounter Start Date Encounter Closed Date Diagnosis/Indication Diagnosis SNOMED-CT Code Diagnosis ICD10 Code Diagnosis Note [id number] SAROJ SHORE MD [facility] [address] [address] 12/31/2023 08:40:00 12/31/2023 09:11:51 Edema of larynx following radiotherapy 120296585 Y84.2 History of malignant neoplasm of digestive organ 6996745891 4284955 Z85.00 Chronic hoarseness 48435 92415 105 R49.0 [id number] SAROJ SHORE MD [facility] [address] [address] 07/05/2024 08:45:33 07/05/2024 09:30:21 Edema of larynx following radiotherapy 857584589 Y84.2 History of malignant neoplasm of digestive organ 4554045228 7433808 Z85.00 Chronic hoarseness 25624 29635 105 R49.0 [id number] SAROJ SHORE MD [facility] [address] [address] 01/05/2025 08:38:06 01/05/2025 09:16:09 Edema of larynx 79661481 J38.4 Dysphonia 20851201 R49.0 History of malignant neoplasm of oral cavity 629423463 Z85.819 Lymphedema 252011054 I89 .0 Health Concerns Section Related Observation LastModified by Organization Detai ls LastModified Time None Recorded Concern Status LastModified by Organization Details LastModified Time None Recorded Advance Directives Directive None Recorded Payers Insurance Date Sequence Insurance Name Policy Number Policy Donaldson Covered Member ID Donaldson Member ID Guarantor Name 01/05/2025 2 [place] [id number] Gary Donohue [id number] Gary Donohue 01/05/2025 1 [place] [employer] - innovate | mentor | invest SERVICES Gary Donohue [id number] Gary Bianchitte Notes Date Note Type Note Provider Name and Address Organization Details Recorded Time 12/31/2023 text/html ROS as noted in the HPI Recent hospitalization for sepsis and cholecystitis with [...] 2022Using CPAP regularly. 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 He has completed chemo/XRT on 03/2016.Still having issues with wet voice and some swallowing difficulties with small particles. Occasional irritation.Weight stable at 168 No ear paincontinues on Eliquis The patient is a 79-year-old male presenting with diplophonia. He reports a persistent raspy and double-toned voice, attributed to vocal cord swelling as a sequela of previous cancer treatment. The patient also experiences voice fatigue by the end of the day. 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 The patient has a known hearing impairment, utilizes hearing aids, and recognizes the need for future audiological assessment. His history includes a treated intestinal blockage managed with medication, negating the need for surgical intervention, and he continues on Eliquis for thromboembolic prevention following a prior event. Furthermore, his weight has stabilized at 168 pounds over several months post-cancer treatment, with no significant recent fluctuations due to a reduced appetite. Despite these challenges, the patient maintains an adaptive nutritional intake. SAROJ MONTANO MD [address] [place] [address], [place], [address], [facility] - [facility] 01/05/2025 09:16:59"
--- OUTSIDE RECORDS SUMMARY | 2025-01-14 10:26 | XMS_ITS | Patient Health Record ---
Author Organization [facility] Address [address] [place] [address] Care Team Providers Care Strategy Planning Consultant Name Role Phone Zane Rivera MD Primary Care Provider Bang Chairez Unavailable [phone] Allergies Allergen (clinical drug ingredient) Drug/Non Drug [...] Problem Status W/U Status Risk Notes Problem 895391926 Encounter for screening for malignant neoplasm of colon (Z12.11) Active confirmed Problem Portal vein thrombosis (24226713) Portal vein thrombosis (I81) Active confirmed Problem Gallstones (049779716) Gallstones (K80.20) Active confirmed Problem 219746518 Long-term use of aspirin therapy (Z79.82) Active confirmed Problem 056248802 Hx of adenomatous colonic polyps (Z86.010) Active confirmed Problem 446210892861972 Pre-procedural examination (Z01.818) Active confirmed Vital Signs Blood pressure diastolic 111 mm Hg 09/28/2024 Height 67.5 in 09/28/2024 Blood pressure systolic 111 mm Hg 09/28/2024 Weight 166 lbs 09/28/2024 BMI 25.61 kg/m2 09/28/2024 Encounters Encounter Location Date Provider Diagnosis [facility] [address] [place] [address] 09/28/2024 Bang Goldstein Hx of adenomatous colonic [...] Date MEDICARE OF [place] [address] [place] [address] [id number] MOUNA JUDSON Self - patient is the insured 2 [employer] ATTN CLAIMS [address] [place] [address] [id number] MOUNA , JUDSON Self - patient is the insured Medical (General) History Medical History History ICD Code Colonoscopy, 1999, 2002,2008, 04/2014 tu bular adenomas Asthma--uses inhaler prn Diverticulosis History of a mild esophageal ring, status post EGD with dilatation in 1993--no esophagitis Denies LA,DM,CVA,renal disease Squamous cell cancer throat in 2015 [...] pylori. This was all done by the [facility]. Portal vein thrombosis as above. Surgical History Surgery Date(Month/Year) G-tube and Port for his cancer treatment s in 2015 Right inguinal hernia Retinal laser-left eye 2011
--- NOTE | 2025-01-14 12:32 | MHC.AU.HA3 ---
Hearing Instrument Follow-Up- Binaural Date of Visit: 01/14/25 Right Ear: Raman, , Color, Serial Number: Shirin Gastelum [id number] SN: [id number] Color: Graphite [employer]hi [employer] Repair Warranty: 08/25/2021 [employer] Loss and Damage Warranty: 08/25/2021 [facility] Service Plan: 10/11/2025 Battery Size: 312 Mat Machine Operator/Slim Tube: 3M Earmold/Dome/CShell/SlimTip:Large open dome (no retention tail) Type of Wax Guard: CeruShield Dispensed By: [facility] Date of Fittin06/19/2018 Left Ear: Raman, , Color, Serial Number: Shriin Gastelum [id number] SN: [id number] Color: Graphite [employer]hi [employer] Repair Warranty: 08/25/2021 [employer] Loss and Damage Warranty: 08/25/2021 [facility] Service Plan: 10/11/2025 Battery Size: 312 Mat Machine Operator/Slim Tube: 3M Earmold/Dome/CShell/SlimTip: Medium power dome (no retention tail) Type of Wax Guard: CeruShield Dispensed By: [facility] Date of Fittin06/19/2018 Follow-Up Summary: Both aids dropped off c/o weak . Found significant build up of wax on domes, receivers completely occluded with wax. Cleaned aids, replaced wax guards, replaced domes. Listening check positive. Recommendations: Recommendations: Hearing instrument follow-up or maintenance as needed. Diagnosis Code(s): Primary Diagnosis: H90.3 Bilateral Sensorineural Hearing Loss Signature: Provider: Brice Samuels, [facility]
== END 2025-01-14 10:07 | disposition home or self-care (01) ==
LOC: HO.SH 10:06
PROVIDERS: Visit Provider Internal Medicine
DX: Z01.118 Encounter for examination of ears and hearing with other abnormal findings (principal); H90.3 Sensorineural hearing loss, bilateral
CPT/HCPCS: 92593

== ENCOUNTER 2025-01-20 09:42 | Outpatient (REF) | payer MEDICARE, SELFPAY ==
[2025-01-20 09:51] LABS: Appearance Urine Clear; Glucose Urine UA Negative (Negative); PH 7.0 (5.0-9.0); Specific Gravity - Urine 1.010 (1.005-1.025); UMIC TRIGGER UACC YES
--- OUTSIDE RECORDS SUMMARY | 2025-01-20 10:11 | XMS_ITS | Clinical Summary ---
Author Organization [facility] [place] [facility] Address [address] [facility] [address] [place] [address] Phone Care Team Providers Care Laboratory Cureman Name Role Phone Zane Rivera MD Primary Care Provider Medications No known medications Active Problems No known active problems Social History Tobacco Use Types Packs/Day Years Used Date Smoking Tobacco: Never Assessed Education Answer Date Recorded Are you interested in more education? Not on chloe e 10/18/2022 Are you concerned about learning? Not on file 10/18/2022 No 10/18/2022 No 10/18/2022 Digital Access Answer Date Recorded No 11/16/2022 No 11/16/2022 Reliable internet access at home? Not on file 11/16/2022 Device with a working camera? Not on file Sex and Gender Information Value Date Recorded Sex Assigned at Not on file Legal Sex Male 3:26 PM EST Gender Identity Not on file Sexual Orientation Not on file Plan of Treatment Health Maintenance Due Date Last Done Comments LIPID PANEL 1945 DEPRESSION SCREENING 1958 SMOKING Hx and SMOKELESS TOBACCO SCREENING 1959 HEPATITIS C SCREENING 1964 ZOSTER VACCINES (1 of 2) 1996 RSV VACCINE (1 - 1-dose 75+ series) 2021 COVID-19 VACCINE (2023-2 5 season) 2024 10/19/2020, 09/20/2020 Adult Td,Tdap Booster 06/12/2027 06/12/2017 PNEUMOCOCCAL VACCINES (50+ years) Completed 12/29/2018, 06/02/2017 HEPATITIS A VACCINES Aged Out No long er eligible based on patient's age to complete this topic HIB VACCINES Aged Out No longer eligi ble based on patient's age to complete this topic MENINGOCOCCAL VACCINES (ACWY) Aged Out No longer eligible based on patient's age to complete this topic MENINGOCOCCAL VACCINES (B) Aged Out N o longer eligible based on patient's age to complete this topic Medical Devices Not on file Insurance MEDICARE PART A & B [facility] MEDEX SUPPLEMENT MEDICARE PART A & B [employer] MEDEX SUPPLEMENT MEDICARE PART A & B [employer] [place] [address] MEDICARE PART A & B Scratch [employer] MEDEX SUPPLEMENT MEDICARE PART A & B Scratch [employer] MEDEX SUPPLEMENT MEDICARE PART A & B Scratch [employer] MEDEX SUPPLEMENT MEDICARE PART A & B Scratch Hard MEDEX SUPPLEMENT MEDICARE PART A & B MEDEX SUPPLEMENT MEDICARE PART A & B [place] MEDEX SUPPLEMENT Care Teams Laboratory Cureman Relationship Specialty Start Date End Date Zane Rivera MD [address] [place] [address] [place] [address] PCP - General Internal Medicine 06/27/17 Additional Source Comments The information contained in this document represents components of the legal health record. It is not the complete legal health record.[facility] [place] [facility]
--- OUTSIDE RECORDS SUMMARY | 2025-01-20 10:11 | XMS_ITS | Patient Health Record ---
Author Organization Zane Rivera MD Address [address] [place], [place] [phone] Care Team Providers Care Manuscript Editor Name Role Phone Miguel Zane Primary Care Provider Allergies No Known Allergies Results Component Value Reference Range Notes Hemoglobin A1c Reviewed date:05/10/2024 03:11:18 PM Interpretation:5.7 Performing Lab: Notes/Report: 5.7 Complete Blood Count Auto Di ff Reviewed date:01/03/2025 12:58:28 PM Interpretation: Performing Lab:[facility], [address] [place] [phone] Notes/Report: White Blood Count 7.0 4.8-10.8 X10*3/uL [...] NRBC Abs Auto 0.000 0.0-0.012 X10*3/uL Comprehensive [place]. Panel Fa st Reviewed date:01/03/2025 12:57:57 PM Interpretation: Performing Lab:[facility], [address] [place] [phone] Notes/Report: Sodium 140 135-145 mmol/L Potassium 4.5 [...] Panel Reviewed date:01/03/2025 12:55:43 PM Interpretation: Performing Lab:[facility], [address] [place] [phone] Notes/Report: Triglycerides 47 <150 mg/dL Desirable Triglyceride: [...] Reviewed date:01/13/2025 07:56:48 AM Interpretation:BRIDGETT 01/10 Performing Lab:[address] [phone] Notes/Report: PSA,Total (Free>4and<10) 4.60 0.00-4.00 ng/mL PSA methodology: Amezquita Alinity i Chemiluminescent Microparticle Immunoassay (CMIA) TSH reflex Free T4 Reviewed date:01/03/2025 12:57:39 PM Interpretation: Performing Lab:[facility], [address] [place] [phone] Notes/Report: TSH reflex Free T4 1.53 0.32-4.0 uIU/mL UA ClnCatch+Micro w/rflx Cul t Reviewed date:01/03/2025 01:01:54 PM Interpretation: Performing Lab:[facility], [address] [place] [phone] Notes/Report: Urine, Clean Catch Color Urine Yellow Appearance Urine Cloudy PH 7.0 5.0-9.0 Glucose Urine UA Negative Negative mg/dL Urine Blood Trace Negative Specific [place] - Urine 1.015 1.005-1.025 Urine Protein Negative Neg-Trace mg/dL Urine Ketones Negative Negative mg/dL Nitrite Urine Negative Negative Leukocyte Esterase Urine Moderate (2+) Negative RBC Urine 3-5 0-2 /HPF WBC Urine 21-50 0-5 /HPF Squamous Epithelial Cell Urine 0-2 0-2 /HPF Bacteria Urine 4+ None Seen Hyaline Casts Urine 0-2 0-2 /LPF UA ClnCatch+Micro w/rflx Cul t (Not yet reviewed by provider) Interpretation: Performing Lab:[facility], [address] [place] [phone] Notes/Report: Urine, Clean Catch Color Urine Yellow Appearance Urine Clear PH 7.0 5.0-9.0 Glucose Urine UA Negative Negative mg/dL Urine Blood Negative Negative Specific [place] - Urine 1.010 1.005-1.025 Urine Protein Negative [...] Pathology Reviewed date:02/02/2024 12:43:47 PM Interpretation: Performing Lab:[facility], [address] [place] [phone] Notes/Report: ---- Name: Cristy Donohue J Age/Sex: 78/M [facility] 1945 [id number]#: [id number] Attend Dr: Hollie Robison MD Re01/29/24 Status : [facility] Location: [facility] Disch: ---- SPEC : [id number] RECD : 01/29/24-130 STATUS: LOAN MTZ NUM: [id number] LUIS MANUEL: 01/29/24-[address] [facility] [address]: Hollie Robison MD ENTERED: 01/29/24-02 [...] B CONTINUED ON NEXT PAGE ---- Name: CharanjitCristy J Age/Sex: 78/M : 1945 Unit#: [id number] Attend Dr: Hollie Robison MD Re01/29/24 Status : [facility] Location: [facility] Disch: ---- SPEC : [id number] RECD : 01/29/24-1302 STATUS: LOAN MOYASilke NUM: [id number] LUIS MANUEL: 01/29/24-[address] [facility] [address]: Hollie Robison MD ENTERED: 01/29/24- 08 SP TYPE: Surgical OTHR DR: Zane Rivera MD ORDERED: HE Stain/6, Gross Micro L4/2, IHC/2, Special st. 2/2, H. pylori/2, AB/PAS/2 Copies To: Zane Rivera MD [facility] [address] [id number] Hollie Robison MD [facility] [address] [place], [place] [id number] [email or web address] ---- Signed (signature on file) Alfonso Cisneros MD 02/02/24 1204 ---- END OF REPORT Liver Panel Reviewed date:04/28/2024 12:14:02 PM Interpretation: Performing Lab:[facility], [address] [place] [phone] Notes/Report: Bilirubin Total 0.6 0.0-1.0 mg/dL Bilirubin Direct 0.2 0.0-0.5 mg/dL Aspartate Amino Transferase 23 5-37 U/L Alanine Aminotransferase 15 0-40 U/L Total Protein 7.2 6.5-8.0 g/dL Albumin Level 4.1 3.5-5.0 g/dL Alkaline Phosphatase 92 39-117 U/L US abdomen complete Reviewed date:06/13/2024 03:50:38 PM Interpretation: Performing Lab: Notes/Report: [address] [address] Ultrasound Report Signed Patient: Gary Donohue MR#: [id number] : 1945 Acct:[id number] Age/Sex: 78 / M ADM Date: 05/10/24 Loc: HO.US Attending Dr: Hollie Robison MD Ordering Physician: Hollie Robison MD Date of Service: 05/10/24 Procedure(s): US abdomen complete Accession Number(s): [id number] cc: Zane Rivera MD; Hollie Robison MD Exam dictated in conjunction with ultrasound duplex arterial venous performed of the same day. Electronically signed by: Jesus Junior MD 06/13/2024 11:31 AM EST RP Dictated By: Jesus Junior MD Signed By: <Electronically signed by Jesus Junior MD in OV> 06/13/24 1131 DD/ 0937 TD/TT: 05/10/24 1023 [employer] Manager: [address] [address] Ultrasound Report Signed Patient: Gary Donohue MR#: [id number] : 1945 Acct:[id number] Age/Sex: 78 / M ADM Date: 05/10/24 Loc: HO.US Attending Dr: Hollie Robison MD Ordering Physician: Hollie Robison MD Date of Service: 05/10/24 Procedure(s): US abd omen complete Accession Number(s): [id number] cc: Zane Rivera MD; Hollie Robison MD Exam dictated in conjunction with ultrasound duplex arterial venous performed of the . Electronically marcial d by: Jesus Junior MD 06/13/2024 11:31 AM EST RP Dictated By: Jesus Junior MD Signed By: <Electronically signed by Jesus Junior MD in OV> 06/13/24 1131 DD/ 0937 TD/TT: 05/10/24 1023 [employer] Manager: US duplex arterial venous co mp Reviewed date:06/03/2024 08:29:24 AM Interpretation: Performing Lab: Notes/Report: [address] [address] Ultrasound Report Signed Patient: Gary Donohue MR#: [id number] : 1945 Acct:[id number] Age/Sex: 78 / M ADM Date: 05/10/24 Loc: HO.US Attending Dr: Hollie Robison MD Ordering Physician: Hollie Robison MD Date of Service: 05/10/24 Procedure(s): US duplex arterial venous comp Accession Number(s): [id number] cc: Zane Rivera MD; Hollie Robison MD [...] by: Kandice Sherwood MD 06/02/2024 05:24 PM [facility] Dictated By: Elsa Sherwood Signed By: <Electronically signed by Elsa Sherwood in OV> 06/02/24 2934 DD/ 0937 TD/TT: 05/10/24 1023 [employer] Manager: [address] [address] Ultrasound Report Signed Patient: Gary Donohue MR#: [id number] : 1945 Acct:[id number] Age/Sex: 78 / M ADM Date: 05/10/24 Loc: HO.US Attending Dr: Hollie Robison MD Ordering Physician: Hollie Robison MD Date of Service: 05/10/24 Procedure(s): US dup nicolasa arterial venous comp Accession Number(s): [id number] cc: Zane Rivera MD; Hollie Robison MD [...] by: Kandice Sherwood MD 06/02/2024 05:24 PM [facility] Dictated By: Elsa Sherwood Signed By: <Electronically signed by Elsa Sherwood in OV> 06/02/24 1724 DD/ 0937 TD/TT: 05/10/24 1023 [employer] Manager: H Pylori Breath Test Reviewed date:06/25/2024 12:27:54 PM Interpretation: Performing Lab:[facility], [address] [place] [phone] Notes/Report: H Pylori Breath Test Negative Negative Antimicrobials, proton pump inhibitors and bismuth preparations are known to suppress H. pylori. Ingesting these medications within two weeks prior to performing the breath test may produce negative test results. A positive result is still clinically valid. PSA Free and Total Reviewed date:01/04/2025 05:10:04 PM Interpretation: Performing Lab:[facility], [address] [place] [phone] Notes/Report: Prostate Specific Ag Total 3.7 < OR = 4.0 ng/mL Percent Free Prostate Spec Ag 16 >25 % (calc) PSA(ng/mL) Free PSA(%) Estimated(x) Probability of Cancer(as%) 0-2.5 (*) Approx. 1 2.6-4.0(1) 0-27(2) 24(3) 4.1-10(4) 0-10 56 11-15 28 16-20 20 21-25 16 >or =26 8 >10(+) N/A >50 References:(1)Endy boyd et al.:Urology 60: 469-474 (2002) (2)Jayshree et al.:J.Urol 168: 922-925 (2002) Free PSA(%) Sensitivity(%) Specificity(%) < or = 25 85 19 < or = 30 93 9 (3)Catalona et al.:BENJA 277: 9671-1337 (1996) (4)Catalona et al.:BENJA 279: 4727-9237 (1997) (x)These estimates vary with age, ethnicity, [...] in mind. PSA was performed using the Ligia Carrillo Immunoassay method. Values obtained from different assay methods cannot be used interchangeably. PSA levels, regardless of value, should not be interpreted as absolute evidence of the presence or absence of disease. THIS TEST WAS PERFORMED AT: [facility] [address] [address] SUMAN WORTHY MD Free Prostate Spec Ag 0.6 Urine Culture Reviewed date:01/11/2025 07:34:28 AM Interpretation:01-10-25 Performing Lab:[address] [phone] Notes/Report: O:ENTFAC Enterococcus faecalis Urine Culture Quant Urine Culture > 100,000 cfu/mL Ampicillin <=2 Levofloxacin 0.5 Nitrofurantoin <=16 Tetracycline >=16 Vancomycin 1 Complete Blood Count Auto Di ff Reviewed date:01/06/2025 12:07:09 PM Interpretation: Performing Lab:[address] [phone] Notes/Report: White Blood Count 5.9 4.8-10.8 X10*3/uL [...] Panel Reviewed date:01/06/2025 05:08:13 PM Interpretation: Performing Lab:[facility], [address] [place] [phone] Notes/Report: Sodium 141 135-145 mmol/L Potassium 4.4 [...] Sensitivity Reviewed date:01/06/2025 12:06:44 PM Interpretation: Performing Lab:[facility], [address] [place] [phone] Notes/Report: D Dimer High Sensitivity 439 Results of d-dimer called to CARLOS on 01/06/25 at 0830 by LANDRY. D-DIMER HS REFERENCE [...] cieved the high dose flu at the [facility] in [place]. 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 confirmed Problem 83237851 Atelectasis (J98.11) Active confirmed Problem 041908357 Tubular adenoma of colon (D12.6) Active confirmed Problem Acquired hypothyroidism (533401000) Acquired hypothyroidism (E03.9) Active confirmed Problem 484368230 Mild intermitten t asthma without complication (J45.20) Active confirmed Problem 6156334 Prediabetes (R73.09) Active confirmed Problem 015225731 Low HDL (under 40) (E78.6) Active confirmed Problem 95594496 Hiatal hernia (K44.9) Active confirmed Problem 24244329 Abdominal aortic aneurysm (AAA) without rupture (I71.4) Active confirmed Problem 225799268 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) Active confirmed Problem 76505736 ARUN (obstructive sleep apnea) (G47.33) Active confirmed Problem 415059092 Head and neck cancer (C76.0) Active confirmed Problem 80565267 Thrombosis, portal vein (I81) Active confirmed Vital Signs Blood pressure diastolic 80 mm Hg 01/10/2025 zaheer ght is down 7 pounds since 04-12-24 Height 68 in 01/10/2025 weight is down 7 pounds since 04-12-24 Blood pressure systolic 132 mm Hg 01/10/2025 zaheerg ht is down 7 pounds since 04-12-24 Weight 160 lbs 01/10/2025 weight is down 7 pounds since 04-12-24 BMI 24.33 kg/m2 01/10/2025 weight is down 7 pounds since 04-12-24 Encounters Encounter Location Date Provider Diagnosis Zane Rivera MD [address] [place] [id number] 03/29/2024 Zane Rivera Encounter for immunization Z23 Zane Rivera MD [address] [place] [id number] 01/03/2025 Zane Rivera Prediabetes R73.09 ; Acquired hypothyroidism E03.9 and Low HDL (under 40) E78.6 Zane Rivera MD [address] [place] [id number] 01/20/2025 Zane Rivera UTI (urinary tract infection) N39.0 Zane Rivera MD [address] [place] [id number] 04/12/2024 Zane Rivera Prediabetes R73.09 ; Thrombosis, portal vein I81 and 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 Zane Rivera MD [address] [place] [id number] 01/10/2025 Zane Rivera UTI (urinary tract infection) N39.0 ; Elevated PSA R97.20 ; Thrombosis, portal vein I81 and Head and neck cancer C76.0 Zane Rivera MD [address] [place] [id number] 04/30/2024 Zane Rivera MD [address] [place] [id number] 05/04/2024 Zane Rivera Thrombosis, portal vein I81 Zane Rivera MD [address] [place] [id number] 05/04/2024 Zane Rivera MD [address] [place] [id number] 10/05/2024 Zane Rivera Thrombosis, portal vein I81 Zane Rivera MD [address] [place] [id number] 10/07/2024 Zanegary Marroquiner Thrombosis, portal vein I81 Zane Rivera MD [address] [place] [id number] 12/28/2024 Zane Rivera Assessments Encounter Date Diagnosis (ICD Code) Assessment Notes Treatment Notes Treatment Clinical Notes Section Notes 03/29/2024 Encounter for immunization (ICD-10 - Z23) 01/03/2025 Prediabetes (ICD-10 - R73.09) 01/20/2025 UTI (urinary tract infection) (ICD-10 - N39.0) 04/12/2024 Prediabetes (ICD-10 - R73.09) 01/10/2025 UTI (urinary tract infection) (ICD-10 - N39.0) 01/10/2025 Elevated PSA (ICD-10 - R97.20) has a uti so is probalbly from that will repeat 05/04/2024 Thrombosis, portal vein (ICD-10 - I81) 10/05/2024 Thrombosis, portal vein (ICD-10 - I81) 10/07/2024 Thrombosis, portal vein (ICD-10 - I81) 01/03/2025 Acquired hypothyroidism (ICD-10 - E03.9) 04/12/2024 Thrombosis, portal vein (ICD-10 - I81) has been on anticoagulant 01/10/2025 Thrombosis, 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 01/10/2025 Head and neck cancer (ICD-10 - C76.0) had recent endoscopy and was negative Plan Of Treatment Pending Test Test Name Order Date Electrocardiogram (EKG) 12/05/2016 Electrocardiogram (EKG) 12/19/2017 TSH (THYROID STIMULATING HORMONE) 2019 UA ClnCatch+Micro w/rflx Cult 01/20/2025 ECHO 12/29/2018 Next Appt Details Provider Name:Zane Mustafa ier, 07/14/2025 02:00:00 PM, [address], [address], [place], [phone], Provider Name:Zane Mustafa ier, 01/05/2026 07:00:00 AM, [address], [address], [place], [phone], Provider Name:Zane Mustafa ier, 01/12/2026 01:00:00 PM, [address], [address], [place], [id number], Insurance Providers Payer Name Payer Address Payer Phone Subscriber Number Group Number Insured Name Patient Relationship to Insured Coverage Start Date Coverage End Date MEDICARE NHIC [address] [place] [address] [id number] Gary Donohue Self - patient is the insured MEDEX BCBS OF [facility] [address] [place] [address] [id number] Gary Donohue Self - patient is the [...] Date(Month/Year) Rt Inguinal Hernia Repair by Dr. Bear powers 04/2017
--- OUTSIDE RECORDS SUMMARY | 2025-01-20 10:12 | XMS_ITS | Patient Health Record ---
Author Organization [facility] Address [address] [place] [address] Care Team Providers Care Liquid Sugar Fortifier Name Role Phone Zane Rivera MD Primary Care Provider Bang Chairez Unavailable [phone] Allergies Allergen (clinical drug ingredient) Drug/Non Drug [...] Problem Status W/U Status Risk Notes Problem 190329968 Encounter for screening for malignant neoplasm of colon (Z12.11) Active confirmed Problem Portal vein thrombosis (21235840) Portal vein thrombosis (I81) Active confirmed Problem Gallstones (222755224) Gallstones (K80.20) Active confirmed Problem 462325005 Long-term use of aspirin therapy (Z79.82) Active confirmed Problem 872502527 Hx of adenomatous colonic polyps (Z86.010) Active confirmed Problem 962495434984201 Pre-procedural examination (Z01.818) Active confirmed Vital Signs Blood pressure diastolic 111 mm Hg 09/28/2024 Height 67.5 in 09/28/2024 Blood pressure systolic 111 mm Hg 09/28/2024 Weight 166 lbs 09/28/2024 BMI 25.61 kg/m2 09/28/2024 Encounters Encounter Location Date Provider Diagnosis [facility] [address] [place] [address] 09/28/2024 Bang Goldstein Hx of adenomatous colonic [...] [place] [address] [place] [address] [id number] MOUNA JUDSON Self - patient is the insured 2 [employer] ATTN CLAIMS [address] [place] [address] [id number] MOUNA , JUDSON Self - patient is the insured Medical (General) History Medical History History ICD Code Colonoscopy, 1999, 2002,2008, 04/2014 tu bular adenomas Asthma--uses inhaler prn Diverticulosis History of a mild esophageal ring, status post EGD with dilatation in 1993--no esophagitis Denies IL,DM,CVA,renal disease Squamous cell cancer throat in 2015 [...] pylori. This was all done by [place] [facility]. Portal vein thrombosis as above. Surgical History Surgery Date(Month/Year) G-tube and Port for his cancer treatment s in 2015 Right inguinal hernia Retinal laser-left eye 2011
== END 2025-01-20 09:43 | disposition home or self-care (01) ==
LOC: HO.LNP 09:42
PROVIDERS: Visit Provider Internal Medicine
DX: N39.0 Urinary tract infection, site not specified (principal)
CPT/HCPCS: 81001

== ENCOUNTER 2025-02-24 14:14 | Outpatient (REF) | payer MEDICARE, SELFPAY ==
--- OUTSIDE RECORDS SUMMARY | 2024-10-07 05:05 | XMS_ITS ---
Author Organization Zane Rivera MD Address [address] [place] [phone] Care Team Providers Care Software Validation Technician Name Role Phone MiguelLyssan Primary Care Provider REASON FOR VISIT ELIQUIS Medications Medication SIG (Take, Route, Frequency, Duration) Notes Start Date End Date Status Eliquis 5 MG TAKE 1 TABLET BY HAVEN TH TWICE DAILY for 30 Active Encounters Encounter Location Date Provider Diagnosis Zane Rivera MD [address] [place] [address] Drive [address] [place] [phone] 10/07/2024 Zane Rivera Thrombosis, portal vein I81 Assessments Encounter Date Diagnosis (ICD Code) Assessment Notes Treatment Notes Treatment Clinical Notes Section Notes 10/07/2024 Thrombosis, portal vein (ICD-10 - I81) Plan Of Treatment Medication Medication Name Sig Start Date Stop Date Notes Eliquis 5 MG TAKE 1 TABLET BY MOUTH TWICE DAILY for 30 Next Appt Details Provider Name:Zane ireland, 07/14/2025 02:00:00 PM, [address] [place] [address], [address], [place], [place], [phone], Provider Name:Zane Mustafa ier, 01/05/2026 07:00:00 AM, [facility], [address], [place], [phone], Provider Name:Zane Mustafa vikir, 01/12/2026 01:00:00 PM, [address] [facility], [address], [place], [phone], Progress Notes * Gary DONOHUE JDOB:[birth year] (79 yo M)Acc No.[id number]:10/07/2024 Patient: Gary DUNCAN :1945 A ge:79 Y S ex:Male Address:[address] [place] [id number] * Refills Refill Eliquis Tablet, 5 MG, 60 Tablet, TAKE 1 TABLET BY MOUTH TWICE DAILY, 30, Refills=0 * true * Date: Generated for Waldemar kay/Chavo/Deandresmitting on: 0 02/24/2025 03:36 PM EDT
--- OUTSIDE RECORDS SUMMARY | 2024-12-28 10:14 | XMS_ITS ---
Author Organization Zane Rivera MD Address [address] [place] [phone] Care Team Providers Care Rn Telemetry Name Role Phone MiguelLyssan Primary Care Provider REASON FOR VISIT appt with Dr. Wilkins Encounters Encounter Location Date Provider Diagnosis Zane Rivera MD 10 [facility] [address] [place] [phone] 12/28/2024 Zane Rivera Plan Of Treatment Next Appt Details Provider Name:Zane ireland, 07/14/2025 02:00:00 PM, [address] [place] [address], Suite [facility], [place], [place], [phone], Provider Name:Zane ireland, 01/05/2026 07:00:00 AM, [address] [place] [address], Suite [facility], [place], [place], [phone], Provider Name:Zane ireland, 01/12/2026 01:00:00 PM, [address], [address], [place], [place], [phone], Progress Notes * Gary DONOHUEDOB:[birth year] (79 yo M)Acc No.[id number]:12/28/2024 Patient: Chato RAMÓNLORRAINEGary :1945 A ge:79 Y S ex:Male Address:[address] [place] [phone] * true * Date: Generated for Waldemar kay/Chavo/eTransmitting on: 0 02/24/2025 03:35 PM EDT
--- OUTSIDE RECORDS SUMMARY | 2025-01-03 03:15 | XMS_ITS ---
Author Organization Zane Rivera MD Address [address] [place], [place] [phone] Care Team Providers Care Vehicle Calibration Engineer Name Role Phone MiguelLyssan Primary Care Provider Results Component Value Reference Range Notes Complete Blood Count Auto Di ff Reviewed date:01/03/2025 12:58:28 PM Interpretation: Performing Lab:[facility], [address] [place] [phone] Notes/Report: White Blood Count 7.0 4.8-10.8 X10*3/uL [...] NRBC Abs Auto 0.000 0.0-0.012 X10*3/uL Comprehensive [place]. Panel Fa st Reviewed date:01/03/2025 12:57:57 PM Interpretation: Performing Lab:[facility], [address] [place] [phone] Notes/Report: Sodium 140 135-145 mmol/L Potassium 4.5 [...] Panel Reviewed date:01/03/2025 12:55:43 PM Interpretation: Performing Lab:[facility], [address] [place] [phone] Notes/Report: Triglycerides 47 <150 mg/dL Desirable Triglyceride: [...] Reviewed date:01/13/2025 07:56:48 AM Interpretation:BRIDGETT 01/10 Performing Lab:[address] [phone] Notes/Report: PSA,Total (Free>4and<10) 4.60 0.00-4.00 ng/mL PSA methodology: Amezquita Alinity i Chemiluminescent Microparticle Immunoassay (CMIA) TSH reflex Free T4 Reviewed date:01/03/2025 12:57:39 PM Interpretation: Performing Lab:[facility], [address] [place] [phone] Notes/Report: TSH reflex Free T4 1.53 0.32-4.0 uIU/mL UA ClnCatch+Micro w/rflx Cul t Reviewed date:01/03/2025 01:01:54 PM Interpretation: Performing Lab:[facility], [address] [place] [phone] Notes/Report: Urine, Clean Catch Color Urine Yellow Appearance Urine Cloudy PH 7.0 5.0-9.0 Glucose Urine UA Negative Negative mg/dL Urine Blood Trace Negative Specific [place] - Urine 1.015 1.005-1.025 Urine Protein Negative [...] Location Date Provider Diagnosis Zane Rivera MD [address] [place] [phone] 01/03/2025 Zane Rivera Prediabetes R73.09 ; Acquired hypothyroidism E03.9 and Low HDL (under 40) E78.6 Assessments Encounter Date Diagnosis (ICD Code) Assessment Notes Treatment Notes Treatment Clinical Notes Section Notes 01/03/2025 Prediabetes (ICD-10 - R73.09) 01/03/2025 Acquired hypothyroidism (ICD-10 - E03.9) 01/03/2025 Low HDL (under 40) (ICD-10 - E78.6) Plan Of Treatment Next Appt Details Provider Name:Zane ireland, 07/14/2025 02:00:00 PM, [address] [place] [address], [address], [phone], Provider Name:Zane ireland, 01/05/2026 07:00:00 AM, [address] [place] [address], [phone], Provider Name:Zane ireland, 01/12/2026 01:00:00 PM, [address] [place] [address], [phone], Progress Notes * Gary DONOHUEDOB:[birth year] (79 yo M)Acc No.[id number]:01/03/2025 Progress Note Patient: Gary DUNCAN Provider: Rashad Rivera MD :1945 A ge:79 Y S ex:Male Date:01/03/2025 Address:[address] [facility] Subjective: * Chief Complaints: * 1 . [...] - 01/03/2025 07:15 AM) L AB: Comprehensive [place]. Panel Fast (Collection Date & Time - [...] - 01/03/2025 07:15 AM) L AB: Comprehensive [place]. Panel Fast (Collection Date & Time - [...] 0 01/03/2025 Generated for Waldemar kay/Chavo/eTransmitting on: 0 02/24/2025 03:35 PM EDT
--- OUTSIDE RECORDS SUMMARY | 2025-01-10 10:30 | XMS_ITS ---
Author Organization Zane Rivera MD Address [address] [place], [place] [id number] Care Team Providers Care Bridge Construction Inspector Name Role Phone Zane Rivera Primary Care Provider [phone] Allergies No Known Allergies REASON FOR VISIT [...] kg/m2 01/10/2025 weight is down 7 pounds [facility] 04-12-24 Encounters Encounter Location Date Provider Diagnosis Zane Rivera MD [address] [place], [place] [phone] 01/10/2025 Zane Rivera UTI (urinary tract infection) [...] Provider Name:Zane ireland, 07/14/2025 02:00:00 PM, [address], [address], [place], [place], [phone], Provider Name:Zane ireland, 01/05/2026 07:00:00 AM, [address] [facility], [address], [place], [place], [phone], Provider Name:Zane Mustafa ier, 01/12/2026 01:00:00 PM, [address] [facility], [address], [place], [place], [phone], Progress Notes * Gary DONOHUEDOB:[birth year] (79 yo M)Acc No.[id number]:01/10/2025 Patient: Gary DUNCAN Provider: Rashad Rivera MD :1945 A ge:79 Y S ex:Male Date:01/10/2025 Address:[address] [place], [place] [phone] Subjective: * Chief Complaints: * C OMP [...] Urine Blood Trace A Negative - Specific [place] - Urine 1.015 1.005-1.025 - Urine Protein [...] Auto 0.000 0.0-0.012 - X10*3/uL L ab:Comprehensive [place]. Panel Fast (Order Date - 01/03/2025) (Collection [...] MD Date: 0 01/10/2025 Generated for Waldemar kay/Chavo/Ronransmitting on: 0 02/24/2025 03:36 PM EDT History and Physical Notes * HPI (History [...]
--- OUTSIDE RECORDS SUMMARY | 2025-01-20 03:45 | XMS_ITS ---
Author Organization Zane Rivera MD Address [address] [place], [place] [id number] Care Team Providers Care Pullman Car Clerk Name Role Phone MiguelLyssan Primary Care Provider Results Component Value Reference Range Notes UA ClnCatch+Micro w/rflx Cul t Reviewed date:01/20/2025 05:23:52 PM Interpretation: Performing Lab:[facility], [address] [place] [phone] Notes/Report: Urine, Clean Catch Color Urine Yellow Appearance Urine Clear PH 7.0 5.0-9.0 Glucose Urine UA Negative Negative mg/dL Urine Blood Negative Negative Specific [place] - Urine 1.010 1.005-1.025 Urine Protein Negative [...] Location Date Provider Diagnosis Zane Rivera MD [address] [place] [address] [place] [phone] 01/20/2025 Zane Rivera UTI (urinary tract infection) N39.0 Assessments Encounter Date Diagnosis (ICD Code) Assessment Notes Treatment Notes Treatment Clinical Notes Section Notes 01/20/2025 UTI (urinary tract infection) (ICD-10 - N39.0) Plan Of Treatment Next Appt Details Provider Name:Zane ireland, 07/14/2025 02:00:00 PM, [address] [place] [address], Suite [facility], [place], [place], [phone], Provider Name:Zane ireland, 01/05/2026 07:00:00 AM, [address] [place] [address], Suite [facility], [place], [place], [phone], Provider Name:Zane ireland, 01/12/2026 01:00:00 PM, [address] [place] [address], [place] [address], [place], [place], [phone], Progress Notes * Gary DONOHUE JDOB:[birth year] (79 yo M)Acc No.[id number]:01/20/2025 Progress Note Patient: Gary DUNCAN Provider: Rashad Rivera MD :1945 A ge:79 Y S ex:Male Date:01/20/2025 Address:[address] [place], [place] [phone] Subjective: * Chief Complaints: * 1 . [...] 0 01/20/2025 Generated for Waldemar kay/Chavo/Rafitting on: 0 02/24/2025 03:35 PM EDT
--- NOTE | ~2025-02-24 | US_ITS ---
EXAMINATION: US DOPPLER portal veins, hepatic veins, splenic vessels and hepatic artery LIMITED CLINICAL INFORMATION: Follow portal vein thrombosis, left side. COMPARISON: May 10, 2024 TECHNIQUE: Ultrasound along with color Doppler imaging and spectral analysis was performed of the name portal veins, hepatic veins, splenic vessels and hepatic artery. FINDINGS: Main portal vein, main right portal veins are patent with normal hepatopedal flow direction. Left Main portal vein demonstrates no color Doppler flow. The main hepatic veins, mid, right and left hepatic veins are patent with normal hepatofugal flow direction. The main hepatic artery, right and left hepatic arteries demonstrated normal patency and antegrade flow with peak systolic velocity 82 cm/s. The splenic vessels are patent with normal flow direction. Spleen measures 8 cm. Liver measures 15 cm. No gross ascites. No hydronephrosis in the included portions of the right kidney.. US/US duplex arterial venous comp IMPRESSION: No color Doppler flow in the left main portal vein likely related to thrombosis/occlusion. Remaining interrogated vessels demonstrated normal patency and flow direction. No gross ascites. Electronically signed by: Javed Birch MD 02/25/2025 07:26 AM EDT
--- OUTSIDE RECORDS SUMMARY | 2025-02-24 15:35 | XMS_ITS | Clinical Summary ---
Author Organization [facility] Address [address] [facility] [address] [place] [phone] Phone Care Team Providers Care Hull Drafter Name Role Phone Zane Rivera MD Primary [...] VACCINE (1 - 1-dose 75+ series) 2021 INFLUENZA VACCINE (#1) 2025 , 03/15/2020, 03/13/2018, Additional history exists COVID-19 VACCINE ( - season) 2025 10/19/2020, 09/20/2020 Adult Td,Tdap Booster 06/12/2027 06/12/2017 [...] file Insurance MEDICARE PART A & B Member Subscriber Plan / Payer (Ef fective 2014-Present) Name:Judson Donohue Member ID:[id number] Relation to Subscriber:Self Name:Judson Donohue Subscriber ID:[id number] Payer ID:[id number] Group ID:Not on file Type:Medicare Address: [facility] [employer] [facility] DIVISIONWorkboard [facility] [address] [place] [address] [place] [phone] [facility] MEDEX SUPPLEMENT MEDICARE PART A & B [employer] MEDEX SUPPLEMENT MEDICARE PART A & B [employer] MEDEX SUPPLEMENT MEDICARE PART A & B [employer] MEDEX SUPPLEMENT MEDICARE PART A & B [employer] MEDEX SUPPLEMENT MEDICARE PART A & B [employer] MEDEX SUPPLEMENT MEDICARE PART A & B [employer] MEDEX SUPPLEMENT MEDICARE PART A & B [facility] MEDEX SUPPLEMENT MEDICARE PART A & B [employer] MEDEX SUPPLEMENT Care Teams Hull Drafter Relationship Specialty Start Date End Date Zane Rievra MD [address] [place] [address] [place] [address] PCP - General Internal Medicine 06/27/17 Additional Source Comments The information contained in this document represents components of the legal health record. It is not the complete legal health record.[facility]
--- OUTSIDE RECORDS SUMMARY | 2025-02-24 15:35 | XMS_ITS | Encounter Summary ---
Author Organization [facility] Address [address] [place] [phone] Phone Care Team Providers Care Compo Conveyor Operator Name Role Phone Zane Rivera MD Primary Care Provider Encounter Details Date Type Department Care Team (Latest Contact Info) Description 07/04/2017 Transcribe Orders [facility] Laboratory [address] [place] [address] Adrian Brian MD [address] [place] [address] [address] [place] [address] [email or web address] Encounter for hydration prior to CT scan (Primary Dx); History of malignant neoplasm of parotid gland Social History Tobacco Use Types Packs/Day Years Used Date Smoking Tobacco: Never Assessed Sex and Gender Information Value Date Recorded Sex Assigned at Not on file Legal Sex Male 3:26 PM EST Gender Identity Not on file Sexual Orientation Not on file documented as of this encounter Plan of Treatment Not on file documented as of this encounter Procedures Procedure Name Priority Date/Time Associated Diagnosis Comments CREATININE/EGFR Routine 07/04/2017 7:25 AM EST Encounter for hydration prior to CT scan History of malignant neoplasm of parotid gland BUN Routine 07/04/2017 7:25 AM EST Encounter for hydration prior to CT scan History of malignant neoplasm of parotid gland documented in this encounter Results * Creatinine/eGFR (07/04/2017 7:25 AM EST) CREATININE 0.60 0.5 - 1.5 mg/dL [facility] EGFR >60 mL/min/1.7 3m2 [facility] Comment:Abnormal if <60. If patient is -Martiniquais, multiply the result by 1.21. Blood 07/04/2017 7:25 AM EST 07/04/2017 7:27 AM EST Adrian Brian MD LAB BLOOD ORDERABLES Fin al Result Performing Organization Address City/[facility]/ZIP Co de Phone Number [address] [address] * BUN (07/04/2017 7:25 AM EST) BUN 11 6 - 19 mg/dL [facility] Blood 07/04/2017 7:25 AM EST 07/04/2017 7:27 AM EST Adrian Brian MD LAB BLOOD ORDERABLES Fin al Result Performing Organization Address [facility] Co de Phone Number [address] [address] documented in this encounter Visit Diagnoses Diagnosis Encounter for hydration prior to CT scan- Primary History of malignant neoplasm of parotid gland documented in this encounter Care Teams Compo Conveyor Operator Relationship Specialty Start Date End Date Zane Rivera MD [address] [place] [address] [place] [address] PCP - General Internal Medicine 06/27/17 documented as of this encounter Additional Source Comments The information contained in this document represents components of the legal health record. It is not the complete legal health record.[facility]
--- OUTSIDE RECORDS SUMMARY | 2025-02-24 15:35 | XMS_ITS | Encounter Summary ---
Author Organization [facility] Address [address] [place] [address] Phone Care Team Providers Care Blackjack Pit Boss Name Role Phone Zane Rivera MD Primary Care Provider Reason for Referral * Occupational Therapy (Routine) - Closed Specialty Diagnoses / Procedures Referred By Contdena t Referred To Contact Occupational Therapy Diagnoses Encounter for rehabilitation Neck lymphedema Procedures new patient occupational therapy System, Provider Not In, PhD [id number] [place] [address] Phone: tel: Referral ID Status Reason Start Date Expiration Date Visits Re quested Visits Authorized [id number] Closed 12/28/2018 12/29/2019 99 [phone] Encounter Details Date Type Department Care Team (Latest Contact Info) Description 12/28/2018 Transcribe Orders [facility] [address] [place] [address] Zane Rivera MD [address] [place] [address] [address] Encounter for rehabilitation (Primary Dx) Social History Tobacco Use Types Packs/Day Years Used Date Smoking Tobacco: Never Assessed Sex and Gender Information Value Date Recorded Sex Assigned at Not on file Legal Sex Male 3:26 PM EST Gender Identity Not on file Sexual Orientation Not on file documented as of this encounter Plan of Treatment Scheduled Referrals Name Type Priority Associated Diagnoses Orde r Schedule Ambulatory referral to [facility] Occupational Therapy Outpatient Referral Routine Encounter for rehabilitation Ordered: 12/28/2018 documented as of this encounter Visit Diagnoses Diagnosis Encounter for rehabilitation- Primary documented in this encounter Care Teams Blackjack Pit Boss Relationship Specialty Start Date End Date Zane Rivera MD [address] [place] [address] [place] [address] PCP - General Internal Medicine 06/27/17 documented as of this encounter Additional Source Comments The information contained in this document represents components of the legal health record. It is not the complete legal health record.[facility]
--- OUTSIDE RECORDS SUMMARY | 2025-02-24 15:35 | XMS_ITS | Encounter Summary ---
Author Organization [facility] Address [address] [place] [address] Phone Care Team Providers Care Farmer Vegetable Name Role Phone Zane Rivera MD Primary Care Provider Encounter Details Date Type Department Care Team (Late st Contact Info) Description 06/27/2017 Procedure Pass [facility], Ct Scan - [address] [address] Social History Tobacco Use Types Packs/Day Years Used Date Smoking Tobacco: Never Assessed Sex and Gender Information Value Date Recorded Sex Assigned at Not on file Legal Sex Male 3:26 PM EST Gender Identity Not on file Sexual Orientation Not on file documented as of this encounter Plan of Treatment Not on file documented as of this encounter Visit Diagnoses Not on filedocumented in this encounter Care Teams Farmer Vegetable Relationship Specialty Start Date End Date Zane Rivera MD [address] [place] [address] [address] PCP - General Internal Medicine 06/27/17 documented as of this encounter Additional Source Comments The information contained in this document represents components of the legal health record. It is not the complete legal health record.[facility]
--- OUTSIDE RECORDS SUMMARY | 2025-02-24 15:35 | XMS_ITS | Encounter Summary ---
Author Organization [facility] Address [address] [place] [address] Phone Care Team Providers Care Trouble Tracer Name Role Phone Zane Rivera MD Primary Care Provider Encounter Details Date Type Department Care Team (Late st Contact Info) Description 06/27/2017 Ancillary Orders Virtual Department [address] [place] [address] Adrian Brian MD [address] [place] [address] [address] [place] [address] [email or web address] Personal history of malignant neoplasm of other sites of lip, oral cavity, and pharynx; Edema of larynx; Hoarseness Social History Tobacco Use Types Packs/Day Years Used Date Smoking Tobacco: Never Assessed Sex and Gender Information Value Date Recorded Sex Assigned at Not on file Legal Sex Male 3:26 PM EST Gender Identity Not on file Sexual Orientation Not on file documented as of this encounter Plan of Treatment Not on file documented as of this encounter Results * CT CHEST WITH CONTRAST (07/09/2017 9:55 AM EST) Anatomical Region Laterality Modality Chest Computed Tomogra phy 07/09/2017 10:3 4 AM EST Impressions 07/09/2017 11:02 AM EST No regional metastatic disease identified. Mild bronchial thickening and hyperinflation may indicate chronic bronchitis. Coronary artery disease. Aortic valvular calcification. Mild dilatation ascending aorta. TOTAL CTDIvol: 29.5 mGy POS - [id number] Edited by: Ladi Dietz on 07/09/2017 10:59 AM Narrative 07/09/2017 11:02 AM EST HISTORY: Oropharyngeal cancer staging COMPARISON: None TECHNIQUE: After the administration of intravenous contrast, computed tomography is obtained from lung apex to base. Sagittal and coronal reformats generated. Automated exposure control utilized. FINDINGS: Lungs and pleura: There is some minor bronchial thickening. No pleural effusion. No consolidation. No prominent interstitial changes. No central airway lesion. Some mucus noted in the trachea. Lungs are mildly hyperinflated but without clear emphysematous changes. No pulmonary masses of concern are identified. Nodes: No adenopathy is detected. Cardiovascular: Calcific coronary artery atheroma noted in the LAD, left main and other left- sided branches with small amounts in the right coronary system. Heart not enlarged. No pericardial effusion. Ascending aorta is mildly dilated relative to descending aorta with an average diameter of 4.2 cm compared to descending aorta diameter of 2.6 cm. Small amounts of aortic valvular calcification noted. This may account for some of the ascending aortic prominence. No central pulmonary emboli. Soft tissue and mediastinum: Minor gynecomastia. No mediastinal masses of concern. Small hiatal hernia suggested. Upper abdomen: No findings of concern. Bones: No compression deformity or bony destructive lesion. Small amounts of calcification in the right rotator cuff musculature incidentally noted. Procedure Note Domenic Mathur MD - 07/09/2017 HISTORY: Oropharyngeal cancer staging COMPARISON: None TECHNIQUE: After the administration of intravenous contrast, computedtomography is obtained from lung apex to base. Sagittal and coronalreformats generated. Automated exposure control utilized. FINDINGS: Lungs and pleura: There is some minor bronchial thickening. No pleuraleffusion. No consolidation. No prominent interstitial changes. No centralairway lesion. Some mucus noted in the trachea. Lungs are mildlyhyperinflated but without clear emphysematous changes. No pulmonary massesof concern are identified. Nodes: No adenopathy is detected. Cardiovascular: Calcific coronary artery atheroma noted in the LAD, leftmain and other left-sided branches with small amounts in the rightcoronary system. Heart not enlarged. No pericardial effusion. Ascendingaorta is mildly dilated relative to descending aorta with an averagediameter of 4.2 cm compared to descending aorta diameter of 2.6 cm. Smallamounts of aortic valvular calcification noted. This may account for someof the ascending aortic prominence. No central pulmonary emboli. Soft tissue and mediastinum: Minor gynecomastia. No mediastinal masses ofconcern. Small hiatal hernia suggested. Upper abdomen: No findings of concern. Bones: No compression deformity or bony destructive lesion. Small amountsof calcification in the right rotator cuff musculature incidentally noted. IMPRESSION: No regional metastatic disease identified. Mild bronchial thickening andhyperinflation may indicate chronic bronchitis. Coronary artery disease.Aortic valvular calcification. Mild dilatation ascending aorta. TOTAL CTDIvol: 29.5 mGy POS - [id number] Edited by: Ladi Dietz on 07/09/2017 10:59 AM Adrian Brian MD IMG CT CHEST Final Re sult documented in this encounter Visit Diagnoses Diagnosis Personal history of malignant neoplasm of other sites of lip, oral cavity, and pharynx Edema of larynx Hoarseness Dysphonia Personal history of malignant neoplasm of other sites of lip, oral cavity, and pharynx Edema of larynx Hoarseness Dysphonia documented in this encounter Care Teams Trouble Tracer Relationship Specialty Start Date End Date Zane Rivera MD [address] [place] [address] [place] [address] PCP - General Internal Medicine 06/27/17 documented as of this encounter Additional Source Comments The information contained in this document represents components of the legal health record. It is not the complete legal health record.[facility]
--- OUTSIDE RECORDS SUMMARY | 2025-02-24 15:35 | XMS_ITS | Patient Health Record ---
Author Organization Zane Rivera MD Address [address] [place], [place] [id number] Care Team Providers Care Per Diem Physical Therapist Assistant Name Role Phone Miguel Zane Primary Care Provider Allergies No Known Allergies Results Component Value Reference Range Notes Hemoglobin A1c Reviewed date:05/10/2024 03:11:18 PM Interpretation:5.7 Performing Lab: Notes/Report: 5.7 Complete Blood Count Auto Di ff Reviewed date:01/03/2025 12:58:28 PM Interpretation: Performing Lab:[facility], [address] [place] [phone] Notes/Report: White Blood Count 7.0 4.8-10.8 X10*3/uL [...] NRBC Abs Auto 0.000 0.0-0.012 X10*3/uL Comprehensive Estelline. Panel Fa st Reviewed date:01/03/2025 12:57:57 PM Interpretation: Performing Lab:[facility], [address] [place] [phone] Notes/Report: Sodium 140 135-145 mmol/L Potassium 4.5 [...] Panel Reviewed date:01/03/2025 12:55:43 PM Interpretation: Performing Lab:[facility], [address] [place] [phone] Notes/Report: Triglycerides 47 <150 mg/dL Desirable Triglyceride: [...] Reviewed date:01/13/2025 07:56:48 AM Interpretation:[place] 01/10 Performing Lab:[address] [phone] Notes/Report: PSA,Total (Free>4and<10) 4.60 0.00-4.00 ng/mL PSA methodology: Amezquita Alinity i Chemiluminescent Microparticle Immunoassay (CMIA) TSH reflex Free T4 Reviewed date:01/03/2025 12:57:39 PM Interpretation: Performing Lab:[facility], [address] [place] [phone] Notes/Report: TSH reflex Free T4 1.53 0.32-4.0 uIU/mL UA ClnCatch+Micro w/rflx Cul t Reviewed date:01/03/2025 01:01:54 PM Interpretation: Performing Lab:[facility], [address] [place] [phone] Notes/Report: Urine, Clean Catch Color Urine Yellow Appearance Urine Cloudy PH 7.0 5.0-9.0 Glucose Urine UA Negative Negative mg/dL Urine Blood Trace Negative Specific Sellers - Urine 1.015 1.005-1.025 Urine Protein Negative Neg-Trace mg/dL Urine Ketones Negative Negative mg/dL Nitrite Urine Negative Negative Leukocyte Esterase Urine Moderate (2+) Negative RBC Urine 3-5 0-2 /HPF WBC Urine 21-50 0-5 /HPF Squamous Epithelial Cell Urine 0-2 0-2 /HPF Bacteria Urine 4+ None Seen Hyaline Casts Urine 0-2 0-2 /LPF UA ClnCatch+Micro w/rflx Cul t Reviewed date:01/20/2025 05:23:52 PM Interpretation: Performing Lab:[facility], [address] [place] [phone] Notes/Report: Urine, Clean Catch Color Urine Yellow Appearance Urine Clear PH 7.0 5.0-9.0 Glucose Urine UA Negative Negative mg/dL Urine Blood Negative Negative Specific Sellers - Urine 1.010 1.005-1.025 Urine Protein Negative [...] Panel Reviewed date:04/28/2024 12:14:02 PM Interpretation: Performing Lab:[facility], [address] [place] [phone] Notes/Report: Bilirubin Total 0.6 0.0-1.0 mg/dL Bilirubin Direct 0.2 0.0-0.5 mg/dL Aspartate Amino Transferase 23 5-37 U/L Alanine Aminotransferase 15 0-40 U/L Total Protein 7.2 6.5-8.0 g/dL Albumin Level 4.1 3.5-5.0 g/dL Alkaline Phosphatase 92 39-117 U/L US abdomen complete Reviewed date:06/13/2024 03:50:38 PM Interpretation: Performing Lab: Notes/Report: [address] [address] Ultrasound Report Signed Patient: Gary Donohue MR#: [id number] : 1945 Acct:[id number] Age/Sex: 78 / M ADM Date: 05/10/24 Loc: .US Attending Dr: Hollie Robison MD Ordering Physician: Hollie Robisno MD Date of Service: 05/10/24 Procedure(s): US abdomen complete Accession Number(s): [id number] cc: Zane Rivera MD; Hollie Robison MD Exam dictated in conjunction with ultrasound duplex arterial venous performed of the same day. Electronically signed by: Jesus Junior MD 06/13/2024 11:31 AM EST RP Dictated By: Jesus Junior MD Signed By: <Electronically signed by Jesus Junior MD in OV> 06/13/24 1131 DD/ 0937 TD/TT: 05/10/24 1023 Strategic Development Manager: [address] [address] Ultrasound Report Signed Patient: Gary Donohue MR#: [id number] : 1945 Acct:[id number] Age/Sex: 78 / M ADM Date: 05/10/24 Loc: .US Attending Dr: Hollie Robison MD Ordering Physician: Hollie Robison MD Date of Service: 05/10/24 Procedure(s): US abdomen complete Accession Number(s): [id number] cc: Zane Rivera MD; Hollie Robison MD Exam dictated in conjunction with ultrasound duplex arterial venous performed of the . Electronically marcial d by: Jesus Junior MD 06/13/2024 11:31 AM EST RP Dictated By: Jesus Junior MD Signed By: <Electronically signed by Jesus Junior MD in OV> 06/13/24 1131 DD/ 0937 TD/TT: 05/10/24 1023 Strategic Development Manager: KAROLINE US duplex arterial venous co mp Reviewed date:06/03/2024 08:29:24 AM Interpretation: Performing Lab: Notes/Report: [address] [address] Ultrasound Report Signed Patient: Gary Donohue MR#: [id number] : 1945 Acct:[id number] Age/Sex: 78 / M ADM Date: 05/10/24 Loc: HO.US Attending Dr: Hollie Robison MD Ordering Physician: Hollie Robison MD Date of Service: 05/10/24 Procedure(s): US duplex arterial venous comp Accession Number(s): [id number] cc: Zane Rivera MD; Hollie Robison MD [...] Kandice Sherwood MD 06/02/2024 05:24 PM EST Dictated By: Elsa Sherwood Signed By: <Electronically signed by Elsa Sherwood in OV> 06/02/24 1724 DD/ 0937 TD/TT: 05/10/24 1023 Strategic Development Manager: [place] [address] Ultrasound Report Signed Patient: Gary Donohue MR#: [id number] : 1945 Acct:[id number] Age/Sex: 78 / M ADM Date: 05/10/24 Loc: HO.US Attending Dr: Hollie Robison MD Ordering Physician: Hollie Robison MD Date of Service: 05/10/24 Procedure(s): US dup nicolasa arterial venous comp Accession Number(s): [id number] cc: Zane Rivera MD; Hollie Robison MD [...] by: Kandice Sherwood MD 06/02/2024 05:24 PM [facility] [place] Dictated By: Elsa Sherwood Signed By: <Electronically signed by Elsa Sherwood in OV> 06/02/24 1724 DD/ 0937 TD/TT: 05/10/24 1023 Strategic Development Manager: H Pylori Breath Test Reviewed date:06/25/2024 12:27:54 PM Interpretation: Performing Lab:[facility], [address] [place] [phone] Notes/Report: H Pylori Breath Test Negative Negative Antimicrobials, proton pump inhibitors and bismuth preparations are known to suppress H. pylori. Ingesting these medications within two weeks prior to performing the breath test may produce negative test results. A positive result is still clinically valid. PSA Free and Total Reviewed date:01/04/2025 05:10:04 PM Interpretation: Performing Lab:[facility], [address] [place] [phone] Notes/Report: Prostate Specific Ag Total 3.7 < OR = 4.0 ng/mL Percent Free Prostate Spec Ag 16 >25 % (calc) PSA(ng/mL) Free PSA(%) Estimated(x) Probability of Cancer(as%) 0-2.5 (*) Approx. 1 2.6-4.0(1) 0-27(2) 24(3) 4.1-10(4) 0-10 56 11-15 28 16-20 20 21-25 16 >or =26 8 >10(+) N/A >50 References:(1)Endy boyd et al.:Urology 60: 469-474 (2001) (2)Jayshree et al.:J.Urol 168: 922-925 (2001) Free PSA(%) Sensitivity(%) Specificity(%) < or = 25 85 19 < or = 30 93 9 (3)Evanona et al.:BENJA 277: 4376-7512 (1996) (4)Catalona et al.:BENJA 279: 9472-2375 (1997) (x)These estimates vary with age, ethnicity, [...] of disease. THIS TEST WAS PERFORMED AT: [facility] [address] [place] [phone] SUMAN WORTHY MD Free Prostate Spec Ag 0.6 Urine Culture Reviewed date:01/11/2025 07:34:28 AM Interpretation:01-10-25 Performing Lab:[facility], [address] [place] [phone] Notes/Report: O:ENTFAC Enterococcus faecalis Urine Culture Quant Urine Culture > 100,000 cfu/mL Ampicillin <=2 Levofloxacin 0.5 Nitrofurantoin <=16 Tetracycline >=16 Vancomycin 1 Complete Blood Count Auto Di ff Reviewed date:01/06/2025 12:07:09 PM Interpretation: Performing Lab:[facility], [address] [place] [phone] Notes/Report: White Blood Count 5.9 4.8-10.8 X10*3/uL [...] Panel Reviewed date:01/06/2025 05:08:13 PM Interpretation: Performing Lab:[facility], [address] [place] [phone] Notes/Report: Sodium 141 135-145 mmol/L Potassium 4.4 [...] Sensitivity Reviewed date:01/06/2025 12:06:44 PM Interpretation: Performing Lab:[facility], [address] [place] [phone] Notes/Report: D Dimer High Sensitivity 439 Results [...] cieved the high dose flu at the [facility] in [place]. 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 confirmed Problem 76454200 Atelectasis (J98.11) Active confirmed Problem 828646652 Tubular adenoma of colon (D12.6) Active confirmed Problem Acquired hypothyroidism (288624070) Acquired hypothyroidism (E03.9) Active confirmed Problem 234553133 Mild intermitten t asthma without complication (J45.20) Active confirmed Problem 5304705 Prediabetes (R73.09) Active confirmed Problem 015528658 Low HDL (under 40) (E78.6) Active confirmed Problem 56662063 Hiatal hernia (K44.9) Active confirmed Problem 11933079 Abdominal aortic aneurysm (AAA) without rupture (I71.4) Active confirmed Problem 124269670 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) Active confirmed Problem 95270157 ARUN (obstructive sleep apnea) (G47.33) Active confirmed Problem 943141960 Head and neck cancer (C76.0) Active confirmed Problem 49863413 Thrombosis, portal vein (I81) Active confirmed Vital [...] Zane Rivera MD [address] [place] [id number] 03/29/2024 Zane Rivera Encounter for immunization Z23 Zane Rivera MD [address] [place] [id number] 01/03/2025 Zane Rivera Prediabetes R73.09 ; Acquired hypothyroidism E03.9 and Low HDL (under 40) E78.6 Zane Rivera MD [address] [place] [id number] 01/20/2025 Zane Rivera UTI (urinary tract infection) N39.0 Zane Rivera MD [address] [place] [address] Drive [address] [place] [id number] 04/12/2024 Zane Rivera Prediabetes R73.09 ; Thrombosis, portal vein I81 and 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 Zane Rivera MD [address] [place] [id number] 01/10/2025 Zane Rivera UTI (urinary tract infection) N39.0 ; Elevated PSA R97.20 ; Thrombosis, portal vein I81 and Head and neck cancer C76.0 Zane Rivera MD [address] [place] [address] [id number] 04/30/2024 Zane Rivera MD [address] [place] [id number] 05/04/2024 Zane Rivera Thrombosis, portal vein I81 Zane Rivera MD [address] [place] [id number] 05/04/2024 Zane Rivera MD [address] [place] [id number] 10/05/2024 Zane Rivera Thrombosis, portal vein I81 Zane Rivera MD [address] [place] [id number] 10/07/2024 Zane Rivera Thrombosis, portal vein I81 Zane Rivera MD [address] [place] [id number] 12/28/2024 Zane Rivera Assessments Encounter Date Diagnosis [...] 2019 ECHO 12/29/2018 Next Appt Details Provider Name:Zanegary Mustafa ier, 07/14/2025 02:00:00 PM, [address] [place] [address], [address] [place] [address], [id number], Provider Name:Zane Reis Ramsey ier, 01/05/2026 07:00:00 AM, [address] [place] [address], [address] [facility], [place], [place], [id number], Provider Name:Zane Chato Mustafa ier, 01/12/2026 01:00:00 PM, [address] [place] [address], [address], [place], [place], [phone], Insurance Providers Payer Name Payer Address Payer Phone Subscriber Number Group Number Insured Name Patient Relationship to Insured Coverage Start Date Coverage End Date [employer] [address] [place] [address] [id number] Gary Donohue Self - patient is the insured MEDEX BC OF [facility] [address] [place] [address] [id number] Gary Donohue Self - patient is the [...]
--- OUTSIDE RECORDS SUMMARY | 2025-02-24 15:36 | XMS_ITS | Patient Health Record ---
Author Organization [facility] Address [address] [place] [address] Care Team Providers Care Window Air Conditioner Installer Name Role Phone Zane Rivera MD Primary Care Provider Bang Chairez Unavailable [phone] Allergies Allergen (clinical drug ingredient) Drug/Non Drug [...] Problem Status W/U Status Risk Notes Problem 186509300 Encounter for screening for malignant neoplasm of colon (Z12.11) Active confirmed Problem Portal vein thrombosis (37767865) Portal vein thrombosis (I81) Active confirmed Problem Gallstones (276175717) Gallstones (K80.20) Active confirmed Problem 649540914 Long-term use of aspirin therapy (Z79.82) Active confirmed Problem 328617220 Hx of adenomatous colonic polyps (Z86.010) Active confirmed Problem 288023050751144 Pre-procedural examination (Z01.818) Active confirmed Vital Signs Blood pressure diastolic 111 mm Hg 09/28/2024 Height 67.5 in 09/28/2024 Blood pressure systolic 111 mm Hg 09/28/2024 Weight 166 lbs 09/28/2024 BMI 25.61 kg/m2 09/28/2024 Encounters Encounter Location Date Provider Diagnosis [facility] [address] [place] [address] 09/28/2024 Bang Goldstein Hx of adenomatous colonic [...] [place] [address] [place] [address] [id number] MOUNA JUDSON Self - patient is the insured 2 [employer] ATTN CLAIMS [address] [place] [address] [id number] MOUNA , JUDSON Self - patient is the insured Medical (General) History Medical History History ICD Code Colonoscopy, 1999, 2002,2008, 04/2014 tu bular adenomas Asthma--uses inhaler prn Diverticulosis History of a mild esophageal ring, status post EGD with dilatation in 1993--no esophagitis Denies MS,DM,CVA,renal disease Squamous cell cancer throat in 2015 [...] pylori. This was all done by the [facility]. Portal vein thrombosis as above. Surgical History Surgery Date(Month/Year) G-tube and Port for his cancer treatment s in 2015 Right inguinal hernia Retinal laser-left eye 2011
--- OUTSIDE RECORDS SUMMARY | 2025-02-24 15:36 | XMS_ITS | Encounter Summary ---
Author Organization [facility] Address [address] [place] [address] Phone Care Team Providers Care Aerophysics Engineer Name Role Phone Zane Rivera MD Primary Care Provider Encounter Details Date Type Department Care Team (Late st Contact Info) Description 06/27/2017 Ancillary Orders Virtual Department [address] [place] [address] Adrian Brian MD [address] [place] [address] [address] [place] [address] [email or web address] Personal history of malignant neoplasm Social History Tobacco Use Types Packs/Day Years Used Date Smoking Tobacco: Never Assessed Sex and Gender Information Value Date Recorded Sex Assigned at Not on file Legal Sex Male 3:26 PM EST Gender Identity Not on file Sexual Orientation Not on file documented as of this encounter Plan of Treatment Not on file documented as of this encounter Visit Diagnoses Diagnosis Personal history of malignant neoplasm documented in this encounter Care Teams Aerophysics Engineer Relationship Specialty Start Date End Date Zane Rivera MD [address] [place] [address] [place] [address] PCP - General Internal Medicine 06/27/17 documented as of this encounter Additional Source Comments The information contained in this document represents components of the legal health record. It is not the complete legal health record.[facility]
== END 2025-02-24 14:15 | disposition home or self-care (01) ==
LOC: HO.US 14:14
PROVIDERS: PCP Internal Medicine; Visit Provider Internal Medicine
DX: I81 Portal vein thrombosis (principal)
CPT/HCPCS: 93975

== ENCOUNTER → 2025-02-24 14:16 | Outpatient (BNV) | payer MEDICARE, SELFPAY | PROVIDERS: PCP Internal Medicine; Visit Provider Radiology Diagnostic Radiology | DX: I81 Portal vein thrombosis (principal) | CPT/HCPCS: 93975 ==

== ENCOUNTER 2025-04-29 09:31 | Outpatient (REF) | payer SELFPAY ==
--- OUTSIDE RECORDS SUMMARY | 2024-04-12 05:00 | XMS_ITS ---
Author Organization Zane Rivera MD Address [address] [place], [place] [id number] Care Team Providers Care Loan Adviser Name Role Phone Zane Rivera Primary Care Provider [phone] Allergies No Known Allergies Results Component Value Reference Range Notes Hemoglobin A1c Reviewed date:05/10/2024 03:11:18 PM Interpretation:5.7 Performing Lab: Notes/Report: 5.7 Glucose, finger stick Reviewed date:05/10/2024 03:11:08 PM Interpretation: Performing Lab: Notes/Report: Value 113 REASON FOR VISIT 3 MO F/U, Check bottom of left foot Medications Medication SIG (Take, Route, Frequency, Duration) Notes Start Date End Date Status Ventolin HFA * 108 (90 Base) MCG/ACT 2 puffs as needed Inhalation every 4 hrs 11/14/2015 Active Vital Signs Blood pressure systolic 144 mm Hg 04/12/20 24 Blood pressure diastolic 88 mm Hg 024 Height 68 in 04/12/2024 Weight 167 lbs 04/12/2024 BMI 25.39 kg/m2 04/12/2024 weight is down 2 pounds [facility] 01-09-24 Encounters Encounter Location Date Provider Diagnosis Zane Rivera MD [address] [place] [phone] 04/12/2024 Zane Rivera Prediabetes R73.09 ; Thrombosis, portal vein I81 and 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 Assessments Encounter Date Diagnosis (ICD Code) Assessment Notes Treatment Notes Treatment Clinical Notes Section Notes 04/12/2024 Prediabetes (ICD-10 - R73.09) 04/12/2024 Thrombosis, portal vein (ICD-10 - I81) has been on anticoagulant 04/12/2024 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) no treatment needed Plan Of Treatment Medication Medication Name Sig Start Date Stop Date Notes Eliquis 5 MG TAKE 1 TABLET BY MOUTH TWICE DAILY Treatment Notes Assessment Notes Thrombosis, portal vein has been on anti coagulant Plantar fibromatosis no treatment needed Next Appt Details Provider Name:Zane Mustafa iearpita, 07/14/2025 02:00:00 PM, [address] [place] [address], [address], [phone], Provider Name:Zane Mustafa iearpita, 01/05/2026 07:00:00 AM, [address] [place] [address], [address], [phone], Provider Name:Zane Mustafa ier, 01/12/2026 01:00:00 PM, [address] [place] [address], [address], [phone], Progress Notes * Gary DONOHUEDOB:[birth year] (78 yo M)Acc No.[id number]:04/12/2024 Progress Notes Patient: Gary Garnica Provider: Rashad Rivera MD :1945 A ge:78 Y S ex:Male Date:04/12/2024 Address:[address] [place], [place] [id number] Subjective: * Chief Complaints: * 3 MO F/UCheck bottom of left foot * HPI: S ymptom(s): patient is a 78 yo male here for 3 month follow up visit. * ROS: G eneral/Constitutional: Denies C hills. D enies F atigue. D enies F ever. D enies H eadache. E NT: Patient denies d ecreased sense of smell , any loss of taste , sore throat. D enies S ore throat. R espiratory: Denies C ough. D enies S hortness of breath at rest. D enies S hortness of breath with exertion. G astrointestinal: Denies D iarrhea. D enies N ausea. M usculoskeletal: Patient denies m uscle aches. P atient complaining of?painless nodules on bottom of feet. P eripheral Vascular: Patient denies r ed and blue toes. * Medical History: * Surgical History: * Hospitalization/Major Diagno stic Procedure: * Medications: T akingVentolin HFA * 108 (90 Base) MCG/ACT Aerosol Solution 2 puffs as needed Inhalation every 4 hrsEliquis 5 MG Tablet TAKE 1 TABLET BY MOUTH TWICE DAILY Medication List reviewed and reconciled with the patientTaking Ventolin HFA * 108 (90 Base) MCG/ACT Aerosol Solution 2 puffs as needed Inhalation every 4 hrsTaking Eliquis 5 MG Tablet TAKE 1 TABLET BY MOUTH TWICE DAILY Medication List reviewed and reconciled with the patient * Allergies: N .K.D.A.yes[Allergies Verified] Objective: * Vitals: H t: 68, Wt: 167, BMI:25.39, BP:144/88, Wt-k.75 weight is down 2 pounds since 01-09-24. * Examination: G eneral Examination: GENERAL APPEARANCE: alert, well hydrated, in no distress . SKIN: good turgor. HEART: regular rate and rhythm, no murmurs, rubs, gallops. LUNGS: no wheezes, rales, rhonchi, good air movement, clear to auscultation bilaterally. EXTREMITIES: painless nodules on bottom of foot. ? Assessment: * Assessment: 1. P rediabetes - R73.09 2 . T hrombosis, portal vein - I81 3 . 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 Stop Eliquis Tablet, 5 MG, TAKE 1 TABLET BY MOUTH TWICE DAILY.?? Notes: has been on anticoagulant??3.?Plantar fibromatosis? Notes: no treatment needed?? * Procedure Codes: 8 2947 ASSAY, GLUCOSE, BLOOD QUANT, Modifiers: QW 90806 GLYCATED HEMOGLOBIN TEST, Modifiers: QW * * Sign off status: Completed true * Provider: Rashad Rivera MD Date: Generated for Waldemar kay/Chavo/eTransmitting on: 06/29/2024 10:48 AM EST History and Physical Notes * HPI (History of Present Illness) Category Sub-Category Detail Notes Category Not es Symptom(s) patient is a 78 yo male here for 3 month follow up visit Examination Category Sub-Category Detail Notes Category Not es General Examination GENERAL APPEARANCE: alert, w ell hydrated, in no distress HEART: regular rate and rhy thm, no murmurs, rubs, gallops LUNGS: no wheezes, rales, r honchi, good air movement, clear to auscultation bilaterally SKIN: good turgor EXTREMITIES: painless nodules on bottom of foot
--- OUTSIDE RECORDS SUMMARY | 2024-04-30 11:09 | XMS_ITS ---
Author Organization Zane Rivera MD Address [address] [place] [phone] Care Team Providers Care Shingle Weaver Name Role Phone Zane Rivera Primary Care Provider [phone] Encounters Encounter Location Date Provider Diagnosis Zane Rivera MD [address] [facility] [address] [place] [phone] 04/30/2024 Zane Rivera Plan Of Treatment Next Appt Details Provider Name:Zane ireland, 07/14/2025 02:00:00 PM, [address] [place] [address], Suite [facility], [place], [place], [phone], Provider Name:Zane ireland, 01/05/2026 07:00:00 AM, [address] [place] [address], Suite [facility], [place], [place], [phone], Provider Name:Zane ireland, 01/12/2026 01:00:00 PM, [address] [place] [address], [place] [address], [place], [place], [phone], Progress Notes * Gary DONOHUE JDOB:[birth year] (78 yo M)Acc No.[id number]:04/30/2024 Patient: Chato hectorhakanGary :1945 A ge:78 Y S ex:Male Address:[address] [place] [id number] * true * Date: Generated for Waldemar kay/Chavo/Deandresmitting on: 06/29/2024 10:48 AM EST
--- OUTSIDE RECORDS SUMMARY | 2024-05-04 03:41 | XMS_ITS ---
Author Organization Zane Rivera MD Address [address] [place] [phone] Care Team Providers Care Bird Trapper Name Role Phone MiguelZane Primary Care Provider REASON FOR VISIT Xarelto Medications Medication SIG (Take, Route, Frequency, Duration) Notes Start Date End Date Status Eliquis 5 MG one tablet Orally tw ice a day for 30 days Active Encounters Encounter Location Date Provider Diagnosis Zane Rivera MD [address] [facility] [address] [place] [phone] 05/04/2024 Zane Rivera Thrombosis, portal vein I81 Assessments Encounter Date Diagnosis (ICD Code) Assessment Notes Treatment Notes Treatment Clinical Notes Section Notes 05/04/2024 Thrombosis, portal vein (ICD-10 - I81) Plan Of Treatment Medication Medication Name Sig Start Date Stop Date Notes Eliquis 5 MG one tablet Orally twice a day for 30 days Next Appt Details Provider Name:Zane ireland, 07/14/2025 02:00:00 PM, [address] [facility], [address] [place] [address], [phone], Provider Name:Zane Mustafa ier, 01/05/2026 07:00:00 AM, [address] [facility], [address], [place], [phone], Provider Name:Zane Mustafa ier, 01/12/2026 01:00:00 PM, [address] [facility], [address], [place], [phone], Progress Notes * Gary DONOHUE JDOB:[birth year] (78 yo M)Acc No.[id number]:05/04/2024 Patient: Gary Garnica :1945 A ge:78 Y S ex:Male Address:[address] [place] [id number] * Refills Continue Eliquis Tablet, 5 MG, Orally, 60, one tablet, twice a day, 30 days, Refills=3 * true * Date: Generated for Waldemar kay/Chavo/Deandresmitting on: 06/29/2024 10:50 AM EST
--- OUTSIDE RECORDS SUMMARY | 2024-05-04 05:13 | XMS_ITS ---
Author Organization Zane Rivera MD Address [address] [place] [phone] Care Team Providers Care Account Installation Specialist Name Role Phone Miguel Zane Primary Care Provider REASON FOR VISIT Reminder Encounters Encounter Location Date Provider Diagnosis Zane Rivera MD [address] [facility] [address] [place] [phone] 05/04/2024 Zane Rivera Plan Of Treatment Next Appt Details Provider Name:Zane ireland, 07/14/2025 02:00:00 PM, [address] [facility], [address] [facility], [place], [place], [phone], Provider Name:Zane ireland, 01/05/2026 07:00:00 AM, [address] [place] [address], [address] [facility], [place], [place], [phone], Provider Name:Zane ireland, 01/12/2026 01:00:00 PM, [address] [place] [address], [address], [place], [place], [phone], Progress Notes * Gary DONOHUEDOB:[birth year] (78 yo M)Acc No.[id number]:05/04/2024 Patient: Chato brooksGary :1945 A ge:78 Y S ex:Male Address:[address] [place] [id number] * true * Date: Generated for Waldemar kay/Chavo/eTransmitting on: 06/29/2024 10:49 AM EST
--- OUTSIDE RECORDS SUMMARY | 2024-10-05 03:46 | XMS_ITS ---
Author Organization Zane Rivera MD Address [address] [place] [id number] Care Team Providers Care Group Activities Aide Name Role Phone Miguel Zane Primary Care Provider [phone] REASON FOR VISIT RF Eliquis Medications Medication SIG (Take, Route, Frequency, Duration) Notes Start Date End Date Status Eliquis 5 MG TAKE 1 TABLET BY HAVEN TH TWICE DAILY for 30 Active Encounters Encounter Location Date Provider Diagnosis Zane Rivera MD [address] [place] [address] Drive [address] [place] [id number] 10/05/2024 Zane Rivera Thrombosis, portal vein I81 Assessments Encounter Date Diagnosis (ICD Code) Assessment Notes Treatment Notes Treatment Clinical Notes Section Notes 10/05/2024 Thrombosis, portal vein (ICD-10 - I81) Plan Of Treatment Medication Medication Name Sig Start Date Stop Date Notes Eliquis 5 MG TAKE 1 TABLET BY MOUTH TWICE DAILY for 30 Next Appt Details Provider Name:Zane ireland, 07/14/2025 02:00:00 PM, [address] [place] [address], [address] [place] [address], [phone], Provider Name:Zane Mustafa vikir, 01/05/2026 07:00:00 AM, [address] [place] [address], [address], [place], [phone], Provider Name:Zane Mustafa vikir, 01/12/2026 01:00:00 PM, [address] [place] [address], [address], [place], [phone], Progress Notes * Gary DONOHUE JDOB:[birth year] (79 yo M)Acc No.[id number]:10/05/2024 Patient: Gary DUNCAN :1945 A ge:79 Y S ex:Male Address:[address] [place] [id number] * Refills Refill Eliquis Tablet, 5 MG, 60 Tablet, TAKE 1 TABLET BY MOUTH TWICE DAILY, 30, Refills=0 * true * Date: Generated for Waldemar kay/Chavo/eTransmitting on: 06/29/2024 10:49 AM EST
--- OUTSIDE RECORDS SUMMARY | 2024-10-07 04:05 | XMS_ITS ---
Author Organization Zane Rivera MD Address [address] [place] [phone] Care Team Providers Care Heater Operator Helper Name Role Phone MiguelLyssan Primary Care Provider REASON FOR VISIT ELIQUIS Medications Medication SIG (Take, Route, Frequency, Duration) Notes Start Date End Date Status Eliquis 5 MG TAKE 1 TABLET BY HAVEN TH TWICE DAILY for 30 Active Encounters Encounter Location Date Provider Diagnosis Zane Rivera MD [address] [place] [address] Drive [address] [place] [phone] 10/07/2024 Zane Rivera Thrombosis, portal vein I81 Assessments Encounter Date Diagnosis (ICD Code) Assessment Notes Treatment Notes Treatment Clinical Notes Section Notes 10/07/2024 Thrombosis, portal vein (ICD-10 - I81) Plan Of Treatment Medication Medication Name Sig Start Date Stop Date Notes Eliquis 5 MG TAKE 1 TABLET BY MOUTH TWICE DAILY for 30 Next Appt Details Provider Name:Zane ireland, 07/14/2025 02:00:00 PM, [address] [place] [address], [address], [place], [place], [phone], Provider Name:Zane Mustafa ier, 01/05/2026 07:00:00 AM, [facility], [address], [place], [phone], Provider Name:Zane Mustafa vikir, 01/12/2026 01:00:00 PM, [address] [facility], [address], [place], [phone], Progress Notes * Gary DONOHUE JDOB:[birth year] (79 yo M)Acc No.[id number]:10/07/2024 Patient: Gary DUNCAN :1945 A ge:79 Y S ex:Male Address:[address] [place] [id number] * Refills Refill Eliquis Tablet, 5 MG, 60 Tablet, TAKE 1 TABLET BY MOUTH TWICE DAILY, 30, Refills=0 * true * Date: Generated for Waldemar kay/Chavo/Deandresmitting on: 06/29/2024 10:50 AM EST
--- OUTSIDE RECORDS SUMMARY | 2024-12-28 09:14 | XMS_ITS ---
Author Organization Zane Rivera MD Address [address] [place] [phone] Care Team Providers Care Embossing Press Operator Apprentice Name Role Phone MiguelLyssan Primary Care Provider REASON FOR VISIT appt with Dr. Wilkins Encounters Encounter Location Date Provider Diagnosis Zane Rivera MD 10 [facility] [address] [place] [phone] 12/28/2024 Zane Rivera Plan Of Treatment Next Appt Details Provider Name:Zane ireland, 07/14/2025 02:00:00 PM, [address] [place] [address], Suite [facility], [place], [place], [phone], Provider Name:Zane ireland, 01/05/2026 07:00:00 AM, [address] [place] [address], Suite [facility], [place], [place], [phone], Provider Name:Zane ireland, 01/12/2026 01:00:00 PM, [address] [place] [address], [address], [place], [place], [phone], Progress Notes * Gary DONOHUEDOB:[birth year] (79 yo M)Acc No.[id number]:12/28/2024 Patient: Chato RAMÓNLORRAINEGary :1945 A ge:79 Y S ex:Male Address:[address] [place] [phone] * true * Date: Generated for Waldemar kay/Chavo/eTransmitting on: 06/29/2024 10:49 AM EST
--- OUTSIDE RECORDS SUMMARY | 2025-01-03 02:15 | XMS_ITS ---
Author Organization Zane Rivera MD Address [address] [place], [place] [phone] Care Team Providers Care Stove Cleaner Name Role Phone MiguelLyssan Primary Care Provider Results Component Value Reference Range Notes Complete Blood Count Auto Di ff Reviewed date:01/03/2025 12:58:28 PM Interpretation: Performing Lab:[facility], [address] [place] [phone] Notes/Report: White Blood Count 7.0 4.8-10.8 X10*3/uL Red Blood Count 4.31 4.60-5.80 X10*6/uL Hemoglobin 13.9 14.0-18.0 g/dl Hematocrit 42.0 42.0-52.0 % Mean Corpuscular Volume 97.4 80.0-98.0 fL Mean Corpuscular Hemoglobin 32.3 27.0-33.0 pg Mean Corpuscular HGB Conc 33.1 31.0-36.0 g/dl Red Cell Distribution Width 13.1 11.0-16.0 % Platelet Count 269 160-400 X10*3/uL Mean Platelet Volume 8.5 9.4-12.4 fL Neutrophils Percent Auto 64.4 45-73 % Imm Gran Pct Auto 0.4 0.0-0.4 % Lymphocytes Percent Auto 18.6 20-40 % Monocytes Percent Auto 11.0 2-11 % Eosinophils Percent Auto 4.9 0-4 % Basophils Percent Auto 0.7 0-2 % NRBC Pct Auto 0.0 0.0-0.2 /100WBC Neutrophils Absolute Auto 4.5 2.0-8.3 x10*3/u L Imm Gran Abs Auto 0.03 0.00-0.03 X10*3/uL Lymphocytes Absolute Auto 1.3 1.2-4.9 X10*3/u L Monocytes Absolute Auto 0.8 0.1-1.2 X10*3/uL Eosinophils Absolute Auto 0.3 0.0-0.4 X10*3/u L Basophils Absolute Auto 0.1 0.0-0.2 X10*3/uL NRBC Abs Auto 0.000 0.0-0.012 X10*3/uL Comprehensive [place]. Panel Fa st Reviewed date:01/03/2025 12:57:57 PM Interpretation: Performing Lab:[facility], [address] [place] [phone] Notes/Report: Sodium 140 135-145 mmol/L Potassium 4.5 3.3-5.1 mmol/L Chloride 103 96-108 mmol/L Carbon Dioxide 28 22-29 mmol/L Anion Gap 14 12-20 Blood Urea Nitrogen 10 9-16 mg/dL Creatinine 0.77 0.5-1.4 mg/dL Estimated Glomerular Filt Rate > 60 Chronic Kidney Disease: Estimated GFR < 60 mL/min/1.73m2 Severe Kidney Disease: Estimated GFR < 15 mL/min/1.73m2 Glucose Fasting 98 60-99 mg/dL Calcium 9.5 8.4-10.2 mg/dL Bilirubin Total 0.4 0.0-1.0 mg/dL Aspartate Amino Transferase 27 5-37 U/L Alanine Aminotransferase 17 0-40 U/L Total Protein 7.0 6.5-8.0 g/dL Albumin Level 4.1 3.5-5.0 g/dL Alkaline Phosphatase 95 39-117 U/L Lipid Panel Reviewed date:01/03/2025 12:55:43 PM Interpretation: Performing Lab:[facility], [address] [place] [phone] Notes/Report: Triglycerides 47 <150 mg/dL Desirable Triglyceride: less than 150 mg/dL Borderline High Triglyceride 150-199 mg/dL High Triglyceride: 200-499 mg/dL Very High Triglyceride: greater than or equal to 5OO mg/dL Cholesterol 142 <200 mg/dL Desirable Cholesterol: less than 200 mg/dL Borderline High Cholesterol: 200-239 mg/dL High Cholesterol: greater than 239 mg/dL LDL Cholesterol Calculated 76 <100 mg/dL Desirable LDL: less than 100 mg/dL Near Optimal/Above Optimal LDL: 110-129 mg/dL Borderline High LDL: 130-159 mg/dL High LDL: 160-189 mg/dL Very High LDL: greater than or equal to 190 mg/dL HDL Cholesterol 57 >40 mg/dL Desirable HDL: greater than 40 mg/dL Note: This HDL assay may give artificially low results in patients with liver disease. PSA,Total (Free>4and<10) Reviewed date:01/13/2025 07:56:48 AM Interpretation:BRIDGETT 01/10 Performing Lab:[address] [phone] Notes/Report: PSA,Total (Free>4and<10) 4.60 0.00-4.00 ng/mL PSA methodology: Amezquita Alinity i Chemiluminescent Microparticle Immunoassay (CMIA) TSH reflex Free T4 Reviewed date:01/03/2025 12:57:39 PM Interpretation: Performing Lab:[facility], [address] [place] [phone] Notes/Report: TSH reflex Free T4 1.53 0.32-4.0 uIU/mL UA ClnCatch+Micro w/rflx Cul t Reviewed date:01/03/2025 01:01:54 PM Interpretation: Performing Lab:[facility], [address] [place] [phone] Notes/Report: Urine, Clean Catch Color Urine Yellow Appearance Urine Cloudy PH 7.0 5.0-9.0 Glucose Urine UA Negative Negative mg/dL Urine Blood Trace Negative Specific [place] - Urine 1.015 1.005-1.025 Urine Protein Negative Neg-Trace mg/dL Urine Ketones Negative Negative mg/dL Nitrite Urine Negative Negative Leukocyte Esterase Urine Moderate (2+) Negative RBC Urine 3-5 0-2 /HPF WBC Urine 21-50 0-5 /HPF Squamous Epithelial Cell Urine 0-2 0-2 /HPF Bacteria Urine 4+ None Seen Hyaline Casts Urine 0-2 0-2 /LPF REASON FOR VISIT FASTING LABS Encounters Encounter Location Date Provider Diagnosis Zane Rivera MD [address] [place] [phone] 01/03/2025 Znae Rivera Prediabetes R73.09 ; Acquired hypothyroidism E03.9 and Low HDL (under 40) E78.6 Assessments Encounter Date Diagnosis (ICD Code) Assessment Notes Treatment Notes Treatment Clinical Notes Section Notes 01/03/2025 Prediabetes (ICD-10 - R73.09) 01/03/2025 Acquired hypothyroidism (ICD-10 - E03.9) 01/03/2025 Low HDL (under 40) (ICD-10 - E78.6) Plan Of Treatment Next Appt Details Provider Name:Zane ireland, 07/14/2025 02:00:00 PM, [address] [place] [address], [address], [phone], Provider Name:Zane ireland, 01/05/2026 07:00:00 AM, [address] [place] [address], [phone], Provider Name:Zane ireland, 01/12/2026 01:00:00 PM, [address] [place] [address], [phone], Progress Notes * Gary DONOHUEDOB:[birth year] (79 yo M)Acc No.[id number]:01/03/2025 Progress Note Patient: Gary DUNCAN Provider: Rashad Rivera MD :1945 A ge:79 Y S ex:Male Date:01/03/2025 Address:[address] [facility] Subjective: * Chief Complaints: * 1 . FASTING LABS. * Medical History: Objective: * Vitals: Assessment: * Assessment: 1. P rediabetes - R73.09 (Primary) 2 . A cquired hypothyroidism - E03.9? 3. L ow HDL (under 40) - E78.6 Plan: * Treatment: 2. A cquired hypothyroidism L AB: Complete Blood Count Auto Diff (Collection Date & Time - 01/03/2025 07:15 AM) L AB: Comprehensive [place]. Panel Fast (Collection Date & Time - 01/03/2025 07:15 AM) L AB: Lipid Panel (Collection Date & Time - 01/03/2025 07:15 AM) L AB: PSA,Total (Free>4and<10) (Collection Date & Time - 01/03/2025 07:15 AM) L AB: TSH reflex Free T4 (Collection Date & Time - 01/03/2025 07:15 AM) L AB: UA ClnCatch+Micro w/rflx Cult (Collection Date & Time - 01/03/2025 07:15 AM) 3. L ow HDL (under 40) L AB: Complete Blood Count Auto Diff (Collection Date & Time - 01/03/2025 07:15 AM) L AB: Comprehensive [place]. Panel Fast (Collection Date & Time - 01/03/2025 07:15 AM) L AB: Lipid Panel (Collection Date & Time - 01/03/2025 07:15 AM) L AB: PSA,Total (Free>4and<10) (Collection Date & Time - 01/03/2025 07:15 AM) L AB: TSH reflex Free T4 (Collection Date & Time - 01/03/2025 07:15 AM) L AB: UA ClnCatch+Micro w/rflx Cult (Collection Date & Time - 01/03/2025 07:15 AM) * Procedure Codes: 3 6415 VENIPUNCT, ROUTINE* * * The named appointment provid er may or may not be the originator of this progress note, and it is not deemed complete until electronically signed by the appointment provider. Sign off status: Pending * Provider: Rashad Rivera MD Date: 0 01/03/2025 Generated for Waldemar kay/Chavo/eTransmitting on: 1 06/29/2024 10:49 AM EST
--- OUTSIDE RECORDS SUMMARY | 2025-01-10 09:30 | XMS_ITS ---
Author Organization Zane Rivera MD Address [address] [place], [place] [id number] Care Team Providers Care Watch Dial Stoner Name Role Phone Zane Rivera Primary Care Provider Allergies No Known Allergies REASON FOR VISIT COMP EXAM/ CBACK PSA URINE CULTURE Medications Medication SIG (Take, Route, Frequency, Duration) Notes Start Date End Date Status Ventolin HFA * 108 (90 Base) MCG/ACT 2 puffs as needed Inhalation every 4 hrs 11/14/2015 Active Amoxicillin 500 MG 1 capsule Orally anshul ry 12 hours for 5 days 01/10/2025 Active Social History Tobacco Use: Social History Observation Description Date Details (start date - stop date) Never Smoker NA - NA Tobacco Use/Smoking Question Answer Notes Patient is [...] Never (0 point) Points 1 Interpretation Negative Vital Signs Blood pressure systolic 132 mm Hg 01/11/20 25 Blood pressure diastolic 80 mm Hg 025 Height 68 in 01/10/2025 Weight 160 lbs 01/10/2025 BMI 24.33 kg/m2 01/10/2025 weight is down 7 pounds [facility] 04-12-24 Encounters Encounter Location Date Provider Diagnosis Znae Rivera MD [address] [place], [place] [phone] 01/10/2025 Zane Rivera UTI (urinary tract infection) N39.0 ; Elevated PSA R97.20 ; Thrombosis, portal vein I81 and Head and neck cancer C76.0 Assessments Encounter Date Diagnosis (ICD Code) Assessment Notes Treatment Notes Treatment Clinical Notes Section Notes 01/10/2025 UTI (urinary tract infection) (ICD-10 - N39.0) 01/10/2025 Elevated PSA (ICD-10 - R97.20) has a uti so is probalbly from that will repeat 01/10/2025 Thrombosis, 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 should get notes from her/ will request records 01/10/2025 Head and neck cancer (ICD-10 - C76.0) had recent endoscopy and was negative Plan Of Treatment Medication Medication Name Sig Start Date Stop Date Notes Amoxicillin 500 MG 1 capsule Orally anshul ry 12 hours for 5 days 01/10/2025 Treatment Notes Assessment Notes Elevated PSA has a uti so is prob albly from that will repeat Thrombosis, portal vein patient reports that dr adler said he doesn't need eliquis any longer. should get notes from her/ will request records Head and neck cancer had recent endoscop y and was negative Next Appt Details Follow Up: 6 Months, Reason: Provider Name:Zane ireland, 07/14/2025 02:00:00 PM, [address], [address], [place], [place], [id number], Provider Name:Zane ireland, 01/05/2026 07:00:00 AM, [address] [facility], [address], [place], [place], [phone], Provider Name:Zane Mustafa ier, 01/12/2026 01:00:00 PM, [address] [facility], [address], [place], [place], [phone], Progress Notes * Gary DONOHUEDOB:[birth year] (79 yo M)Acc No.[id number]:01/10/2025 Patient: Gary DUNCAN Provider: Rashad Rivera MD :1945 A ge:79 Y S ex:Male Date:01/10/2025 Address:[address] [place], [place] [id number] Subjective: * Chief Complaints: * C OMP EXAM/ CBACK PSA URINE CULTURE * HPI: D epression Screening: PHQ-9 L ittle interest or pleasure in doing things N ot at all, F eeling down, depressed, or hopeless N ot at all, T rouble falling or staying asleep, or sleeping too much N ot at all, F eeling tired or having little energy N ot at all, P oor appetite or overeating N ot at all, F eeling bad about yourself or that you are a failure, or have let yourself or your family down N ot at all, T rouble concentrating on things, such as reading the newspaper or watching television N ot at all, M oving or speaking so slowly that other people could have noticed; or the opposite, being so fidgety or restless that you have been moving around a lot more than usual N ot at all, T houghts that you would be better off or of hurting yourself in some way N ot at all, T otal Score 0 . I nterpretation and Intervention D epression Screening Findings N egative, F ollow-Up for Depression : review of PHQ-9 found negative result, no follow-up needed. C ommunication Needs: Communication Needs D oes the patient have a hearing impairment Y es, I f yes, what is the hearing impairment? H alisa of hearing, Hearing Aids, D oes the patient have a vision impairment? Y es, I f yes, what is the vision impairment? G lasses, D oes the patient have a cognition impairment? N o. F all Risk: History H ave you had any falls with injury in the past year? N o, H ave you had two or more falls in the past year? N o. S LIONEL Questions: SDOH Questions I n the past year have you been worried about losing housing? N o, I n the past year have you or any family members you live with been unable to get any of the following when it was really needed? Check all that apply: N one. S ymptom(s): patient is a 79 yo male here for visit with review of recent labs and follow up of chronic issues. * ROS: G eneral/Constitutional: Change in appetite d enies. C hills d enies. F ever d enies. O phthalmologic: Blurred vision d enies. D ischarge d enies. P ain d enies. E NT: Decreased hearing d enies. S ore throat d enies.?Swollen glands d enies. E ndocrine: Cold intolerance d enies. E xcessive thirst d enies. H eat intolerance d enies. W eight loss d enies. R espiratory: Cough d enies. S hortness of breath at rest d enies. S hortness of breath with exertion d enies. W heezing d enies. C ardiovascular: Chest pain at rest d enies. C hest pain with exertion?denies. I rregular heartbeat d enies. S hortness of breath d enies. ? G astrointestinal: Abdominal pain d enies. C hange in bowel habits d enies. D iarrhea d enies. N ausea d enies. R ectal bleeding d enies. V omiting d enies . G enitourinary: Blood in urine d enies. D ifficulty urinating d enies. F requent urination d enies. M usculoskeletal: Painful joints d enies. W eakness d enies. ? S kin: Dry skin d enies. I tching d enies. D enies?Mole(s), changes in moles, new moles or any lesions of concern. D enies P hotosensitivity. R miles d enies. N eurologic: Dizziness d enies. F ainting d enies. H eadache?denies. * Medical History: * Surgical History: * Hospitalization/Major Diagno stic Procedure: * Family History: F ather: 79 yrs, diagnosed with Cancer. M other: 89 yrs, diagnosed with Cancer. 1 brother(s) . 3 son(s) . . 1 DAUGHTER., Denies mental health/substance abuse family history Father colon cancer mother- uterine cancer, Denies mental health/substance abuse family history, Denies mental health/substance abuse family history, No pertinent family medical history. * Social History: T obacco Use: T obacco Use/Smoking P atdiamond is a n onsmoker, A dditional Findings: Tobacco Non-User C urrent non-smoker, currently using no form of tobacco. D rugs/Alcohol: A lcohol Screen D id you have a drink containing alcohol in the past year? Y es, H ow often did you have a drink containing alcohol in the past year? M onthly or less (1 point), H ow many drinks did you have on a typical day when you were drinking in the past year? 1 or 2 drinks (0 point), H ow often did you have 6 or more drinks on one occasion in the past year? N ever (0 point), P oints 1 , I nterpretation N egative. M iscellaneous: C affeine: yes, frequency:, 1-2 cups per day. Children: yes. Community involvements: no. Exercise: yes, daily, either walking or playing tennis. Housing: owning. Living with: spouse. Marital status: . Occupation: unemployed/ retired. Pets: none. Travel outside of the [place]: no. * Medications: T akingVentolin HFA * 108 (90 Base) MCG/ACT Aerosol Solution 2 puffs as needed Inhalation every 4 hrs Taking Ventolin HFA * 108 (90 Base) MCG/ACT Aerosol Solution 2 puffs as needed Inhalation every 4 hrs DiscontinuedEliquis 5 MG Tablet TAKE 1 TABLET BY MOUTH TWICE A DAY Medication List reviewed and reconciled with the patientDiscontinued Eliquis 5 MG Tablet TAKE 1 TABLET BY MOUTH TWICE A DAY Medication List reviewed and reconciled with the patient * Allergies: N .K.D.A.yes[Allergies Verified] Objective: * Vitals: H t: 68, Wt: 160, BMI:24.33, BP:132/80, Wt-k.58. weight is down 7 pounds since 04-12-24. * P ast Orders: L ab:TSH reflex Free T4 (Order Date - 01/03/2025) (Collection Date & Time - 01/03/2025 07:15 AM) Value Reference Range TSH reflex Free T4 1.53 0.32-4.0 - uIU/mL L ab:UA ClnCatch+Micro w/rflx Cult (Order Date - 01/03/2025) (Collection Date & Time - 01/03/2025 07:15 AM) Value Reference Range Color Urine Yellow - Appearance Urine Cloudy - PH 7.0 5.0-9.0 - Glucose Urine UA Negative Negative - mg/dL Urine Blood Trace A Negative - Specific Elsa - Urine 1.015 1.005-1.025 - Urine Protein Negative Neg-Trace - mg/dL Urine Ketones Negative Negative - mg/dL Nitrite Urine Negative Negative - Leukocyte Esterase Urine Moderate (2+) A Negative - RBC Urine 3-5 A 0-2 - /HPF WBC Urine 21-50 A 0-5 - /HPF Squamous Epithelial Cell Urine 0-2 0-2 - /HP F Bacteria Urine 4+ None Seen - Hyaline Casts Urine 0-2 0-2 - /LPF L ab:Complete Blood Count Auto Diff (Order Date - 01/03/2025) (Collection Date & Time - 01/03/2025 07:15 AM) Value Reference Range White Blood Count 7.0 4.8-10.8 - X10*3/uL Red Blood Count 4.31 L 4.60-5.80 - X10*6/uL Hemoglobin 13.9 L 14.0-18.0 - g/dl Hematocrit 42.0 42.0-52.0 - % Mean Corpuscular Volume 97.4 80.0-98.0 - fL Mean Corpuscular Hemoglobin 32.3 27.0-33.0 - pg Mean Corpuscular HGB Conc 33.1 31.0-36.0 - g/ dl Red Cell Distribution Width 13.1 11.0-16.0 - % Platelet Count 269 160-400 - X10*3/uL Mean Platelet Volume 8.5 L 9.4-12.4 - fL Neutrophils Percent Auto 64.4 45-73 - % Imm Gran Pct Auto 0.4 0.0-0.4 - % Lymphocytes Percent Auto 18.6 L 20-40 - % Monocytes Percent Auto 11.0 2-11 - % Eosinophils Percent Auto 4.9 H 0-4 - % Basophils Percent Auto 0.7 0-2 - % NRBC Pct Auto 0.0 0.0-0.2 - /100WBC Neutrophils Absolute Auto 4.5 2.0-8.3 - x10* 3/uL Imm Gran Abs Auto 0.03 0.00-0.03 - X10*3/uL Lymphocytes Absolute Auto 1.3 1.2-4.9 - X10* 3/uL Monocytes Absolute Auto 0.8 0.1-1.2 - X10*3/ uL Eosinophils Absolute Auto 0.3 0.0-0.4 - X10* 3/uL Basophils Absolute Auto 0.1 0.0-0.2 - X10*3/ uL NRBC Abs Auto 0.000 0.0-0.012 - X10*3/uL L ab:Comprehensive [place]. Panel Fast (Order Date - 01/03/2025) (Collection Date & Time - 01/03/2025 07:15 AM) Value Reference Range Sodium 140 135-145 - mmol/L Bilirubin Total 0.4 0.0-1.0 - mg/dL Aspartate Amino Transferase 27 5-37 - U/L Alanine Aminotransferase 17 0-40 - U/L Total Protein 7.0 6.5-8.0 - g/dL Albumin Level 4.1 3.5-5.0 - g/dL Alkaline Phosphatase 95 39-117 - U/L Potassium 4.5 3.3-5.1 - mmol/L Chloride 103 96-108 - mmol/L Carbon Dioxide 28 22-29 - mmol/L Anion Gap 14 12-20 - Blood Urea Nitrogen 10 9-16 - mg/dL Creatinine 0.77 0.5-1.4 - mg/dL Estimated Glomerular Filt Rate > 60 - Glucose Fasting 98 60-99 - mg/dL Calcium 9.5 8.4-10.2 - mg/dL L ab:Lipid Panel (Order Date - 01/03/2025) (Collection Date & Time - 01/03/2025 07:15 AM) Value Reference Range Triglycerides 47 <150 - mg/dL Cholesterol 142 <200 - mg/dL LDL Cholesterol Calculated 76 <100 - mg/dL HDL Cholesterol 57 >40 - mg/dL * Examination: G eneral Examination: GENERAL APPEARANCE: w ell developed, well nourished, in no acute distress. HEAD: n ormocephalic, atraumatic. EYES: p upils equal, round, reactive to light and accommodation, sclera non-icteric. EARS: n ormal. ORAL CAVITY: m ucosa moist. THROAT: c lear. NECK/THYROID: n dmitriy supple, full range of motion, no cervical lymphadenopathy, no bruits. SKIN: w arm and dry, no suspicious lesions. HEART: r egular rate and rhythm, S1, S2 normal, no murmurs.? LUNGS: c lear to auscultation bilaterally. ABDOMEN: s oft, nontender, nondistended, bowel sounds present, normal, no organomegaly , no masses palpable. RECTAL EXAM: n ormal tone, no external hemorrhoids, no masses palpable, prostate normal, stool guaiac negative. MALE GENITOURINARY: n o penile lesions or discharge, prostate normal, testes descended bilaterally, no testicular mass. EXTREMITIES: n o clubbing, cyanosis, or edema. NEUROLOGIC: n onfocal, motor strength normal upper and lower extremities, sensory exam intact. Assessment: * Assessment: 1. U TI (urinary tract infection) - N39.0 (Primary) 2 . E levated PSA - R97.20 3 . T hrombosis, portal vein - I81 4 . H ead and neck cancer - C76.0 Plan: * Treatment: 2. E levated PSA Notes: has a uti so is probalbly from that will repeat 3. T hrombosis, portal vein Notes: patient reports that dr adler said he doesn't need eliquis any longer. should get notes from her/ will request records 4. H ead and neck cancer Notes: had recent endoscopy and was negative * Procedure Codes: * Preventive Medicine: Counseling: C are goal follow-up plan: C ounseling for abnormal BMI provided?Yes, Maxim asencio Normal BMI Follow-up Rashad huertas encouragement to exercise. * Follow Up: 6 Months * * Sign off status: Completed true * Provider: Rashad Rivera MD Date: 0 01/10/2025 Generated for Waldemar kay/Chavo/eTransmitting on: 1 06/29/2024 10:50 AM EST History and Physical Notes * HPI (History of Present Illness) Category Sub-Category Detail Notes Category Not es Symptom(s) patient is a 79 yo male here for visit with review of recent labs and follow up of chronic issues Depression Screening PHQ-9 Little inte rest or pleasure in doing things: Not at all Feeling down, depressed, or hopeless: No t at all Trouble falling or staying asleep, or sl eeping too much: Not at all Feeling tired or having little energy: N ot at all Poor appetite or overeating: Not at all Feeling bad about yourself o r that you are a failure, or have let yourself or your family down: Not at all Trouble concentrating on thi ngs, such as reading the newspaper or watching television: Not at all Moving or speaking so slowly that other people could have noticed; or the opposite, being so fidgety or restless that you have been moving around a lot more than usual: Not at all Thoughts that you would be b ling off or of hurting yourself in some way: Not at all Total Score: 0 Interpretation and Intervention Depression Oumar cowan Findings: Negative Follow-Up for Depression: : review of PH Q-9 found negative result, no follow-up needed SDOH Questions SDOH Questions In the past year have you been worried about losing housing?: No In the past year have you or any family members you live with been unable to get any of the following when it was really needed? Check all that apply:: None Fall Risk History Have you had any falls with injury i n the past year?: No Have you had two or more falls in the st year?: No Communication Needs Communication Needs Does the patient have a hearing impairment: Yes If yes, what is the hearing impairment?: Hard of hearing, Hearing Aids Does the patient have a vision impairmen t?: Yes If yes, what is the vision impairment?: Glasses Does the patient have a cognition impair ment?: No Examination Category Sub-Category Detail Notes Category Not es General Examination GENERAL APPEARANCE: well dev eloped, well nourished, in no acute distress HEAD: normocephalic, atrau matic EYES: pupils equal, round, reactive to light and accommodation, sclera non-icteric EARS: normal THROAT: clear NECK/THYROID: neck supple, full ra nge of motion, no cervical lymphadenopathy, no bruits HEART: regular rate and rhy thm, S1, S2 normal, no murmurs LUNGS: clear to auscultatio n bilaterally ABDOMEN: soft, nontender, non distended, bowel sounds present, normal, no organomegaly , no masses palpable NEUROLOGIC: nonfocal, motor stre ngth normal upper and lower extremities, sensory exam intact SKIN: warm and dry, no carroll picious lesions EXTREMITIES: no clubbing, cyanosi s, or edema MALE GENITOURINARY: no penile lesions or discharge, prostate normal, testes descended bilaterally, no testicular mass RECTAL EXAM: normal tone, no exte rnal hemorrhoids, no masses palpable, prostate normal, stool guaiac negative ORAL CAVITY: mucosa moist
--- OUTSIDE RECORDS SUMMARY | 2025-01-20 02:45 | XMS_ITS ---
Author Organization Zane Rivera MD Address [address] [place], [place] [id number] Care Team Providers Care Residential Real Estate Agent Name Role Phone MiguelLyssan Primary Care Provider Results Component Value Reference Range Notes UA ClnCatch+Micro w/rflx Cul t Reviewed date:01/20/2025 05:23:52 PM Interpretation: Performing Lab:[facility], [address] [place] [phone] Notes/Report: Urine, Clean Catch Color Urine Yellow Appearance Urine Clear PH 7.0 5.0-9.0 Glucose Urine UA Negative Negative mg/dL Urine Blood Negative Negative Specific [place] - Urine 1.010 1.005-1.025 Urine Protein Negative Neg-Trace mg/dL Urine Ketones Negative Negative mg/dL Nitrite Urine Negative Negative Leukocyte Esterase Urine Trace Negative RBC Urine 0-2 0-2 /HPF WBC Urine 0-5 0-5 /HPF Squamous Epithelial Cell Urine 0-2 0-2 /HPF Bacteria Urine None Seen None Seen Hyaline Casts Urine 0-2 0-2 /LPF REASON FOR VISIT repeat urine Encounters Encounter Location Date Provider Diagnosis Zane Rivera MD [address] [place] [address] [place] [phone] 01/20/2025 Zane Rivera UTI (urinary tract infection) N39.0 Assessments Encounter Date Diagnosis (ICD Code) Assessment Notes Treatment Notes Treatment Clinical Notes Section Notes 01/20/2025 UTI (urinary tract infection) (ICD-10 - N39.0) Plan Of Treatment Next Appt Details Provider Name:Zane ireland, 07/14/2025 02:00:00 PM, [address] [place] [address], Suite [facility], [place], [place], [phone], Provider Name:Zane ireland, 01/05/2026 07:00:00 AM, [address] [place] [address], Suite [facility], [place], [place], [phone], Provider Name:Zane ireland, 01/12/2026 01:00:00 PM, [address] [place] [address], [place] [address], [place], [place], [phone], Progress Notes * Gary DONOHUE JDOB:[birth year] (79 yo M)Acc No.[id number]:01/20/2025 Progress Note Patient: Gary DUNCAN Provider: Rashad Rivera MD :1945 A ge:79 Y S ex:Male Date:01/20/2025 Address:[address] [place], [place] [id number] Subjective: * Chief Complaints: * 1 . Repeat urine. * Medical History: Objective: * Vitals: Assessment: * Assessment: 1. U TI (urinary tract infection) - N39.0 (Primary) Plan: * Treatment: * * The named appointment provid er may or may not be the originator of this progress note, and it is not deemed complete until electronically signed by the appointment provider. Sign off status: Pending * Provider: Rashad Rivera MD Date: 0 01/20/2025 Generated for Waldemar kay/Chavo/Rafitting on: 1 06/29/2024 10:50 AM EST
--- OUTSIDE RECORDS SUMMARY | 2025-04-29 10:48 | XMS_ITS | Encounter Summary ---
Author Organization [facility] Address [address] [place] [address] Phone Care Team Providers Care Annual Giving Director Name Role Phone Zane Rivera MD Primary Care Provider Encounter Details Date Type Department Care Team (Late st Contact Info) Description 06/27/2017 Ancillary Orders Virtual Department [address] [place] [address] Adrian Brian MD [address] [place] [address] [address] [place] [address] [email or web address] Personal history of malignant neoplasm of other [...] aorta. TOTAL CTDIvol: 29.5 mGy POS - [id number] Edited by: Ladi Dietz on 07/09/2017 10:59 [...] aorta. TOTAL CTDIvol: 29.5 mGy POS - [id number] Edited by: Ladi Dietz on 07/09/2017 10:59 [...] Dysphonia documented in this encounter Care Teams Annual Giving Director Relationship Specialty Start Date End Date Zane Rivera MD [address] [place] [address] [place] [address] PCP - General Internal Medicine 06/27/17 documented as of this encounter Additional Source Comments The information contained in this document represents components of the legal health record. It is not the complete legal health record.[facility]
--- OUTSIDE RECORDS SUMMARY | 2025-04-29 10:48 | XMS_ITS | Encounter Summary ---
Author Organization [facility] Address [address] [place] [address] Phone Care Team Providers Care Sewer System Supervisor Name Role Phone Zane Rivera MD Primary Care Provider Encounter Details Date Type Department Care Team (Late st Contact Info) Description 06/27/2017 Procedure Pass [facility], Ct Scan - [address] [address] Social History Tobacco Use Types Packs/Day Years [...] on filedocumented in this encounter Care Teams Sewer System Supervisor Relationship Specialty Start Date End Date Zane Rivera MD [address] [place] [address] [address] PCP - General Internal Medicine 06/27/17 documented as of this encounter Additional Source Comments The information contained in this document represents components of the legal health record. It is not the complete legal health record.[facility]
--- OUTSIDE RECORDS SUMMARY | 2025-04-29 10:49 | XMS_ITS | Clinical Summary ---
Author Organization [facility] Address [address] [facility] [address] [place] [address] Phone Care Team Providers Care Television Producer Name Role Phone Zane Rivera MD Primary [...] file [place] [id number] [facility] MEDEX SUPPLEMENT MEDICARE PART A & B [employer] MEDEX SUPPLEMENT MEDICARE PART A & B [employer] MEDEX SUPPLEMENT MEDICARE PART A & B [employer] MEDEX SUPPLEMENT MEDICARE PART A & B [employer] MEDEX SUPPLEMENT MEDICARE PART A & B [employer] MEDEX SUPPLEMENT MEDICARE PART A & B [employer] MEDEX SUPPLEMENT MEDICARE PART A & B [facility] MEDEX SUPPLEMENT MEDICARE PART A & B [employer] MEDEX SUPPLEMENT Care Teams Television Producer Relationship Specialty Start Date End Date Zane Rivera MD [address] [place] [address] [place] [address] PCP - General Internal Medicine 06/27/17 Additional Source Comments The information contained in this document represents components of the legal health record. It is not the complete legal health record.[facility]
--- OUTSIDE RECORDS SUMMARY | 2025-04-29 10:49 | XMS_ITS | Encounter Summary ---
Author Organization [facility] Address [address] [place] [address] Phone Care Team Providers Care Piece Marker Small Arms Name Role Phone Zane Rivera MD Primary Care Provider Encounter Details Date Type Department Care Team (Latest Contact Info) Description 07/04/2017 Transcribe Orders [facility]le[facility] Main [address] [place] [address] Adrian Brian MD [address] [place] [address] [address] [place] [address] [email or web address] Encounter for hydration prior to CT scan [...] Procedure Name Priority Date/Time Associated Diagnosis Comments CREATININE WITH ESTIMATED GLOMERULAR FILTRATION RATE (EGFR) Routine 07/04/2017 7:25 AM EST Encounter for hydration prior to CT scan History of malignant neoplasm of parotid gland BUN Routine 07/04/2017 7:25 AM EST Encounter for hydration prior to CT scan History of malignant neoplasm of parotid gland documented in this encounter Results * Creatinine/eGFR (07/04/2017 7:25 AM EST) CREATININE 0.60 0.5 - 1.5 mg/dL [facility] EGFR >60 mL/min/1.7 3m2 [facility] Comment:Abnormal if <60. If patient is -British, multiply the result by 1.21. Blood 07/04/2017 7:25 AM EST 07/04/2017 7:27 AM EST us Adrian Brian MD LAB BLOOD BKR ORDERABLES Final Result [address] [address] * BUN (07/04/2017 7:25 AM EST) BUN 11 6 - 19 mg/dL [facility] Blood 07/04/2017 7:25 AM EST 07/04/2017 7:27 AM EST Adrian Brian MD LAB BLOOD BKR ORDERABLES Final Result Performing Organization Address [facility] Co de Phone Number [address] [address] documented in this encounter Visit Diagnoses Diagnosis Encounter for hydration prior to CT scan- Primary History of malignant neoplasm of parotid gland documented in this encounter Care Teams Piece Marker Small Arms Relationship Specialty Start Date End Date Zane Rivera MD [address] [place] [address] [place] [address] PCP - General Internal Medicine 06/27/17 documented as of this encounter Additional Source Comments The information contained in this document represents components of the legal health record. It is not the complete legal health record.[facility]
--- OUTSIDE RECORDS SUMMARY | 2025-04-29 10:49 | XMS_ITS | Patient Health Record ---
Author Organization Zane Rivera MD Address [address] [place], [place] [address] Care Team Providers Care Soap Press Feeder Name Role Phone CaraZane elizalde Primary Care Provider [phone] Allergies No Known Allergies Results Component Value Reference Range Notes Complete Blood Count Auto Di ff Reviewed date:01/03/2025 12:58:28 PM Interpretation: Performing Lab:[facility], [address] [place] [phone] Notes/Report: White Blood Count 7.0 4.8-10.8 X10*3/uL [...] NRBC Abs Auto 0.000 0.0-0.012 X10*3/uL [facility] [place]. Panel Fa st Reviewed date:01/03/2025 12:57:57 PM Interpretation: Performing Lab:[facility], [address] [place] [phone] Notes/Report: Sodium 140 135-145 mmol/L Potassium 4.5 [...] Panel Reviewed date:01/03/2025 12:55:43 PM Interpretation: Performing Lab:[facility], [address] [place] [phone] Notes/Report: Triglycerides 47 <150 mg/dL Desirable Triglyceride: [...] Reviewed date:01/13/2025 07:56:48 AM Interpretation:BRIDGETT 01/10 Performing Lab:[address] [address] Notes/Report: PSA,Total (Free>4and<10) 4.60 0.00-4.00 ng/mL PSA methodology: Amezquita Alinity i Chemiluminescent Microparticle Immunoassay (CMIA) TSH reflex Free T4 Reviewed date:01/03/2025 12:57:39 PM Interpretation: Performing Lab:[facility], [address] [place] [phone] Notes/Report: TSH reflex Free T4 1.53 0.32-4.0 uIU/mL UA ClnCatch+Micro w/rflx Cul t Reviewed date:01/03/2025 01:01:54 PM Interpretation: Performing Lab:[address] [address] Notes/Report: Urine, Clean Catch Color Urine Yellow Appearance Urine Cloudy PH 7.0 5.0-9.0 Glucose Urine UA Negative Negative mg/dL Urine Blood Trace Negative Specific Callaway - Urine 1.015 1.005-1.025 Urine Protein Negative Neg-Trace mg/dL Urine Ketones Negative Negative mg/dL Nitrite Urine Negative Negative Leukocyte Esterase Urine Moderate (2+) Negative RBC Urine 3-5 0-2 /HPF WBC Urine 21-50 0-5 /HPF Squamous Epithelial Cell Urine 0-2 0-2 /HPF Bacteria Urine 4+ None Seen Hyaline Casts Urine 0-2 0-2 /LPF UA ClnCatch+Micro w/rflx Cul t Reviewed date:01/20/2025 05:23:52 PM Interpretation: Performing Lab:[facility], [address] [place] [phone] Notes/Report: Urine, Clean Catch Color Urine Yellow Appearance Urine Clear PH 7.0 5.0-9.0 Glucose Urine UA Negative Negative mg/dL Urine Blood Negative Negative Specific Callaway - Urine 1.010 1.005-1.025 Urine Protein Negative Neg-Trace mg/dL Urine Ketones Negative Negative mg/dL Nitrite Urine Negative Negative Leukocyte Esterase Urine Trace Negative RBC Urine 0-2 0-2 /HPF WBC Urine 0-5 0-5 /HPF Squamous Epithelial Cell Urine 0-2 0-2 /HPF Bacteria Urine None Seen None Seen Hyaline Casts Urine 0-2 0-2 /LPF US abdomen complete Reviewed date:06/13/2024 03:50:38 PM Interpretation: Performing Lab: Notes/Report: [address] [address] Ultrasound Report Signed Patient: Gary Donohue MR#: [id number] : 1945 Acct:[id number] Age/Sex: 78 / M ADM Date: 05/10/24 Loc: HO.US Attending Dr: Hollie Robison MD Ordering Physician: Hollie Robison MD Date of Service: 05/10/24 Procedure(s): US abdomen complete Accession Number(s): [id number] cc: Zane Rivera MD; Hollie Robison MD Exam dictated in conjunction with ultrasound duplex arterial venous performed of the same day. Electronically signed by: Jesus Junior MD 06/13/2024 11:31 AM [facility] Dictated By: Jesus Junior MD Signed By: <Electronically signed by Jesus Junior MD in OV> 06/13/24 1131 DD/ 0937 TD/TT: 05/10/24 1023 Automation Controls Specialist: [address] [address] Ultrasound Report Signed Patient: Gary Donohue MR#: [id number] : 1945 Acct:[id number] Age/Sex: 78 / M ADM Date: 05/10/24 Loc: HO.US Attending Dr: Hollie Robison MD Ordering Physician: Hollie Robison MD Date of Service: 05/10/24 Procedure(s): US abdomen complete Accession Number(s): [id number] cc: Zane Rivera MD; Hollie Robison MD Exam dictated in conjunction with ultrasound duplex arterial venous performed of the . Electronically marcial d by: Jesus Junior MD 06/13/2024 11:31 AM [facility] Dictated By: Jesus Junior MD Signed By: <Electronically signed by Jesus Junior MD in OV> 06/13/24 1131 DD/ 0937 TD/TT: 05/10/24 1023 Automation Controls Specialist: US duplex arterial venous co mp Reviewed date:06/03/2024 08:29:24 AM Interpretation: Performing Lab: Notes/Report: [address] [address] Ultrasound Report Signed Patient: Gary Donohue MR#: [id number] : 1945 Acct:[id number] Age/Sex: 78 / M ADM Date: 05/10/24 Loc: .US Attending Dr: Hollie Robison MD Ordering Physician: Hollie Robison MD Date of Service: 05/10/24 Procedure(s): US duplex arterial venous comp Accession Number(s): [id number] cc: Zane Rivera MD; Hollie Robison MD [...] by: Kandice Sherwood MD 06/02/2024 05:24 PM [facility] Dictated By: Elsa Sherwood Signed By: <Electronically signed by Elsa Sherwood in OV> 06/02/24 1724 DD/ 0937 TD/TT: 05/10/24 1023 Automation Controls Specialist: [address] [address] Ultrasound Report Signed Patient: Gary Donohue MR#: [id number] : 1945 Acct:[id number] Age/Sex: 78 / M ADM Date: 05/10/24 Loc: HO.US Attending Dr: Hollie Robison MD Ordering Physician: Hollie Robison MD Date of Service: 05/10/24 Procedure(s): US dup nicolasa arterial venous comp Accession Number(s): [id number] cc: Zane Rivera MD; Hollie Robison MD [...] by: Kandice Sherwood MD 06/02/2024 05:24 PM [facility] Dictated By: Elsa Sherwood Signed By: <Electronically signed by Elsa Sherwood in OV> 06/02/24 1724 DD/ 0937 TD/TT: 05/10/24 1023 Automation Controls Specialist: H Pylori Breath Test Reviewed date:06/25/2024 12:27:54 PM Interpretation: Performing Lab:[address] [address] Notes/Report: H Pylori Breath Test Negative Negative Antimicrobials, proton pump inhibitors and bismuth preparations are known to suppress H. pylori. Ingesting these medications within two weeks prior to performing the breath test may produce negative test results. A positive result is still clinically valid. PSA Free and Total Reviewed date:01/04/2025 05:10:04 PM Interpretation: Performing Lab:[address] [address] Notes/Report: Prostate Specific Ag Total 3.7 < OR = 4.0 ng/mL Percent Free Prostate Spec Ag 16 >25 % (calc) PSA(ng/mL) Free PSA(%) Estimated(x) Probability of Cancer(as%) 0-2.5 (*) Approx. 1 2.6-4.0(1) 0-27(2) 24(3) 4.1-10(4) 0-10 56 11-15 28 16-20 20 21-25 16 >or =26 8 >10(+) N/A >50 References:(1)Endy boyd et al.:Urology 60: 469-474 (2002) (2)Jayshree et al.:J.Urol 168: 922-925 (2001) Free PSA(%) Sensitivity(%) Specificity(%) < or = 25 85 19 < or = 30 93 9 (3)Jayshree et al.:BENJA 277: 6384-6847 (1996) (4)Catalona et al.:BENJA 279: 5876-7646 (1997) (x)These estimates vary with age, ethnicity, [...] of disease. THIS TEST WAS PERFORMED AT: [facility] [address] [address] SUMAN WORTHY MD Free Prostate Spec Ag 0.6 Urine Culture Reviewed date:01/11/2025 07:34:28 AM Interpretation:01-10-25 Performing Lab:[facility], [address] [place] [phone] Notes/Report: O:ENTFAC Enterococcus faecalis Urine Culture Quant Urine Culture > 100,000 cfu/mL Ampicillin <=2 Levofloxacin 0.5 Nitrofurantoin <=16 Tetracycline >=16 Vancomycin 1 Complete Blood Count Auto Di ff Reviewed date:01/06/2025 12:07:09 PM Interpretation: Performing Lab:[facility], [address] [place] [address] Notes/Report: White Blood Count 5.9 4.8-10.8 X10*3/uL [...] Panel Reviewed date:01/06/2025 05:08:13 PM Interpretation: Performing Lab:[facility], [address] [place] [phone] Notes/Report: Sodium 141 135-145 mmol/L Potassium 4.4 [...] Sensitivity Reviewed date:01/06/2025 12:06:44 PM Interpretation: Performing Lab:[facility], [address] [place] [phone] Notes/Report: D Dimer High Sensitivity 439 Results [...] limit of normal is 243 ng/mL. US duplex arterial venous co mp Reviewed date:02/25/2025 12:46:41 PM Interpretation: Performing Lab: Notes/Report: [address] [address] Ultrasound Report Signed Patient: Gary Donohue MR#: [id number] : 1945 Acct:[id number] Age/Sex: 79 / M ADM Date: 02/24/25 Loc: [facility] [[email or web address] Attending Dr: Hollie Robison MD Ordering Physician: Jericho Wilkins MD Date of Service: 02/24/25 Procedure(s): US duplex arterial venous comp Accession Number(s): [id number] cc: Zane Rivera MD; Jericho Wilkins MD Reason for Exam: Follow-up on portal vein thrombosis EXAMINATION: US DOPPLER portal veins, hepatic veins, splenic vessels and hepatic artery LIMITED CLINICAL INFORMATION: Follow portal vein thrombosis, left side. COMPARISON: May 10, 2024 TECHNIQUE: Ultrasound along with color Doppler imaging and spectral analysis was performed of the name portal veins, hepatic veins, splenic vessels and hepatic artery. FINDINGS: Main portal vein, main right portal veins are patent with normal hepatopedal flow direction. Left Main portal vein demonstrates no color Doppler flow. The main hepatic veins, mid, right and left hepatic veins are patent with normal hepatofugal flow direction. The main hepatic artery, right and left hepatic arteries demonstrated normal patency and antegrade flow with peak systolic velocity 82 cm/s. The splenic vessels are patent with normal flow direction. Spleen measures 8 cm. Liver measures 15 cm. No gross ascites. No hydronephrosis in the included portions of the right kidney.. US/US duplex arterial venous comp IMPRESSION: No color Doppler flow in the left main portal vein likely related to thrombosis/occlusion. Remaining interrogated vessels demonstrated normal patency and flow direction. No gross ascites. Electronically signed by: Javed Birch MD 02/25/2025 07:26 AM EDT RP Dictated By: Javed Sal MD Signed By: <Electronically signed by Javed Osborn MD in OV> 02/25/25 0726 DD/ 1445 TD/TT: 02/24/25 1515 Automation Controls Specialist: [address] [address] Ultrasound Report Signed Patient: Gary Donohue MR#: [id number] : 1945 Acct:[id number] Age/Sex: 79 / M ADM Date: 02/24/25 Loc: .US Attending Dr: Hollie Robison MD Ordering Physician: Jericho Wilkins MD Date of Service: 02/24/25 Procedure(s): US dup nicolasa arterial venous comp Accession Number(s): [id number] cc: Zane Rivera MD; Jericho Wilkins MD Reason for Exam: Follow-up on portal vein thrombosis EXAMINATION: US DOPPLER portal veins, hepatic veins, splenic vessels and hepatic artery LIMITED CLINICAL INFORMATION: Follow portal vein thrombosis, left side. COMPARISON: May 10, 2024 TECHNIQUE: Ultrasound along wit h color Doppler imaging and spectral analysis was performed of the nam e portal veins, hepatic veins, splenic vessels and hepatic artery. FINDINGS: Main portal vein, ma in right portal veins are patent with normal hepatopedal flow direction. Left Main portal vei n demonstrates no color Doppler flow. The main hepatic vei ns, mid, right and left hepatic veins are patent with normal hepatofu gal flow direction. The main hepatic artery, right and left hepatic arteries demonstrated normal patency and antegrade flow with peak systolic velocity 82 cm/s. The splenic vessels are patent with normal flow direction. Spleen measures 8 cm. Liver measures 15 cm. No gross ascites. No hydronephrosis in the included portions of the right kidney.. US/US duplex arterial venous comp IMPRESSION: No color Doppler nicky w in the left main portal vein likely related to thrombosis/occlusion. Remaining interrogat ed vessels demonstrated normal patency and flow direction. No gross ascites. Electronically marcial d by: Javed Birch MD 02/25/2025 07:26 AM EDT RP Dictated By: Javed Arnett MD Signed By: <Electronically signed by Javed Osborn MD in OV> 02/25/25 0726 DD/ 1445 TD/TT: 02/24/25 1515 Automation Controls Specialist: Reason For Referral No Information Medications Medication [...] cieved the high dose flu at the [facility] in [place]. 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 Problem 54379149 Atelectasis (J98.11) Active confirmed Problem 203973991 Tubular adenoma of colon (D12.6) Active confirmed Problem Acquired hypothyroidism (326928278) Acquired hypothyroidism (E03.9) Active confirmed Problem 286933343 Mild intermitten t asthma without complication (J45.20) Active confirmed Problem 9689860 Prediabetes (R73.09) Active confirmed Problem 786059439 Low HDL (under 40) (E78.6) Active confirmed Problem 99818139 Hiatal hernia (K44.9) Active confirmed Problem 82512947 Abdominal aortic aneurysm (AAA) without rupture (I71.4) Active confirmed Problem 474246557 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) Active confirmed Problem 17502658 ARUN (obstructive sleep apnea) (G47.33) Active confirmed Problem 272552719 Head and neck cancer (C76.0) Active confirmed Problem 88890661 Thrombosis, portal vein (I81) Active confirmed Vital [...] Zane Rivera MD [address] [place] [id number] 01/03/2025 Zane Rivera Prediabetes R73.09 ; Acquired hypothyroidism E03.9 and Low HDL (under 40) E78.6 Zane Rivera MD [address] [place] [id number] 01/20/2025 Zane Rivera UTI (urinary tract infection) N39.0 Zane Rivera MD [address] [place] [id number] 01/10/2025 Zane Rivera UTI (urinary tract infection) N39.0 ; Elevated PSA R97.20 ; Thrombosis, portal vein I81 and Head and neck cancer C76.0 Zane Rivera MD [address] [place] [id number] 04/30/2024 Zane Rivera MD [address] [id number] 05/04/2024 Zane Rivera Thrombosis, portal vein I81 Zane Rivera MD [address] [id number] 05/04/2024 Zane Rivera MD [address] [place] [id number] 10/05/2024 Zane iRvera Thrombosis, portal vein I81 Zane Rivera MD [address] [place] [id number] 10/07/2024 Zane Rivera Thrombosis, portal vein I81 Zane Rivera MD [address] [place] [id number] 12/28/2024 Zane Rivera Assessments Encounter Date Diagnosis (ICD Code) Assessment Notes Treatment Notes Treatment Clinical Notes Section Notes 01/03/2025 Prediabetes (ICD-10 - R73.09) 01/20/2025 UTI (urinary tract infection) (ICD-10 - N39.0) 01/10/2025 UTI (urinary tract infection) (ICD-10 - N39.0) 01/10/2025 Elevated PSA (ICD-10 - R97.20) has a uti so is probalbly from that will repeat 05/04/2024 Thrombosis, portal vein (ICD-10 - I81) 10/05/2024 Thrombosis, portal vein (ICD-10 - I81) 10/07/2024 Thrombosis, portal vein (ICD-10 - I81) 01/03/2025 Acquired hypothyroidism (ICD-10 - E03.9) 01/10/2025 Thrombosis, portal vein (ICD-10 - I81) patient reports that dr wilkins said he doesn't need eliquis any longer. [...] 12/29/2018 Next Appt Details Provider Name:Zane ireland, 07/14/2025 02:00:00 PM, [address] [place] [address], [address], [phone], Provider Name:Zane drewr, 01/05/2026 07:00:00 AM, [address] [place] [address], [address], [phone], Provider Name:Zane Mustafa ier, 01/12/2026 01:00:00 PM, [address] [place] [address], [address], [phone], Insurance Providers Payer Name Payer Address Payer Phone Subscriber Number Group Number Insured Name Patient Relationship to Insured Coverage Start Date Coverage End Date MEDICARE [employer] [address] [place] [address] [id number] Gary Donohue Self - patient is the insured MEDEX BCBS OF [facility] P O [facility] [id number] [place] [phone] [id number] Gary Donohue Self - patient is the [...]
--- OUTSIDE RECORDS SUMMARY | 2025-04-29 10:49 | XMS_ITS | Encounter Summary ---
Author Organization [facility] Address [address] [place] [phone] Phone Care Team Providers Care County Coroner Name Role Phone Zane Rivera MD Primary Care Provider Encounter Details Date Type Department Care Team (Late st Contact Info) Description 06/27/2017 Ancillary Orders Virtual Department [address] [place] [address] Adrian Brian MD [address] [place] [address] [address] [place] [address] [email or web address] Personal history of malignant neoplasm Social History [...] neoplasm documented in this encounter Care Teams County Coroner Relationship Specialty Start Date End Date Zane Rivera MD [address] [place] [address] [place] [address] PCP - General Internal Medicine 06/27/17 documented as of this encounter Additional Source Comments The information contained in this document represents components of the legal health record. It is not the complete legal health record.[facility]
--- OUTSIDE RECORDS SUMMARY | 2025-04-29 10:50 | XMS_ITS | Data Portability ---
Author Organization [place] - [facility], Allergy Address [address] [place] [address] Care Team Providers Care Fretted Instrument Repairer Name Role Phone STEPHAN SUMMERS Primary Care Provider [phone] Assessment Encounter Date Assessment Date Assessment LastModified [...] Go To The Location Of Their Choice, [id number] 07/06/2024 01:20:46 Referral None recorded. Procedures None recorded. Surgeries None recorded. Imaging None recorded. Medication Orders None recorded. Patient TargetsNo targets recorded. Patient Instructions Encounter Date Encounter Id Patient Instructions Last Modified By Organization Details Last Modified Time 01/05/2025 [id number] Please note: Parts of this encounter note [...] NG/dL 0.82-1 .77 normal Not Available [facility] ([facility]) [address] [place], [address], 07/06/2024 01:20:46 07/05/19 25 07/06/2024 TSH+F REE T4 TSH 1.710 uIU/m L 0.450- 4.500 normal Not Available [facility] (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 Neoplasm of uncertain behavior of other specified sites; Note: Date Diagnosed : 12/18/2015 9:02 AM (D48.7) Not Available [facility] 4 02:23:27 Otorrhea of left ear 62353022571 89911 Active 2015 Otorrhea, left ear; Note: Date Diagnosed : 12/18/2015 9:02 AM (H92.12) Not Available [facility] 4 02:23:26 Mass of neck 998215535 Active 2015 Localized swelling, mass and lump, neck; Note: Date Diagnosed : 12/18/2015 8:49 AM (R22.1) Not Available [facility] 4 02:23:18 Neck swelling 154278536 Active 2015 Localized swelling, mass and lump, neck; Note: Date Diagnosed : 12/18/2015 8:49 AM (R22.1) Not Available [facility] 4 02:23:18 Malignant neoplasm of head and/or neck 760215712 Active 2015 Malignant neoplasm of head, face and neck; Note: Date Diagnosed : 12/20/2015 12:30 PM (C76.0) Not Available [facility] 4 02:23:24 Sensorine ural hearing loss of bilateral ears 337662828 Active 2015 Sensorine ural hearing loss, bilateral ; Note: Date Diagnosed : 01/12/2016 4:44 PM (H90.3) Not Available [facility] 4 02:23:26 Antineopl astic chemother apy regimen Active 2015 Encounter for antineopl astic chemother apy; Note: Date Diagnosed : 03/08/2016 1:26 PM (Z51.11) Not Available [facility] 4 02:23:15 Stomatiti s 94122319 Active 2015 Oral thrush; Note: Date Diagnosed : 6 12:11 PM (B37.0) Not Available [facility] 4 02:23:07 Candidias is of mouth 99404551 Active 2015 Oral thrush; Note: Date Diagnosed : 6 12:11 PM (B37.0) Not Available [facility] 4 02:23:07 History of malignant neoplasm of oral cavity 569748521 Active 2016 Personal history of malignant neoplasm of other sites of lip, oral cavity, and pharynx; Note: Date Diagnosed : 08/09/2016 2:57 PM (Z85.818) Not Available [facility] 4 02:23:23 Edema of larynx 67115727 Active 2016 Edema of larynx; Note: Date Diagnosed : 08/09/2016 5:54 PM (J38.4) Not Available [facility] 4 02:22:42 Follow-up visit Active 2016 Encounter for follow-up examinati on after completed treatment for malignant neoplasm; Note: Date Diagnosed : 10/10/2016 10:01 AM (Z08) Not Available [facility] 4 02:23:09 Dysphonia 10014663 Active 2016 Hoarsenes s; Note: Date Diagnosed : 12/06/2016 9:55 AM (R49.0) Not Available [facility] 4 02:23:06 Chronic rhinitis 13971280 Active 2018 Chronic rhinitis; Note: Date Diagnosed : 12/30/2018 11:36 AM (J31.0) Not Available [facility] 4 02:23:27 Celluliti s 040852044 Active 2018 Celluliti s of other sites; Note: Date Diagnosed : 12/30/2018 2:44 PM (L03.818) Not Available [facility] 4 02:22:39 Posterior rhinorrhe a 06919191 Active 2018 Postnasal drip; Note: Date Diagnosed : 12/30/2018 11:35 AM (R09.82) Not Available [facility] 4 02:22:39 Lymphedem a 076797880 Active 2019 Lymphedem a, not elsewhere classifie d; Note: Date Diagnosed : 07/05/2019 9:04 AM (I89.0) Not Available [facility] 4 02:23:20 Pharyngea l dysphagia 58582413865 105 Active 2022 Dysphagia , pharyngea l phase; Note: Date Diagnosed : 01/01/2023 9:29 AM (R13.13) Not Available [facility] 4 02:23:13 Chronic hoarsenes s 95562457565 05 Active 2023 SAROJ SHORE MD [address] [facility] [place] [address], [place], [address] , [facility] - [facility] 4 09:10:44 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 Procedures Surgical History Date Name Laterality Status Provider Name and Address Organization Details Recorded Time 01/06/20 25 Fiberoptic Laryngoscopy (Comprehensive) completed SAROJ MONTANO MD [address] [place] [address],[address], [address], [facility] [place] [facility] 01/05/2025 09:15:35 07/05/19 25 Fiberoptic Laryngoscopy (Comprehensive) completed SAROJ MONTANO MD [address] [facility],[address], [address], [facility] [place] [facility] 07/04/2024 15:13:59 12/31/19 24 Fiberoptic Laryngoscopy (Comprehensive) completed SAROJ MONTANO MD [address] [place] [address],[address], [address], [facility] [place] [facility] 12/31/2023 09:09:53 hernia repair completed Suzanne Espinoza [facility] 01/05/2025 08:51:00 Imaging Results None recorded. Procedure [...] in mouth 01/05 completed Medicati on ID: [id number] D uration Value: 7 Prescri bed By Name: Caroline Luciano nd Name: clotrima zole Sen d Method: E-Prescr ibed Sub s Allowed: subs OK Medic ationGen ericName : clotrima zole Not Available Not Available Not Available nystatin 100,000 unit/mL oral suspensio n 10/10 completed Medicati on ID: [id number] P rescribe d By Name: Bang elizalde [...] oral solution 10/10 completed Medicati on ID: [id number] D uration Value: 14 Reason: () Brand Name: oxycodon e Send Method: E-Prescr ibed Sub s Allowed: subs OK Speci al Instruct ion: take 10 millilit ers by mouth every 6 hours if needed for 14 days TAKE MINIMUM EFFECTIV E DOSE Med icationG enericNa me: oxycodon e Not Available Not Available Not Available lorazepam 0.5 mg tablet 01/05 completed Medicati on ID: [id number] D uration Value: 30 Brand Name: lorazepa m Send Method: E-Prescr ibed Sub s Allowed: subs OK Speci al Instruct ion: TAKE 1 TABLET BY MOUTH 3 TIMES DAILY Me dication GenericN bahman: lorazepa m Not Available Not Available Not Available Augmentin ES-600 600 mg-42.9 mg/5 mL oral suspensio n 2 teaspoon by mouth 07/04 completed Medicati on ID: [id number] D uration Value: 10 Brand Name: Augmenti n ES-600 S end Method: E-Prescr ibed Sub s Allowed: subs OK Medic ationGen ericName : Augmenti n ES-600 M anthony n ID: [id number] D uration Value: 10 Brand Name: Augmenti [...] 4 drop 07/04 completed Medicati on ID: [id number] D uration Value: 7 Prescri bed By [...] Updated DateTime 07/05/2024 172.72 cm 24.3 kg/m2 78116.78 g Thomas Peñaloza [place] - [facility] 07/05/2024 08:52:17 Date Recorded Body height Body mass index (BMI) Body weight Provider Name and Address Organization Details Last Updated DateTime 12/31/2023 172.72 cm 24.9 kg/m2 20908.15 g Thomas Peñaloza [place] - [facility] 12/31/2023 08:51:27 Social History None recorded. Functional Status None recorded. Mental Status None recorded. Family History Nothing Reported. Medical History Condition Response Cancer Y Past Encounters Encounter ID Performer Location Encounter Start Date Encounter Closed Date Diagnosis/Indication Diagnosis SNOMED-CT Code Diagnosis ICD10 Code Diagnosis IMO Codes Diagnosis Note [id number] SAROJ SHORE MD [facility] [address] [address] 12/31/2023 08:40:00 12/31/2023 09:11:51 Edema of larynx following radiotherapy 938114941 Y84.2 History of malignant neoplasm of digestive organ 1889493863 4929462 Z85.00 Chronic hoarseness 14542 58099 105 R49.0 [id number] SAROJ SHORE MD [facility] [address] [address] 07/05/2024 08:45:33 07/05/2024 09:30:21 Edema of larynx following radiotherapy 132199904 Y84.2 History of malignant neoplasm of digestive organ 8859878286 4263233 Z85.00 Chronic hoarseness 97352 04081 105 R49.0 [id number] SAROJ SHORE MD [facility] [address] [address] 01/05/2025 08:38:06 01/05/2025 09:16:09 Edema of larynx 36240181 J38.4 Dysphonia 12083874 R49.0 History of malignant neoplasm of oral cavity 353982438 Z85.819 Lymphedema 712715337 I89 .0 Health Concerns Section Related Observation LastModified by Organization Detai ls LastModified Time None Recorded Concern Status LastModified by Organization Details LastModified Time None Recorded Advance Directives Directive None Recorded Payers Insurance Date Sequence Insurance Name Policy Number Policy Donaldson Covered Member ID Donaldson Member ID Guarantor Name 01/05/2025 2 [place] [id number] Gary Donohue [id number] Gary Donohue 01/05/2025 1 [place] [facility] Gray Donohue [id number] Gary Donohue Notes Date Note Type [...] by PCPChest CT August 2022Using CPAP regularly. SARJO MONTANO MD [address] [facility],[address], [address], [place] - [facility] 12/31/2023 09:12:40 07/05/2024 text/html ROS as noted [...] paincontinues on Eliquis SAROJ MONTANO MD [address] [facility],[address], [address], [place] - [facility] 07/05/2024 09:28:15 01/05/2025 text/html 79 y/o old [...] an adaptive nutritional intake. SAROJ MONTANO MD [address] [place] [address], [address], [facility] - [facility] 01/05/2025 09:16:59
--- OUTSIDE RECORDS SUMMARY | 2025-04-29 10:50 | XMS_ITS | Patient Health Record ---
Author Organization [facility] Address [address] [place] [address] Care Team Providers Care Air Conditioner Installer Helper Name Role Phone Zane Rivera MD Primary Care Provider Bang Chairez Unavailable [phone] Allergies Allergen (clinical drug ingredient) Drug/Non Drug Allergy documented on EMR Reaction Allergy Type Onset Date Status seasonal (uncoded) Unknown Allergy A ctive Reason For Referral No Information Medications Medication SIG (Take, Route, Frequency, Duration) Notes Start Date End Date Status Ventolin HFA 108 (90 Base) MCG/ACT 2 puffs as needed Inhalation every 6 hrs Active Eliquis 5 MG Oral; Duration: 30 Days Active Mouthwash Active Aspir-81 81 MG 1 tablet Orally Once a day Not-Taking Immunizations Vaccine Route Administration Date Status Comme nts Influenza Unknown 03/30/2019 Administered Problems Problem Type SNOMED Code ICD Code Onset Dates Problem Status W/U Status Risk Notes Problem Screening for malignant neoplasm of colon (860806513) Encounter for screening for malignant neoplasm of colon (Z12.11) Active confirmed Problem Portal vein thrombosis (52612810) Portal vein thrombosis (I81) Active confirmed Problem Gallstones (142536094) Gallstones (K80.20) Active confirmed Problem Long-term current use of antiplatelet drug (589374544681029 ) Long-term use of aspirin therapy (Z79.82) Active confirmed Problem History of adenomatous polyp of colon (782305985) Hx of adenomatous colonic polyps (Z86.010) Active confirmed Problem Pre-procedure evaluation check (373738830) Pre-procedural examination (Z01.818) Active confirmed Vital Signs Blood pressure diastolic 111 mm Hg 09/28/2024 Height 67.5 in 09/28/2024 Blood pressure systolic 111 mm Hg 09/28/2024 Weight 166 lbs 09/28/2024 BMI 25.61 kg/m2 09/28/2024 Encounters Encounter Location Date Provider Diagnosis [facility] [address] [place] [address] 09/28/2024 Bang Goldstein Hx of adenomatous colonic [...] [place] [address] [place] [address] [id number] JUDSON FREIRE Self - patient is the insured 2 [employer] ATT[employer] CLAIMS [address] [place] [address] [id number] JUDSON FREIRE Self - patient is the insured Medical (General) History Medical History History ICD Code Colonoscopy, 1999, 2002,2008, 04/2014 tu bular adenomas Asthma--uses inhaler prn Diverticulosis History of a mild esophageal ring, status post EGD with dilatation in 1993--no esophagitis Denies ND,DM,CVA,renal disease Squamous cell cancer throat in 2015 [...]
--- OUTSIDE RECORDS SUMMARY | 2025-04-29 10:50 | XMS_ITS | Encounter Summary ---
Author Organization [facility] Address [address] [place] [address] [place] [address] Phone Care Team Providers Care Glycerine Plant Operator Name Role Phone Zane Rivera MD Primary Care Provider Reason for Referral * Occupational Therapy (Routine) - Closed Specialty Diagnoses / Procedures Referred By Contdena t Referred To Contact Occupational Therapy Diagnoses Encounter for rehabilitation Neck lymphedema Procedures new patient occupational therapy System, Provider Not In, PhD [id number] [place] [address] Phone: tel: Referral ID Status Reason Start Date Expiration Date Visits Re quested Visits Authorized [id number] Closed 12/28/2018 12/29/2019 99 99 Encounter Details Date Type Department Care Team (Latest Contact Info) Description 12/28/2018 Transcribe Orders [facility] [address] [place] [phone] Zane Rivera MD [address] [place] [address] [address] Encounter for rehabilitation (Primary Dx) Social History [...] Diagnoses Orde r Schedule Ambulatory referral to [facility] Occupational Therapy Outpatient Referral Routine Encounter for rehabilitation Ordered: 12/28/2018 documented as of this encounter Visit Diagnoses Diagnosis Encounter for rehabilitation- Primary documented in this encounter Care Teams Glycerine Plant Operator Relationship Specialty Start Date End Date Zane Rivera MD [address] [place] [address] [place] [address] PCP - General Internal Medicine 06/27/17 documented as of this encounter Additional Source Comments The information contained in this document represents components of the legal health record. It is not the complete legal health record.[facility]
--- NOTE | 2025-04-29 11:57 | MHC.AU.HA3 ---
Hearing Instrument Follow-Up- Binaural Date of Visit: 04/29/25 Right Ear: Raman, Model, Color, Serial Number: Shirin Gastelum [id number] SN: [id number] Color: Graphite Qureshi Bookstore Clerk Repair Warranty: 08/25/2021 Bookstore Clerk Loss and Damage Warranty: 08/25/2021 [facility] Service Plan: 10/11/2025 Battery Size: 312 Flour Mixer/Slim Tube: 3M Earmold/Dome/CShell/SlimTip:Large open dome (no retention tail) Type of Wax Guard: CeruShield Dispensed By: [facility] Date of Fittin06/19/2018 Left Ear: Raman, Model, Color, Serial Number: Shirin Gastelum [id number] SN: [id number] Color: Graphite Qureshi Bookstore Clerk Repair Warranty: 08/25/2021 Bookstore Clerk Loss and Damage Warranty: 08/25/2021 [facility] Service Plan: 10/11/2025 Battery Size: 312 Flour Mixer/Slim Tube: 3M Earmold/Dome/CShell/SlimTip: Medium power dome (no retention tail) Type of Wax Guard: CeruShield Dispensed By: [facility] Date of Fittin06/19/2018 Follow-Up Summary: Right aid dropped off complaint of makes noises when stand too close to wall or other objects . Cleaned aid. Found wax built up in wax guard. Replaced dome and wax guard. Listening check good. Recommendations: Recommendations: If feedback persists, need appointment to address. Suggested contacting PCP to check for wax/ wax removal if needed as wax in canal may cause feedback. Diagnosis Code(s): Primary Diagnosis: H90.3 Bilateral Sensorineural Hearing Loss Signature: Provider: Brice Samuels, CCC-A
== END 2025-04-29 09:32 | disposition home or self-care (01) ==
LOC: HO.HAP 09:31
PROVIDERS: Visit Provider Internal Medicine
DX: Z46.1 Encounter for fitting and adjustment of hearing aid (principal); H90.3 Sensorineural hearing loss, bilateral
CPT/HCPCS: 92593